=== PATIENT | female | born 1935 | race Caucasian/White ===

== ENCOUNTER 2016-11-16 08:00 | Emergency (ER) | payer OTHER ==
[~2016-11-16] VITALS: Ht 152.4 cm; Wt 62.8 kg
[2016-11-16 08:08] VITALS: TEMP 36.8; Ht 152.4 cm; Wt 62.8 kg
[2016-11-16] MEDS ORDERED: ALLO300T2 PO (08:25)
[2016-11-16] MEDS ORDERED: OMEG10007 PO (08:25)
[2016-11-16] MEDS ORDERED: ASPI81TA28 PO (08:25)
[2016-11-16] MEDS ORDERED: ROSU20TA PO (08:25)
[2016-11-16] MEDS ORDERED: LOSA50TA6 PO (08:25)
[2016-11-16] MEDS ORDERED: ONDA8TAB62 SL (08:25)
[2016-11-16] MEDS ORDERED: GABA-113 PO (08:25)
[2016-11-16] MEDS ORDERED: METO25TA56 PO (08:25)
[2016-11-16] MEDS ORDERED: FENTANYL CITRATE INJ 50 MCG/1 ML 2 ML VIAL IV STA (08:35)
[2016-11-16] MEDS ORDERED: SODIUM CHLORIDE 0.9% 1000ML 1,000 ML IV STA ×2 (08:35)
[2016-11-16] MEDS ORDERED: ONDANSETRON INJ 2 MG/ML 2 ML VIAL IV STA (08:35)
[2016-11-16 08:59] LABS: BASO % 0.3 %; BASO ABS # 0.03 K/uL (0-0.2); COMPLETE YES; EOS % 0.5 %; HEMATOCRIT 46.4 % (37-47); IG% 0.2 %; LYMPH % 13.7 %; LYMPH ABS # 1.51 K/uL (1.2-3.4); MEAN CELL VOLUME 96.9 fL (80-100); MEAN CORPUSCULAR HEMOGLOBIN 32.6 pg (25-34); MEAN CORPUSCULAR HGB CONC 33.6 g/dl (32-36); MEAN PLATELET VOLUME 11.4 fL (7.4-10.4); MONO % 8.6 %; NEUT % 76.7 %; PLATELET COUNT 114 K/uL (130-400); RED BLOOD COUNT 4.79 M/uL (4.2-5.4); WHITE BLOOD COUNT 11.04 K/uL (4.8-10.8)
[2016-11-16 09:03] LABS: BUN/CREATININE RATIO 17.6 (10-20); CALCIUM 9.4 mg/dl (8.5-10.1); POTASSIUM 4.3 mmol/L (3.5-5.1)
[2016-11-16 09:07] LABS: ALB/GLOB RATIO 0.9 (0.9-2)
[2016-11-16 09:08] LABS: URINE APPEARANCE CLOUDY (CLEAR); URINE BILIRUBIN NEG (NEG); URINE COLOR YELLOW; URINE NITRITE NEG (NEG); URINE SPECIFIC GRAVITY 1.016 (1.000-1.030); UROBILINOGEN NEG (NEG)
[2016-11-16 09:10] LABS: MANUAL MICROSCOPIC REQUIRED? NO; REVIEW REQ? NO
--- NOTE | 2016-11-16 10:06 | DIAGNOSTIC IMAGING REPORT ---
CT SCAN OF THE ABDOMEN AND PELVIS WITHOUT CONTRAST CLINICAL HISTORY: LEFT FLANK PAIN, HEMATURIA COMPARISON STUDY: No previous studies for comparison. TECHNIQUE: CT scan of the abdomen and pelvis was performed from the lung bases to the proximal femurs. Images are reviewed in the axial, sagittal, and coronal planes. IV contrast was not administered for this examination. A dose lowering technique was utilized adhering to the principles of ALARA. CT DOSE: 361.44 mGy.cm FINDINGS: Lower chest: The heart is normal in size and configuration, without pericardial effusion. The lung bases and pleural spaces are clear. Liver: There are bibasal atelectatic changes. Gallbladder: Unremarkable. Spleen: Normal in size and attenuation. Pancreas: Unremarkable. Adrenal glands: Unremarkable. Kidneys: There are multiple right renal calculi measuring up to 3 mm in diameter. There is a 14 mm lower pole right renal cyst. Multiple left renal calculi are also visualized. The largest measures 3 mm. There is left-sided hydronephrosis and perinephric stranding. There is left-sided hydroureter. There is a 4 mm mid left ureteral calculus. No bladder calculi are visualized Bowel: There are no transition zones indicate bowel obstruction. There is no acute diverticulitis. There is no acute appendicitis. Peritoneum: There is no intraperitoneal free air or abdominal ascites. Vasculature: The abdominal aorta is normal in course and caliber. Adenopathy: None. Pelvic viscera: The uterus appears surgically absent. Skeletal structures: No destructive osseous lesions are seen. IMPRESSION: 1. Bilateral nephrolithiasis 2. 4 mm mid left ureteral calculus with secondary obstructive changes Electronically signed by: Aurelio Kunz M.D. 11/16/2016 10:05 AM Dictated Date/Time: 11/16/2016 9:58 AM
[2016-11-16] MEDS ORDERED: KETOROLAC TROMETHAMINE 30 MG/ML VIAL IV STA (10:11)
--- NOTE | 2016-11-16 10:28 | EMERGENCY ROOM VISIT NOTE ---
ED Visit Note First contact with patient: 08:20 Staff note: I have reviewed the Patients chart and have discussed this case with my PA. I generally agree with the ED note and findings.
[2016-11-16] MEDS ORDERED: HYDR-5688 PO (10:58)
[2016-11-16] MEDS ORDERED: ONDA4TAB10 SL (10:58)
--- NOTE | 2016-11-16 10:59 | EMERGENCY ROOM VISIT NOTE ---
History First contact with patient: 08:20 Chief Complaint: ABDOMINAL PAIN Stated Complaint: LEFT SIDE STOMACH PAIN Nursing Triage Summary: Left sided abd/flank pain with nausea. Feeling bloated per pt. Hx of kidney stone approx 20 years ago. States did not take her morning medications. Seen at [facility] on 11/14 for same - while on vacation. History of Present Illness Patient is a 81-year-old white female who presents emergency department for evaluation of left-sided abdominal pain. Her symptoms started fairly suddenly [place] the beach 2 [place]. She notes pain primarily in the left lower quadrant, it wraps around to her back very slightly. She notes some associated nausea without vomiting. She was seen at an urgent care center in [place] where she was given an IM injection for nausea and sent home with Fang. She states that Zofran has been helping with her nausea, but the pain persists. She was very uncomfortable overnight and has difficulty sleeping. She presently rates her pain an 8/10, but states that it was worse overnight. Her bowel movements have been normal, last bowel movement was yesterday morning and was normal and brown without blood. She has not vomited. She has a remote history of a kidney stone 20 years ago, states that this feels slightly similar. She notes that her urine is "strong," denies any dysuria. She has been belching a lot. She has a history of a hysterectomy. She's never had a bout section. Her last colonoscopy was about 4 years ago and was clear. She denies any chest pain, palpitations or shortness of breath. Review of Systems Review of systems as per HPI. All other systems reviewed were negative. 10 systems reviewed. Past Medical/Surgical History Medical Problems: (1) Coronary artery disease (2) Dyslipidemia (3) Gout (4) Hypertension (5) Kidney stone (6) Myocardial infarction (7) Spinal stenosis Surgical Problems: (1) History of hysterectomy Electronic medical records are reviewed and summarized as above/below. See Problem List. Social History Smoking Status: Current Every Day Smoker Alcohol Use: occasionally Marital Status: Housing Status: lives alone Occupation Status: retired Current/Historical Medications Scheduled Allopurinol (Zyloprim), 300 MG PO DAILY Aspirin (Aspirin Ec), 81 MG PO DAILY Fish Oil (Aline-3), 1 CAP PO BID Gabapentin (Neurontin), 300 MG PO BID Losartan Potassium (Cozaar), 50 MG PO DAILY Metoprolol Tartrate (Lopressor) (Lopressor), 12.5 MG PO BID Rosuvastatin Calcium (Crestor), 20 MG PO DAILY Scheduled PRN Hydrocodone/Acetaminophen 5MG/325MG ([place] 5MG/325MG), 1-2 TABLETS PO Q4 PRN for Pain Ondansetron Odt (Zofran Odt), 4 MG SL Q6H PRN for Nausea Ondasetron Odt (Zofran Odt), 4 MG SL Q4 PRN for Nausea or Vomiting Physical Exam Vital Signs Date Time Temp Pulse Resp B/P (MAP) Pulse Ox O2 Delivery O2 Flow Rate FiO2 11/16/16 11:17 78 18 162/68 97 11/16/16 10:00 82 18 144/69 97 Room Air 11/16/16 08:08 36.8 84 18 145/69 93 Room Air Physical Exam CONSTITUTIONAL: Patient is a well-appearing 81-year-old white female who is awake and alert and in mild distress due to her abdominal pain. EYES: Pupils equal, round, reactive to light and accommodation. EOMs intact without nystagmus. Sclera are anicteric. ENT: Tympanic membranes intact, with normal landmarks. External canals are clear. Oral and nasopharynx are clear. Mucous membranes are moist, no lesions , tongue and gums appear normal. CARDIOVASCULAR: Regular rate and rhythm, with normal S1 and S2, soft systolic ejection murmur noted. No JVD. Peripheral pulses easily palpable. RESPIRATORY: Breath sounds equal and clear to auscultation without wheezes, rales, or rhonchi heard. Full and equal chest expansion without accessory muscle use or retractions. ABDOMEN: Bowel sounds are present. Well-healed surgical scar noted. Abdomen is soft, nondistended, tender to palpation in the left lower quadrant without guarding, rebound or rigidity. INTEGUMENTARY: No lesions or rash, normal skin turgor. LYMPH: No lymphadenopathy. Medical Decision & Procedures ER Provider Diagnostic Interpretation: CT SCAN OF THE ABDOMEN AND PELVIS WITHOUT CONTRAST CLINICAL HISTORY: LEFT FLANK PAIN, HEMATURIA COMPARISON STUDY: No previous studies for comparison. TECHNIQUE: CT scan of the abdomen and pelvis was performed from the lung bases to the proximal femurs. Images are reviewed in the axial, sagittal, and coronal planes. IV contrast was not administered for this examination. A dose lowering technique was utilized adhering to the principles of ALARA. CT DOSE: 361.44 mGy.cm FINDINGS: Lower chest: The heart is normal in size and configuration, without pericardial effusion. The lung bases and pleural spaces are clear. Liver: There are bibasal atelectatic changes. Gallbladder: Unremarkable. Spleen: Normal in size and attenuation. Pancreas: Unremarkable. Adrenal glands: Unremarkable. Kidneys: There are multiple right renal calculi measuring up to 3 mm in diameter. There is a 14 mm lower pole right renal cyst. Multiple left renal calculi are also visualized. The largest measures 3 mm. There is left-sided hydronephrosis and perinephric stranding. There is left-sided hydroureter. There is a 4 mm mid left ureteral calculus. No bladder calculi are visualized Bowel: There are no transition zones indicate bowel obstruction. There is no acute diverticulitis. There is no acute appendicitis. Peritoneum: There is no intraperitoneal free air or abdominal ascites. Vasculature: The abdominal aorta is normal in course and caliber. Adenopathy: None. Pelvic viscera: The uterus appears surgically absent. Skeletal structures: No destructive osseous lesions are seen. IMPRESSION: 1. Bilateral nephrolithiasis 2. 4 mm mid left ureteral calculus with secondary obstructive changes Laboratory Results 11/16/16 08:20 Red Blood Count 4.79, Mean Corpuscular Volume 96.9, Mean Corpuscular Hemoglobin 32.6, Mean Corpuscular Hemoglobin Concent 33.6, Mean Platelet Volume 11.4, Neutrophils (%) (Auto) 76.7, Lymphocytes (%) (Auto) 13.7, Monocytes (%) (Auto) 8.6, Eosinophils (%) (Auto) 0.5, Basophils (%) (Auto) 0.3, Neutrophils # (Auto) 8.48, Lymphocytes # (Auto) 1.51, Monocytes # (Auto) 0.95, Eosinophils # (Auto) 0.05, Basophils # (Auto) 0.03 11/16/16 08:20 Test 11/16/16 08:20 11/16/16 08:40 White Blood Count 11.04 K/uL (4.8-10.8) Red Blood Count 4.79 M/uL (4.2-5.4) Hemoglobin 15.6 g/dL (12.0-16.0) Hematocrit 46.4 % (37-47) Mean Corpuscular Volume 96.9 fL (80-100) Mean Corpuscular Hemoglobin 32.6 pg (25-34) Mean Corpuscular Hemoglobin Concent 33.6 g/dl (32-36) Platelet Count 114 K/uL (130-400) Mean Platelet Volume 11.4 fL (7.4-10.4) Neutrophils (%) (Auto) 76.7 % Lymphocytes (%) (Auto) 13.7 % Monocytes (%) (Auto) 8.6 % Eosinophils (%) (Auto) 0.5 % Basophils (%) (Auto) 0.3 % Neutrophils # (Auto) 8.48 K/uL (1.4-6.5) Lymphocytes # (Auto) 1.51 K/uL (1.2-3.4) Monocytes # (Auto) 0.95 K/uL (0.11-0.59) Eosinophils # (Auto) 0.05 K/uL (0-0.5) Basophils # (Auto) 0.03 K/uL (0-0.2) RDW Standard Deviation 46.3 fL (36.4-46.3) RDW Coefficient of Variation 13.1 % (11.5-14.5) Immature Granulocyte % (Auto) 0.2 % Immature Granulocyte # (Auto) 0.02 K/uL (0.00-0.02) Anion Gap 9.0 mmol/L (3-11) Est Creatinine Clear Calc Drug Dose 37.7 ml/min Estimated GFR () 62.1 Estimated GFR (Non- 53.5 BUN/Creatinine Ratio 17.6 (10-20) Calcium Level 9.4 mg/dl (8.5-10.1) Total Bilirubin 1.1 mg/dl (0.2-1) Aspartate Amino Transf (AST/SGOT) 45 U/L (15-37) Alanine Aminotransferase (ALT/SGPT) 44 U/L (12-78) Alkaline Phosphatase 78 U/L (45-117) Total Protein 7.0 gm/dl (6.4-8.2) Albumin 3.4 gm/dl (3.4-5.0) Globulin 3.6 gm/dl (2.5-4.0) Albumin/Globulin Ratio 0.9 (0.9-2) Lipase 114 U/L (73-393) Urine Color YELLOW Urine Appearance CLOUDY (CLEAR) Urine pH 5.0 (4.5-7.5) Urine Specific [place] 1.016 (1.000-1.030) Urine Protein NEG (NEG) Urine Glucose (UA) NEG (NEG) Urine Ketones NEG (NEG) Urine Occult Blood 3+ (NEG) Urine Nitrite NEG (NEG) Urine Bilirubin NEG (NEG) Urine Urobilinogen NEG (NEG) Urine Leukocyte Esterase TRACE (NEG) Urine WBC (Auto) 1-5 /hpf (0-5) Urine RBC (Auto) 10-30 /hpf (0-4) Urine Hyaline Casts (Auto) 0 /lpf (0-5) Urine Epithelial Cells (Auto) 5-10 /lpf (0-5) Urine Bacteria (Auto) NEG (NEG) Medications Administered Medications (Trade) Dose Ordered Sig/Chacho Route Start Time Stop Time Status Last Admin Dose Admin Sodium Chloride 1,000 ml @ 999 mls/hr Q1H1M STAT IV 11/16/16 08:35 11/16/16 09:35 DC 11/16/16 08:46 999 MLS/HR Sodium Chloride 1,000 ml @ 250 mls/hr Q4H STAT IV 11/16/16 08:35 11/16/16 11:34 DC 11/16/16 08:45 250 MLS/HR Ondansetron HCl (Zofran Inj) 4 mg NOW STAT IV 11/16/16 08:35 11/16/16 08:37 DC 11/16/16 08:45 4 MG Fentanyl Citrate (Fentanyl Inj) 50 mcg NOW STAT IV 11/16/16 08:35 11/16/16 08:37 DC 11/16/16 08:45 50 MCG Ketorolac Tromethamine (Toradol Inj) 30 mg NOW STAT IV 11/16/16 10:11 11/16/16 10:14 DC 11/16/16 10:24 30 MG ED Course The patient was seen and assessed as above. She has no old records at our facility for review. IV lock was initiated and she was hydrated with normal saline solution. She was medicated with fentanyl 50 g and Zofran 4 mg IV. CBC with differential, CMP, lipase and urinalysis were collected. Laboratory studies noted a slightly elevated white count at 11,000, H&H is normal. Electrolytes and renal functions are within normal limits. She has slight, nonspecific elevation of her total bilirubin and AST, remainder of her liver functions are normal. Lipase is not elevated. Urinalysis notes 3+ occult blood , 10-30 RBCs and trace leukoesterase, no bacteria or other indicators for infection. Given the left flank pain and hematuria, CT scan of the abdomen and pelvis was ordered to evaluate for possible kidney stone. CT scan noted a 4 mm left ureteral calculi, with left-sided hydronephrosis, hydroureter and perinephric stranding. Bilateral nephrolithiasis was also noted. All laboratory and diagnostic imaging studies were reviewed with patient and her daughter and discussed with attending physician who also independently evaluated the patient. Patient was given Toradol 30 mg IV. She was issued a urine strainer. Conservative care measures were discussed. The patient reported good relief of her pain with the IV medications. She rated her discomfort a 3/10 at discharge. She felt comfortable going home. She was educated on the worrisome signs or symptoms for which she should return to the emergency department. Patient was discharged home in good condition with her daughter driving. Differential diagnoses entertained included UTI, pyelonephritis, renal colic, diverticulitis, shingles, muscle strain, hernia, bowel obstruction, perforation , mass or malignancy, ovarian cyst, ovarian torsion, among others. Medical Decision See Emergency Department course [place] Drug Monitoring Program Search Results: patient reviewed within database, no issues identified Medication Reconcilliation Current Medication List: was personally reviewed by nd Blood Pressure Screening Patient's blood pressure: Elevated blood pressure Blood pressure disposition: Elevated BP felt to be situational, Did not require urgent referral Impression Primary Impression: Left ureteral calculus Additional Impressions: Bilateral nephrolithiasis Renal colic on left side Departure Information Prescriptions Ondasetron Odt (ZOFRAN ODT) 4 Mg Tab 4 MG SL Q4 Y for Nausea or Vomiting, #20 TAB Prov: Arabella Carrion PA 11/16/16 Hydrocodone/Acetaminophen 5MG/325MG ([place] 5MG/325MG) Tab 1-2 TABLETS PO Q4 Y for Pain, #25 TAB For Initial Treatment Prov: Arabella Carrion PA 11/16/16 Referrals No Doctor, Assigned (PCP) Patient Instructions [facility] Additional Instructions DO NOT drive, drink alcohol, operate machinery, or perform dangerous activities today. You were given medications in the ER that can affect your ability to safely function or operate a vehicle. Hydrocodone/Acetaminophen ([place]) 5/325 mg: Take 1-2 pills every four hours for breakthrough pain. Avoid alcohol, operating machinery or dangerous equipment, working on ladders or roofs, DRIVING, or situations where being under the influence may be dangerous. It is recommended to use an [id number] stool softener such as Colace, 100mg twice daily while taking this medication to avoid constipation. Zofran(odansetron) tablets 4mg: Take one and allow it to dissolve in your mouth every four to six hours as needed for nausea or vomiting. Strain your urine and collect all the stones or debris for the urologists. Rest and avoid strenuous activity until your stone passes and symptoms resolve. Drink plenty of fluids. Continue current medications. Return to the ER for worsening abdominal or back pain, vomiting, fevers, passing out, or as needed. Follow up with your primary care physician next week for further care and management. Problem Qualifiers
[2016-11-16 11:17] VITALS: BP 162/68; PULSE 78; O2SAT 97
== END 2016-11-16 11:18 | disposition home or self-care (01) ==
LOC: C.EDB 08:02 → C.EDA 11:18
DX: N13.2 Hydronephrosis with renal and ureteral calculous obstruction (principal); Z90.710 Acquired absence of both cervix and uterus; I25.10 Atherosclerotic heart disease of native coronary artery without angina pectoris; E78.5 Hyperlipidemia, unspecified; M10.9 Gout, unspecified; I10 Essential (primary) hypertension; I25.2 Old myocardial infarction; M48.00 Spinal stenosis, site unspecified; F17.210 Nicotine dependence, cigarettes, uncomplicated; Z79.82 Long term (current) use of aspirin; Z79.899 Other long term (current) drug therapy

== ENCOUNTER → 2016-11-30 | Outpatient (CLI) | payer OTHER ==
[~2016-11-30] MED LIST: ALLO300T2 PO; ASPI81TA28 PO; GABA-113 PO; HYDR-5688 PO; LOSA50TA6 PO; METO25TA56 PO; OMEG10007 PO; ONDA4TAB10 SL; ONDA8TAB62 SL; ROSU20TA PO
== END | disposition home or self-care (01) ==
LOC: C.LABSPEC 17:04
PROVIDERS: ATTEND Urology
DX: N20.0 Calculus of kidney (principal)

== ENCOUNTER → 2017-01-13 | Outpatient (CLI) | payer OTHER ==
--- NOTE | 2017-01-13 10:55 | DIAGNOSTIC IMAGING REPORT ---
KUB HISTORY: N20.0 [id number] COMPARISON: Abdomen and pelvis CT 11/16/2016. FINDINGS: The bowel gas pattern is unremarkable. There are no dilated loops of small bowel to suggest an obstruction. There is a 4 mm stone within the lower pole the left kidney. No right renal calculi identified. Of note, the right renal shadow is mostly obscured by overlying bowel gas. There is a 5 mm calcification overlying the left side of the sacrum. This may correspond to the left ureteral stone seen on the prior study. No bladder calculi. No pneumoperitoneum or pneumatosis. IMPRESSION: A 5 mm calcification overlying the left side of the sacrum which may correspond to the left ureteral stone seen on the prior CT. Electronically signed by: Gato Paula M.D. 01/13/2017 10:54 AM Dictated Date/Time: 01/13/2017 10:51 AM
--- NOTE | 2017-01-13 11:27 | DIAGNOSTIC IMAGING REPORT ---
RENAL ULTRASOUND HISTORY: N20.0 Nephrolithiasis latex [id number] COMPARISON: Abdomen and pelvis CT 11/16/2016. FINDINGS: Right kidney: 10.4 cm. No hydronephrosis. Normal corticomedullary differentiation and cortical thickness. A 1 cm bilobed/septated cyst within the lower pole. Left kidney: 10.8 cm. No hydronephrosis. Normal corticomedullary differentiation and cortical thickness. Bladder: No bladder wall thickening. The bilateral ureteral jets were identified. IMPRESSION: No hydronephrosis. Electronically signed by: Gato Paula M.D. 01/13/2017 11:26 AM Dictated Date/Time: 01/13/2017 11:25 AM
== END ==
LOC: C.ULTR 10:03
PROVIDERS: ATTEND Urology
DX: N20.0 Calculus of kidney (principal)

== ENCOUNTER → 2017-07-12 | Outpatient (CLI) | payer OTHER ==
[~2017-07-12] MED LIST changes: -HYDR-5688 PO; -ONDA4TAB10 SL
--- NOTE | 2017-07-12 10:37 | DIAGNOSTIC IMAGING REPORT ---
(RENAL)RETROPERITON COMP CLINICAL HISTORY: 82 years-old Female presenting with N13.30 [id number] Nephrolithiasis no latex [id number]. TECHNIQUE: Real-time grayscale and limited color Doppler ultrasound imaging of the kidneys and bladder was performed. COMPARISON: 01/13/[address] from 11/16/2016. FINDINGS: Right kidney: Normal echogenicity of renal parenchyma. Right kidney measures 10.7 cm. No hydronephrosis. 1.0 x 1.2 x 0.7 cm anechoic lesion at the lower pole with a single thin septation, likely minimally complex cyst (Bosniak 2). Left kidney: Normal echogenicity of renal parenchyma. Left kidney measures 11.8 cm. No hydronephrosis. Multiple small foci of twinkling artifact suggests renal calculi. Bladder: Normal. Bilateral ureteral jets present. Other: Hyperechogenicity of the liver parenchyma suggests underlying hepatic steatosis. IMPRESSION: 1. The presence of bilateral nephrolithiasis is better appreciated on prior CT from 11/16/2016. Left renal calculi is suspected based on this ultrasound. 2. No hydronephrosis. 3. Minimally complex right renal cyst (likely Bosniak 2). Electronically signed by: Jeff Stewart M.D. 07/12/2017 10:35 AM Dictated Date/Time: 07/12/2017 10:32 AM
== END | disposition home or self-care (01) ==
LOC: C.ULTR 09:40
PROVIDERS: ATTEND Urology
DX: N13.30 Unspecified hydronephrosis (principal); N20.0 Calculus of kidney

== ENCOUNTER 2022-05-07 12:12 | Inpatient (IN) ==
[2022-05-07] MEDS ORDERED: SODIUM CHLORIDE 0.9% 1000ML 1,000 ML IV ONE (12:44)
[2022-05-07] MEDS ORDERED: MoRPHine SULFATE 2 MG/ML CARP IV PRN (12:44)
--- NOTE | 2022-05-07 12:49 | Emergency Department Note ---
Impression & Plan Fracture of right hip, Fall, COVID-19, Abnormal blood electrolyte level ED Provider Note NAME: ANA FULTON AGE: 87 SEX: F : 1935 ARRIVES VIA: Ambulance INFORMANT: Patient, ED PROVIDER(S): Quinn Wright MD CHIEF COMPLAINT: Fall, hip pain MEDICAL DECISION MAKING: Patient presents status post ground-level fall with a likely hip deformity. The patient was noted in triage to be hypotensive and was placed in B1. Patient did have bladder completed along with a right hip and pelvis x-rays. Patient's blood work shows a normal white count H&H and mild thrombocytopenia of 111. Patient's kidney function is unremarkable. BSG at 211 with a calcium of 8.4 slightly low. Sodium 133. Patient is COVID-positive. Chest x-ray clear. Hip and pelvis x-ray does show a right intertrochanteric fracture. I did speak with on-call orthopedist Dr. Nunez and he is aware and will plan for likely operative fixation tomorrow. 6 at night I did speak with on-call hospitalist ALEXANDRU Lawson and the patient was admitted by Dr. Morton. Prior /Outside records reviewed: I did review the patient's most recent urology note March 11, 2022 this is for follow-up for right renal mass and complex cyst Differential diagnosis: Fracture, subluxation, dislocation, contusion, ligamentous injury, neurovascular, compartment syndrome, rhabdomyolysis, as well as other pathologies. Diagnostics, as interpreted by me: ECG: Sinus bradycardia, rate of 58, normal intervals normal axis no ST elevations or T WI. Cardiac monitoring: An order was placed for continuous cardiac monitoring. The monitor shows a rate of 62 with sinus rhythm. Patient was placed on pulse oximetry Medical decision rules: None Imaging studies: See below HPI: Patient presents due to concern for ground-level fall. The patient did present via EMS after a fall that occurred earlier today and states that she got spooked by the wind and she was bringing her trash can. The patient states that she fell to the right side. Patient denies any head strike or LOC and denies any blood thinning medications. Patient did have nausea with one episode of vomiting. No prior history of orthopedic work. Patient does complain of right-sided hip pain that is achy occasionally sharp and nonradiating. The patient denies any additional injury or pain at this time. He denies any head or neck pain. PAST MEDICAL HISTORY: See Below PAST SURGICAL HISTORY: See Below SOCIAL HISTORY: See Below HOME MEDICATIONS: See Below ALLERGIES: See Below VITALS: See Below PHYSICAL EXAMINATION: GENERAL: NAD, wearing a mask, non-toxic. EYE EXAM: Normal conjunctiva. PERRL, no anisocoria and EOM's grossly intact w/o pain. NECK: Supple, no nuchal rigidity, no adenopathy, non-tender. No signs of meningismus. FROM of the neck with good chin to chest and neck extension. No stridor. LUNGS: Clear to auscultation. Normal chest wall mechanics. HEART: NSR, no MRG. ABDOMEN: Abdomen soft, non-tender, normo-active bowel sounds, no masses, no rebound or guarding. BACK: No CVA TTP. SKIN: No rashes and no bruising. UPPER EXTREMITIES: Upper extremities are grossly normal. LOWER EXTREMITIES: Grossly normal, no edema. NEURO EXAM: A&O x3, cranial nerves II-XII grossly intact, normal speech, moves all 4 extremities. Past Med/Surg History Medical History Coronary artery disease Gout Hypertension Myocardial infarction Type 2 diabetes mellitus Surgical History No pertinent past surgical history Social History Smoking Status: Current every day smoker Tobacco Type: Cigarettes Preferred Language: Arabic Feels Safe at Home: Yes Allergies Allergies Allergy/AdvReac Type Severity Reaction Status Date / Time lisinopril Allergy Unknown Cough Verified 04/26/22 02:58 Home Meds Home Medications Medication Instructions Recorded Confirmed Benadryl Itch Stoping Gel 2% 1 applic topical DIRECTED PRN 04/26/22 04/26/22 Itching allopurinol 300 mg tablet 300 mg PO HS 04/26/22 04/26/22 amlodipine 5 mg tablet 5 mg PO DAILY 04/26/22 04/26/22 aspirin 81 mg tablet,delayed 81 mg PO DAILY 04/26/22 04/26/22 release diclofenac sodium 1 % topical gel 0 g topical QID PRN .wrist/hands 04/26/22 04/26/22 gabapentin 300 mg capsule 300 mg PO TID 04/26/22 04/26/22 losartan 50 mg tablet 50 mg PO QAM 04/26/22 04/26/22 metoprolol succinate 25 mg 12.5 mg PO QAM 04/26/22 04/26/22 tablet,extended release 24 hr nitroglycerin 0.4 mg sublingual 0.4 mg sublingual DIRECTED PRN 04/26/22 04/26/22 tablet Chest Pain omega-3 fatty acids 1,000 mg 1,000 mg PO BID 04/26/22 04/26/22 capsule promethazine-DM 6.25 mg-15 mg/5 mL 5 ml PO QID PRN Cough 04/26/22 04/26/22 oral syrup rosuvastatin 5 mg tablet 5 mg PO QAM 04/26/22 04/26/22 Results & Data (ED) Vital Signs Vital Signs - 24 hr 05/07/22 12:25 05/07/22 13:16 05/07/22 13:03 Temperature 36.3 C L Temperature Source Temporal Artery Scan Oral Pulse Rate 57 L 68 Pulse Rate from SpO2 Sensor Respiratory Rate 19 23 Blood Pressure 64/40 L Blood Pressure Mean 48 Pulse Oximetry 94 Oxygen Delivery Method Room Air Sepsis Recent Fever Within 48 Hours No Sepsis New/Unexplained Change in Mental Status N/A Sepsis Action Taken by Nursing No Action Required 05/07/22 13:05 05/07/22 13:05 05/07/22 13:10 Temperature Temperature Source Pulse Rate 69 Pulse Rate from SpO2 Sensor Respiratory Rate 20 Blood Pressure 121/48 L 127/60 Blood Pressure Mean 72 82 Pulse Oximetry Oxygen Delivery Method Sepsis Recent Fever Within 48 Hours Sepsis New/Unexplained Change in Mental Status Sepsis Action Taken by Nursing 05/07/22 13:10 05/07/22 13:15 05/07/22 13:15 Temperature Temperature Source Pulse Rate 71 72 Pulse Rate from SpO2 Sensor 66 56 L Respiratory Rate 20 20 Blood Pressure 130/47 L Blood Pressure Mean 74 Pulse Oximetry 94 Oxygen Delivery Method Sepsis Recent Fever Within 48 Hours Sepsis New/Unexplained Change in Mental Status Sepsis Action Taken by Retirement Medications Current Medication List: was personally reviewed by me Laboratory Data Attestation: I reviewed the patient's lab results. 05/07/22 13:00 05/07/22 13:00 Lab Results 05/07/22 05/07/22 05/07/22 Range/Units 13:00 13:00 13:00 WBC 9.78 (4.8-10.8) K/ul RBC 4.35 (4.20-5.40) M/uL Hgb 14.1 (12.0-16.0) g/dl Hct 41.6 (37.0-47.0) % MCV 95.6 (80.0-100.0) fL MCH 32.4 (25.0-34.0) pg MCHC 33.9 (32.0-36.0) g/dL RDW Std Deviation 48.2 H (36.4-46.3) fL RDW Coeff of Rosita 13.6 (11.5-14.5) % Plt Count 111 L (130-400) K/uL MPV 11.8 (9.4-12.4) fL Immature Gran % (Auto) 0.7 % Neut % (Auto) 77.2 % Lymph % (Auto) 12.0 % [place] % (Auto) 9.4 % Eos % (Auto) 0.4 % Baso % (Auto) 0.3 % Neut # (Auto) 7.55 H (1.40-6.50) K/uL Lymph # (Auto) 1.17 L (1.2-3.4) K/uL [place] # (Auto) 0.92 H (0.11-0.59) K/uL Eos # (Auto) 0.04 (0-0.50) K/uL Baso # (Auto) 0.03 (0-0.2) K/uL Immature Gran # (Auto) 0.07 (0.01-0.20) K/uL PT 11.3 (9.0-12.0) Seconds INR 1.1 (0.9-1.1) APTT 23.1 (21.0-31.0) Seconds PTT Ratio 0.8 Sodium 133 L (136-145) mmol/L Potassium 4.9 (3.5-5.1) mmol/L Chloride 104 (98-107) mmol/L Carbon Dioxide 23 (21-32) mmol/L Anion Gap 6 (3-11) BUN 17 (6-23) mg/dl Creatinine 1.04 (0.6-1.2) mg/dl Est Cr Clr Drug Dosing Not Reportable Est GFR ( Amer) 56.7 ml/min Est GFR (Non-Af Amer) 49.0 ml/min BUN/Creatinine Ratio 16.3 (10-20) Glucose 211 H (70-99(Fasting)) mg/dl Calcium 8.4 L (8.5-10.1) mg/dl Total Bilirubin 1.0 (0.2-1.0) mg/dl AST 18 (13-39) U/L ALT 17 (7-52) U/L Alkaline Phosphatase 59 (34-104) U/L Total Protein 5.7 L (6.0-8.3) gm/dl Albumin 3.5 (3.4-5.0) gm/dl Globulin 2.2 L (2.5-4.0) gm/dl Albumin/Globulin Ratio 1.6 (0.9-2) SARS-CoV-2, RNA, NAAT (NEGATIVE) 05/07/22 Range/Units 13:08 WBC (4.8-10.8) K/ul RBC (4.20-5.40) M/uL Hgb (12.0-16.0) g/dl Hct (37.0-47.0) % MCV (80.0-100.0) fL MCH (25.0-34.0) pg MCHC (32.0-36.0) g/dL RDW Std Deviation (36.4-46.3) fL RDW Coeff of Rosita (11.5-14.5) % Plt Count (130-400) K/uL MPV (9.4-12.4) fL Immature Gran % (Auto) % Neut % (Auto) % Lymph % (Auto) % [place] % (Auto) % Eos % (Auto) % Baso % (Auto) % Neut # (Auto) (1.40-6.50) K/uL Lymph # (Auto) (1.2-3.4) K/uL [place] # (Auto) (0.11-0.59) K/uL Eos # (Auto) (0-0.50) K/uL Baso # (Auto) (0-0.2) K/uL Immature Gran # (Auto) (0.01-0.20) K/uL PT (9.0-12.0) Seconds INR (0.9-1.1) APTT (21.0-31.0) Seconds PTT Ratio Sodium (136-145) mmol/L Potassium (3.5-5.1) mmol/L Chloride (98-107) mmol/L Carbon Dioxide (21-32) mmol/L Anion Gap (3-11) BUN (6-23) mg/dl Creatinine (0.6-1.2) mg/dl Est Cr Clr Drug Dosing Est GFR ( Amer) ml/min Est GFR (Non-Af Amer) ml/min BUN/Creatinine Ratio (10-20) Glucose (70-99(Fasting)) mg/dl Calcium (8.5-10.1) mg/dl Total Bilirubin (0.2-1.0) mg/dl AST (13-39) U/L ALT (7-52) U/L Alkaline Phosphatase (34-104) U/L Total Protein (6.0-8.3) gm/dl Albumin (3.4-5.0) gm/dl Globulin (2.5-4.0) gm/dl Albumin/Globulin Ratio (0.9-2) SARS-CoV-2, RNA, NAAT POSITIVE A* (NEGATIVE) Administered Medications Discontinued Medications Sodium Chloride (Nss 1000ml) 1,000 mls @ 999 mls/hr IV .[id number] ONE Stop: 05/07/22 13:44 Last Infusion: 05/07/22 14:11 Dose: 0 mls/hr Documented By: Admin: 05/07/22 12:49 Dose: 999 mls/hr Documented By: JPG Imaging Data Radiologist's Impression: Hip/Pelvis X-Ray 05/07/22 12:44 XR hip RT 2V w pelvis CLINICAL HISTORY: likely frx TECHNIQUE: 2 views of the right hip and single frontal view of the pelvis were obtained. Comparison: None available at the time of this dictation. FINDINGS: Intertrochanteric fracture of the right hip is seen. Degenerative changes are seen in the lumbar spine and hip joints. Soft tissue swelling is seen. IMPRESSION: Intertrochanteric fracture of the right hip with associated soft tissue swelling. ACT 112: Negative or not required by law. Electronically signed by: Choco Helton M.D. 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 Acute fracture of the right hip COMPARISON: Chest radiograph April 26, 2022 TECHNIQUE: Supine AP view of the chest FINDINGS: Cardiomediastinal and hilar silhouettes are within normal limits. Atherosclerosis of the aorta. No pneumothorax, pleural effusion, airspace consolidation or overt pulmonary edema. Degenerative changes of the shoulders and spine. IMPRESSION: No acute process. ACT 112: Negative or not required by law. The above report was generated using voice recognition software. It may contain grammatical, syntax or spelling errors. Electronically signed by: Aiden Baltazar M.D. 05/07/2022 2:17 PM Discharge Plan Visit Data Chief Complaint: Fall Stated Complaint: FALL, R HIP PAIN ED Provider: Quinn Wright Discharge Problem: Fracture of right hip, Fall, COVID-19, Abnormal blood electrolyte level Patient Disposition: Admitted As Inpatient Forms Stand Alone Forms: [facility] Prescriptions Prescriptions: No Action losartan 50 mg tablet 50 mg PO QAM omega-3 fatty acids [Fish Oil Concentrate] 1,000 mg Capsule 1,000 mg PO BID amlodipine 5 mg tablet 5 mg PO DAILY aspirin [Aspir-Low] 81 mg Tablet,Delayed Release (Dr/Ec) 81 mg PO DAILY nitroglycerin 0.4 mg tablet, sublingual 0.4 mg sublingual DIRECTED PRN (Reason: Chest Pain) gabapentin 300 mg capsule 300 mg PO TID allopurinol 300 mg tablet 300 mg PO HS metoprolol succinate 25 mg tablet extended release 24 hr 12.5 mg PO QAM rosuvastatin 5 mg tablet 5 mg PO QAM Referrals Referrals: Arnulfo Hernández MD [Primary Care Provider] -
[2022-05-07 13:47] LABS: Hematocrit (blood only) 41.6 % (37.0-47.0); Hemoglobin 14.1 g/dl (12.0-16.0); Mean Corpuscular Hemoglobin 32.4 pg (25.0-34.0); Mean Corpuscular Hgb Conc 33.9 g/dL (32.0-36.0); Mean Corpuscular Volume 95.6 fL (80.0-100.0); Mean Platelet Volume 11.8 fL (9.4-12.4); Platelet Count 111 K/uL (130-400); RDW Coefficient of Variation 13.6 % (11.5-14.5); RDW Standard Deviation 48.2 fL (36.4-46.3); Red Blood Count 4.35 M/uL (4.20-5.40); White Blood Count 9.78 K/ul (4.8-10.8)
[2022-05-07 13:49] LABS: Alanine Aminotransferase 17 U/L (7-52); Albumin Globulin Ratio 1.6 (0.9-2); Albumin Level 3.5 gm/dl (3.4-5.0); Alkaline Phosphatase 59 U/L (34-104); Anion Gap 6 (3-11); Aspartate Aminotransferase 18 U/L (13-39); BUN Creatinine Ratio 16.3 (10-20); Blood Urea Nitrogen 17 mg/dl (6-23); Calcium 8.4 mg/dl (8.5-10.1); Carbon Dioxide 23 mmol/L (21-32); Chloride 104 mmol/L (98-107); Est GFR (African American) 56.7 ml/min; Globulin 2.2 gm/dl (2.5-4.0); Glucose 211 mg/dl (70-99(Fasting)); Potassium 4.9 mmol/L (3.5-5.1); Sodium 133 mmol/L (136-145); Total Protein 5.7 gm/dl (6.0-8.3)
[2022-05-07 13:54] LABS: INR 1.1 (0.9-1.1); Partial Thromboplastin Ratio 0.8; Partial Thromboplastin Time 23.1 Seconds (21.0-31.0); Prothrombin Time 11.3 Seconds (9.0-12.0)
[2022-05-07 14:00] LABS: Basophils # (auto) 0.03 K/uL (0-0.2); Basophils % (auto) 0.3 %; Eosinophils # (auto) 0.04 K/uL (0-0.50); Eosinophils % (auto) 0.4 %; Immature Granulocytes # (auto) 0.07 K/uL (0.01-0.20); Immature Granulocytes % (auto) 0.7 %; Lymphocytes # (auto) 1.17 K/uL (1.2-3.4); Monocytes # (auto) 0.92 K/uL (0.11-0.59); Monocytes % (auto) 9.4 %; Neutrophils # (auto) 7.55 K/uL (1.40-6.50); Neutrophils % (auto) 77.2 %
--- NOTE | 2022-05-07 14:18 | XRay Report ---
XR hip RT 2V w pelvis CLINICAL HISTORY: likely frx TECHNIQUE: 2 views of the right hip and single frontal view of the pelvis were obtained. Comparison: None available at the time of this dictation. FINDINGS: Intertrochanteric fracture of the right hip is seen. Degenerative changes are seen in the lumbar spin e and hip joints. Soft tissue swelling is seen. IMPRESSION: Intertrochanteric fracture of the right hip with associated soft tissue swelling. ACT 112: Negative or not required by law. Electronically signed by: Choco Helton M.D. 05/07/2022 2:16 PM
--- NOTE | 2022-05-07 14:19 | XRay Report ---
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 Acute fracture of the right hip COMPARISON: Chest radiograph April 26, 2022 TECHNIQUE: Supine AP view of the chest FINDINGS: Cardiomediastinal and hilar silhouettes are within normal limits. Atherosclerosis of the aorta. No pn eumothorax, pleural effusion, airspace consolidation or overt pulmonary edema. Degenerative changes o f the shoulders and spine. IMPRESSION: No acute process. ACT 112: Negative or not required by law. The above report was generated using voice recognition software. It may contain grammatical, syntax o r spelling errors. Electronically signed by: Aiden Baltazar M.D. 05/07/2022 2:17 PM
--- NOTE | 2022-05-07 16:02 | History & Physical Report ---
Date of Service May 07, 2022 Assessment & Plan (1) Fracture of right hip: Plan: Admit to [facility] Patient presenting after mechanical fall and subsequent right hip pain. Found to have intertrochanteric right hip fracture. Pain control with bowel regimen EKG and CXR reviewed Further management as per Ortho GSCRI 0.2% -- patient considered acceptable risk to proceed to surgery (2) COVID-19: Plan: Tested positive for COVID-19 Reports ongoing cough and sinus congestion for the past 4 weeks. Tested negative for COVID-19 on 04/26/2022 Saturating well on room air, no infiltrate on CXR Due to ongoing URI symptoms, will start patient on Augmentin (3) CAD (coronary artery disease): Plan: Appears stable, no reports of chest pain, EKG without acute ST changes Continue ASA, statin, beta-fariba (4) Hypertension: Plan: BP controlled, continue amlodipine, losartan, and metoprolol (5) Renal mass, right: (6) Complex renal cyst: Plan: Follows closely with urology DVT PROPHYLAXIS SCDs due to anticipated surgery I spent a total of 60 minutes coordinating, documenting, and providing care for this patient excluding time spent in the performance of separately billed services. This included personally reviewing all current laboratories and imaging studies, medication reconciliation, outpatient chart review, and discussion with specialists. History of Present Illness Chief Complaint: Fall, right hip pain Primary Care Provider: Arnulfo Hernández MD 87-year-old female with PMH CAD s/p remote LAD stenting in 1999, HTN, gout, chronic back pain, renal mass/complex cyst followed closely by urology, and other problems listed below who presents the ED for evaluation after a fall and right hip pain. Patient reports that she was bringing the garbage can in from the side of the road when there was a big [place]inth[place] of wind causing her in the garbage can to follow her. Patient fell onto her right side and she reports she had immediate right hip pain and was unable to stand up. Garbage collectors and e mail system administrator were close by who are able to carry her into her home. Patient was then brought to the ED for further evaluation. Patient reports she has been feeling pretty well recently. She does report a productive cough and sinus drainage over the past 4 weeks. Patient was seen in the ED 2 weeks ago and had an unremarkable work-up. Patient was placed on a 5-day course of prednisone without any improvement in her symptoms. Patient did test positive for COVID-19 in the ED today. Patient reports she continues to be active at her home and activities of daily living. Denies any recent episodes of chest pain or shortness of breath. No abdominal pain, nausea, vomiting, diarrhea. Denies urinary symptoms. In the ED, patient is found to have intertrochanteric fracture of the right hip. She was also hypotensive on arrival that improved after IVF. Allergies Allergy/AdvReac Type Severity Reaction Status Date / Time lisinopril Allergy Unknown Cough Verified 05/07/22 14:48 Home Medications Medication Instructions Recorded Confirmed Type allopurinol 300 mg tablet 300 mg PO HS 04/26/22 05/07/22 History amlodipine 5 mg tablet 5 mg PO DAILY 04/26/22 05/07/22 History aspirin 81 mg tablet,delayed 81 mg PO DAILY 04/26/22 05/07/22 History release gabapentin 300 mg capsule 300 mg PO TID 04/26/22 05/07/22 History losartan 50 mg tablet 50 mg PO QAM 04/26/22 05/07/22 History metoprolol succinate 25 mg 12.5 mg PO QAM 04/26/22 05/07/22 History tablet,extended release 24 hr nitroglycerin 0.4 mg sublingual 0.4 mg sublingual DIRECTED PRN 04/26/22 05/07/22 History tablet Chest Pain omega-3 fatty acids 1,000 mg 1,000 mg PO BID 04/26/22 05/07/22 History capsule rosuvastatin 5 mg tablet 5 mg PO QAM 04/26/22 05/07/22 History acetaminophen 500 mg tablet 500 mg PO Q6H PRN Pain 05/07/22 05/07/22 History (Tylenol Extra Strength) Past Med/Surg History Medical History Complex renal cyst Coronary artery disease 1999 - NSTEMI s/p LAD stent x 1 Gout Hypertension Myocardial infarction Renal mass, 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 Type 2 diabetes mellitus Surgical History No pertinent past surgical history Family History (Updated 05/07/22 @ 15:56 by ALEXANDRU Matos) Other Family history non-contributory Social History (Updated 05/07/22 @ 15:56 by ALEXANDRU Matos) Smoking Status: Current every day smoker Tobacco Type: Cigarettes Cigarettes Per Day: 8; Hx Alcohol Use: Yes Hx Substance Use: No Preferred Language: Citizen Of [place] Communication Ability: Effective [employer] Required: No Beliefs That Will Affect Care: None Current Living Situation: Alone Other Information That Helps Us Care for You: No Feels Safe at Home: Yes Safety Concerns: Feels Safe At This Time Assistive Devices: Glasses Review of Systems Review of Systems: ROS per HPI, all other systems reviewed and negative Physical Exam Constitutional: WD/WN, vitals as above Eyes: PERRL, conjunctivae normal, anicteric sclerae ENMT: external ear and nose normal, oropharynx normal Respiratory: normal respiratory effort, lungs clear to auscultation Cardiovascular: Rate/Rhythm: regular rate and regular rhythm Vessels: normal peripheral pulses Extremities: no edema Gastrointestinal (Abdomen): normal bowel sounds, soft, nontender, no hepat osplenomegaly Musculoskeletal: Hip: + hip abnormal to inpsection (pain with minimal palpation over the right hip, CSM checks intact RLE) Skin: no rashes, warm and dry Neurologic: PERRL, EOMI, accommodation nl, no face palsy, no dysarthria Psychiatric: A+Ox3, euthymic affect Results & Data Results & Data ([facility]) Vital Signs (Past 12 Hours) Vital Signs Temp Pulse Pulse Resp BP BP Pulse Ox 05/07/22 15:00 75 18 133/61 94 05/07/22 13:15 130/47 L 05/07/22 13:15 72 20 05/07/22 13:10 71 20 94 05/07/22 13:10 127/60 05/07/22 13:05 121/48 L 05/07/22 13:05 69 20 05/07/22 13:03 68 23 05/07/22 12:25 36.3 C L 57 L 19 64/40 L 94 O2 Del Method 05/07/22 15:00 Room Air 05/07/22 13:15 05/07/22 13:15 05/07/22 13:10 05/07/22 13:10 05/07/22 13:05 05/07/22 13:05 05/07/22 13:03 05/07/22 12:25 Room Air Laboratory Results Short CBC 05/07/22 Range/Units 13:00 WBC 9.78 (4.8-10.8) K/ul Hgb 14.1 (12.0-16.0) g/dl Hct 41.6 (37.0-47.0) % Plt Count 111 L (130-400) K/uL BMP 05/07/22 13:00 Sodium 133 L Potassium 4.9 Chloride 104 Carbon Dioxide 23 BUN 17 Creatinine 1.04 Glucose 211 H Calcium 8.4 L Liver Function 05/07/22 Range/Units 13:00 Total Bilirubin 1.0 (0.2-1.0) mg/dl AST 18 (13-39) U/L ALT 17 (7-52) U/L Alkaline Phosphatase 59 (34-104) U/L Albumin 3.5 (3.4-5.0) gm/dl Diagnostic Findings Hip/Pelvis X-Ray 05/07/22 12:44 XR hip RT 2V w pelvis CLINICAL HISTORY: likely frx TECHNIQUE: 2 views of the right hip and single frontal view of the pelvis were obtained. Comparison: None available at the time of this dictation. FINDINGS: Intertrochanteric fracture of the right hip is seen. Degenerative changes are seen in the lumbar spine and hip joints. Soft tissue swelling is seen. IMPRESSION: Intertrochanteric fracture of the right hip with associated soft tissue swelling. ACT 112: Negative or not required by law. Electronically signed by: Choco Helton M.D. 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 Acute fracture of the right hip COMPARISON: Chest radiograph April 26, 2022 TECHNIQUE: Supine AP view of the chest FINDINGS: Cardiomediastinal and hilar silhouettes are within normal limits. Atherosclerosis of the aorta. No pneumothorax, pleural effusion, airspace consolidation or overt pulmonary edema. Degenerative changes of the shoulders and spine. IMPRESSION: No acute process. ACT 112: Negative or not required by law. The above report was generated using voice recognition software. It may contain grammatical, syntax or spelling errors. Electronically signed by: Aiden Baltazar M.D. 05/07/2022 2:17 PM Code Status & VTE Plan VTE Prophylaxis Plan VTE Prophylaxis will be ordered: Yes Supervising Physician Co-Signing Physician Notes Care coordinated with ALEXANDRU Matos. Agree with above note. Patient seen and examined. Please refer to her notes for full details. Vital signs reviewed. Physical exam: General exam: Alert and oriented. Not in acute distress. CVS: S1 and S2 heard, regular rate and rhythm, no murmurs. RS: Clear to auscultation, no wheezing or crackles. ABD: Soft, bowel sounds present, nontender, no distention. ROD CUP FILLER: Nonfocal. EXT: right lower extremity shortened and externally rotated. No bruise seen Labs: Reviewed. Assessment and plan: 87F presents with mechanical fall when trying to get garbage can and cinthia of wind pushed her and fell down on right side. Found to have right hip fracture. Patient having cough since several weeks , was in ER couple of weeks ago was treated with short course of steroid but not improved. Bringing sputum. Thinks yesterday might had mild fever. Today in ER covid positive. HAd covid vaccinated and boosted , last booster 03/03. Denies chest pain or sob. Has some nausea. NO abdominal pain. Had one episode of diarrhea today. When coughing her right hip is hurting more. Right hip fracture mechanical fall labs, ekg and chest x ray ok hemodynamics stable saturating fine on room air should be at acceptable risk to proceed with surgery npo after midnight gentle fluids pain control Hx of CAD and HTN continue home meds. Other diagnosis and plan of care as per ALEXANDRU Matos. . John villalba MD.
[2022-05-07] MEDS ORDERED: NALOXONE HCL 0.4 MG/1 ML VIAL/CARP IV PRN (18:10)
[2022-05-07] MEDS ORDERED: oxyCODONE HCL IR 5 MG TAB (IMMEDIATE RELEASE) PO PRN (18:10)
[2022-05-07] MEDS ORDERED: DEXTROSE 50% 50 ML SYRINGE IV PRN (18:10)
[2022-05-07] MEDS ORDERED: ONDANSETRON INJ 2 MG/ML 2 ML VIAL IV PRN (18:10)
[2022-05-07] MEDS ORDERED: bisacodyL 10 MG SUPP PR PRN (18:10)
[2022-05-07] MEDS ORDERED: MAGNESIUM HYDROXIDE SUSP 30 ML UDC PO PRN (18:10)
[2022-05-07] MEDS ORDERED: ACETAMINOPHEN 325 MG TAB PO PRN (18:10)
[2022-05-07] MEDS ORDERED: GLUCOSE 40% GEL 15 GM TUBE PO PRN (18:10)
[2022-05-07] MEDS ORDERED: GLUCAGON FOR INJ 1 MG VIAL SQ PRN (18:10)
[2022-05-07] MEDS ORDERED: CARBOHYDRATES FOR HYPOGLYCEMIA PO PRN (18:10)
[2022-05-07] MEDS ORDERED: MoRPHine SULFATE 4 MG/ML 1 ML CARP\\VIAL IV PRN ×2 (18:10→18:41)
[2022-05-07] MEDS ORDERED: GLUCOSE 10 TAB/TUBE PO PRN (18:10)
[2022-05-07] MEDS ORDERED: MoRPHine SULFATE 2 MG/ML CARP IM PRN (18:40)
[2022-05-07] MEDS: Patient's HEIGHT &/or WEIGHT Needed SCH ×3 (19:32→21:25)
[2022-05-07] MEDS: AMOXICILLIN/CLAVULANATE 875 MG TAB PO SCH (19:51)
[2022-05-07] MEDS: ACETAMINOPHEN 500 MG TAB PO SCH (19:51)
[2022-05-07] MEDS: MoRPHine SULFATE 2 MG/ML CARP IV PRN (20:20)
[2022-05-07] MEDS: DOCUSATE SODIUM/SENNA 50/8.6MG TAB PO SCH (20:20)
[2022-05-07] MEDS: guaiFENesin 600 MG TABCR PO SCH (20:21)
[2022-05-07] MEDS: GABAPENTIN 300 MG CAP PO SCH (20:22)
[2022-05-07] MEDS: allopurinoL 300 MG TAB PO SCH (20:22)
[2022-05-07 21:00] LABS: Appearance Urine Clear (Clear); Bilirubin Urine Negative (Negative); Blood Urine Negative (Negative); Color Urine Yellow; Glucose Urine UA Trace (Negative); Ketones Urine Negative (Negative); Leukocyte Esterase Urine Negative (Negative); Nitrite Urine Negative (Negative); Protein Urine Negative (Negative); Specific Gravity Urine 1.019 (1.000-1.030); Urobilinogen Urine Negative (Negative)
[2022-05-07] MEDS ORDERED: INSULIN ASPART PER UNIT SC SCH (21:00)
[2022-05-08] MEDS ORDERED: Nursing to Pharmacy Communication SCH ×2 (01:00→20:15)
[2022-05-08] MEDS: ACETAMINOPHEN 500 MG TAB PO SCH ×3 (03:11→20:42)
[2022-05-08] MEDS: INSULIN ASPART PER UNIT SC SCH ×4 (05:46→20:43)
[2022-05-08] MEDS ORDERED: ceFAZolin 2000MG 2,000 MG/15 ML SYR IV SCH (06:00)
[2022-05-08] MEDS ORDERED: TRANEXAMIC ACID / 0.7% NACL 1,000 MG/100 ML BAG IV SCH ×2 (06:00→06:30)
[2022-05-08 07:18] LABS: Calcium 8.5 mg/dl (8.5-10.1); Potassium 4.3 mmol/L (3.5-5.1)
[2022-05-08 07:25] LABS: Hemoglobin 12.6 g/dl (12.0-16.0); Mean Corpuscular Hemoglobin 32.5 pg (25.0-34.0); Mean Corpuscular Hgb Conc 34.1 g/dL (32.0-36.0); Mean Corpuscular Volume 95.4 fL (80.0-100.0); Mean Platelet Volume 11.2 fL (9.4-12.4); Platelet Count 92 K/uL (130-400); RDW Coefficient of Variation 13.5 % (11.5-14.5); RDW Standard Deviation 47.5 fL (36.4-46.3); Red Blood Count 3.88 M/uL (4.20-5.40); White Blood Count 9.86 K/ul (4.8-10.8)
[2022-05-08 07:29] LABS: Platelet Estimate Decreased (Normal)
[2022-05-08 07:35] LABS: BUN Creatinine Ratio 28.3 (10-20); Creatinine Clr Calc Pharmacy 55.3 ml/min; Est GFR (African American) 100.3 ml/min; Est GFR (Non-African American) 86.6 ml/min
[2022-05-08] MEDS: MoRPHine SULFATE 2 MG/ML CARP IV PRN (07:51)
[2022-05-08] MEDS: DOCUSATE SODIUM/SENNA 50/8.6MG TAB PO SCH ×2 (08:18→19:57)
[2022-05-08] MEDS: GABAPENTIN 300 MG CAP PO SCH ×3 (08:18→19:58)
[2022-05-08] MEDS: AMOXICILLIN/CLAVULANATE 875 MG TAB PO SCH ×2 (08:18→20:42)
[2022-05-08] MEDS: METOPROLOL SUCC 25MG EXT REL TAB PO SCH (08:19)
[2022-05-08] MEDS: guaiFENesin 600 MG TABCR PO SCH ×3 (08:19→19:56)
[2022-05-08] MEDS: amLODIPine BESYLATE 5 MG TAB PO SCH (08:20)
[2022-05-08] MEDS: LOSARTAN POTASSIUM 50 MG TAB PO SCH (08:20)
[2022-05-08] MEDS: ROSUVASTATIN CALCIUM 5 MG TAB PO SCH (08:20)
[2022-05-08] MEDS: POLYETHYLENE (MIRALAX) 17 GM PACK PO SCH (08:21)
[2022-05-08] MEDS ORDERED: ASPIRIN 81 MG ECTAB PO SCH (09:00)
--- NOTE | 2022-05-08 12:03 | Orthopedic Consultation ---
Date of Consultation May 08, 2022 Assessment & Plan (1) Fracture of right hip: Right intertrochanteric hip fracture X-rays reviewed by myself and Dr. Nunez. Patient will require a right trochanteric femoral nailing. Patient found to be COVID-positive during her ER exam. Patient has had a 4-week history of cough and sinus congestion. Previous COVID testing on 04/26/2022 was negative. Patient has been scheduled for the OR this afternoon by Dr. Nunez. Plan for OR today approximately 4 PM. History of Present Illness Reason for Consultation: Right intertrochanteric hip fracture Attending Physician: Justin Charles MD History of Present Illness 87-year-old female with PMH CAD s/p remote LAD stenting in 1999, HTN, gout, chronic back pain, renal mass/complex cyst followed closely by urology, and other problems listed belowwho came into the emergency room after mechanical fall. Patient was apparently taking her garbage out to the street. She states that a large cinthia of wind caused her to lose her balance and she fell to the ground. She had immediate pain in her right hip and groin. She was unable to get up and ambulate. Her local hydro generation manager who witnessed the accident, came to her aid and was able to get her into her home. She was brought to the emergency room via ambulance and she was seen by the staff here. X-rays were taken and was found that she had a intertrochanteric fracture of the right hip. She was admitted by the hospitalist service and we have been asked to see her for her right hip fracture. Allergies Allergy/AdvReac Type Severity Reaction Status Date / Time lisinopril Allergy Unknown Cough Verified 05/07/22 14:48 Home Medications Medication Instructions Recorded Confirmed Type allopurinol 300 mg tablet 300 mg PO HS 04/26/22 05/07/22 History amlodipine 5 mg tablet 5 mg PO DAILY 04/26/22 05/07/22 History aspirin 81 mg tablet,delayed 81 mg PO DAILY 04/26/22 05/07/22 History release gabapentin 300 mg capsule 300 mg PO TID 04/26/22 05/07/22 History losartan 50 mg tablet 50 mg PO QAM 04/26/22 05/07/22 History metoprolol succinate 25 mg 12.5 mg PO QAM 04/26/22 05/07/22 History tablet,extended release 24 hr nitroglycerin 0.4 mg sublingual 0.4 mg sublingual DIRECTED PRN 04/26/22 05/07/22 History tablet Chest Pain omega-3 fatty acids 1,000 mg 1,000 mg PO BID 04/26/22 05/07/22 History capsule rosuvastatin 5 mg tablet 5 mg PO QAM 04/26/22 05/07/22 History acetaminophen 500 mg tablet 500 mg PO Q6H PRN Pain 05/07/22 05/07/22 History (Tylenol Extra Strength) Patient History Medical History Complex renal cyst Coronary artery disease 1999 - NSTEMI s/p LAD stent x 1 Gout Hypertension Myocardial infarction Renal mass, 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 Type 2 diabetes mellitus Surgical History No pertinent past surgical history Family History Other Family history non-contributory Social History Smoking Status: Current every day smoker Tobacco Type: Cigarettes Cigarettes Per Day: 8; Hx Alcohol Use: Yes Hx Substance Use: No Preferred Language: Sammarinese Communication Ability: Effective Anesthesiology Fellow Required: No Beliefs That Will Affect Care: None Current Living Situation: Alone Other Information That Helps Us Care for You: No Feels Safe at Home: Yes Safety Concerns: Feels Safe At This Time Assistive Devices: None Physical Exam Physical Exam: Patient is an 87-year-old white female who appears her stated age. She is alert and oriented to person and place, no acute distress, pleasant cooperative. On examination of her right lower extremity, it is shortened and externally rotated compared to the left. No attempts were made to do range of motion of the right hip and or knee secondary to right hip fracture. Her knee appears unaffected and is nontender on palpation. There is no effusion. She has good range of motion of her right ankle and toes without difficulty. Left lower extremity is unaffected and range of motion is within normal limits of the left hip, knee, ankle. Upper extremities are unaffected and are nontender at the shoulders, elbows, and wrists. Distal pulses are equal bilaterally of the upper and lower extremities. There is no gross motor or sensory loss at this time. Results & Data ([facility] [place]) Vital Signs (Past 12 Hours) Vital Signs Temp Pulse Resp BP Pulse Ox O2 Del Method 05/08/22 08:01 Room Air 05/08/22 07:41 36.8 C 73 16 152/74 H 94 Room Air Laboratory Results Laboratory Results WBC 9.86 K/ul (4.8-10.8) 05/08/22 06:30 RBC 3.88 M/uL (4.20-5.40) L 05/08/22 06:30 Hgb 12.6 g/dl (12.0-16.0) 05/08/22 06:30 Hct 37.0 % (37.0-47.0) 05/08/22 06:30 MCV 95.4 fL (80.0-100.0) 05/08/22 06:30 MCH 32.5 pg (25.0-34.0) 05/08/22 06:30 MCHC 34.1 g/dL (32.0-36.0) 05/08/22 06:30 RDW Std Deviation 47.5 fL (36.4-46.3) H 05/08/22 06:30 RDW Coeff of Rosita 13.5 % (11.5-14.5) 05/08/22 06:30 Plt Count 92 K/uL (130-400) L 05/08/22 06:30 MPV 11.2 fL (9.4-12.4) 05/08/22 06:30 Immature Gran % (Auto) 0.7 % 05/07/22 13:00 Neut % (Auto) 77.2 % 05/07/22 13:00 Lymph % (Auto) 12.0 % 05/07/22 13:00 Stanley % (Auto) 9.4 % 05/07/22 13:00 Eos % (Auto) 0.4 % 05/07/22 13:00 Baso % (Auto) 0.3 % 05/07/22 13:00 Neut # (Auto) 7.55 K/uL (1.40-6.50) H 05/07/22 13:00 Lymph # (Auto) 1.17 K/uL (1.2-3.4) L 05/07/22 13:00 Stanley # (Auto) 0.92 K/uL (0.11-0.59) H 05/07/22 13:00 Eos # (Auto) 0.04 K/uL (0-0.50) 05/07/22 13:00 Baso # (Auto) 0.03 K/uL (0-0.2) 05/07/22 13:00 Immature Gran # (Auto) 0.07 K/uL (0.01-0.20) 05/07/22 13:00 Platelet Estimate Decreased (Normal) L 05/08/22 06:30 PT 11.3 Seconds (9.0-12.0) 05/07/22 13:00 INR 1.1 (0.9-1.1) 05/07/22 13:00 APTT 23.1 Seconds (21.0-31.0) 05/07/22 13:00 PTT Ratio 0.8 05/07/22 13:00 Sodium 134 mmol/L (136-145) L 05/08/22 06:30 Potassium 4.3 mmol/L (3.5-5.1) 05/08/22 06:30 Chloride 103 mmol/L (98-107) 05/08/22 06:30 Carbon Dioxide 26 mmol/L (21-32) 05/08/22 06:30 Anion Gap 5 (3-11) 05/08/22 06:30 BUN 15 mg/dl (6-23) 05/08/22 06:30 Creatinine 0.53 mg/dl (0.6-1.2) L D 05/08/22 06:30 Est Cr Clr Drug Dosing 55.3 ml/min 05/08/22 06:30 Est GFR ( Amer) 100.3 ml/min 05/08/22 06:30 Est GFR (Non-Af Amer) 86.6 ml/min 05/08/22 06:30 BUN/Creatinine Ratio 28.3 (10-20) H 05/08/22 06:30 Glucose 120 mg/dl (70-99(Fasting)) H 05/08/22 06:30 POC Glucose 136 mg/dl (70-99) H 05/08/22 05:39 Calcium 8.5 mg/dl (8.5-10.1) 05/08/22 06:30 Total Bilirubin 1.0 mg/dl (0.2-1.0) 05/07/22 13:00 AST 18 U/L (13-39) 05/07/22 13:00 ALT 17 U/L (7-52) 05/07/22 13:00 Alkaline Phosphatase 59 U/L (34-104) 05/07/22 13:00 Total Protein 5.7 gm/dl (6.0-8.3) L 05/07/22 13:00 Albumin 3.5 gm/dl (3.4-5.0) 05/07/22 13:00 Globulin 2.2 gm/dl (2.5-4.0) L 05/07/22 13:00 Albumin/Globulin Ratio 1.6 (0.9-2) 05/07/22 13:00 Urine Color Yellow 05/07/22 20:35 Urine Appearance Clear (Clear) 05/07/22 20:35 Urine pH 5.0 (4.5-7.5) 05/07/22 20:35 Ur Specific [place] 1.019 (1.000-1.030) 05/07/22 20:35 Urine Protein Negative (Negative) 05/07/22 20:35 Urine Glucose (UA) Trace (Negative) H 05/07/22 20:35 Urine Ketones Negative (Negative) 05/07/22 20:35 Urine Blood Negative (Negative) 05/07/22 20:35 Urine Nitrite Negative (Negative) 05/07/22 20:35 Urine Bilirubin Negative (Negative) 05/07/22 20:35 Urine Urobilinogen Negative (Negative) 05/07/22 20:35 Ur Leukocyte Esterase Negative (Negative) 05/07/22 20:35 SARS-CoV-2, RNA, NAAT POSITIVE (NEGATIVE) A* 05/07/22 13:08 Blood Type A Positive 05/07/22 18:57 Antibody Screen NEGATIVE 05/07/22 18:57 Impressions Hip/Pelvis X-Ray 05/07/22 12:44 XR hip RT 2V w pelvis CLINICAL HISTORY: likely frx TECHNIQUE: 2 views of the right hip and single frontal view of the pelvis were o btained. Comparison: None available at the time of this dictation. FINDINGS: Intertrochanteric fracture of the right hip is seen. Degenerative changes are seen in the lumbar spine and hip joints. Soft tissue swelling is seen. IMPRESSION: Intertrochanteric fracture of the right hip with associated soft tissue swelling. ACT 112: Negative or not required by law. Electronically signed by: Choco Helton M.D. 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 Acute frac ture of the right hip COMPARISON: Chest radiograph April 26, 2022 TECHNIQUE: Supine AP view of the chest FINDINGS: Cardiomediastinal and hilar silhouettes are within normal limits. Atheroscle rosis of the aorta. No pneumothorax, pleural effusion, airspace consolidation or overt pulmonary edema. Degenerative changes of the shoulders and spine. IMPRESSION: No acute process. ACT 112: Negative or not required by law. The above report was generated using voice recognition software. It may contain grammatical, syntax or spelling errors. Electronically signed by: Aiden Baltazar M.D. 05/07/2022 2:17 PM
--- NOTE | 2022-05-08 15:03 | Electrocardiogram Report ---
Test Reason : Blood Pressure : / mmHG Vent. Rate : 058 BPM Atrial Rate : 058 BPM P-R Int : 158 ms QRS Dur : 086 ms QT Int : 414 ms P-R-T Axes : 071 050 079 degrees QTc Int : 406 ms Sinus bradycardia Abnormal ECG When compared with ECG of 26-APR-2022 02:33, Premature ventricular complexes are no longer Present Confirmed by Tre Jama ([id number]) on 05/08/2022 3:03:07 PM Referred By: REFERRED SELF Confirmed By:Jarrell Jama
--- NOTE | 2022-05-08 15:06 | Anesthesiology Consultation ---
Date of Service May 08, 2022 Assessment & Plan (1) Encounter for pre-operative examination: Chart Review Chart Review: Acceptable Risk for Surgery and Patient NOT seen in Pre Admission Testing Consults Requested none ASA [id number] Proposed Anesthesia Anesthesia Type: General Risk / Benefits Reviewed With: PT / POA / Parent / Guardian, Accepts Plan and Informed Consent Obtained Additional Notes covid precautions History Surgery Operation Date: 05/08/22 07:00 Proposed Procedures p Right Hip Trochanteric Femoral Nail - Aiden Nunez, Height/Weight Height: 4 ft 8 in Weight: 58.4 kg Allergies Allergy/AdvReac Type Severity Reaction Status Date / Time lisinopril Allergy Unknown Cough Verified 05/07/22 14:48 Medications Home Medications Medication Instructions Recorded Confirmed Last Taken allopurinol 300 mg tablet 300 mg PO HS 04/26/22 05/07/22 Unknown amlodipine 5 mg tablet 5 mg PO DAILY 04/26/22 05/07/22 Unknown aspirin 81 mg tablet,delayed 81 mg PO DAILY 04/26/22 05/07/22 Unknown release gabapentin 300 mg capsule 300 mg PO TID 04/26/22 05/07/22 Unknown losartan 50 mg tablet 50 mg PO QAM 04/26/22 05/07/22 Unknown metoprolol succinate 25 mg 12.5 mg PO QAM 04/26/22 05/07/22 Unknown tablet,extended release 24 hr nitroglycerin 0.4 mg sublingual 0.4 mg sublingual DIRECTED PRN 04/26/22 05/07/22 Unknown tablet Chest Pain omega-3 fatty acids 1,000 mg 1,000 mg PO BID 04/26/22 05/07/22 Unknown capsule rosuvastatin 5 mg tablet 5 mg PO QAM 04/26/22 05/07/22 Unknown acetaminophen 500 mg tablet 500 mg PO Q6H PRN Pain 05/07/22 05/07/22 Unknown (Tylenol Extra Strength) Active Medications Generic Name Dose Route Start Last Admin Trade Name Freq PRN Reason Stop Dose Admin Acetaminophen 1,000 mg 05/07/22 18:10 05/08/22 11:47 Acetaminophen 500 Mg Tab PO 06/06/22 18:09 1,000 mg Q8H BREN Administration Allopurinol 300 mg 05/07/22 21:00 05/07/22 20:22 Allopurinol 300 Mg Tab PO 06/06/22 20:59 300 mg HS BREN Administration Amlodipine Besylate 5 mg 05/08/22 09:00 05/08/22 08:20 Amlodipine Besylate 5 Mg Tab PO 06/07/22 08:59 5 mg DAILY BREN Administration Amoxicillin/Clavulanate Potassium 1 tab 05/07/22 18:10 05/08/22 08:18 Amoxicillin/Clavulanate 875 Mg Tab PO 05/14/22 18:09 1 tab BIDM BREN Administration Aspirin 81 mg 05/08/22 09:00 05/08/22 08:20 Aspirin 81 Mg Ectab PO 06/07/22 08:59 Not Given DAILY BREN Gabapentin 300 mg 05/07/22 21:00 05/08/22 14:31 Gabapentin 300 Mg Cap PO 06/06/22 20:59 300 mg TID BREN Administration Guaifenesin 600 mg 05/08/22 09:00 05/08/22 08:22 Guaifenesin 600 Mg Tabcr PO 06/07/22 08:59 Not Given Q12 BREN Insulin Aspart 0 units 05/08/22 06:00 05/08/22 12:30 Insulin Aspart Per Unit SC 06/07/22 05:59 Not Given Q6 BREN Losartan Potassium 50 mg 05/08/22 09:00 05/08/22 08:20 Losartan Potassium 50 Mg Tab PO 06/07/22 08:59 50 mg QAM BREN Administration Metoprolol Succinate 12.5 mg 05/08/22 09:00 05/08/22 08:19 Metoprolol Succ 25mg Ext Rel Tab PO 06/07/22 08:59 12.5 mg QAM BREN Administration Morphine Sulfate 2 mg 05/07/22 19:56 05/08/22 07:51 Morphine Sulfate 2 Mg/Ml Carp IV 05/21/22 18:39 2 mg Q3H PRN Administration Moderate Pain Polyethylene Glycol 17 gm 05/08/22 09:00 05/08/22 08:21 Polyethylene (Miralax) 17 Gm Pack PO 06/07/22 08:59 Not Given DAILY BREN Rosuvastatin Calcium 5 mg 05/08/22 09:00 05/08/22 08:20 Rosuvastatin Calcium 5 Mg Tab PO 06/07/22 08:59 5 mg QAM BREN Administration Senna/Docusate Sodium 1 tab 05/07/22 21:00 05/08/22 08:18 Docusate Sodium/Senna 50/8.6mg Tab PO 06/06/22 20:59 1 tab BID BREN Administration NPO Date Last Intake of Fluids: 05/08/22 Time Last Intake of Fluids: 00:01 Date Last Intake of Solids: 05/08/22 Time Last Intake of Solids: 00:01 Past Medical History Medical History Complex renal cyst Coronary artery disease 2000 - NSTEMI s/p LAD stent x 1 Gout Hypertension Myocardial infarction Renal mass, 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 Type 2 diabetes mellitus Exercise / Class Metabolic Activity III < 4 Walking/Shop/Light housework Past Family History Family History Other Family history non-contributory Past Surgical History Surgical History No pertinent past surgical history Past Anesthesia History No Hx of Anesthesia Complications and No Family Hx of Anesthesia Complications History of PONV No Hx of PONV and No Hx of Motion Sickness Social History Smoking Status: Current every day smoker tobacco type: cigarettes Smoking cigarettes per day: 8 Hx Alcohol Use: Yes alcohol intake frequency: holidays/special occasions only Hx Substance Use: No Physical Exam Vital Signs Last Vital Signs Temp 36.4 C L 05/08/22 15:52 Pulse 79 05/08/22 15:52 Resp 16 05/08/22 15:52 BP 137/64 05/08/22 15:52 Pulse Ox 94 05/08/22 15:52 O2 Del Method 05/08/22 15:52 ENMT Mouth: + small oral opening; no TMJ abnormality Thyromental Distance: > or= 3.5 Finger Breadths Mallampati Class: II Neck normal visual inspection and trachea midline; neck extension not limited Respiratory normal respiratory effort Auscultation: lungs clear to auscultation bilaterally and + diminished lung sounds Cardiovascular Rate/Rhythm: regular rate and regular rhythm Heart Sounds: no murmur Musculoskeletal Spine: normal cervical ROM Extremities: full ROM of extremities Neurologic moves all extremities Psychiatric Orientation: alert and oriented x 3 Testing Laboratory Results 05/08/22 06:30 05/08/22 06:30 PT 11.3 Seconds (9.0-12.0) 05/07/22 13:00 INR 1.1 (0.9-1.1) 05/07/22 13:00 APTT 23.1 Seconds (21.0-31.0) 05/07/22 13:00 Urine Color Yellow 05/07/22 20:35 Urine Appearance Clear (Clear) 05/07/22 20:35 Urine pH 5.0 (4.5-7.5) 05/07/22 20:35 Ur Specific [place] 1.019 (1.000-1.030) 05/07/22 20:35 Urine Protein Negative (Negative) 05/07/22 20:35 Urine Glucose (UA) Trace (Negative) H 05/07/22 20:35 Urine Ketones Negative (Negative) 05/07/22 20:35 Urine Nitrite Negative (Negative) 05/07/22 20:35 Ur Leukocyte Esterase Negative (Negative) 05/07/22 20:35 Blood Type A Positive 05/07/22 18:57 Antibody Screen NEGATIVE 05/07/22 18:57 05/08/22 05/08/22 12:26 05:39 POC Glucose 128 H 136 H Electrocardiogram Date: 05/07/22 Findings: + SB @ (58) Sinus bradycardia. Abnormal ECG. 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 Acute fracture of the right hip COMPARISON: Chest radiograph April 26, 2022 TECHNIQUE: Supine AP view of the chest FINDINGS: Cardiomediastinal and hilar silhouettes are within normal limits. Atherosclerosis of the aorta. No pneumothorax, pleural effusion, airspace consolidation or overt pulmonary edema. Degenerative changes of the shoulders and spine. IMPRESSION: No acute process.
[2022-05-08] MEDS ORDERED: REMDESIVIR 200 MG in SODIUM CHLORIDE 0.9% 210 ML IV STA (15:15)
[2022-05-08] MEDS ORDERED: fentaNYL citrate 100 MCG/2 ML VIAL ONE (15:30)
[2022-05-08] MEDS ORDERED: KETAMINE 50 MG/5 ML SYRINGE ONE (15:30)
--- NOTE | 2022-05-08 15:45 | History & Physical Bridge Note ---
Date of Service May 08, 2022 History & Physical Bridge Note I have examined the patient, reviewed the History & Physical and in the interval since the performance of the History & Physical I have noted the following changes of clinical significance: no changes noted. Plan for right hip IM nail.
[2022-05-08] MEDS ORDERED: SUGAMMADEX SODIUM 200 MG/2 ML VIAL IV ONE (15:57)
[2022-05-08] MEDS ORDERED: MoRPHine SULFATE 10 MG/ML CARP/VIAL IV PRN (16:54)
[2022-05-08] MEDS ORDERED: ATROPINE SULFATE 0.1 MG/ML 10ML SYR IV PRN (16:54)
[2022-05-08] MEDS ORDERED: ONDANSETRON INJ 2 MG/ML 2 ML VIAL IV PRN (16:54)
[2022-05-08] MEDS ORDERED: fentaNYL citrate 100 MCG/2 ML VIAL IV PRN (16:54)
[2022-05-08] MEDS ORDERED: MEPERIDINE HCL 25 MG/ML CARP/VIAL IV PRN (16:54)
[2022-05-08] MEDS ORDERED: ePHEDrine sulfate 50 MG/ML AMP IV PRN (16:54)
[2022-05-08] MEDS ORDERED: ONDANSETRON INJ 2 MG/ML 2 ML VIAL ONE (17:03)
--- NOTE | 2022-05-08 17:50 | Post Operative Brief Note ---
Immediate Post Op Note v1 Date of Surgery May 08, 2022 Pre & Post Diagnosis Operation Date: 05/08/22 07:00 Pre-Op Diagnosis: Right hip fracture Post-Op Diagnosis: Right hip fracture I identified the patient and participated in the time-out.: Yes Procedure Operation Date: 05/08/22 07:00 Actual Procedures p Right Hip Trochanteric Femoral Nail(Right) - Aiden Nunez DO Surgeon Aiden Nunez DO Acoustical Engineer none Estimated Blood Loss 50 Findings Consistent with Post-Op Diagnosis see dictation Drains Mantilla Catheter Complications none
[2022-05-08] MEDS ORDERED: NALOXONE HCL 0.4 MG/1 ML VIAL/CARP IV PRN (17:53)
--- NOTE | 2022-05-08 18:27 | Fluoroscopy Report ---
FL hip RT 2-3V CLINICAL HISTORY: RT TROCH NAIL COMPARISON STUDY: Pelvis and right hip radiographs May 07, 2012. FLUOROSCOPY TIME: 77.5 seconds. EXPOSURE DOSE: 11.87 mGy FLUOROSCOPIC IMAGES: 4 FINDINGS: Fluoroscopy was provided during internal fixation of the intertrochanteric fracture of the right femur with trochanteric nail. Fracture alignment has improved. Hardware is intact. There are no unexpected radiopaque foreign bodies. IMPRESSION: Fluoroscopy provided during internal fixation of the intertrochanteric fracture of the r ight femur. ACT 112: Negative or not required by law. Electronically signed by: Jesse Negrete M.D. 05/08/2022 6:25 PM
--- NOTE | 2022-05-08 18:54 | Anesthesiology Progress Note ---
Date of Service May 08, 2022 Anesthesia Post Procedure Vital Signs Vital Signs: Temp Pulse Pulse Resp BP Pulse Ox O2 Del Method 05/08/22 18:25 88 24 165/66 H 99 Oxymask 05/08/22 18:45 36.6 C 83 19 153/68 H 100 Oxymask 05/08/22 18:35 86 20 153/67 H 99 Oxymask 05/08/22 18:15 64 22 168/79 H 100 Oxymask 05/08/22 18:05 37 C 64 18 171/69 H 93 Oxymask 05/08/22 15:52 36.4 C L 79 16 137/64 94 Room Air 05/08/22 14:19 36.8 C 68 16 146/72 H 94 Room Air 05/08/22 08:01 Room Air 05/08/22 07:41 36.8 C 73 16 152/74 H 94 Room Air 05/07/22 19:55 Room Air 05/07/22 19:55 36.8 C 60 18 135/70 95 Room Air O2 Flow Rate 05/08/22 18:25 5 05/08/22 18:45 2 05/08/22 18:35 2 05/08/22 18:15 7 05/08/22 18:05 7 05/08/22 15:52 05/08/22 14:19 05/08/22 08:01 05/08/22 07:41 05/07/22 19:55 05/07/22 19:55 Pain Intensity Right Hip: Pain Intensity: 4 Transfer of Care Handoff Completed per policy Notes Mental Status: participated in evaluation Patient Amnestic to Procedure: Yes Nausea / Vomiting: adequately controlled Pain: adequately controlled Airway Patency, RR, SpO2: stable & adequate BP & HR: stable & adequate Hydration State: stable & adequate Anesthetic Complications: no major complications apparent and Pt Satisfied with anesthetic care Notes: pt with occasional pvcs but this was seen prior to surgery as well. she is mildly confused but this is somewhat to be expected given that she is 87, underwent a general anesthetic and had ketamine as part of her anesthetic. she is aware that she is in the hospital and that she nad surgery.
[2022-05-08] MEDS: allopurinoL 300 MG TAB PO SCH (19:58)
[2022-05-08] MEDS: D5W AND NSS 1,000 ML IV SCH (20:20)
[2022-05-08] MEDS: SODIUM CHLORIDE 0.9% 1000ML 1,000 ML IV SCH (20:42)
[2022-05-09] MEDS: ceFAZolin 2000MG 2,000 MG/15 ML SYR IV SCH ×2 (01:15→09:11)
[2022-05-09] MEDS: ACETAMINOPHEN 500 MG TAB PO SCH ×3 (01:17→17:55)
[2022-05-09] MEDS: SODIUM CHLORIDE 0.9% 1000ML 1,000 ML IV SCH (03:42)
[2022-05-09 08:20] LABS: Basophils # (auto) 0.02 K/uL (0-0.2); Basophils % (auto) 0.2 %; Eosinophils # (auto) 0.09 K/uL (0-0.50); Eosinophils % (auto) 1.1 %; Hematocrit (blood only) 29.2 % (37.0-47.0); Hemoglobin 9.9 g/dl (12.0-16.0); Immature Granulocytes # (auto) 0.04 K/uL (0.01-0.20); Immature Granulocytes % (auto) 0.5 %; Lymphocytes # (auto) 0.95 K/uL (1.2-3.4); Lymphocytes % (auto) 11.6 %; Mean Corpuscular Hemoglobin 31.8 pg (25.0-34.0); Mean Corpuscular Hgb Conc 33.9 g/dL (32.0-36.0); Mean Corpuscular Volume 93.9 fL (80.0-100.0); Mean Platelet Volume 11.5 fL (9.4-12.4); Monocytes # (auto) 0.76 K/uL (0.11-0.59); Monocytes % (auto) 9.3 %; Neutrophils # (auto) 6.32 K/uL (1.40-6.50); Neutrophils % (auto) 77.3 %; Platelet Count 88 K/uL (130-400); RDW Coefficient of Variation 13.5 % (11.5-14.5); RDW Standard Deviation 46.5 fL (36.4-46.3); Red Blood Count 3.11 M/uL (4.20-5.40); White Blood Count 8.18 K/ul (4.8-10.8)
[2022-05-09] MEDS ORDERED: traMADol HCL 50 MG TABLET PO PRN (08:47)
[2022-05-09] MEDS ORDERED: oxyCODONE HCL IR 5 MG TAB (IMMEDIATE RELEASE) PO PRN (08:51)
[2022-05-09] MEDS: guaiFENesin 600 MG TABCR PO SCH ×2 (09:12→20:57)
[2022-05-09] MEDS: AMOXICILLIN/CLAVULANATE 875 MG TAB PO SCH ×2 (09:12→17:53)
[2022-05-09] MEDS: GABAPENTIN 300 MG CAP PO SCH ×3 (09:13→20:57)
[2022-05-09] MEDS: amLODIPine BESYLATE 5 MG TAB PO SCH (09:13)
[2022-05-09] MEDS: LOSARTAN POTASSIUM 50 MG TAB PO SCH (09:13)
[2022-05-09] MEDS: ROSUVASTATIN CALCIUM 5 MG TAB PO SCH (09:13)
[2022-05-09] MEDS: DOCUSATE SODIUM/SENNA 50/8.6MG TAB PO SCH ×2 (09:13→20:54)
[2022-05-09] MEDS: ASPIRIN 81 MG ECTAB PO SCH (09:14)
[2022-05-09] MEDS: METOPROLOL SUCC 25MG EXT REL TAB PO SCH (09:14)
[2022-05-09] MEDS: POLYETHYLENE (MIRALAX) 17 GM PACK PO SCH (09:15)
[2022-05-09] MEDS: INSULIN ASPART PER UNIT SC SCH ×4 (09:22→20:57)
--- NOTE | 2022-05-09 09:44 | Orthopedic Progress Note ---
Date of Service May 09, 2022 Assessment & Plan (1) Fracture of right hip: Plan: Postop day 1 status post right TFN PT/OT protocols. Partial weightbearing DVT prophylaxis-Carrie, HENRY grajeda. Plan for enoxaparin to start this evening. Pain management as written. DC planning-patient may need a rehab versus prison facility prior to returning home. We will see how she progresses with her physical therapy. Admission and Anticipated Discharge Date Admission Date: May 07, 2022 Subjective Postop day 1 Patient sitting up awake and alert in her bed. No complaints this morning. Pain is controlled. Denies shortness of breath, chest pain, lightheadedness. Physical Exam Physical Exam: Dressings are clean, dry, and intact. She does have some swelling of the thigh which is consistent with surgery. Calves are soft nontender. Neurovascular is intact. Toes are mobile. Results & Data ([facility]) Vital Signs (Past 12 Hours) Vital Signs Temp Pulse Resp BP Pulse Ox O2 Del Method O2 Flow Rate 05/09/22 08:14 36.7 C 75 18 133/72 92 Room Air 05/09/22 01: 36.6 C 72 15 121/53 L 97 Nasal Cannula 1 05/08/22 22:32 36.6 C 81 17 101/64 96 Nasal Cannula 1 Laboratory Results Laboratory Results WBC 8.18 K/ul (4.8-10.8) 05/09/22 07:48 RBC 3.11 M/uL (4.20-5.40) L 05/09/22 07:48 Hgb 9.9 g/dl (12.0-16.0) L 05/09/22 07:48 Hct 29.2 % (37.0-47.0) L 05/09/22 07:48 MCV 93.9 fL (80.0-100.0) 05/09/22 07:48 MCH 31.8 pg (25.0-34.0) 05/09/22 07:48 MCHC 33.9 g/dL (32.0-36.0) 05/09/22 07:48 RDW Std Deviation 46.5 fL (36.4-46.3) H 05/09/22 07:48 RDW Coeff of Rosita 13.5 % (11.5-14.5) 05/09/22 07:48 Plt Count 88 K/uL (130-400) L 05/09/22 07:48 MPV 11.5 fL (9.4-12.4) 05/09/22 07:48 Immature Gran % (Auto) 0.5 % 05/09/22 07:48 Neut % (Auto) 77.3 % 05/09/22 07:48 Lymph % (Auto) 11.6 % 05/09/22 07:48 [place] % (Auto) 9.3 % 05/09/22 07:48 Eos % (Auto) 1.1 % 05/09/22 07:48 Baso % (Auto) 0.2 % 05/09/22 07:48 Neut # (Auto) 6.32 K/uL (1.40-6.50) 05/09/22 07:48 Lymph # (Auto) 0.95 K/uL (1.2-3.4) L 05/09/22 07:48 Ellis # (Auto) 0.76 K/uL (0.11-0.59) H 05/09/22 07:48 Eos # (Auto) 0.09 K/uL (0-0.50) 05/09/22 07:48 Baso # (Auto) 0.02 K/uL (0-0.2) 05/09/22 07:48 Immature Gran # (Auto) 0.04 K/uL (0.01-0.20) 05/09/22 07:48 Platelet Estimate Decreased (Normal) L 05/08/22 06:30 PT 11.3 Seconds (9.0-12.0) 05/07/22 13:00 INR 1.1 (0.9-1.1) 05/07/22 13:00 APTT 23.1 Seconds (21.0-31.0) 05/07/22 13:00 PTT Ratio 0.8 05/07/22 13:00 Sodium 134 mmol/L (136-145) L 05/08/22 06:30 Potassium 4.3 mmol/L (3.5-5.1) 05/08/22 06:30 Chloride 103 mmol/L (98-107) 05/08/22 06:30 Carbon Dioxide 26 mmol/L (21-32) 05/08/22 06:30 Anion Gap 5 (3-11) 05/08/22 06:30 BUN 15 mg/dl (6-23) 05/08/22 06:30 Creatinine 0.53 mg/dl (0.6-1.2) L D 05/08/22 06:30 Est Cr Clr Drug Dosing 55.3 ml/min 05/08/22 06:30 Est GFR ( Amer) 100.3 ml/min 05/08/22 06:30 Est GFR (Non-Af Amer) 86.6 ml/min 05/08/22 06:30 BUN/Creatinine Ratio 28.3 (10-20) H 05/08/22 06:30 Glucose 120 mg/dl (70-99(Fasting)) H 05/08/22 06:30 POC Glucose 97 mg/dl (70-99) 05/09/22 08:12 Calcium 8.5 mg/dl (8.5-10.1) 05/08/22 06:30 Total Bilirubin 1.0 mg/dl (0.2-1.0) 05/07/22 13:00 AST 18 U/L (13-39) 05/07/22 13:00 ALT 17 U/L (7-52) 05/07/22 13:00 Alkaline Phosphatase 59 U/L (34-104) 05/07/22 13:00 Total Protein 5.7 gm/dl (6.0-8.3) L 05/07/22 13:00 Albumin 3.5 gm/dl (3.4-5.0) 05/07/22 13:00 Globulin 2.2 gm/dl (2.5-4.0) L 05/07/22 13:00 Albumin/Globulin Ratio 1.6 (0.9-2) 05/07/22 13:00 Urine Color Yellow 05/07/22 20:35 Urine Appearance Clear (Clear) 05/07/22 20:35 Urine pH 5.0 (4.5-7.5) 05/07/22 20:35 Ur Specific [place] 1.019 (1.000-1.030) 05/07/22 20:35 Urine Protein Negative (Negative) 05/07/22 20:35 Urine Glucose (UA) Trace (Negative) H 05/07/22 20:35 Urine Ketones Negative (Negative) 05/07/22 20:35 Urine Blood Negative (Negative) 05/07/22 20:35 Urine Nitrite Negative (Negative) 05/07/22 20:35 Urine Bilirubin Negative (Negative) 05/07/22 20:35 Urine Urobilinogen Negative (Negative) 05/07/22 20:35 Ur Leukocyte Esterase Negative (Negative) 05/07/22 20:35 SARS-CoV-2, RNA, NAAT POSITIVE (NEGATIVE) A* 05/07/22 13:08 Blood Type A Positive 05/07/22 18:57 Antibody Screen NEGATIVE 05/07/22 18:57 Impressions \ Hip X-Ray 05/08/22 00:00 FL hip RT 2-3V CLINICAL HISTORY: RT TROCH NAIL COMPARISON STUDY: Pelvis and right hip radiographs May 07, 2012. FLUOROSCOPY TIME: 77.5 seconds. EXPOSURE DOSE: 11.87 mGy FLUOROSCOPIC IMAGES: 4 FINDINGS: Fluoroscopy was provided during internal fixation of the intertrochanteric fracture of the right femur with trochanteric nail. Fracture alignment has improved. Hardware is intact. There are no unexpected radiopaque foreign bodies. IMPRESSION: Fluoroscopy provided during internal fixation of the intertrochanteric fracture of the right femur. ACT 112: Negative or not required by law. Electronically signed by: Jesse Negrete M.D. 05/08/2022 6:25 PM
[2022-05-09 09:45] LABS: BUN Creatinine Ratio 26.1 (10-20); Bilirubin,Total 0.5 mg/dl (0.2-1.0); Calcium 7.6 mg/dl (8.5-10.1); Creatinine Clr Calc Pharmacy 63.7 ml/min; Est GFR (African American) 105.1 ml/min; Est GFR (Non-African American) 90.7 ml/min; Total Protein 4.4 gm/dl (6.0-8.3)
[2022-05-09] MEDS: D5W AND NSS 1,000 ML IV SCH (11:49)
[2022-05-09 12:11] LABS: Albumin Globulin Ratio 1.4 (0.9-2); Albumin Level 2.6 gm/dl (3.4-5.0); Globulin 1.8 gm/dl (2.5-4.0)
[2022-05-09] MEDS: traMADol HCL 50 MG TABLET PO PRN (14:41)
--- NOTE | 2022-05-09 15:16 | Hospitalist Progress Note ---
Date of Service May 09, 2022 Assessment & Plan (1) Fracture of right hip: Plan: Per previous hospitalist note with addendum: Patient presenting after mechanical fall and subsequent right hip pain. Found to have intertrochanteric right hip fracture. Pain control with bowel regimen EKG and CXR reviewed Further management as per Ortho GSCRI 0.2% -- patient considered acceptable risk to proceed to surgery 05/08 Stable overall DVT prophylaxis per orthopedic service (2) COVID-19: Plan: Tested positive for COVID-19 Reports ongoing cough and sinus congestion for the past 4 weeks. Tested negati ve for COVID-19 on 04/26/2022 Saturating well on room air, no infiltrate on CXR Due to ongoing URI symptoms, will start patient on Augmentin 05/08 Respiratory status stable Oxygen saturation more than 90% Continue remdesivir day #2 given high risk for disease progression: Advanced age, comorbidities, etc. (3) CAD (coronary artery disease): Plan: Appears stable, no reports of chest pain, EKG without acute ST changes Continue ASA, statin, beta-fariba (4) Hypertension: Plan: BP controlled, continue amlodipine, losartan, and metoprolol (5) Renal mass, right: (6) Complex renal cyst: Plan: Follows closely with urology DVT PROPHYLAXIS Lovenox when okay with orthopedic service Admission and Anticipated Discharge Date Admission Date: May 07, 2022 Subjective Follow-up for status post hip surgery, COVID-19 infection, etc. Seen resting in bed, sleeping but easily awakened Patient comfortable, not in distress, in good spirits States she is having pain over the surgical site, but manageable with pain medications Denies changes with her breathing, shortness of breath, cough, fevers or chills, abdominal pain, diarrhea Appetite is good No other symptom Review of Systems Review of Systems: all noted and negative except for above Physical Exam Physical Exam: General- oriented x 3, not in distress, speaks in sentences with no effort or accessory muscle use Eyes- anicteric Neck- no JVD Lungs- clear BS bilaterally, no crackles or wheezing Heart- normal rate, regular rhythm; no murmurs Abdomen- normal bowel sounds, nondistended, soft, nontender Extremities- no pretibial edema, no calf tenderness Right hip-mild edema, dressing in place, no bleeding or discharge Neuro- alert, oriented x 3; no gross focal neurologic deficits Skin- warm & dry Results & Data Results & Data ([facility]) Vital Signs (Past 12 Hours) Vital Signs Temp Pulse Resp BP Pulse Ox O2 Del Method 05/09/22 14:39 36.6 C 74 18 145/69 H 96 Room Air 05/09/22 11:38 36.8 C 73 18 185/66 H 95 Room Air 05/09/22 10:00 Room Air 05/09/22 08:14 36.7 C 75 18 133/72 92 Room Air all noted and reviewed including below
--- NOTE | 2022-05-09 15:20 | Hospitalist Progress Note ---
Date of Service May 09, 2022 Delayed entry Date of service 05/08/2022 Assessment & Plan (1) Fracture of right hip: Plan: Per previous hospitalist note with addendum: Patient presenting after mechanical fall and subsequent right hip pain. Found to have intertrochanteric right hip fracture. Pain control with bowel regimen EKG and CXR reviewed Further management as per Ortho GSCRI 0.2% -- patient considered acceptable risk to proceed to surgery 05/07 Stable overall No medical contraindication to proceed with planned surgery (2) COVID-19: Plan: Tested positive for COVID-19 Reports ongoing cough and sinus congestion for the past 4 weeks. Tested negative for COVID-19 on 04/26/2022 Saturating well on room air, no infiltrate on CXR Due to ongoing URI symptoms, will start patient on Augmentin 05/08 Respiratory status stable Oxygen saturation more than 90% Start remdesivir given high risk status for disease progression Discussed risks and benefits with patient and her daughter, they verbalized understanding and agreement Monitor renal and liver function (3) CAD (coronary artery disease): Plan: Appears stable, no reports of chest pain, EKG without acute ST changes Continue ASA, statin, beta-fariba (4) Hypertension: Plan: BP controlled, continue amlodipine, losartan, and metoprolol (5) Renal mass, right: (6) Complex renal cyst: Plan: Follows closely with urology DVT PROPHYLAXIS Lovenox when okay with orthopedic service Admission and Anticipated Discharge Date Admission Date: May 07, 2022 Subjective Follow-up for right hip fracture, COVID-19 infection, etc. Seen resting in bed, sleeping but easily awakened Patient's daughter at the bedside visiting States that she has severe right hip pain when moving Eager to have surgery performed No acute respiratory symptoms including cough, shortness of breath, chest pain, palpitations, abdominal pain, nausea vomiting No other symptom Review of Systems Review of Systems: all noted and negative except for above Physical Exam Physical Exam: General- oriented x 3, not in distress, speaks in sentences with no effort or accessory muscle use Eyes- anicteric Neck- no JVD Lungs- clear breath sounds bilaterally, no rales/wheezes Heart- normal rate, regular rhythm; no murmurs Abdomen- normal bowel sounds, nondistended, soft, nontender Extremities- no pretibial edema, no calf tenderness Right hip-mild edema, mild external rotation Neuro- alert, oriented x 3; no gross focal neurologic deficits Skin- warm & dry Results & Data Results & Data ([facility]) Vital Signs (Past 12 Hours) Vital Signs Temp Pulse Resp BP Pulse Ox O2 Del Method 05/09/22 14:39 36.6 C 74 18 145/69 H 96 Room Air 05/09/22 11:38 36.8 C 73 18 185/66 H 95 Room Air 05/09/22 10:00 Room Air 05/09/22 08:14 36.7 C 75 18 133/72 92 Room Air all noted and reviewed including below
[2022-05-09] MEDS: ENOXAPARIN INJ 40 MG/0.4 ML SYR SQ SCH (20:55)
[2022-05-09] MEDS: allopurinoL 300 MG TAB PO SCH (20:56)
[2022-05-09] MEDS: REMDESIVIR 100 MG in SODIUM CHLORIDE 0.9% 230 ML IV SCH (21:02)
[2022-05-10] MEDS: ACETAMINOPHEN 500 MG TAB PO SCH ×3 (02:12→17:34)
--- NOTE | 2022-05-10 08:02 | Orthopedic Progress Note ---
Date of Service May 10, 2022 Assessment & Plan (1) Fracture of right hip: Plan: Postop day 2 status post right TFN PT/OT protocols. Partial weightbearing DVT prophylaxis-Carrie, HENRY grajeda. Plan for enoxaparin to start this evening. Pain management as written. BMP pending DC planning-patient may need a rehab versus long term facility prior to returning home. We will see how she progresses with her physical therapy. Orthopedics will sign off at this time. Instructions placed in DC section. Please call with any questions. Admission and Anticipated Discharge Date Admission Date: May 07, 2022 Subjective Postop day 2 Patient sleeping upon arrival but easily awoken. Currently right hip pain is controlled while at rest. States she has not been up with PT yet. Double checked and apparently PT was not ordered initially after surgery. New orders put in for PT and OT to start today. Physical Exam Physical Exam: Dressings clean, dry, and intact. Thigh with swelling but is soft and nontender. Calves are soft nontender. Neurovascular intact. Toes are mobile. Results & Data ([facility]) Vital Signs (Past 12 Hours) Vital Signs Temp Pulse Resp BP Pulse Ox O2 Del Method 05/09/22 20:58 Room Air 05/09/22 21:00 92 Room Air 05/09/22 20:58 37 C 85 18 118/71 89 L Room Air
[2022-05-10] MEDS: ROSUVASTATIN CALCIUM 5 MG TAB PO SCH (08:54)
[2022-05-10] MEDS: guaiFENesin 600 MG TABCR PO SCH ×2 (08:54→20:43)
[2022-05-10] MEDS: GABAPENTIN 300 MG CAP PO SCH ×3 (08:54→20:43)
[2022-05-10] MEDS: ASPIRIN 81 MG ECTAB PO SCH (08:54)
[2022-05-10] MEDS: amLODIPine BESYLATE 5 MG TAB PO SCH (08:55)
[2022-05-10] MEDS: LOSARTAN POTASSIUM 50 MG TAB PO SCH (08:55)
[2022-05-10] MEDS: METOPROLOL SUCC 25MG EXT REL TAB PO SCH (08:55)
[2022-05-10] MEDS: DOCUSATE SODIUM/SENNA 50/8.6MG TAB PO SCH ×2 (08:56→20:43)
[2022-05-10] MEDS: POLYETHYLENE (MIRALAX) 17 GM PACK PO SCH (08:56)
[2022-05-10] MEDS: AMOXICILLIN/CLAVULANATE 875 MG TAB PO SCH ×2 (08:57→17:34)
[2022-05-10] MEDS: INSULIN ASPART PER UNIT SC SCH ×4 (09:02→20:43)
[2022-05-10] MEDS: traMADol HCL 50 MG TABLET PO PRN (11:29)
[2022-05-10] MEDS: NICOTINE 7 MG/24 HR TDSY TD SCH (13:27)
--- NOTE | 2022-05-10 13:44 | XRay Report ---
XR chest 1V portable CLINICAL HISTORY: ff up, covid infection COMPARISON STUDY: Chest radiograph May 07, 2022. FINDINGS: Lung volumes are normal. There are probable mild bibasilar opacities. There is no pneumotho rax or pleural effusion. Cardiac size is normal. Mediastinal contours are normal. There is no evidenc e for pulmonary edema. IMPRESSION: Probable mild bibasilar opacities which could reflect an infectious etiology or atelectas is. ACT 112: Negative or not required by law. Electronically signed by: Jesse Negrete M.D. 05/10/2022 1:43 PM
[2022-05-10 14:48] LABS: Albumin Level 2.6 gm/dl (3.4-5.0); Bilirubin,Total 0.6 mg/dl (0.2-1.0); Calcium 7.7 mg/dl (8.5-10.1)
[2022-05-10 14:54] LABS: Albumin Globulin Ratio 1.4 (0.9-2); BUN Creatinine Ratio 28.6 (10-20); Creatinine Clr Calc Pharmacy 69.8 ml/min; Est GFR (African American) 108.3 ml/min; Est GFR (Non-African American) 93.5 ml/min; Globulin 1.9 gm/dl (2.5-4.0); Total Protein 4.5 gm/dl (6.0-8.3)
--- NOTE | 2022-05-10 15:22 | Hospitalist Progress Note ---
Date of Service May 10, 2022 Assessment & Plan (1) Fracture of right hip: Plan: Per previous hospitalist note with addendum: Patient presenting after mechanical fall and subsequent right hip pain. Found to have intertrochanteric right hip fracture. Pain control with bowel regimen EKG and CXR reviewed Further management as per Ortho GSCRI 0.2% -- patient considered acceptable risk to proceed to surgery s/p R hip surgery Stable overall Lovenox SC for DVT prophylaxis (2) COVID-19: Plan: Tested positive for COVID-19 Reports ongoing cough and sinus congestion for the past 4 weeks. Tested negative for COVID-19 on 04/26/2022 Saturating well on room air, no infiltrate on CXR Due to ongoing URI symptoms, will start patient on Augmentin 05/10 Respiratory status stable Oxygen saturation more than 90% CXR: IMPRESSION: Probable mild bibasilar opacities which could reflect an infectious etiology or atelectasis. continue Remdesivir Day 3 IS, FV monitor CMP (3) CAD (coronary artery disease): Plan: Appears stable, no reports of chest pain, EKG without acute ST changes Continue ASA, statin, beta-fariba (4) Hypertension: Plan: BP on the lower side, hold amlodipine continue losartan, metoprolol (5) Renal mass, right: (6) Complex renal cyst: Plan: Follows closely with urology DVT PROPHYLAXIS Lovenox Disposition pending Admission and Anticipated Discharge Date Admission Date: May 07, 2022 Subjective ff up for r hip surgery, covid 19 infection, etc seen resting in bed, comfortable states R hip pain is adequately controlled feels tired today, poor appetite has occasional cough no chest pain, dyspnea, abdominal pain, nausea/vomiting, diarrhea no other symptoms Review of Systems Review of Systems: all noted and negative except for above Physical Exam Physical Exam: General- oriented x 3, not in distress, speaks in sentences with no effort or accessory muscle use Eyes- anicteric Neck- no JVD Lungs- clear BS BL, no rales/wheezes Heart- normal rate, regular rhythm; no murmurs Abdomen- normal bowel sounds, nondistended, soft, nontender Extremities- no pretibial edema, no calf tenderness R hip- mild edema, no hematoma Neuro- alert, oriented x 3; no gross focal neurologic deficits Skin- warm & dry Results & Data Results & Data ([place]) Vital Signs (Past 12 Hours) Vital Signs Temp Pulse Resp BP Pulse Ox Pulse Ox O2 Del Method 05/10/22 09:50 91 05/10/22 09:15 Room Air 05/10/22 08:37 36.8 C 85 18 118/70 91 Room Air O2 Flow Rate 05/10/22 09:50 0 05/10/22 09:15 05/10/22 08:37 all noted and reviewed including below
--- NOTE | 2022-05-10 17:10 | Operative Report ---
Post Operative Report Pre & Post Diagnosis Operation Date: 05/08/22 07:00 Pre-Op Diagnosis: Right hip fracture Post-Op Diagnosis: Right hip fracture I identified the patient and participated in the time-out.: Yes Procedure Operation Date: 05/08/22 07:00 Actual Procedures p Right Hip Trochanteric Femoral Nail(Right) - Aiden Nunez DO Surgeon Aiden Nunez DO Docketing Specialist none Estimated Blood Loss 50 Findings Consistent with Post-Op Diagnosis See dictation Specimens None Complications None Indications 87-year-old female presenting to not in the emergency department after sustaining ground-level fall onto her right side. She noted immediate pain and deformity. She is unable to ambulate. In the emergency department and referred to demonstrating a right intrinsic femur fracture. She was admitted to medical service was consulted for operative management. Preoperatively an outpatient elective discussion regarding risk benefits and complications of right hip cephalomedullary nail. These include but are not limited to: Infection, neurova scular injury, DVT, nonunion, malunion, hardware and need for future surgery. After review she elected to proceed with convention and consent was obtained. Description of Procedure Implants: Synthes TFNA 11 x 170 mm 130 degree 100 mm TFNA fenestrated screw, 5 mm x 36 mm stardrive screw. Procedure: Patient was appropriately identified in the preoperative holding area and the right lower extremity was marked. She is then taken back to the operative suite where she received general anesthesia as well as Ancef per protocol. She was then positioned supine on the manual fracture table. Using assistance of C-arm fluoroscopy the fracture was reduced to a satisfactory position and the patient was then prepped and draped in the standard orthopedic fashion. Timeout was then performed. A 3 cm incision just superior to the tip of the trochanter was then made through the skin subcutaneous tissue and gluteal fascia. A threaded guidewire was then inserted into the tip of the trochanter and advanced into the medullary canal. This position was confirmed on AP and lateral fluoroscopy. A canal opening reamer was then used to open the proximal canal. A 11 mm x 170 mm nail was then inserted into the medullary canal. Guidewire was then removed. Proximal outrigger was then attached and incision was made through the skin subcutaneous tissue and IT band fascia for lag screw insertion. Trocar was then advanced down to bone and threaded guidewire was advanced into the lateral cortex into the center of the femoral head just below the subchondral bone. Position was confirmed on AP and lateral fluoroscopy. Length was then measured and 100 mm was selected. Lateral cortical reamer was then used to the lateral cortex followed by tapered reamers up to 100 mm. Lag screw was then inserted and compressed. The nail was then locked statically at the proximal aspect. Attention was then turned to placement of the distal interlock. Triple sleeve guide was then placed and incision was made through skin subcutaneous tissue and IT band fascia. Guide was then advanced down to bone. A drill was used to drill bicortically and a 5 mm x 36 mm locking screw was then inserted. This provided good reduction of the fracture and satisfactory position of the implants. Proximal outrigger was then removed and final radiographs were obtained. Wounds were then copiously irrigated using normal saline solution. Deep fascia was closed using 0 Vicryl suture followed by 2-0 Vicryl suture for subcutaneous tissue and joanne for the skin. Sterile dressings of Xeroform 4 x 4 gauze and Tegaderm all sites were then applied. The patient tolerated the procedure well and was taken to recovery room in hemodynamically stable condition. I attest to the content of the Intraoperative Record and any orders documented therein. Any exceptions are noted below.
[2022-05-10] MEDS: REMDESIVIR 100 MG in SODIUM CHLORIDE 0.9% 230 ML IV SCH (20:42)
[2022-05-10] MEDS: ENOXAPARIN INJ 40 MG/0.4 ML SYR SQ SCH (20:43)
[2022-05-10] MEDS: allopurinoL 300 MG TAB PO SCH (20:43)
[2022-05-11] MEDS: ACETAMINOPHEN 500 MG TAB PO SCH ×3 (02:08→17:51)
[2022-05-11 06:48] LABS: Albumin Level 2.4 gm/dl (3.4-5.0); Bilirubin,Total 0.8 mg/dl (0.2-1.0); Calcium 7.7 mg/dl (8.5-10.1); Potassium 4.2 mmol/L (3.5-5.1)
[2022-05-11 06:54] LABS: Albumin Globulin Ratio 1.1 (0.9-2); BUN Creatinine Ratio 26.2 (10-20); Creatinine Clr Calc Pharmacy 69.8 ml/min; Est GFR (African American) 108.3 ml/min; Est GFR (Non-African American) 93.5 ml/min; Globulin 2.1 gm/dl (2.5-4.0); Total Protein 4.5 gm/dl (6.0-8.3)
[2022-05-11] MEDS: INSULIN ASPART PER UNIT SC SCH ×4 (08:27→20:54)
[2022-05-11] MEDS: AMOXICILLIN/CLAVULANATE 875 MG TAB PO SCH ×2 (08:28→08:37)
[2022-05-11] MEDS: DOCUSATE SODIUM/SENNA 50/8.6MG TAB PO SCH ×2 (08:28→20:53)
[2022-05-11] MEDS: NICOTINE 7 MG/24 HR TDSY TD SCH (08:28)
[2022-05-11] MEDS: METOPROLOL SUCC 25MG EXT REL TAB PO SCH (08:36)
[2022-05-11] MEDS: guaiFENesin 600 MG TABCR PO SCH ×2 (08:37→20:53)
[2022-05-11] MEDS: ASPIRIN 81 MG ECTAB PO SCH (08:37)
[2022-05-11] MEDS: GABAPENTIN 300 MG CAP PO SCH ×3 (08:37→20:53)
[2022-05-11] MEDS: ROSUVASTATIN CALCIUM 5 MG TAB PO SCH (08:37)
[2022-05-11] MEDS: LOSARTAN POTASSIUM 50 MG TAB PO SCH (08:38)
[2022-05-11] MEDS: POLYETHYLENE (MIRALAX) 17 GM PACK PO SCH (08:38)
[2022-05-11] MEDS ORDERED: LIDOCAINE 2% MPF LOCAL 5 ML VIAL INFIL ONE (10:05)
[2022-05-11] MEDS ORDERED: ROCURONIUM BROMIDE 10 MG/ML 5 ML VIAL IV ONE (10:05)
[2022-05-11] MEDS ORDERED: PROPOFOL IV EMULSION 10 MG/ML 20 ML VIAL IV ONE (10:05)
[2022-05-11] MEDS ORDERED: SUCCINYLCHOLINE CHLORIDE 20 MG/ML 10 ML VIAL IV ONE (10:05)
[2022-05-11] MEDS ORDERED: ePHEDrine sulfate 50 MG/ML SYR ONE (10:06)
[2022-05-11] MEDS ORDERED: PHENYLEPHRINE 100MCG/ML 5ML SYR ONE (10:06)
--- NOTE | 2022-05-11 16:26 | Hospitalist Progress Note ---
Date of Service May 11, 2022 Assessment & Plan (1) Fracture of right hip: Plan: Per previous hospitalist note with addendum: Patient presenting after mechanical fall and subsequent right hip pain. Found to have intertrochanteric right hip fracture. Pain control with bowel regimen EKG and CXR reviewed Further management as per Ortho GSCRI 0.2% -- patient considered acceptable risk to proceed to surgery s/p R hip surgery Postop day #2 Stable overall Pain adequately controlled Lovenox SC for DVT prophylaxis (2) COVID-19: Plan: Tested positive for COVID-19 Reports ongoing cough and sinus congestion for the past 4 weeks. Tested negative for COVID-19 on 04/26/2022 Saturating well on room air, no infiltrate on CXR Due to ongoing URI symptoms, will start patient on Augmentin 05/11 Respiratory status stable Oxygen saturation 93 to 95% CXR: IMPRESSION: Probable mild bibasilar opacities which could reflect an infectious etiology or atelectasis. continue Remdesivir Day 4 out of 5 IS, FV monitor CMP Continue Augmentin day #4 for possible bacterial component (3) CAD (coronary artery disease): Plan: Appears stable, no reports of chest pain, EKG without acute ST changes Continue ASA, statin, beta-fariba (4) Hypertension: Plan: Resume amlodipine continue losartan, metoprolol (5) Renal mass, right: (6) Complex renal cyst: Plan: Follows closely with urology DVT PROPHYLAXIS Lovenox Disposition pending Admission and Anticipated Discharge Date Admission Date: May 07, 2022 Subjective ff up for right hip surgery, COVID-19 infection, etc. Seen resting in bedside chair, comfortable, not in distress, in good spirits States she feels better today Strength is coming back, no shortness of breath, has occasional cough, nonproductive, no chest pain Appetite still not great but trying to drink boost Had physical therapy today, pleased that she was able to tolerate it No other symptoms Review of Systems Review of Systems: all noted and negative except for above Physical Exam Physical Exam: General- oriented x 3, not in distress, speaks in sentences with no effort or accessory muscle use Eyes- anicteric Neck- no JVD Lungs- clear BS bilaterally, no crackles/wheezing Heart- normal rate, regular rhythm; no murmurs Abdomen- normal bowel sounds, nondistended, soft, no tenderness Extremities- no pretibial edema, no calf tenderness Neuro- alert, oriented x 3; no gross focal neurologic deficits Skin- warm & dry Results & Data Results & Data ([facility]) Vital Signs (Past 12 Hours) Vital Signs Temp Pulse Resp BP Pulse Ox O2 Del Method 05/11/22 08:00 Room Air 05/11/22 08:18 37.1 C 90 18 147/76 H 93 Room Air all noted and reviewed including below
[2022-05-11] MEDS: REMDESIVIR 100 MG in SODIUM CHLORIDE 0.9% 230 ML IV SCH (20:49)
[2022-05-11] MEDS: ENOXAPARIN INJ 40 MG/0.4 ML SYR SQ SCH (20:53)
[2022-05-11] MEDS: allopurinoL 300 MG TAB PO SCH (20:53)
[2022-05-12] MEDS: ACETAMINOPHEN 500 MG TAB PO SCH ×3 (02:11→17:09)
[2022-05-12 07:24] LABS: Albumin Globulin Ratio 1.2 (0.9-2); Albumin Level 2.4 gm/dl (3.4-5.0); BUN Creatinine Ratio 34.1 (10-20); Bilirubin,Total 0.9 mg/dl (0.2-1.0); Calcium 7.9 mg/dl (8.5-10.1); Creatinine Clr Calc Pharmacy 71.5 ml/min; Est GFR (African American) 109.2 ml/min; Est GFR (Non-African American) 94.2 ml/min; Potassium 3.8 mmol/L (3.5-5.1); Total Protein 4.4 gm/dl (6.0-8.3)
[2022-05-12] MEDS: AMOXICILLIN/CLAVULANATE 875 MG TAB PO SCH ×2 (08:06→15:30)
[2022-05-12] MEDS: ROSUVASTATIN CALCIUM 5 MG TAB PO SCH (08:06)
[2022-05-12] MEDS: METOPROLOL SUCC 25MG EXT REL TAB PO SCH (08:07)
[2022-05-12] MEDS: ASPIRIN 81 MG ECTAB PO SCH (08:07)
[2022-05-12] MEDS: amLODIPine BESYLATE 5 MG TAB PO SCH (08:07)
[2022-05-12] MEDS: GABAPENTIN 300 MG CAP PO SCH ×3 (08:08→21:28)
[2022-05-12] MEDS: DOCUSATE SODIUM/SENNA 50/8.6MG TAB PO SCH (08:08)
[2022-05-12] MEDS: LOSARTAN POTASSIUM 50 MG TAB PO SCH (08:09)
[2022-05-12] MEDS: guaiFENesin 600 MG TABCR PO SCH ×2 (08:09→20:29)
[2022-05-12] MEDS: NICOTINE 7 MG/24 HR TDSY TD SCH (08:11)
[2022-05-12] MEDS: POLYETHYLENE (MIRALAX) 17 GM PACK PO SCH (08:12)
[2022-05-12] MEDS: INSULIN ASPART PER UNIT SC SCH ×4 (08:38→20:30)
--- NOTE | 2022-05-12 13:05 | Hospitalist Progress Note ---
Date of Service May 12, 2022 Assessment & Plan (1) Fracture of right hip: Plan: Patient presenting after mechanical fall and subsequent right hip pain. Found to have intertrochanteric right hip fracture. POD#4 for right hip trochanteric femoral nail by Dr. Nunez Activity and wound care orders as per ortho Pain control with bowel regimen PT/OT EBL 50cc Acute blood loss anemia Preop Hgb 14.1 --> 9.9 on 05/09 Trend H&H (2) COVID-19: Plan: Tested positive for COVID-19 Reports ongoing cough and sinus congestion for the past 4 weeks. Tested negative for COVID-19 on 04/26/2022 On admission -- saturating well on room air, no infiltrate on CXR Due to ongoing URI symptoms, patient was started on Augmentin (day 5) On remdesivir, day 4/5 Incentive spirometer, flutter valve Repeat CXR on 05/10- Probable mild bibasilar opacities which could reflect an infectious etiology or atelectasis. (3) Hyperglycemia: Plan: Glucose on admission 211 Hgb A1c 6.1 02/2022 Would allow for more labile control due to patient's advanced age Conservative NovoLog scale --patient has required very little insulin Glucose improved (4) CAD (coronary artery disease): Plan: Appears stable, no reports of chest pain, EKG without acute ST changes Continue ASA, statin, beta-fariba (5) Hypertension: Plan: BP controlled -- on amlodipine, losartan, metoprolol (6) Renal mass, right: (7) Complex renal cyst: Plan: Follows closely with urology DVT PROPHYLAXIS SQ Lovenox per ortho Dispo -medically stable for discharge, awaiting bed at [facility] vs[facility] SNF Admission and Anticipated Discharge Date Admission Date: May 07, 2022 Subjective Follow-up for mechanical fall, intertrochanteric right hip fracture, s/p right hip trochanteric femoral nailing Patient seen and examined. Resting in bed, no acute distress. Pain controlled, eager for discharge. Denies chest pain or shortness of breath. Cough improving. Appetite fair. Denies abdominal pain or nausea. Reporting diarrhea. No bright red bleeding per rectum or dark tarry stools. Mantilla remains in place. Review of Systems Review of Systems: ROS per HPI, all other systems reviewed and negative Physical Exam Constitutional: WD/WN, vitals as above Respiratory: normal respiratory effort, lungs clear to auscultation Cardiovascular: Rate/Rhythm: regular rate and regular rhythm Vessels: normal peripheral pulses Extremities: no edema Gastrointestinal (Abdomen): Percussion/Palpation: abdomen soft; abdomen nontender Musculoskeletal: S/p right hip surgery, dressing CDI, CSM checks intact RLE Skin: no rashes, warm and dry Neurologic: no focal motor deficits Psychiatric: A+Ox3, euthymic affect Results & Data Results & Data ([facility]) Vital Signs (Past 12 Hours) Vital Signs Temp Pulse Resp BP Pulse Ox O2 Del Method 05/12/22 08:17 36.4 C L 77 15 131/74 94 Room Air Laboratory Results [facility] 05/12/22 06:52 Sodium 141 Potassium 3.8 Chloride 108 H Carbon Dioxide 29 BUN 14 Creatinine 0.41 L Glucose 85 Calcium 7.9 L Liver Function 05/12/22 Range/Units 06:52 Total Bilirubin 0.9 (0.2-1.0) mg/dl AST 19 (13-39) U/L ALT 14 (7-52) U/L Alkaline Phosphatase 44 (34-104) U/L Albumin 2.4 L (3.4-5.0) gm/dl
[2022-05-12] MEDS: REMDESIVIR 100 MG in SODIUM CHLORIDE 0.9% 230 ML IV SCH (20:29)
[2022-05-12] MEDS: allopurinoL 300 MG TAB PO SCH (20:36)
[2022-05-12] MEDS: ENOXAPARIN INJ 40 MG/0.4 ML SYR SQ SCH (20:36)
[2022-05-13] MEDS: ACETAMINOPHEN 500 MG TAB PO SCH ×2 (01:46→09:10)
[2022-05-13 08:01] LABS: Hematocrit (blood only) 27.4 % (37.0-47.0); Hemoglobin 9.2 g/dl (12.0-16.0); Mean Corpuscular Hemoglobin 31.9 pg (25.0-34.0); Mean Corpuscular Hgb Conc 33.6 g/dL (32.0-36.0); Mean Corpuscular Volume 95.1 fL (80.0-100.0); Mean Platelet Volume 10.3 fL (9.4-12.4); Nucleated RBC # (auto) 0.03 K/uL (0-0.12); Nucleated RBC % (auto) 0.4 %; Platelet Count 198 K/uL (130-400); RDW Coefficient of Variation 13.4 % (11.5-14.5); RDW Standard Deviation 46.2 fL (36.4-46.3); Red Blood Count 2.88 M/uL (4.20-5.40); White Blood Count 6.75 K/ul (4.8-10.8)
[2022-05-13] MEDS: INSULIN ASPART PER UNIT SC SCH (08:50)
[2022-05-13] MEDS: AMOXICILLIN/CLAVULANATE 875 MG TAB PO SCH (09:03)
[2022-05-13] MEDS: amLODIPine BESYLATE 5 MG TAB PO SCH (09:04)
[2022-05-13] MEDS: ASPIRIN 81 MG ECTAB PO SCH (09:05)
[2022-05-13] MEDS: guaiFENesin 600 MG TABCR PO SCH (09:06)
[2022-05-13] MEDS: GABAPENTIN 300 MG CAP PO SCH (09:06)
[2022-05-13] MEDS: LOSARTAN POTASSIUM 50 MG TAB PO SCH (09:07)
[2022-05-13] MEDS: METOPROLOL SUCC 25MG EXT REL TAB PO SCH (09:07)
[2022-05-13] MEDS: ROSUVASTATIN CALCIUM 5 MG TAB PO SCH (09:08)
--- NOTE | 2022-05-13 09:28 | Discharge Summary ---
Date of Service May 13, 2022 Admission HPI Per Admitting Provider 87-year-old female with PMH CAD s/p remote LAD stenting in 1999, HTN, gout, chronic back pain, renal mass/complex cyst followed closely by urology, and other problems listed below who presents the ED for evaluation after a fall and right hip pain. Patient reports that she was bringing the garbage can in from the side of the road when there was a big cinthia of wind causing her in the garbage can to follow her. Patient fell onto her right side and she reports she had immediate right hip pain and was unable to stand up. Garbage collectors and postal mail carrier were close by who are able to carry her into her home. Patient was then brought to the ED for further evaluation. Patient reports she has been feeling pretty well recently. She does report a productive cough and sinus drainage over the past 4 weeks. Patient was seen in the ED 2 weeks ago and had an unremarkable work-up. Patient was placed on a 5-day course of prednisone without any improvement in her symptoms. Patient did test positive for COVID-19 in the ED today. Patient reports she continues to be active at her home and activities of daily living. Denies any recent episodes of chest pain or shortness of breath. No abdominal pain, nausea, vomiting, diarrhea. Denies urinary symptoms. In the ED, patient is found to have intertrochanteric fracture of the right hip. She was also hypotensive on arrival that improved after IVF. Admission Exam Per Admitting Provider Constitutional: WD/WN, vitals as above Eyes: PERRL, conjunctivae normal, anicteric sclerae ENMT: external ear and nose normal, oropharynx normal Respiratory: normal respiratory effort, lungs clear to auscultation Cardiovascular: Rate/Rhythm: regular rate and regular rhythm Vessels: normal peripheral pulses Extremities: no edema Gastrointestinal (Abdomen): normal bowel sounds, soft, nontender, no hepatosplenomegaly Musculoskeletal: Hip: + hip abnormal to inpsection (pain with minimal palpation over the right hip, CSM checks intact RLE) Skin: no rashes, warm and dry Neurologic: PERRL, EOMI, accommodation nl, no face palsy, no dysarthria Psychiatric: A+Ox3, euthymic affect Principal Diagnosis Right intertrochanteric hip fracture Discharge Exam Constitutional WD/WN, vitals as above no acute distress Respiratory normal respiratory effort, lungs clear to auscultation Cardiovascular Rate/Rhythm: regular rate and regular rhythm Vessels: normal peripheral pulses Extremities: no edema Gastrointestinal (Abdomen) Percussion/Palpation: abdomen soft; abdomen nontender Musculoskeletal S/p right hip surgery, dressing CDI, CSM checks intact RLE Skin no rashes, warm and dry Neurologic no focal motor deficits Psychiatric A+Ox3, euthymic affect Discharge Data Allergies Allergy/AdvReac Type Severity Reaction Status Date / Time lisinopril Allergy Unknown Cough Verified 05/07/22 14:48 Consultations 05/07/22 18:10 Consult Anesthesiology Routine Consult Orthopedic Surgery Routine Procedures Performed Operation Date: 05/08/22 07:00 Actual Procedures p Right Hip Trochanteric Femoral Nail(Right) - Aiden Nunez DO Ordered Studies Laboratory Results WBC 6.75 K/ul (4.8-10.8) 05/13/22 07:13 RBC 2.88 M/uL (4.20-5.40) L 05/13/22 07:13 Hgb 9.2 g/dl (12.0-16.0) L 05/13/22 07:13 Hct 27.4 % (37.0-47.0) L 05/13/22 07:13 MCV 95.1 fL (80.0-100.0) 05/13/22 07:13 MCH 31.9 pg (25.0-34.0) 05/13/22 07:13 MCHC 33.6 g/dL (32.0-36.0) 05/13/22 07:13 RDW Std Deviation 46.2 fL (36.4-46.3) 05/13/22 07:13 RDW Coeff of Rosita 13.4 % (11.5-14.5) 05/13/22 07:13 Plt Count 198 K/uL (130-400) 05/13/22 07:13 MPV 10.3 fL (9.4-12.4) 05/13/22 07:13 Immature Gran % (Auto) 0.5 % 05/09/22 07:48 Neut % (Auto) 77.3 % 05/09/22 07:48 Lymph % (Auto) 11.6 % 05/09/22 07:48 Bates % (Auto) 9.3 % 05/09/22 07:48 Eos % (Auto) 1.1 % 05/09/22 07:48 Baso % (Auto) 0.2 % 05/09/22 07:48 Neut # (Auto) 6.32 K/uL (1.40-6.50) 05/09/22 07:48 Lymph # (Auto) 0.95 K/uL (1.2-3.4) L 05/09/22 07:48 Bates # (Auto) 0.76 K/uL (0.11-0.59) H 05/09/22 07:48 Eos # (Auto) 0.09 K/uL (0-0.50) 05/09/22 07:48 Baso # (Auto) 0.02 K/uL (0-0.2) 05/09/22 07:48 Immature Gran # (Auto) 0.04 K/uL (0.01-0.20) 05/09/22 07:48 Absolute Nucleated RBC 0.03 K/uL (0-0.12) 05/13/22 07:13 Nucleated RBC % (auto) 0.4 % 05/13/22 07:13 Platelet Estimate Decreased (Normal) L 05/08/22 06:30 PT 11.3 Seconds (9.0-12.0) 05/07/22 13:00 INR 1.1 (0.9-1.1) 05/07/22 13:00 APTT 23.1 Seconds (21.0-31.0) 05/07/22 13:00 PTT Ratio 0.8 05/07/22 13:00 Sodium 141 mmol/L (136-145) 05/12/22 06:52 Potassium 3.8 mmol/L (3.5-5.1) 05/12/22 06:52 Chloride 108 mmol/L (98-107) H 05/12/22 06:52 Carbon Dioxide 29 mmol/L (21-32) 05/12/22 06:52 Anion Gap 4 (3-11) 05/12/22 06:52 BUN 14 mg/dl (6-23) 05/12/22 06:52 Creatinine 0.41 mg/dl (0.6-1.2) L 05/12/22 06:52 Est Cr Clr Drug Dosing 71.5 ml/min 05/12/22 06:52 Est GFR ( Amer) 109.2 ml/min 05/12/22 06:52 Est GFR (Non-Af Amer) 94.2 ml/min 05/12/22 06:52 BUN/Creatinine Ratio 34.1 (10-20) H 05/12/22 06:52 Glucose 85 mg/dl (70-99(Fasting)) 05/12/22 06:52 POC Glucose 91 mg/dl (70-99) 05/13/22 08:34 Calcium 7.9 mg/dl (8.5-10.1) L 05/12/22 06:52 Total Bilirubin 0.9 mg/dl (0.2-1.0) 05/12/22 06:52 AST 19 U/L (13-39) 05/12/22 06:52 ALT 14 U/L (7-52) 05/12/22 06:52 Alkaline Phosphatase 44 U/L (34-104) 05/12/22 06:52 Total Protein 4.4 gm/dl (6.0-8.3) L 05/12/22 06:52 Albumin 2.4 gm/dl (3.4-5.0) L 05/12/22 06:52 Globulin 2.0 gm/dl (2.5-4.0) L 05/12/22 06:52 Albumin/Globulin Ratio 1.2 (0.9-2) 05/12/22 06:52 Urine Color Yellow 05/07/22 20:35 Urine Appearance Clear (Clear) 05/07/22 20:35 Urine pH 5.0 (4.5-7.5) 05/07/22 20:35 Ur Specific Waldo 1.019 (1.000-1.030) 05/07/22 20:35 Urine Protein Negative (Negative) 05/07/22 20:35 Urine Glucose (UA) Trace (Negative) H 05/07/22 20:35 Urine Ketones Negative (Negative) 05/07/22 20:35 Urine Blood Negative (Negative) 05/07/22 20:35 Urine Nitrite Negative (Negative) 05/07/22 20:35 Urine Bilirubin Negative (Negative) 05/07/22 20:35 Urine Urobilinogen Negative (Negative) 05/07/22 20:35 Ur Leukocyte Esterase Negative (Negative) 05/07/22 20:35 SARS-CoV-2, RNA, NAAT POSITIVE (NEGATIVE) A* 05/07/22 13:08 Blood Type A Positive 05/07/22 18:57 Antibody Screen NEGATIVE 05/07/22 18:57 Impressions Hip/Pelvis X-Ray 05/07/22 12:44 XR hip RT 2V w pelvis CLINICAL HISTORY: likely frx TECHNIQUE: 2 views of the right hip and single frontal view of the pelvis were obtained. Comparison: None available at the time of this dictation. FINDINGS: Intertrochanteric fracture of the right hip is seen. Degenerative changes are seen in the lumbar spine and hip joints. Soft tissue swelling is seen. IMPRESSION: Intertrochanteric fracture of the right hip with associated soft tissue swelling. ACT 112: Negative or not required by law. Electronically signed by: Choco Helton M.D. 05/07/2022 2:16 PM Hip X-Ray 05/08/22 00:00 FL hip RT 2-3V CLINICAL HISTORY: RT TROCH NAIL COMPARISON STUDY: Pelvis and right hip radiographs May 07, 2012. FLUOROSCOPY TIME: 77.5 seconds. EXPOSURE DOSE: 11.87 mGy FLUOROSCOPIC IMAGES: 4 FINDINGS: Fluoroscopy was provided during internal fixation of the intertrochanteric fracture of the right femur with trochanteric nail. Fracture alignment has improved. Hardware is intact. There are no unexpected radiopaque f oreign bodies. IMPRESSION: Fluoroscopy provided during internal fixation of the intertrochanteric fracture of the right femur. ACT 112: Negative or not required by law. Electronically signed by: Jesse Negrete M.D. 05/08/2022 6:25 PM Chest X-Ray 05/10/22 12:47 XR chest 1V portable CLINICAL HISTORY: ff up, covid infection COMPARISON STUDY: Chest radiograph May 07, 2022. FINDINGS: Lung volumes are normal. There are probable mild bibasilar opacities. There is no pneumothorax or pleural effusion. Cardiac size is normal. Mediastinal contours are normal. There is no evidence for pulmonary edema. IMPRESSION: Probable mild bibasilar opacities which could reflect an infectious etiology or atelectasis. ACT 112: Negative or not required by law. Electronically signed by: Jesse Negrete M.D. 05/10/2022 1:43 PM Hospital Course (1) Fracture of right hip: Patient presenting after mechanical fall and subsequent right hip pain. Found to have intertrochanteric right hip fracture. POD#5 right hip trochanteric femoral nail by Dr. Nunez Patient did well post operatively Pain controlled with scheduled Tylenol and PRN tramadol DVT Prophylaxis - TEDs x 2 weeks, SQ Lovenox 40mg daily x 4 weeks Acute blood loss anemia Preop Hgb 14.1 --> 9.9 --> 9.2 2 Trend H&H (2) COVID-19: Tested positive for COVID-19 Reports ongoing cough and sinus congestion for the past 4 weeks. Tested negative for COVID-19 on 04/26/2022 On admission -- saturating well on room air, no infiltrate on CXR Due to ongoing URI symptoms, patient was started on Augmentin. Will be discharged on additional 2 doses to complete a 7-day course. Completed 5 days of remdesivir Repeat CXR on 05/10- Probable mild bibasilar opacities which could reflect an infectious etiology or atelectasis. (3) Hyperglycemia: Glucose on admission 211 Hgb A1c 6.1 02/2022 Would allow for more labile control due to patient's advanced age Conservative NovoLog scale --patient has required very little insulin Glucose improved (4) CAD (coronary artery disease): Appears stable, no reports of chest pain, EKG without acute ST changes Continue ASA, statin, beta-fariba (5) Hypertension: BP controlled -- on amlodipine, losartan, metoprolol (6) Renal mass, right: (7) Complex renal cyst: Follows closely with urology Total Time Total Time Spent Total Time Spent (In Minutes): 40 Discharge Plan Discharge Items Patient Disposition: Transfer Inpatient Rehab Fac Reason For Visit: Fall, Right Hip Pain Discharge Diagnosis: Right intertrochanteric hip fracture Activity: Per Instructions section Weightbearing: Right partial Weightbearing Comment: Partial weightbearing right lower extremity with walker Non-emergency contact: Surgeon Call non-emergency contact if: you have any medication questions, your symptoms worsen, your pain is not controlled and you have a fever Follow-up/Referrals: Arnulfo Hernández MD [Primary Care Provider] - Starr Flor CRNP [Nurse Practitioner] - (Please follow up with Starr HORVATH for an osteoporosis work up in 6 weeks, if you have not had a previous workup done in the past. ) Aiden Nunez, DO [Surgeon] - (Follow-up with Dr. Nunez in 2 weeks from the day of your surgery for your first postoperative visit.) Diet: Heart Healthy Addtl Attending Provider Instructions: Patient presented after mechanical fall and sustained a right intertrochanteric hip fracture. S/p right hip trochanteric femoral nailing on 05/[address] Nunez. Please refer to ortho d/c instructions as below. Patient tested positive for COVID-19 on admission. Did not have oxygen requirement. Follow-up CXR showed questionable pneumonia therefore patient was treated with 5 days of remdesivir. Patient was also started on Augmentin for sinusitis. Patient will be discharged on an additional 2 doses to complete 7 days of therapy. Addtl Professional Development Manager Provider Instructions: [facility] DISCHARGE INSTRUCTIONS: HIP FRACTURE SELF CARE INSTRUCTIONS: A. You are to ambulate with a walker or crutches for approximately 6 weeks. B. You are PARTIAL WEIGHT BEARING on your operative lower extremity for at least 6 weeks. C. Wear low heeled shoes with non-slip soles D. Be sure that your floors are free of things that could trip you throw rugs, electrical cords, and small objects. Avoid wet and waxed floors, especially with crutches/walker/cane. E. Try to walk several times a day with rest periods between. F. You may shower 48 hours after surgery and get the incision area wet, but DO NOT soak or submerge incision area in water. (No baths, swimming pools, hot tubs) G. You may have a large, band-aid like dressing over your incision (Aquacel). This will remain on your incision for 7 days, and then can be removed. You CAN shower with this on. If incision is leaking through the dressing, please call the office . H. Do NOT apply soap or any ointment/lotions directly over incision. I. You may use ice as needed to operative site. SPECIAL CARE INSTRUCTIONS: VERY IMPORTANT TO READ AND REVIEW A. You may be at risk for phlebitis or blood clots. a. Wear surgical stockings (HENRY hose) for 2 weeks after surgery to improve circulation and reduce swelling. b. Take LOVENOX 40mg SQ dailyfor 4 weeks or as directed. This is your blood thinner. B. There are a few signs you need to watch for after you are home. Call [facility] at [phone] if you experience any of the following: a. If you have a temperature of 101 degrees or higher. b. Sudden increase in pain in your hip not relieved by rest or pain medication. c. Any fluid or drainage from the incision; redness of the incision. d. Shortness of breath or chest pain. C. Pain Medication: a. You will be prescribed pain medication upon discharge that should last till your first post-operative appointment. b. If you experience nausea and/or skin rash, discontinue this medication and contact our office for an alternative medication. c. Caution- narcotic pain medication can cause constipation. FOLLOW UP VISIT: Please call [facility] at [phone] to schedule a follow up appointment 10-14 days from the date of your surgery date. Pending Studies at Discharge: No Stand-Alone Forms: My [facility] Skilled Items Patient informed of condition?: Yes DNR: No Discharge Level of Care: Acute rehab Communicable Disease: No Discharge Prognosis: Stable Lines: None Urinary Catheter: No Medications and DC Order Prescriptions: New acetaminophen [Tylenol Extra Strength] 500 mg Tablet 1,000 mg PO Q8H Qty: 1 0RF amoxicillin-pot clavulanate 875-125 mg Tablet 1 tab PO BIDM Qty: 2 0RF enoxaparin [Lovenox] 40 mg/0.4 mL Syringe 40 mg subcut HS Qty: 24 0RF tramadol 50 mg Tablet 50 mg PO Q6H PRN (Reason: pain) Qty: 2 0RF Continued losartan 50 mg tablet 50 mg PO QAM omega-3 fatty acids 1,000 mg Capsule 1,000 mg PO BID amlodipine 5 mg tablet 5 mg PO DAILY aspirin 81 mg Tablet,Delayed Release (Dr/Ec) 81 mg PO DAILY nitroglycerin 0.4 mg tablet, sublingual 0.4 mg sublingual DIRECTED PRN (Reason: Chest Pain) gabapentin 300 mg capsule 300 mg PO TID allopurinol 300 mg tablet 300 mg PO HS metoprolol succinate 25 mg tablet extended release 24 hr 12.5 mg PO QAM rosuvastatin 5 mg tablet 5 mg PO QAM acetaminophen [Tylenol Extra Strength] 500 mg Tablet 500 mg PO Q6H PRN (Reason: Pain) Discharge Orders: Discharge Order (Routine); Ordered 05/13/22 Ordered By: Dina Ventura/Other Patient Handouts: Understanding Hip Fractures Admission Data Admit Date/Time: 05/07/22 15:32 Attending Provider: Brina Coronado Admit Provider: John Morton Primary Care Provider: Arnulfo Hernández Other Providers: Michelle Gottlieb [facility] ; [facility] ; [facility] ; John Morton ; Shane Son ; Aiden Nunez ; Justin Charles Other Interventions: Discharge Summary Assessment (RN) Last Done: 05/13/22 10:20 Supervising Physician Co-Signing Physician Notes Attending addendum: The patient was seen and examined in medical floor She has been stable and has been going through physical therapy without any problem She feels much better and thinks that she can be discharged today to continue physical therapy as an outpatient Denies any acute symptoms On examination Lying in bed without any acute distress Hemodynamically stable Chest-clear to auscultate bilaterally Heart-S1, S2 regular Abdomen-benign Extremities-trace edema bilaterally CRUSHER TENDER-alert, awake and oriented x3 Her labs, medications and imaging studies reviewed Remains medically stable following right hip trochanteric femoral nail Medically stable to be discharged Agree with assessment and plan as outlined above by Dina Coronado
[2022-05-13] MEDS: NICOTINE 7 MG/24 HR TDSY TD SCH (10:07)
== END 2022-05-13 10:40 | DRG 480 ==
LOC: ED 12:12 → SUATTDRO 15:32 → 3E 15:32

== ENCOUNTER 2024-03-08 17:30 | Inpatient (IN) ==
--- NOTE | 2024-03-08 18:16 | Emergency Department Note ---
History of Present Illness General Chief complaint: Back Injury/Pain Stated complaint: WEAKNESS, PAIN History of Present Illness Maximum Pain Intensity: 9 This is an 88-year-old female that presents to the emergency department via private vehicle with complaints of "left low back pain". The patient notes that she was trying to help out her daughter by doing some dusting in the home this past and then this past Wednesday awoke with discomfort in the left low back/left gluteal area. She denies any falls. No trauma. No injury. No fevers or chills. She does note some mild dysuria. She notes at rest the pain is minimal in the left low back/left gluteal area but it is so severe when she attempts to get out of bed or stand from a sitting position such as while on the toilet that she is not able to go off the toilet herself. No numbness or tingling in genital region. No bowel or bladder incontinence. Home Medications Medication Instructions Recorded Confirmed Type amlodipine 5 mg tablet 5 mg PO QAM 04/26/22 03/08/24 History aspirin 81 mg tablet,delayed 81 mg PO QAM 04/26/22 03/08/24 History release gabapentin 300 mg capsule 300 mg PO TID 04/26/22 03/08/24 History losartan 50 mg tablet 50 mg PO QAM 04/26/22 03/08/24 History metoprolol succinate 25 mg 12.5 mg PO QAM 04/26/22 03/08/24 History tablet,extended release 24 hr nitroglycerin 0.4 mg sublingual 0.4 mg sublingual .EVERY 5 MINUTES 04/26/22 03/08/24 History tablet PRN Chest Pain omega-3 fatty acids 1,000 mg 1,000 mg PO AMHS 04/26/22 03/08/24 History capsule rosuvastatin 5 mg tablet 5 mg PO HS 04/26/22 03/08/24 History acetaminophen 500 mg tablet 1,000 mg PO TID Pain 06/26/22 03/08/24 History (Tylenol Extra Strength) alendronate 70 mg tablet 70 mg PO WK 03/08/24 03/08/24 History allopurinol 100 mg tablet 100 mg PO HS 03/08/24 03/08/24 History calcium carbonate 500 mg PO QAM 03/08/24 03/08/24 History cholecalciferol (vitamin D3) 50 50 mcg PO QAM 03/08/24 03/08/24 History mcg (2,000 unit) tablet (Vitamin D3) enoxaparin 60 mg/0.6 mL See Rx Instructions .Route .COMPLEX 03/08/24 03/08/24 History subcutaneous syringe magnesium citrate 125 mg capsule 125 mg PO QAM 03/08/24 03/08/24 History melatonin 3 mg tablet 3 mg PO HS PRN Insomnia 03/08/24 03/08/24 History warfarin 5 mg tablet (Jantoven) 5 mg PO UD 03/08/24 03/08/24 History Allergies Allergy/AdvReac Type Severity Reaction Status Date / Time lisinopril AdvReac Intermediate Cough Verified 06/26/22 17:20 Past Med/Surg History Problem List (Updated 03/08/24 @ 23:34 by Niraj Kilpatrick PA-C) Closed compression fracture of L5 vertebra (Acute) Hyperglycemia CAD (coronary artery disease) Complex renal cyst Renal mass, right Fracture of right hip (Acute) Fall (Acute) COVID-19 (Acute) Hypertension Type 2 diabetes mellitus Medical History 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 Gout Myocardial infarction Coronary artery disease 1999 - NSTEMI s/p LAD stent x 1 Surgical History No pertinent past surgical history Family History Other Family history non-contributory Social History Smoking Status: Never smoker Tobacco Type: Cigarettes Cigarettes Per Day: 8; Hx Alcohol Use: Yes Hx Substance Use: No Preferred Language: Bulgarian Communication Ability: Effective Clerk To Justice Required: No Beliefs That Will Affect Care: None Current Living Situation: Alone Feels Safe at Home: Yes Assistive Devices: None Review of Systems A total of 10 systems reviewed and were otherwise negative Physical Exam Vital Signs Vital Signs - 24 hr 03/08/24 17:35 03/08/24 21:19 03/08/24 21:34 Temperature 36.1 C L 36.6 C Temperature Source Temporal Artery Scan Oral Pulse Rate 67 68 Pulse Rate [Right Finger] 72 Respiratory Rate 20 19 Blood Pressure 150/105 H Blood Pressure [Left Arm] 198/99 H Blood Pressure Mean 120 Blood Pressure Mean [Left Arm] 132 Blood Pressure Position [Left Arm] Lying Pulse Oximetry 95 95 Oxygen Delivery Method Room Air Room Air Sepsis Recent Fever Within 48 Hours No Sepsis New/Unexplained Change in Mental Status N/A Sepsis Action Taken by Nursing No Action Required 03/08/24 22:34 03/08/24 23:36 Temperature 36.6 C Temperature Source Oral Pulse Rate 18 L 63 Pulse Rate [Right Finger] Respiratory Rate 16 Blood Pressure 159/110 H 161/85 H Blood Pressure [Left Arm] Blood Pressure Mean Blood Pressure Mean [Left Arm] Blood Pressure Position [Left Arm] Pulse Oximetry 93 Oxygen Delivery Method Room Air Sepsis Recent Fever Within 48 Hours Sepsis New/Unexplained Change in Mental Status Sepsis Action Taken by Nursing VITAL SIGNS - Vital signs and nursing notes were reviewed. Stable, afebrile. GENERAL -88-year-old female appearing her stated age who is in no acute distress. Communicates well with provider and answers questions appropriately. SKIN - Without rashes. No meningeal or petechial rash. The skin overlying the left low back and left gluteal area/left hip is unremarkable. No herpetic lesions. No erythema or edema. HEAD - NC/AT. EYES - PERRL with EOMI bilaterally. Sclera anicteric. EARS - No deformities of external structures noted on gross examination bilaterally. MOUTH/OROPHARYNX - Without perioral cyanosis. NECK - Neck with FROM. No nuchal rigidity. LUNGS - CTA CARDIAC - RRR ABDOMEN - Abdominal contour normal without pulsations or visible masses. BS normoactive all four quadrants. No tenderness, palpable masses, hepatosplenomegaly, or ascites noted. EXTREMITIES - No clubbing or peripheral cyanosis. +5/5 strength noted in UE/LE bilaterally. MSKminimal tenderness overlying the inferior L-spine spinous processes with discomfort tracking left into the left gluteal area. Patient able to straight leg raise against resistance both on left side and right side without any issue or radicular symptoms. NEUROLOGIC - Cranial nerves grossly intact. PSYCH -alert, oriented and pleasant on exam. Course Administered Medications Discontinued Medications Acetaminophen (Acetaminophen 500 Mg Tab) 500 mg PO NOW STA Stop: 03/08/24 20:47 Last Admin: 03/08/24 21:42 Dose: Not Given Documented By: CDElena Amlodipine Besylate (Amlodipine Besylate 5 Mg Tab) 5 mg PO NOW ONE Stop: 03/08/24 21:48 Last Admin: 03/08/24 22:02 Dose: 5 mg Documented By: SABA Ioversol (Optiray 320 100ml) 92 ml IV ONCE ONE Stop: 03/08/24 19:01 Last Admin: 03/08/24 19:01 Dose: 92 ml Documented By: LAURA Lidocaine (Lidocaine 5% 1 Patch) 1 patch TD NOW STA Stop: 03/08/24 20:47 Last Admin: 03/08/24 21:19 Dose: 1 patch Documented By: SABA Metoprolol Tartrate (Metoprolol Tartrate 1 Mg/Ml Vial) 2.5 mg IV NOW STA Stop: 03/08/24 21:48 Last Admin: 03/08/24 22:34 Dose: 2.5 mg Documented By: BOB Tramadol HCl (Tramadol Hcl 50 Mg Tablet) 25 mg PO NOW STA Stop: 03/08/24 20:49 Last Admin: 03/08/24 21:20 Dose: 25 mg Documented By: SABA Medical Decision Making Laboratory Data 03/08/24 18:20 03/08/24 18:20 Lab Results 03/08/24 03/08/24 Range/Units 18:20 19:39 WBC 5.40 (4.8-10.8) K/ul RBC 4.85 (4.20-5.40) M/uL Hgb 15.4 (12.0-16.0) g/dl Hct 46.3 (37.0-47.0) % MCV 95.5 (80.0-100.0) fL MCH 31.8 (25.0-34.0) pg MCHC 33.3 (32.0-36.0) g/dL RDW Std Deviation 44.7 (36.4-46.3) fL RDW Coeff of Rosita 12.6 (11.5-14.5) % Plt Count 165 (130-400) K/uL MPV 9.4 (9.4-12.4) fL Immature Gran % (Auto) 0.6 % Neut % (Auto) 67.4 % Lymph % (Auto) 22.0 % [place] % (Auto) 8.0 % Eos % (Auto) 1.3 % Baso % (Auto) 0.7 % Neut # (Auto) 3.64 (1.40-6.50) K/uL Lymph # (Auto) 1.19 L (1.20-3.40) K/uL [place] # (Auto) 0.43 (0.11-0.59) K/uL Eos # (Auto) 0.07 (0.00-0.50) K/uL Baso # (Auto) 0.04 (0.00-0.20) K/uL Immature Gran # (Auto) 0.03 (0.01-0.20) K/uL PT 27.1 H (9.0-12.0) Seconds INR 2.7 H (0.9-1.1) APTT 33 H (21-31) Seconds PTT Ratio 1.2 Sodium 137 (136-145) mmol/L Potassium 4.4 (3.5-5.1) mmol/L Chloride 103 (98-107) mmol/L Carbon Dioxide 26 (21-32) mmol/L Anion Gap 8 (3-11) BUN 17 (6-23) mg/dl Creatinine 0.69 (0.6-1.2) mg/dl Est Cr Clr Drug Dosing Not Reportable eGFR 84.47 BUN/Creatinine Ratio 24.6 H (10-20) Glucose 250 H (70-99(Fasting)) mg/dl Calcium 9.3 (8.6-10.3) mg/dl Total Bilirubin 0.6 (0.2-1.0) mg/dl AST 35 (13-39) U/L ALT 53 H (7-52) U/L Alkaline Phosphatase 130 H (34-104) U/L Total Creatine Kinase 48 (26-192) U/L Total Protein 6.6 (6.0-8.3) gm/dl Albumin 4.0 (3.4-5.0) gm/dl Globulin 2.6 (2.5-4.0) gm/dl Albumin/Globulin Ratio 1.5 (0.9-2) Urine Color Yellow Urine Appearance Clear (Clear) Urine pH 6.0 (4.5-7.5) Ur Specific [place] 1.019 (1.000-1.030) Urine Protein Negative (Negative) Urine Glucose (UA) 3+ H (Negative) Urine Ketones Negative (Negative) Urine Blood Negative (Negative) Urine Nitrite Negative (Negative) Urine Bilirubin Negative (Negative) Urine Urobilinogen Negative (Negative) Ur Leukocyte Esterase Negative (Negative) Imaging Data Radiologist's Impression: Abdomen/Pelvis CT 03/08/24 18:17 Exam(s): CT ABDOMEN + PELVIS With Contrast IV Amt: 92 cc opti 320 EXAM: CT Abdomen and Pelvis With Intravenous Contrast CLINICAL HISTORY: Reason for exam: anticoagulated, trouble standing, L back/hip pain. TECHNIQUE: Axial computed tomography images of the abdomen and pelvis with intravenous contrast. CTDI is 21.38 mGy and DLP is 1021.65 mGy-cm. Automated exposure control was utilized for the study. A dose lowering technique was utilized adhering to the principles of ALARA. CONTRAST: Patient received 92 cc opti 320 of IV contrast COMPARISON: December 06, 2023 FINDINGS: Lung bases: Unremarkable. No mass. No consolidation. ABDOMEN: Liver: Unremarkable. No mass. Gallbladder and bile ducts: Unremarkable. No calcified stones. No ductal dilation. Pancreas: Unremarkable. No mass. No ductal dilation. Spleen: Unremarkable. No splenomegaly. Adrenals: Unremarkable. No mass. Kidneys and ureters: 2 cm enhancing mass involving the upper pole right kidney is unchanged in appearance when compared to prior exam. 0.7 cm right renal hypodensity likely representing a cyst but too small for the density characterization. Nonobstructing bilateral intrarenal calculi. Stomach and bowel: Unremarkable. No obstruction. No mucosal thickening. PELVIS: Appendix: No findings to suggest acute appendicitis. Bladder: Unremarkable. No mass. Reproductive: Unremarkable as visualized. ABDOMEN and PELVIS: Intraperitoneal space: Unremarkable. No free air. No significant fluid collection. Bones/joints: Postoperative changes of ORIF right femoral fracture. No dislocation. Multilevel degenerative disease of the lower thoracic and lumbar spine. Soft tissues: Unremarkable. Vasculature: Diffuse vascular calcifications. No abdominal aortic aneurysm. Lymph nodes: Unremarkable. No enlarged lymph nodes. IMPRESSION: Stable 2 cm enhancing mass involving the upper pole right kidney concerning for renal cell carcinoma. Other stable chronic changes as described above Electronically signed by: Orlando Rebolledo MD 03/08/24 20:[address] 03/08/24 18:17 Exam(s): CT HEAD Without Contrast EXAM: CT Head Without Intravenous Contrast CLINICAL HISTORY: Reason for exam: anticoagulated, trouble standing. TECHNIQUE: Axial computed tomography images of the head/brain without intravenous contrast. CTDI is 37.61 mGy and DLP is 546.36 mGy-cm. Automated exposure control was utilized for the study. A dose lowering technique was utilized adhering to the principles of ALARA. COMPARISON: December 06, 2023 FINDINGS: Brain: Mild age-appropriate cerebral volume loss. No hemorrhage. No significant white matter disease. Ventricles: Unremarkable. No ventriculomegaly. Bones/joints: Unremarkable. No acute fracture. Soft tissues: Unremarkable. Sinuses: Unremarkable as visualized. No acute sinusitis. Mastoid air cells: Unremarkable as visualized. No mastoid effusion. IMPRESSION: Head CT negative for acute intracranial abnormality Minor chronic findings as above Electronically signed by: Orlando Rebolledo MD 03/08/24 20:[address] 03/08/24 18:17 Exam(s): CT L SPINE With Contrast IV Amt: 92 cc opti 320 EXAM: CT Lumbar Spine With Intravenous Contrast CLINICAL HISTORY: Reason for exam: anticoagulated, trouble standing, L back/hip pain. TECHNIQUE: Axial computed tomography images of the lumbar spine with intravenous contrast. CTDI is 21.38 mGy and DLP is 1021.65 mGy-cm. Automated exposure control was utilized for the study. A dose lowering technique was utilized adhering to the principles of ALARA. CONTRAST: Patient received 92 cc opti 320 of IV contrast COMPARISON: December 06, 2023 FINDINGS: Vertebrae: Subtle superior impression compression deformity of the L5 vertebral body. This results in less than 5% vertebral body height loss. 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 Diffuse osteopenia. Discs/spinal canal/neural foramina: See above. Soft tissues: Unremarkable. Kidneys and ureters: There is a 1.6 cm enhancing mass involving the midpole right kidney which is stable in appearance when compared to prior exam Nonobstructing bilateral renal calculi. 0.8 cm right lower pole renal cyst. No follow-up of this simple cyst is necessary. IMPRESSION: Age indeterminate but possibly acute infarct involving the superior endplate of L5. This results in less than 5% vertebral body height loss. Clinical correlation recommended. Diffuse osteopenia 1.6 cm enhancing mass involving the midpole right kidney concerning for renal cell carcinoma. This is unchanged from prior study. Electronically signed by: Orlando Rebolledo MD 03/08/24 20:19 PM MDM Narrative Patient was seen and evaluated as above in room D04. Review was performed of triage nursing notes and vital signs. I did review pertinent previous visits and patient history. After obtaining a thorough history and physical examination the above work up was performed. Patient presents today for assessment of left low back/left gluteal region pain. No trauma or injury but does note that she was quite active in helping dust a home this past with then start of symptoms this past Wednesday. The patient does not have any lower extremity weakness or radiation of symptoms into her legs. Negative straight leg raise. No hip tenderness or evidence of hip fracture clinically. The lower extremities are appropriately warm and well-perfused. She does however have some low back pain/left gluteal region pain. Options of care were discussed with the patient. IV access with established. Labs are drawn. Labs reveal no leukocytosis or concerning anemia. INR 2.7. Hyperglycemia 250. Mild transaminitis with ALT of 53. Alk phos 130. Urinalysis reveals glucose, no sign of infection. CT scan of the abdomen/pelvis was obtained plus recon imaging of the L-spine. I also obtain CT imaging of the head as the patient did note she has been unsteady on her feet which may just be secondary to the pain in the left low back, but with the anticoagulated state will also scan the head to ensure no intracranial hemorrhage. CT imaging as above. There is no intracranial hemorrhage. There is however an age- indeterminate but possibly acute fracture involving the superior endplate of L5. This is near the location of the patient's pain. There is diffuse osteopenia. There is also a 1.6 m enhancing mass involving the midpole of the right kidney concerning for renal cell carcinoma. I reviewed these findings with the patient and daughter at bedside. They note they are already aware of the mass of the kidney and are being followed by urology. I discussed several options in regard to managing the suspected L5 compression fracture with the patient as well as with the daughter at bedside. I did offer discharge home and reviewed management however ultimately in discussion with patient and daughter we will proceed with admission to the hospital for further evaluation and management with likely acute care rehab noting the patient's significant trouble in standing from a seated position such as on the toilet and transitioning from bed to walking. The patient while here was medicated with a lidocaine patch plus oral tramadol. Although Tylenol was initially also ordered, this was canceled as the patient did have Tylenol just prior to arrival. Case discussed with the hospitalist service. Please refer to further documentation regarding her stay. GCS: 15 In the evaluation and treatment of this patient the following differential diagnoses were entertained: Fracture, dislocation, subluxation, contusion, sprain, strain, among others Attending Attestation: I Danny Tavares MD I have reviewed the advanced practitioner's documentation and agree with the plan of care. I accept the responsibility for the associated risk of managing the patient. I performed a substantive portion of the visit including involvement in all aspects of medical decision making. Given the lumbar endplate fracture and her pain brought in for further care. Want to be careful avoid significant narcotics in this 88-year-old. Impression & Plan Closed compression fracture of L5 vertebra Discharge Plan Visit Data Chief Complaint: Back Injury/Pain Stated Complaint: WEAKNESS, PAIN ED Provider: Danny Tavares ED Midlevel Provider: Niraj Kilpatrick Discharge Problem: Closed compression fracture of L5 vertebra Patient Disposition: Admitted As Inpatient Condition: Good Discharge Instructions Interventions: ED Discharge Assessment Last Done: 03/08/24 23:36 Forms Stand Alone Forms: My [facility] [employer] Prescriptions Prescriptions: No Action losartan 50 mg tablet 50 mg PO QAM omega-3 fatty acids 1,000 mg Capsule 1,000 mg PO AMHS amlodipine 5 mg tablet 5 mg PO QAM aspirin 81 mg Tablet,Delayed Release (Dr/Ec) 81 mg PO QAM nitroglycerin 0.4 mg tablet, sublingual 0.4 mg sublingual .EVERY 5 MINUTES MDD 3 DOSES PRN (Reason: Chest Pain) gabapentin 300 mg capsule 300 mg PO TID metoprolol succinate 25 mg tablet extended release 24 hr 12.5 mg PO QAM rosuvastatin 5 mg tablet 5 mg PO HS acetaminophen [Tylenol Extra Strength] 500 mg tablet 1,000 mg PO TID Rx Instructions: TAKE AT 7 AM,12 NOON,6 PM alendronate 70 mg tablet 70 mg PO WK Rx Instructions: SUNDAYS IN THE MORNING,,WITH 8 OZ WATER, 30 MINUTES BEFORE FIRST MEAL OF DAY..REMAIN UPRIGHT FOR 30 MINUTES AFTER TAKING TABLET allopurinol 100 mg tablet 100 mg PO HS calcium carbonate [Calcium 500] 500 mg calcium (1,250 mg) Tablet 500 mg PO QAM warfarin [Jantoven] 5 mg tablet 5 mg PO UD Rx Instructions: TAKE 1 TABLET EVERY EVENING EXCEPT ON WEDNESDAY TAKE 1/2 TABLET cholecalciferol (vitamin D3) [Vitamin D3] 50 mcg (2,000 unit) Tablet 50 mcg PO QAM melatonin 3 mg Tablet 3 mg PO HS PRN (Reason: Insomnia) enoxaparin 60 mg/0.6 mL syringe See Rx Instructions .ROUTE .COMPLEX Rx Instructions: USES EVERY 4 MONTHS WITH SPINAL SHOTS..INJECTS 60MG UNDER THE SKIN 60 mg IN THE MORNING AND BEFORE BED TAPERS OFF COUMADIN FIRST LAST SHOT IN JANUARY 2024 magnesium citrate 125 mg Capsule 125 mg PO QAM Referrals Referrals: Arnulfo Hernández MD [Primary Care Provider] -
[2024-03-08 18:35] LABS: Basophils # (auto) 0.04 K/uL (0.00-0.20); Basophils % (auto) 0.7 %; Eosinophils # (auto) 0.07 K/uL (0.00-0.50); Eosinophils % (auto) 1.3 %; Hematocrit (blood only) 46.3 % (37.0-47.0); Hemoglobin 15.4 g/dl (12.0-16.0); Immature Granulocytes # (auto) 0.03 K/uL (0.01-0.20); Immature Granulocytes % (auto) 0.6 %; Lymphocytes # (auto) 1.19 K/uL (1.20-3.40); Mean Corpuscular Hemoglobin 31.8 pg (25.0-34.0); Mean Corpuscular Hgb Conc 33.3 g/dL (32.0-36.0); Mean Corpuscular Volume 95.5 fL (80.0-100.0); Mean Platelet Volume 9.4 fL (9.4-12.4); Monocytes # (auto) 0.43 K/uL (0.11-0.59); Neutrophils # (auto) 3.64 K/uL (1.40-6.50); Neutrophils % (auto) 67.4 %; Platelet Count 165 K/uL (130-400); RDW Coefficient of Variation 12.6 % (11.5-14.5); RDW Standard Deviation 44.7 fL (36.4-46.3); Red Blood Count 4.85 M/uL (4.20-5.40)
[2024-03-08 18:48] LABS: Alanine Aminotransferase 53 U/L (7-52); Albumin Globulin Ratio 1.5 (0.9-2); Alkaline Phosphatase 130 U/L (34-104); Anion Gap 8 (3-11); Aspartate Aminotransferase 35 U/L (13-39); BUN Creatinine Ratio 24.6 (10-20); Bilirubin,Total 0.6 mg/dl (0.2-1.0); Blood Urea Nitrogen 17 mg/dl (6-23); Calcium 9.3 mg/dl (8.6-10.3); Carbon Dioxide 26 mmol/L (21-32); Chloride 103 mmol/L (98-107); Creatine Kinase 48 U/L (26-192); Globulin 2.6 gm/dl (2.5-4.0); Glucose 250 mg/dl (70-99(Fasting)); Potassium 4.4 mmol/L (3.5-5.1); Sodium 137 mmol/L (136-145); Total Protein 6.6 gm/dl (6.0-8.3)
[2024-03-08] MEDS: OPTIRAY 320 100ml IV ONE (19:01)
[2024-03-08 19:02] LABS: INR 2.7 (0.9-1.1); Partial Thromboplastin Ratio 1.2; Partial Thromboplastin Time 33 Seconds (21-31); Prothrombin Time 27.1 Seconds (9.0-12.0)
[2024-03-08 19:50] LABS: Appearance Urine Clear (Clear); Bilirubin Urine Negative (Negative); Blood Urine Negative (Negative); Color Urine Yellow; Glucose Urine UA 3+ (Negative); Ketones Urine Negative (Negative); Leukocyte Esterase Urine Negative (Negative); Nitrite Urine Negative (Negative); Protein Urine Negative (Negative); Specific Gravity Urine 1.019 (1.000-1.030); Urobilinogen Urine Negative (Negative)
--- NOTE | 2024-03-08 20:20 | CT Scan Report ---
Exam(s): CT L SPINE With Contrast IV Amt: 92 cc opti 320 EXAM: CT Lumbar Spine With Intravenous Contrast CLINICAL HISTORY: Reason for exam: anticoagulated, trouble standing, L back/hip pain. TECHNIQUE: Axial computed tomography images of the lumbar spine with intravenous contrast. CTDI is 21.38 mGy and DLP is 1021.65 mGy-cm. Automated exposure control was utilized for the study. A dose lowering technique was utilized adhering to the principles of ALARA. CONTRAST: Patient received 92 cc opti 320 of IV contrast COMPARISON: December 06, 2023 FINDINGS: Vertebrae: Subtle superior impression compression deformity of the L5 vertebral body. This results in less than 5% vertebral body height loss. 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 Diffuse osteopenia. Discs/spinal canal/neural foramina: See above. Soft tissues: Unremarkable. Kidneys and ureters: There is a 1.6 cm enhancing mass involving the midpole right kidney which is stable in appearance when compared to prior exam Nonobstructing bilateral renal calculi. 0.8 cm right lower pole renal cyst. No follow-up of this simple cyst is necessary. IMPRESSION: Age indeterminate but possibly acute infarct involving the superior endplate of L5. This results in less than 5% vertebral body height loss. Clinical correlation recommended. Diffuse osteopenia 1.6 cm enhancing mass involving the midpole right kidney concerning for renal cell carcinoma. This is unchanged from prior study. Electronically signed by: Orlando Rebolledo MD 03/08/24 20:19 PM
--- NOTE | 2024-03-08 20:26 | CT Scan Report ---
Exam(s): CT HEAD Without Contrast EXAM: CT Head Without Intravenous Contrast CLINICAL HISTORY: Reason for exam: anticoagulated, trouble standing. TECHNIQUE: Axial computed tomography images of the head/brain without intravenous contrast. CTDI is 37.61 mGy and DLP is 546.36 mGy-cm. Automated exposure control was utilized for the study. A dose lowering technique was utilized adhering to the principles of ALARA. COMPARISON: December 06, 2023 FINDINGS: Brain: Mild age-appropriate cerebral volume loss. No hemorrhage. No significant white matter disease. Ventricles: Unremarkable. No ventriculomegaly. Bones/joints: Unremarkable. No acute fracture. Soft tissues: Unremarkable. Sinuses: Unremarkable as visualized. No acute sinusitis. Mastoid air cells: Unremarkable as visualized. No mastoid effusion. IMPRESSION: Head CT negative for acute intracranial abnormality Minor chronic findings as above Electronically signed by: Orlando Rebolledo MD 03/08/24 20:25 PM
--- NOTE | 2024-03-08 20:41 | CT Scan Report ---
Exam(s): CT ABDOMEN + PELVIS With Contrast IV Amt: 92 cc opti 320 EXAM: CT Abdomen and Pelvis With Intravenous Contrast CLINICAL HISTORY: Reason for exam: anticoagulated, trouble standing, L back/hip pain. TECHNIQUE: Axial computed tomography images of the abdomen and pelvis with intravenous contrast. CTDI is 21.38 mGy and DLP is 1021.65 mGy-cm. Automated exposure control was utilized for the study. A dose lowering technique was utilized adhering to the principles of ALARA. CONTRAST: Patient received 92 cc opti 320 of IV contrast COMPARISON: December 06, 2023 FINDINGS: Lung bases: Unremarkable. No mass. No consolidation. ABDOMEN: Liver: Unremarkable. No mass. Gallbladder and bile ducts: Unremarkable. No calcified stones. No ductal dilation. Pancreas: Unremarkable. No mass. No ductal dilation. Spleen: Unremarkable. No splenomegaly. Adrenals: Unremarkable. No mass. Kidneys and ureters: 2 cm enhancing mass involving the upper pole right kidney is unchanged in appearance when compared to prior exam. 0.7 cm right renal hypodensity likely representing a cyst but too small for the density characterization. Nonobstructing bilateral intrarenal calculi. Stomach and bowel: Unremarkable. No obstruction. No mucosal thickening. PELVIS: Appendix: No findings to suggest acute appendicitis. Bladder: Unremarkable. No mass. Reproductive: Unremarkable as visualized. ABDOMEN and PELVIS: Intraperitoneal space: Unremarkable. No free air. No significant fluid collection. Bones/joints: Postoperative changes of ORIF right femoral fracture. No dislocation. Multilevel degenerative disease of the lower thoracic and lumbar spine. Soft tissues: Unremarkable. Vasculature: Diffuse vascular calcifications. No abdominal aortic aneurysm. Lymph nodes: Unremarkable. No enlarged lymph nodes. IMPRESSION: Stable 2 cm enhancing mass involving the upper pole right kidney concerning for renal cell carcinoma. Other stable chronic changes as described above Electronically signed by: Orlando Rebolledo MD 03/08/24 20:40 PM
[2024-03-08] MEDS: LIDOCAINE 5% 1 PATCH TD STA (21:19)
[2024-03-08] MEDS: traMADol HCL 50 MG TABLET PO STA (21:20)
[2024-03-08] MEDS: ACETAMINOPHEN 500 MG TAB PO STA (21:42)
--- NOTE | 2024-03-08 21:57 | History & Physical Report ---
Date of Service March 08, 2024 Assessment & Plan (1) Asymptomatic hypertensive urgency: Plan: Asymptomatic hypertensive urgency secondary to worsening chronic back pain. History lumbar radiculopathy Acute lumbar compression fracture Underlying osteoporosis chronic systolic heart failure (EF 45 to 49 %, TTE 2023), patient euvolemic hx CAD status post stent/PVD status post surgery/CVA cardiac thrombus thrombus on Coumadin, INR therapeutic paroxysmal VT as per records hyperlipidemia, on statin Rx DM2 diet-controlled, well-controlled as of recent hemoglobin A1c of 6.11 February 2024 right renal mass, probable malignancy, [place] [facility] [place] past tobacco abuse Medical telemetry Analgesia Titrate home BP meds Orthopedic spine consult re: lumbar compression fracture Hold aspirin and Coumadin for now until patient seen by Orthopedics. PT OT eval ISS BG goal 1 10-1 40, carb count coverage DVT prophylaxis. SCDs while Coumadin on hold if INR less than 2 Full code Patient daughter requesting updates providers. Ms. Ghada Contreraskamranedison, contact #[phone]. Text document was generated using [employer] voice recognition software. It may contain grammatical or spelling errors. Kindly contact undersigned for clarification of any documentation item in question. History of Present Illness Chief Complaint: Low back pain Primary Care Provider: Arnulfo Hernández MD History obtained from patient, family, and records. Medical history significant for chronic systolic heart failure (EF 45-49%, TTE 2023), CAD status post stent, cardiac thrombus thrombus on Coumadin, paroxysmal VT as per records, PVCs, PVD status post surgery, CVA, hypertension, hyperlipidemia, DM2 diet-controlled, right renal mass, gout, chronic back pain, osteoporosis, skin cancer as per records, past tobacco abuse. Last [facility] confinement May 2022 for right hip fracture status post surgery Recent [facility] [place] 2023 for traumatic left rib fractures/hemothorax secondary to fall after being transferred from [facility] ER. Incidental finding of cardiac thrombus on imaging. Patient discharged on Coumadin. Patient noted progressive achy left hip pain with radiation to the left lower leg. No unusual incontinence symptoms. No fever, no chills. No recollection of recent trauma. Outpatient epidural steroid injection L4-L5 on the right side by Joan MG paint prepper last month. Patient denies headache, chest pain, SOB. Highest SBP of 190s documented at the ER. 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 Allergies Allergy/AdvReac Type Severity Reaction Status Date / Time lisinopril AdvReac Intermediate Cough Verified 06/26/22 17:20 Home Medications Medication Instructions Recorded Confirmed Type amlodipine 5 mg tablet 5 mg PO QAM 04/26/22 03/08/24 History aspirin 81 mg tablet,delayed 81 mg PO QAM 04/26/22 03/08/24 History release gabapentin 300 mg capsule 300 mg PO TID 04/26/22 03/08/24 History losartan 50 mg tablet 50 mg PO QAM 04/26/22 03/08/24 History metoprolol succinate 25 mg 12.5 mg PO QAM 04/26/22 03/08/24 History tablet,extended release 24 hr nitroglycerin 0.4 mg sublingual 0.4 mg sublingual .EVERY 5 MINUTES 04/26/22 03/08/24 History tablet PRN Chest Pain omega-3 fatty acids 1,000 mg 1,000 mg PO AMHS 04/26/22 03/08/24 History capsule rosuvastatin 5 mg tablet 5 mg PO HS 04/26/22 03/08/24 History acetaminophen 500 mg tablet 1,000 mg PO TID Pain 06/26/22 03/08/24 History (Tylenol Extra Strength) alendronate 70 mg tablet 70 mg PO WK 03/08/24 03/08/24 History allopurinol 100 mg tablet 100 mg PO HS 03/08/24 03/08/24 History calcium carbonate 500 mg PO QAM 03/08/24 03/08/24 History cholecalciferol (vitamin D3) 50 50 mcg PO QAM 03/08/24 03/08/24 History mcg (2,000 unit) tablet (Vitamin D3) enoxaparin 60 mg/0.6 mL See Rx Instructions .Route .COMPLEX 03/08/24 03/08/24 History subcutaneous syringe magnesium citrate 125 mg capsule 125 mg PO QAM 03/08/24 03/08/24 History melatonin 3 mg tablet 3 mg PO HS PRN Insomnia 03/08/24 03/08/24 History warfarin 5 mg tablet (Jantoven) 5 mg PO UD 03/08/24 03/08/24 History Past Med/Surg History Problem List (Updated 03/09/24 @ 03:27 by Naman Lara MD) Asymptomatic hypertensive urgency Closed compression fracture of L5 vertebra (Acute) Hyperglycemia CAD (coronary artery disease) Complex renal cyst Renal mass, right Fracture of right hip (Acute) Fall (Acute) COVID-19 (Acute) Hypertension Type 2 diabetes mellitus Medical History 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 Gout Myocardial infarction Coronary artery disease 1999 - NSTEMI s/p LAD stent x 1 Surgical History No pertinent past surgical history Family History Other Family history non-contributory Social History Smoking Status: Former smoker Tobacco Type: Cigarettes Cigarettes Per Day: 8; Hx Alcohol Use: No Hx Substance Use: No Preferred Language: Sudanese Communication Ability: Effective Physical Therapy Aides Teacher Required: No Beliefs That Will Affect Care: None Current Living Situation: Alone Feels Safe at Home: Yes Safety Concerns: Feels Safe At This Time Assistive Devices: Walker Review of Systems Review of Systems: As per HPI, all other systems reviewed and negative Physical Exam Physical Exam: GENERAL: Comfortable, pleasant, looks younger than stated age, no respiratory distress SKIN: Normal color, warm HEENT: Bowers palpebral conjunctivae, no ptosis, moist buccal mucosa NECK : Supple, no tenderness CHEST : CTA, no tenderness HEART : RRR, no obvious murmurs ABDOMEN: Some distention, nontender BACK : Right low back tenderness, negative SLR EXTREMITIES : No LE swelling/tenderness, no other conspicuous deformities noted NEUROLOGIC : Coherent, no facial asymmetry, no other gross focality Results & Data Results & Data Vital Signs (Past 12 Hours) Vital Signs Temp Pulse Pulse Resp BP BP Pulse Ox 03/08/24 21:34 36.6 C 72 19 198/99 H 95 03/08/24 21:19 68 03/08/24 17:35 36.1 C L 67 20 150/105 H 95 O2 Del Method 03/08/24 21:34 Room Air 03/08/24 21:19 03/08/24 17:35 Room Air Laboratory Results Laboratory Results WBC 5.40 K/ul (4.8-10.8) 03/08/24 18:20 RBC 4.85 M/uL (4.20-5.40) 03/08/24 18:20 Hgb 15.4 g/dl (12.0-16.0) 03/08/24 18:20 Hct 46.3 % (37.0-47.0) 03/08/24 18:20 MCV 95.5 fL (80.0-100.0) 03/08/24 18:20 MCH 31.8 pg (25.0-34.0) 03/08/24 18:20 MCHC 33.3 g/dL (32.0-36.0) 03/08/24 18:20 RDW Std Deviation 44.7 fL (36.4-46.3) 03/08/24 18:20 RDW Coeff of Rosita 12.6 % (11.5-14.5) 03/08/24 18:20 Plt Count 165 K/uL (130-400) 03/08/24 18:20 MPV 9.4 fL (9.4-12.4) 03/08/24 18:20 Immature Gran % (Auto) 0.6 % 03/08/24 18:20 Neut % (Auto) 67.4 % 03/08/24 18:20 Lymph % (Auto) 22.0 % 03/08/24 18:20 Duchesne % (Auto) 8.0 % 03/08/24 18:20 Eos % (Auto) 1.3 % 03/08/24 18:20 Baso % (Auto) 0.7 % 03/08/24 18:20 Neut # (Auto) 3.64 K/uL (1.40-6.50) 03/08/24 18:20 Lymph # (Auto) 1.19 K/uL (1.20-3.40) L 03/08/24 18:20 Duchesne # (Auto) 0.43 K/uL (0.11-0.59) 03/08/24 18:20 Eos # (Auto) 0.07 K/uL (0.00-0.50) 03/08/24 18:20 Baso # (Auto) 0.04 K/uL (0.00-0.20) 03/08/24 18:20 Immature Gran # (Auto) 0.03 K/uL (0.01-0.20) 03/08/24 18:20 PT 27.1 Seconds (9.0-12.0) H 03/08/24 18:20 INR 2.7 (0.9-1.1) H 03/08/24 18:20 APTT 33 Seconds (21-31) H 03/08/24 18:20 PTT Ratio 1.2 03/08/24 18:20 Sodium 137 mmol/L (136-145) 03/08/24 18:20 Potassium 4.4 mmol/L (3.5-5.1) 03/08/24 18:20 Chloride 103 mmol/L (98-107) 03/08/24 18:20 Carbon Dioxide 26 mmol/L (21-32) 03/08/24 18:20 Anion Gap 8 (3-11) 03/08/24 18:20 BUN 17 mg/dl (6-23) 03/08/24 18:20 Creatinine 0.69 mg/dl (0.6-1.2) 03/08/24 18:20 Est Cr Clr Drug Dosing Not Reportable 03/08/24 18:20 eGFR 84.47 03/08/24 18:20 BUN/Creatinine Ratio 24.6 (10-20) H 03/08/24 18:20 Glucose 250 mg/dl (70-99(Fasting)) H 03/08/24 18:20 Calcium 9.3 mg/dl (8.6-10.3) 03/08/24 18:20 Total Bilirubin 0.6 mg/dl (0.2-1.0) 03/08/24 18:20 AST 35 U/L (13-39) 03/08/24 18:20 ALT 53 U/L (7-52) H 03/08/24 18:20 Alkaline Phosphatase 130 U/L (34-104) H 03/08/24 18:20 Total Creatine Kinase 48 U/L (26-192) 03/08/24 18:20 Total Protein 6.6 gm/dl (6.0-8.3) 03/08/24 18:20 Albumin 4.0 gm/dl (3.4-5.0) 03/08/24 18:20 Globulin 2.6 gm/dl (2.5-4.0) 03/08/24 18:20 Albumin/Globulin Ratio 1.5 (0.9-2) 03/08/24 18:20 Urine Color Yellow 03/08/24 19:39 Urine Appearance Clear (Clear) 03/08/24 19:39 Urine pH 6.0 (4.5-7.5) 03/08/24 19:39 Ur Specific Evans 1.019 (1.000-1.030) 03/08/24 19:39 Urine Protein Negative (Negative) 03/08/24 19:39 Urine Glucose (UA) 3+ (Negative) H 03/08/24 19:39 Urine Ketones Negative (Negative) 03/08/24 19:39 Urine Blood Negative (Negative) 03/08/24 19:39 Urine Nitrite Negative (Negative) 03/08/24 19:39 Urine Bilirubin Negative (Negative) 03/08/24 19:39 Urine Urobilinogen Negative (Negative) 03/08/24 19:39 Ur Leukocyte Esterase Negative (Negative) 03/08/24 19:39 Impressions Abdomen/Pelvis CT 03/08/24 18:17 Exam(s): CT ABDOMEN + PELVIS With Contrast IV Amt: 92 cc opti 320 EXAM: CT Abdomen and Pelvis With Intravenous Contrast CLINICAL HISTORY: Reason for exam: anticoagulated, trouble standing, L back/hip pain. TECHNIQUE: Axial computed tomography images of the abdomen and pelvis with intravenous contrast. CTDI is 21.38 mGy and DLP is 1021.65 mGy-cm. Automated exposure control was utilized for the study. A dose lowering technique was utilized adhering to the principles of ALARA. CONTRAST: Patient received 92 cc opti 320 of IV contrast COMPARISON: December 06, 2023 FINDINGS: Lung bases: Unremarkable. No mass. No consolidation. ABDOMEN: Liver: Unremarkable. No mass. Gallbladder and bile ducts: Unremarkable. No calcified stones. No ductal dilation. Pancreas: Unremarkable. No mass. No ductal dilation. Spleen: Unremarkable. No splenomegaly. Adrenals: Unremarkable. No mass. Kidneys and ureters: 2 cm enhancing mass involving the upper pole right kidney is unchanged in appearance when compared to prior exam. 0.7 cm right renal hypodensity likely representing a cyst but too small for the density characterization. Nonobstructing bilateral intrarenal calculi. Stomach and bowel: Unremarkable. No obstruction. No mucosal thickening. PELVIS: Appendix: No findings to suggest acute appendicitis. Bladder: Unremarkable. No mass. Reproductive: Unremarkable as visualized. ABDOMEN and PELVIS: Intraperitoneal space: Unremarkable. No free air. No significant fluid collection. Bones/joints: Postoperative changes of ORIF right femoral fracture. No dislocation. Multilevel degenerative disease of the lower thoracic and lumbar spine. Soft tissues: Unremarkable. Vasculature: Diffuse vascular calcifications. No abdominal aortic aneurysm. Lymph nodes: Unremarkable. No enlarged lymph nodes. IMPRESSION: Stable 2 cm enhancing mass involving the upper pole right kidney concerning for renal cell carcinoma. Other stable chronic changes as described above Electronically signed by: Orlando Rebolledo MD 03/08/24 20:[address] 03/08/24 18:17 Exam(s): CT HEAD Without Contrast EXAM: CT Head Without Intravenous Contrast CLINICAL HISTORY: Reason for exam: anticoagulated, trouble standing. TECHNIQUE: Axial computed tomography images of the head/brain without intravenous contrast. CTDI is 37.61 mGy and DLP is 546.36 mGy-cm. Automated exposure control was utilized for the study. A dose lowering technique was utilized adhering to the principles of ALARA. COMPARISON: December 06, 2023 FINDINGS: Brain: Mild age-appropriate cerebral volume loss. No hemorrhage. No significant white matter disease. Ventricles: Unremarkable. No ventriculomegaly. Bones/joints: Unremarkable. No acute fracture. Soft tissues: Unremarkable. Sinuses: Unremarkable as visualized. No acute sinusitis. Mastoid air cells: Unremarkable as visualized. No mastoid effusion. IMPRESSION: Head CT negative for acute intracranial abnormality Minor chronic findings as above Electronically signed by: Orlando Rebolledo MD 03/08/24 20:[address] 03/08/24 18:17 Exam(s): CT L SPINE With Contrast IV Amt: 92 cc opti 320 EXAM: CT Lumbar Spine With Intravenous Contrast CLINICAL HISTORY: Reason for exam: anticoagulated, trouble standing, L back/hip pain. TECHNIQUE: Axial computed tomography images of the lumbar spine with intravenous contrast. CTDI is 21.38 mGy and DLP is 1021.65 mGy-cm. Automated exposure control was utilized for the study. A dose lowering technique was utilized adhering to the principles of ALARA. CONTRAST: Patient received 92 cc opti 320 of IV contrast COMPARISON: December 06, 2023 FINDINGS: Vertebrae: Subtle superior impression compression deformity of the L5 vertebral body. This results in less than 5% vertebral body height loss. 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 Diffuse osteopenia. Discs/spinal canal/neural foramina: See above. Soft tissues: Unremarkable. Kidneys and ureters: There is a 1.6 cm enhancing mass involving the midpole right kidney which is stable in appearance when compared to prior exam Nonobstructing bilateral renal calculi. 0.8 cm right lower pole renal cyst. No follow-up of this simple cyst is necessary. IMPRESSION: Age indeterminate but possibly acute infarct involving the superior endplate of L5. This results in less than 5% vertebral body height loss. Clinical correlation recommended. Diffuse osteopenia 1.6 cm enhancing mass involving the midpole right kidney concerning for renal cell carcinoma. This is unchanged from prior study. Electronically signed by: Orlando Rebolledo MD 03/08/24 20:19 PM
[2024-03-08] MEDS ORDERED: PROMETHAZINE 6.25 MG/50.25 ML BAG IV PRN (21:59)
[2024-03-08] MEDS ORDERED: MoRPHine SULFATE 2 MG/ML CARP IV PRN (21:59)
[2024-03-08] MEDS: amLODIPine BESYLATE 5 MG TAB PO ONE (22:02)
[2024-03-08] MEDS: METOPROLOL TARTRATE 1 MG/ML VIAL IV STA (22:34)
[2024-03-08] MEDS ORDERED: MELATONIN 3 MG TAB PO PRN (23:40)
[2024-03-09] MEDS ORDERED: GLUCOSE 40% GEL 15 GM TUBE PO PRN (00:01)
[2024-03-09] MEDS ORDERED: GLUCAGON FOR INJ 1 MG VIAL SQ PRN (00:01)
[2024-03-09] MEDS ORDERED: CARBOHYDRATES FOR HYPOGLYCEMIA PO PRN (00:01)
[2024-03-09] MEDS ORDERED: DEXTROSE 50% 50 ML SYRINGE IV PRN (00:01)
[2024-03-09] MEDS ORDERED: GLUCOSE 10 TAB/TUBE PO PRN (00:01)
[2024-03-09] MEDS: Patient's HEIGHT &/or WEIGHT Needed SCH (00:25)
[2024-03-09] MEDS: allopurinoL 100 MG TAB PO SCH (00:53)
[2024-03-09] MEDS: GABAPENTIN 300 MG CAP PO SCH (00:53)
[2024-03-09] MEDS: ROSUVASTATIN CALCIUM 5 MG TAB PO SCH (00:53)
[2024-03-09] MEDS: INSULIN ASPART PER UNIT CHARGE SC SCH (01:09)
[2024-03-09] MEDS: LOSARTAN POTASSIUM 50 MG TAB PO STA (01:37)
[2024-03-09 01:58] LABS: Magnesium 2.1 mg/dl (1.7-2.4)
[2024-03-09 06:14] LABS: Basophils # (auto) 0.04 K/uL (0.00-0.20); Basophils % (auto) 0.7 %; Eosinophils # (auto) 0.08 K/uL (0.00-0.50); Eosinophils % (auto) 1.5 %; Hematocrit (blood only) 45.9 % (37.0-47.0); Hemoglobin 15.3 g/dl (12.0-16.0); Immature Granulocytes # (auto) 0.03 K/uL (0.01-0.20); Immature Granulocytes % (auto) 0.5 %; Lymphocytes # (auto) 1.27 K/uL (1.20-3.40); Mean Corpuscular Hemoglobin 31.4 pg (25.0-34.0); Mean Corpuscular Hgb Conc 33.3 g/dL (32.0-36.0); Mean Corpuscular Volume 94.3 fL (80.0-100.0); Mean Platelet Volume 9.6 fL (9.4-12.4); Monocytes # (auto) 0.54 K/uL (0.11-0.59); Monocytes % (auto) 9.8 %; Neutrophils # (auto) 3.55 K/uL (1.40-6.50); Neutrophils % (auto) 64.5 %; Platelet Count 167 K/uL (130-400); RDW Coefficient of Variation 12.6 % (11.5-14.5); RDW Standard Deviation 43.7 fL (36.4-46.3); Red Blood Count 4.87 M/uL (4.20-5.40); White Blood Count 5.51 K/ul (4.8-10.8)
[2024-03-09 06:30] LABS: Albumin Level 3.7 gm/dl (3.4-5.0); BUN Creatinine Ratio 28.6 (10-20); Bilirubin Direct 0.1 mg/dl (0-0.2); Bilirubin,Total 0.7 mg/dl (0.2-1.0); Calcium 9.2 mg/dl (8.6-10.3); Creatinine Clr Calc Pharmacy 59.7 ml/min; Potassium 4.6 mmol/L (3.5-5.1); Total Protein 6.3 gm/dl (6.0-8.3)
[2024-03-09 06:38] LABS: INR 2.1 (0.9-1.1); Prothrombin Time 21.5 Seconds (9.0-12.0)
[2024-03-09] MEDS ORDERED: MAGNESIUM CITRATE 125 MG PO SCH (09:00)
[2024-03-09] MEDS ORDERED: LOSARTAN POTASSIUM 50 MG TAB PO SCH (09:00)
[2024-03-09] MEDS: CHOLECALCIFEROL 25 MCG (1000 UNITS) TAB PO SCH (09:17)
[2024-03-09] MEDS: METOPROLOL SUCC 25MG EXT REL TAB PO SCH (09:17)
[2024-03-09] MEDS: MAGNESIUM CHLORIDE W/CALCIUM 64MG DELAYED REL TAB PO SCH (09:17)
[2024-03-09] MEDS: CALCIUM CARBONATE 500 MG CHEWABLE TAB PO SCH (09:17)
[2024-03-09] MEDS: amLODIPine BESYLATE 5 MG TAB PO SCH (09:18)
--- NOTE | 2024-03-09 10:06 | Orthopedic Consultation ---
Date of Consultation March 09, 2024 Assessment & Plan (1) Lumbar compression fracture: Assessment L5 superior endplate compression fracture. Plan at this time she has a very small cortical defect of the superior endplate of L5. This is essentially asymptomatic in light of her overall function. I would not intervene surgically. I have her undergo physical therapy as tolerated. She would be an excellent candidate for rehab. Her more pressing long-term issue will be the significant multilevel lumbar spinal stenosis. This is being managed with epidural injections at this time. History of Present Illness Reason for Consultation: L5 compression fracture Attending Physician: Justin Charles MD History of Present Illness This is a very pleasant 88-year-old female that has a possible compression fracture of L5. She describes a history of back pain at the lumbosacral junction beginning approximately 6 days ago. It is worse with transitioning. That is getting up and down from a chair in and out of bed. When she is standing and ambulating she has no issues. She denies any motor deficits into her legs. She does have a history of spinal stenosis being managed with epidural injections on intermittent basis. She gets results from these injections. Today she is quite comfortable. She is already been up and ambulating. Allergies Allergy/AdvReac Type Severity Reaction Status Date / Time lisinopril AdvReac Intermediate Cough Verified 06/26/22 17:20 Home Medications Medication Instructions Recorded Confirmed Type amlodipine 5 mg tablet 5 mg PO QAM 04/26/22 03/08/24 History aspirin 81 mg tablet,delayed 81 mg PO QAM 04/26/22 03/08/24 History release gabapentin 300 mg capsule 300 mg PO TID 04/26/22 03/08/24 History losartan 50 mg tablet 50 mg PO QAM 04/26/22 03/08/24 History metoprolol succinate 25 mg 12.5 mg PO QAM 04/26/22 03/08/24 History tablet,extended release 24 hr nitroglycerin 0.4 mg sublingual 0.4 mg sublingual .EVERY 5 MINUTES 04/26/22 03/08/24 History tablet PRN Chest Pain omega-3 fatty acids 1,000 mg 1,000 mg PO AMHS 04/26/22 03/08/24 History capsule rosuvastatin 5 mg tablet 5 mg PO HS 04/26/22 03/08/24 History acetaminophen 500 mg tablet 1,000 mg PO TID Pain 06/26/22 03/08/24 History (Tylenol Extra Strength) alendronate 70 mg tablet 70 mg PO WK 03/08/24 03/08/24 History allopurinol 100 mg tablet 100 mg PO HS 03/08/24 03/08/24 History calcium carbonate 500 mg PO QAM 03/08/24 03/08/24 History cholecalciferol (vitamin D3) 50 50 mcg PO QAM 03/08/24 03/08/24 History mcg (2,000 unit) tablet (Vitamin D3) enoxaparin 60 mg/0.6 mL See Rx Instructions .Route .COMPLEX 03/08/24 03/08/24 History subcutaneous syringe magnesium citrate 125 mg capsule 125 mg PO QAM 03/08/24 03/08/24 History melatonin 3 mg tablet 3 mg PO HS PRN Insomnia 03/08/24 03/08/24 History warfarin 5 mg tablet (Jantoven) 5 mg PO UD 03/08/24 03/08/24 History Patient History Medical History 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 Gout Myocardial infarction Coronary artery disease 1999 - NSTEMI s/p LAD stent x 1 Surgical History No pertinent past surgical history Family History Other Family history non-contributory Social History Smoking Status: Former smoker Tobacco Type: Cigarettes Cigarettes Per Day: 8; Hx Alcohol Use: No Hx Substance Use: No Preferred Language: Gibraltarian Communication Ability: Effective Shipping Receiving Clerk Required: No Beliefs That Will Affect Care: None Current Living Situation: Alone Feels Safe at Home: Yes Safety Concerns: Feels Safe At This Time Assistive Devices: Walker Physical Exam Physical Exam: On exam she is in bed. Her daughter is at the bedside. She demonstrates good strength testing. She is comfortable. Results & Data Vital Signs (Past 12 Hours) Vital Signs Temp Pulse Pulse Resp BP BP Pulse Ox 03/09/24 07:12 36.8 C 62 18 153/71 H 97 03/09/24 07:00 74 03/09/24 02:03 36.6 C 69 16 134/67 97 03/09/24 00:26 36.4 C L 67 16 183/75 H 94 03/08/24 23:58 73 03/08/24 23:36 36.6 C 63 16 161/85 H 93 03/08/24 22:34 18 L 159/110 H O2 Del Method 03/09/24 07:12 Room Air 03/09/24 07:00 03/09/24 02:03 Room Air 03/09/24 00:26 Room Air 03/08/24 23:58 03/08/24 23:36 Room Air 03/08/24 22:34
[2024-03-09] MEDS: WARFARIN SOD 5 MG TAB PO ONE (11:33)
[2024-03-09] MEDS: traMADol HCL 50 MG TABLET PO PRN (11:39)
--- NOTE | 2024-03-09 15:30 | Hospitalist Progress Note ---
Date of Service March 09, 2024 Assessment & Plan (1) Asymptomatic hypertensive urgency: Plan: per admitting service notes with addendum: Asymptomatic hypertensive urgency secondary to worsening chronic back pain -- BP improving continue usual medications -- monitor closely Acute lumbar compression fracture- L5 History of spinal canal stenosis Underlying osteoporosis -- evaluated by Ortho Spine service Dr. Perla no surgical intervention for now continue PRN Tramadol and Morphine PT/OT evaluation chronic systolic heart failure (EF 45 to 49 %, TTE 2023), patient euvolemic hx CAD status post stent/PVD status post surgery/CVA cardiac thrombus thrombus on Coumadin, INR therapeutic paroxysmal VT as per records hyperlipidemia, on statin Rx DM2 diet-controlled, well-controlled as of recent hemoglobin A1c of 6.11 February 2024 right renal mass, probable malignancy, [place] [facility] [place] tobacco abuse DVT prophylaxis. coumadin Full code Disposition PT/OT evaluation Admission and Anticipated Discharge Date Admission Date: March 08, 2024 Subjective ff up for back pain, etc seen resting in bed, comfortable states low back pain is better today ambulating better no leg weakness or numbness no chest pain, dyspnea, palpitations, dizziness no other symptoms Review of Systems Review of Systems: all noted and negative except for above Physical Exam Physical Exam: General- oriented x 3, not in distress, speaks in sentences with no effort or accessory muscle use Eyes- anicteric Neck- no JVD Lungs- clear breath sounds bilaterally, no rales/wheezes Heart- normal rate, regular rhythm; no murmurs Abdomen- normal bowel sounds, nondistended, soft, nontender Extremities- no pretibial edema, no calf tenderness Back- no erythema/hematoma mild tenderness on the lower back Neuro- alert, oriented x 3; no gross focal neurologic deficits Skin- warm & dry Results & Data Results & Data Vital Signs (Past 12 Hours) Vital Signs Temp Pulse Pulse Resp BP Pulse Ox O2 Del Method 03/09/24 11:09 36.5 C 73 18 156/66 H 92 Room Air 03/09/24 07:12 36.8 C 62 18 153/71 H 97 Room Air 03/09/24 07:00 74 all noted and reviewed including below
[2024-03-10 07:20] LABS: INR 1.9 (0.9-1.1); Prothrombin Time 19.2 Seconds (9.0-12.0)
[2024-03-10] MEDS: ASPIRIN 81 MG ECTAB PO SCH (07:30)
[2024-03-10] MEDS: LOSARTAN POTASSIUM 50 MG TAB PO SCH (07:31)
--- NOTE | 2024-03-10 08:45 | Ultrasound Report ---
US liver CLINICAL HISTORY: Abnormal liver function tests. COMPARISON STUDY: No previous studies for comparison. FINDINGS: No hepatic lesions are identified. There is no biliary ductal dilatation. Common bile duct measures 4 mm in caliber. There are no gallstones. Pancreatic body is normal. Head and tail are sligh tly obscured. There is no right hydronephrosis. A 2 cm solid lesion within the upper pole the right k idney is again noted. IMPRESSION: 1. No gallstones or biliary ductal dilatation. 2. 2 cm solid right upper pole renal lesion, as shown on prior exams. ACT 112: Negative or not required by law. Electronically signed by: Jesse Negrete M.D. 03/10/2024 8:43 AM
[2024-03-10] MEDS: WARFARIN SOD 2.5 MG TAB PO SCH (15:12)
--- NOTE | 2024-03-10 16:40 | Hospitalist Progress Note ---
Date of Service March 10, 2024 Assessment & Plan (1) Asymptomatic hypertensive urgency: Plan: per admitting service notes with addendum: Asymptomatic hypertensive urgency secondary to worsening chronic back pain -- BP improving continue usual medications -- monitor closely Acute lumbar compression fracture- L5 History of spinal canal stenosis Underlying osteoporosis -- evaluated by Ortho Spine service Dr. Perla no surgical intervention for now continue PRN Tramadol and Morphine PT/OT evaluation chronic systolic heart failure (EF 45 to 49 %, TTE 2023), patient euvolemic hx CAD status post stent/PVD status post surgery/CVA cardiac thrombus thrombus on Coumadin, INR therapeutic paroxysmal VT as per records hyperlipidemia, on statin Rx DM2 diet-controlled, well-controlled as of recent hemoglobin A1c of 6.11 February 2024 right renal mass, probable malignancy, patient follows with [facility] [place] urology past tobacco abuse DVT prophylaxis. coumadin Full code Disposition PT/OT evaluation Admission and Anticipated Discharge Date Admission Date: March 08, 2024 Results & Data Results & Data Vital Signs (Past 12 Hours) Vital Signs Temp Pulse Pulse Resp BP Pulse Ox O2 Del Method 03/10/24 16:34 37.0 C 63 20 155/75 H 92 Room Air 03/10/24 14:18 53 L 03/10/24 12:06 36.8 C 57 L 20 117/64 92 Room Air 03/10/24 07:06 66
[2024-03-11 06:55] LABS: INR 1.8 (0.9-1.1); Prothrombin Time 18.4 Seconds (9.0-12.0)
[2024-03-11] MEDS: ACETAMINOPHEN 500 MG TAB PO PRN (09:00)
[2024-03-11] MEDS ORDERED: amLODIPine BESYLATE 5 MG TAB PO SCH (09:01)
[2024-03-11] MEDS: WARFARIN SOD 5 MG TAB PO ONE (17:15)
--- NOTE | 2024-03-11 18:25 | Hospitalist Progress Note ---
Date of Service March 11, 2024 Assessment & Plan (1) Asymptomatic hypertensive urgency: Plan: per admitting service notes with addendum: Asymptomatic hypertensive urgency secondary to worsening chronic back pain -- BP not at goal increase Amlodipine to 7.5mg daily continue other usual medications -- monitor closely Acute lumbar compression fracture- L5 History of spinal canal stenosis Underlying osteoporosis -- evaluated by Ortho Spine service Dr. 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 coumadin Full code Disposition PT/OT evaluation Admission and Anticipated Discharge Date Admission Date: March 08, 2024 Subjective ff up for low back pain etc seen resting in bed, comfortable states low back pain is under control feels fine overall no chest pain, dyspnea, palpitations, dizziness no other symptoms Review of Systems Review of Systems: all noted and negative except for above Physical Exam Physical Exam: General- oriented x 3, not in distress, speaks in sentences with no effort or accessory muscle use Eyes- anicteric Neck- no JVD Lungs- clear breath sounds bilaterally, no crackles Heart- normal rate, regular rhythm; no murmurs Abdomen- normal bowel sounds, nondistended, soft, nontender Extremities- no pretibial edema, no calf tenderness Neuro- alert, oriented x 3; no gross focal neurologic deficits Skin- warm & dry Results & Data Results & Data Vital Signs (Past 12 Hours) Vital Signs Temp Pulse Pulse Resp BP Pulse Ox O2 Del Method 03/11/24 15:29 36.6 C 58 L 16 152/77 H 92 Room Air 03/11/24 14:56 59 L 03/11/24 11:43 36.5 C 62 20 158/72 H 95 Room Air 03/11/24 08:03 36.4 C L 67 20 187/81 H 95 Room Air 03/11/24 07:40 69 all noted and reviewed including below
[2024-03-12] MEDS: ALENDRONATE SODIUM 70 MG TAB PO SCH (05:55)
[2024-03-12 07:44] LABS: INR 1.7 (0.9-1.1); Prothrombin Time 17.8 Seconds (9.0-12.0)
[2024-03-12] MEDS ORDERED: hydrALAZINE HCL 20 MG/ML VIAL IV PRN (07:58)
[2024-03-12 09:04] LABS: Calcium 9.4 mg/dl (8.6-10.3); Creatinine Clr Calc Pharmacy 49.9 ml/min; Potassium 4.6 mmol/L (3.5-5.1)
[2024-03-12] MEDS: amLODIPine BESYLATE 5 MG TAB PO SCH (10:12)
[2024-03-12] MEDS: ENOXAPARIN INJ 60 MG/0.6 ML SYR SC SCH (12:13)
--- NOTE | 2024-03-12 16:33 | Hospitalist Progress Note ---
Date of Service March 12, 2024 Assessment & Plan (1) Asymptomatic hypertensive urgency: Plan: per admitting service notes with addendum: Asymptomatic hypertensive urgency secondary to worsening chronic back pain -- BPStill not at goal increase Amlodipine to 10 mg daily continue other usual medications -- monitor closely Acute lumbar compression fracture- L5 History of spinal canal stenosis Underlying osteoporosis -- evaluated by Ortho Spine service Dr. 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 coumadin Full code Disposition PT/OT evaluation Admission and Anticipated Discharge Date Admission Date: March 08, 2024 Subjective Follow-up for low back pain, etc. Seen resting in bed, comfortable, not in distress, good spirits States back pain is well-controlled Denies headache, dizziness, chest pain, shortness of breath, palpitations No other new symptoms Review of Systems Review of Systems: all noted and negative except for above Physical Exam Physical Exam: General- oriented x 3, not in distress, speaks in sentences with no effort or accessory muscle use Eyes- anicteric Neck- no JVD Lungs- clear breath sounds bilaterally, no rales/wheezes Heart- normal rate, regular rhythm; no murmurs Abdomen- normal bowel sounds, nondistended, soft, nontender Extremities- no pretibial edema, no calf tenderness Neuro- alert, oriented x 3; no gross focal neurologic deficits Skin- warm & dry Results & Data Results & Data Vital Signs (Past 12 Hours) Vital Signs Temp Pulse Pulse Resp BP BP Pulse Ox 03/12/24 15:43 89 03/12/24 15:25 36.7 C 68 18 138/71 94 03/12/24 11:30 37 C 66 17 167/84 H 94 03/12/24 07:35 169/77 H 03/12/24 07:30 53 L 03/12/24 07:21 36.4 C L 66 18 208/77 H 92 O2 Del Method 03/12/24 15:43 03/12/24 15:25 Room Air 03/12/24 11:30 Room Air 03/12/24 07:35 03/12/24 07:30 03/12/24 07:21 Room Air all noted and reviewed including below
[2024-03-12] MEDS: WARFARIN SOD 7.5 MG TAB PO ONE (17:25)
[2024-03-13 08:53] LABS: INR 2.6 (0.9-1.1); Prothrombin Time 25.6 Seconds (9.0-12.0)
--- NOTE | 2024-03-13 19:07 | Hospitalist Progress Note ---
Date of Service March 13, 2024 delayed entry date of service noted above Assessment & Plan (1) Asymptomatic hypertensive urgency: Plan: per admitting service notes with addendum: Asymptomatic hypertensive urgency secondary to worsening chronic back pain -- BP still not at goal increased Amlodipine to 10 mg daily -- BP improved Acute lumbar compression fracture- L5 History of spinal canal stenosis Underlying osteoporosis -- evaluated by Ortho Spine service Dr. 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 coumadin Full code Disposition PT/OT evaluation Admission and Anticipated Discharge Date Admission Date: March 08, 2024 Subjective resting in bed, comfortable states she feels fine overall minimal low back pain no other symptoms Review of Systems Review of Systems: all noted and negative except for above Physical Exam Physical Exam: General- oriented x 3, not in distress, speaks in sentences with no effort or accessory muscle use Eyes- anicteric Neck- no JVD Lungs- clear breath sounds bilaterally, no rales/wheezes Heart- normal rate, regular rhythm; no murmurs Abdomen- normal bowel sounds, nondistended, soft, nontender Extremities- no pretibial edema, no calf tenderness Neuro- alert, oriented x 3; no gross focal neurologic deficits Skin- warm & dry Results & Data Results & Data Vital Signs (Past 12 Hours) Vital Signs Temp Pulse Pulse Resp BP Pulse Ox O2 Del Method 03/13/24 16:19 36.6 C 65 18 116/63 95 Room Air 03/13/24 11:29 36.5 C 62 18 108/68 94 Room Air 03/13/24 07:16 71 all noted and reviewed including below
[2024-03-14 07:42] LABS: INR 3.3 (0.9-1.1); Prothrombin Time 32.4 Seconds (9.0-12.0)
--- NOTE | 2024-03-14 23:57 | Hospitalist Progress Note ---
Date of Service March 14, 2024 Assessment & Plan (1) Asymptomatic hypertensive urgency: Plan: per admitting service notes with addendum: Asymptomatic hypertensive urgency secondary to worsening chronic back pain -- increased Amlodipine to 10 mg daily BP improved monitor Acute lumbar compression fracture- L5 History of spinal canal stenosis Underlying osteoporosis -- evaluated by Ortho Spine service Dr. Perla no surgical intervention for now continue PRN Tramadol and Morphine PT/OT evaluation: recommends Acute Rehab--> declined by medical insurance even after peer to peer evaluation done with Dr. 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 coumadin Full code Disposition denied acute rehab stay by [facility] SNF referral in progress Admission and Anticipated Discharge Date Admission Date: March 08, 2024 Subjective resting in bed, in good spirits comfortable states she feels fine overall denies pain no chest pain, dyspnea, palpitations, dizziness no other symptoms Review of Systems Review of Systems: all noted and negative except for above Physical Exam Physical Exam: General- oriented x 3, not in distress, speaks in sentences with no effort or accessory muscle use Eyes- anicteric Neck- no JVD Lungs- clear breath sounds bilaterally Heart- normal rate, regular rhythm; no murmurs Abdomen- normal bowel sounds, nondistended, soft, nontender Extremities- no pretibial edema, no calf tenderness Neuro- alert, oriented x 3; no gross focal neurologic deficits Skin- warm & dry Results & Data Results & Data Vital Signs (Past 12 Hours) Vital Signs Temp Pulse Pulse Resp BP BP Pulse Ox 03/14/24 19:34 36.8 C 65 18 125/82 96 03/14/24 15:49 36.8 C 70 18 142/69 H 94 03/14/24 15:00 62 O2 Del Method 12/03/24 19:34 Room Air 03/14/24 15:49 Room Air 03/14/24 15:00 all noted and reviewed including below
[2024-03-15 07:52] LABS: INR 2.5 (0.9-1.1); Prothrombin Time 24.6 Seconds (9.0-12.0)
--- NOTE | 2024-03-15 10:06 | Hospitalist Progress Note ---
Date of Service March 15, 2024 Assessment & Plan (1) Asymptomatic hypertensive urgency: Plan: Blood pressure is stable now, continue with Toprol-XL 12.5 mg daily, losartan 50 mg daily and amlodipine 10 mg daily. (2) Chronic gout: Plan: Clinically stable, without pain, continue with allopurinol 100 mg at night. (3) Vertebral compression fracture: Plan: Patient does not complain of much pain, studies were reviewed. Continue with pain control as tolerated and needed and physical therapy. (4) Chronic systolic CHF (congestive heart failure): Plan: Does not appear to be volume overloaded, continue with Toprol-XL, losartan 50 mg daily, aspirin 81 mg daily. (5) Hyperlipidemia: Plan: Continue with Crestor 5 mg at night. (6) Diabetes mellitus type 2, diet-controlled: Plan: Blood sugars relatively stable, continue with diet control. Plan Patient is medically stable, awaiting SNF placement, likely tomorrow. It seems that the patient takes 5 mg of Coumadin every day except Wednesdays at home, I spoke to pharmacy and we decided to resume the same regimen even though the INR has been stable at this point. Will see how her INR will be tomorrow. Admission and Anticipated Discharge Date Admission Date: March 08, 2024 Subjective Patient was seen and examined, she is very pleasant, not complaining of any issue, we spoke about aspects of her care and the need for rehabilitation. I discussed the case with case management as well, they are in search for SNF. No other medical issue. Physical Exam Physical Exam: VITALS: Reviewed. WEIGHT/BMI reviewed. GEN: Healthy appearing, well-developed, NAD. -Mouth and throat: MMM. Normal gums, muc bassam, palate,. Good dentition. NECK: Supple, with no masses. CV: RRR, no m/r/g. LUNGS: CTAB, no w/r/c. ABD: Soft, NT/ND, NBS, no masses or organomegaly. : N/A SKIN: Warm, well perfused. No skin rashes or abnormal lesions. Results & Data Results & Data Vital Signs (Past 12 Hours) Vital Signs Temp Pulse Pulse Resp BP BP Pulse Ox 03/15/24 08:20 37.1 C 75 20 144/75 H 97 03/15/24 07:00 58 L 03/15/24 03:36 36.5 C 72 20 154/84 H 96 03/15/24 00:16 36.3 C L 66 18 133/76 92 O2 Del Method 03/15/24 08:20 Room Air 03/15/24 07:00 03/15/24 03:36 Room Air 03/15/24 00:16 Room Air Laboratory Results Laboratory Results - last 24 hr 03/14/24 03/15/24 12:27 07:04 PT 24.6 H INR 2.5 H POC Glucose 86 Medications Administered Current Inpatient Medications Acetaminophen (Acetaminophen 500 Mg Tab) 500 mg PO Q6H PRN PRN Reason: fever/pain Stop: 04/07/24 21:58 Last Admin: 03/14/24 09:29 Dose: 500 mg Alendronate Sodium (Alendronate Sodium 70 Mg Tab) 70 mg PO Issa@0630 [facility] Stop: 04/11/24 06:29 Last Admin: 03/12/24 05:55 Dose: 70 mg Allopurinol (Allopurinol 100 Mg Tab) 100 mg PO HS [facility] Stop: 04/07/24 23:39 Last Admin: 03/14/24 20:11 Dose: 100 mg Amlodipine Besylate (Amlodipine Besylate 5 Mg Tab) 10 mg PO QAM [facility] Stop: 04/11/24 08:59 Last Admin: 03/15/24 08:18 Dose: 10 mg Aspirin (Aspirin 81 Mg Ectab) 81 mg PO QAM [facility] Stop: 04/09/24 08:59 Last Admin: 03/15/24 08:18 Dose: 81 mg Calcium Carbonate (Calcium Carbonate 500 Mg Chewable Tab) 500 mg PO QAM [facility] Stop: 04/08/24 08:59 Last Admin: 03/15/24 08:17 Dose: 500 mg Dextrose (Dextrose 50% 50 Ml Syringe) 25 - 50 ml IV UD PRN; Protocol PRN Reason: Hypoglycemia Protocol Stop: 04/08/24 00:00 Enoxaparin Sodium (Enoxaparin Inj 60 Mg/0.6 Ml Syr) 60 mg SC Q12H [facility]EN Stop: 04/11/24 10:59 Last Admin: 03/12/24 21:59 Dose: 60 mg Gabapentin (Gabapentin 300 Mg Cap) 300 mg PO TID [facility]EN Stop: 04/07/24 23:39 Last Admin: 03/15/24 08:18 Dose: 300 mg Glucagon (Glucagon For Inj 1 Mg Vial) 1 mg SQ UD PRN; Protocol PRN Reason: Hypoglycemia Protocol Stop: 04/08/24 00:00 Glucose (Glucose 40% Gel 15 Gm Tube) 15 - 30 gm PO UD PRN; Protocol PRN Reason: Hypoglycemia Protocol Stop: 04/08/24 00:00 Glucose (Glucose 10 Tab/Tube) 4 - 8 tab PO UD PRN; Protocol PRN Reason: Hypoglycemia Protocol Stop: 04/08/24 00:00 Hydralazine HCl (Hydralazine Hcl 20 Mg/Ml Vial) 5 mg IV Q6H PRN PRN Reason: systolic bp > 160 Stop: 04/11/24 07:57 Promethazine HCl (Phenergan) 6.25 mg in 50.25 mls @ 201 mls/hr IV Q6H PRN PRN Reason: Nausea And Vomiting Stop: 04/07/24 21:58 Losartan Potassium (Losartan Potassium 50 Mg Tab) 50 mg PO QAM [facility] Stop: 04/09/24 08:59 Last Admin: 03/15/24 08:18 Dose: 50 mg Magnesium Chloride (Magnesium Chloride W/Calcium 64mg Delayed Rel Tab) 64 mg PO QAM [facility] Stop: 04/08/24 08:59 Last Admin: 03/15/24 08:18 Dose: 64 mg Melatonin (Melatonin 3 Mg Tab) 3 mg PO HS PRN PRN Reason: Insomnia Stop: 04/07/24 23:39 Metoprolol Succinate (Metoprolol Succ 25mg Ext Rel Tab) 12.5 mg PO QAM [facility] Stop: 04/08/24 08:59 Last Admin: 03/15/24 08:18 Dose: 12.5 mg Miscellaneous (Remove Lidoderm Patch) 1 each N/A DAILY@2100 [facility] Stop: 04/07/24 20:59 Last Admin: 03/14/24 20:11 Dose: Not Given Miscellaneous (Carbohydrates For Hypoglycemia ) 15 - 30 gm PO UD PRN PRN Reason: Hypoglycemia Protocol Stop: 04/08/24 00:00 Morphine Sulfate (Morphine Sulfate 2 Mg/Ml Carp) 2 mg IV Q3H PRN PRN Reason: Pain Stop: 03/22/24 21:58 Rosuvastatin Calcium (Rosuvastatin Calcium 5 Mg Tab) 5 mg PO HS [facility] Stop: 04/07/24 23:39 Last Admin: 03/14/24 20:11 Dose: 5 mg Tramadol HCl (Tramadol Hcl 50 Mg Tablet) 25 - 50 mg PO Q4H PRN PRN Reason: Pain Stop: 04/07/24 21:58 Last Admin: 03/09/24 20:13 Dose: 50 mg Vitamin D (Cholecalciferol 25 Mcg (1000 Units) Tab) 50 mcg PO QAM [facility] Stop: 04/08/24 08:59 Last Admin: 03/15/24 08:18 Dose: 50 mcg Warfarin Sodium (Warfarin Sod 2.5 Mg Tab) 2.5 mg PO DAILY@1600 [facility] Stop: 04/09/24 15:59 Last Admin: 03/13/24 15:57 Dose: 2.5 mg
[2024-03-15] MEDS: WARFARIN SOD 2.5 MG TAB PO SCH (15:12)
[2024-03-16 07:39] LABS: INR 2.1 (0.9-1.1); Prothrombin Time 21.6 Seconds (9.0-12.0)
--- NOTE | 2024-03-16 09:58 | Hospitalist Progress Note ---
Date of Service March 16, 2024 Assessment & Plan (1) Asymptomatic hypertensive urgency: Plan: Blood pressure is at times elevated, considering her heart rate of 66, I would keep the Toprol-XL at current dose of 12.5 and amlodipine at 10 mg however I would be in favor of increasing losartan to 75 mg daily. (2) Chronic gout: Plan: Clinically stable, without pain, continue with allopurinol 100 mg at night. (3) Vertebral compression fracture: Plan: Patient does not complain of much pain, Continue with pain control as tolerated and needed and physical therapy. (4) Chronic systolic CHF (congestive heart failure): Plan: Does not appear to be volume overloaded, continue with Toprol-XL, losartan which has now increased to 75 mg daily, aspirin 81 mg daily. (5) Hyperlipidemia: Plan: Continue with Crestor 5 mg at night. (6) Diabetes mellitus type 2, diet-controlled: Plan: Blood sugars relatively stable, continue with diet control. Plan Patient is medically stable, her Coumadin dose was increased to home dose of 5 mg, communicate INR is 2.1 today, communicated with case management, I was told that it is very unlikely that she has a bed offer today. Continue monitoring blood pressure after adjusting her losartan. Await placement. Admission and Anticipated Discharge Date Admission Date: March 08, 2024 Subjective Patient was seen and very briefly examined, she is otherwise remained unremarkable without any issue overnight. Physical Exam Physical Exam: VITALS: Reviewed. WEIGHT/BMI reviewed. GEN: Healthy appearing, well-developed, NAD. CV: RRR, no m/r/g. LUNGS: CTAB, no w/r/c. : N/A SKIN: Warm, well perfused. No skin rashes or abnormal lesions. Results & Data Results & Data Vital Signs (Past 12 Hours) Vital Signs Temp Pulse Pulse Resp BP BP Pulse Ox 03/16/24 08:05 36.8 C 66 20 160/79 H 96 03/16/24 06:58 64 03/16/24 03:41 36.8 C 62 18 138/69 90 03/15/24 23:23 36.6 C 70 16 133/70 95 03/15/24 22:09 67 O2 Del Method 03/16/24 08:05 Room Air 03/16/24 06:58 03/16/24 03:41 Room Air 03/15/24 23:23 Room Air 03/15/24 22:09 Laboratory Results Laboratory Results - last 24 hr 03/16/24 06:23 PT 21.6 H INR 2.1 H
[2024-03-16] MEDS: WARFARIN SOD 5 MG TAB PO SCH (15:58)
[2024-03-16] MEDS ORDERED: WARFARIN SOD 5 MG TAB PO SCH (16:00)
[2024-03-17 07:30] LABS: INR 2.1 (0.9-1.1); Prothrombin Time 21.6 Seconds (9.0-12.0)
[2024-03-17] MEDS: LOSARTAN POTASSIUM 25 MG TAB PO SCH (08:02)
--- NOTE | 2024-03-17 11:22 | Hospitalist Progress Note ---
Date of Service March 17, 2024 Assessment & Plan (1) Asymptomatic hypertensive urgency: Plan: Blood pressure has generally remained better controlled although there are still some spikes of high blood pressure, for example this morning was 1 time measured at 174/80, her medication were adjusted as of yesterday with increasing losartan to 75 mg daily, I will continue with the same dose along with Toprol-XL 12.5 and amlodipine at 10 mg and will closely monitor and will give more time. (2) Chronic gout: Plan: Clinically stable, without pain, continue with allopurinol 100 mg at night. (3) Vertebral compression fracture: Plan: Patient does not complain of much pain, Continue with pain control and physical therapy. (4) Chronic systolic CHF (congestive heart failure): Plan: Euvolemic, continue with Toprol-XL, losartan which has now increased to 75 mg daily, aspirin 81 mg daily. (5) Hyperlipidemia: Plan: Continue with Crestor 5 mg at night. (6) Diabetes mellitus type 2, diet-controlled: Plan: Blood sugars relatively stable, continue with diet control. Plan INR is 2.1 today continue with home dose of Coumadin. Awaiting placement. Admission and Anticipated Discharge Date Admission Date: March 08, 2024 Subjective Patient was seen and examined, she is overall stable, she is very much board due to long stay in the hospital. I communicated with case management today, it is going to be difficult placement but will proceed and follow-up closely with case management, from medical standpoint, patient is stable. Physical Exam Physical Exam: VITALS: Reviewed. GEN: Healthy appearing, well-developed, clinically stable otherwise. CV: RRR, no m/r/g. LUNGS: clear no issue no wheeze. SKIN: Warm, well perfused. No skin rashes or abnormal lesions. Results & Data Results & Data Vital Signs (Past 12 Hours) Vital Signs Temp Pulse Pulse Resp BP Pulse Ox O2 Del Method 03/17/24 08:02 36.8 C 76 20 174/80 H 96 Room Air 03/17/24 05:41 60 03/17/24 03:38 36.4 C L 65 18 147/74 H 95 Room Air 03/17/24 00:00 36.9 C 63 18 129/74 94 Room Air Diagnostic Findings Laboratory Results WBC 5.51 K/ul (4.8-10.8) 03/09/24 05:21 RBC 4.87 M/uL (4.20-5.40) 03/09/24 05:21 Hgb 15.3 g/dl (12.0-16.0) 03/09/24 05:21 Hct 45.9 % (37.0-47.0) 03/09/24 05:21 MCV 94.3 fL (80.0-100.0) 03/09/24 05:21 MCH 31.4 pg (25.0-34.0) 03/09/24 05:21 MCHC 33.3 g/dL (32.0-36.0) 03/09/24 05:21 RDW Std Deviation 43.7 fL (36.4-46.3) 03/09/24 05:21 RDW Coeff of Rosita 12.6 % (11.5-14.5) 03/09/24 05:21 Plt Count 167 K/uL (130-400) 03/09/24 05:21 MPV 9.6 fL (9.4-12.4) 03/09/24 05:21 Immature Gran % (Auto) 0.5 % 03/09/24 05:21 Neut % (Auto) 64.5 % 03/09/24 05:21 Lymph % (Auto) 23.0 % 03/09/24 05:21 [place] % (Auto) 9.8 % 03/09/24 05:21 Eos % (Auto) 1.5 % 03/09/24 05:21 Baso % (Auto) 0.7 % 03/09/24 05:21 Neut # (Auto) 3.55 K/uL (1.40-6.50) 03/09/24 05:21 Lymph # (Auto) 1.27 K/uL (1.20-3.40) 03/09/24 05:21 [place] # (Auto) 0.54 K/uL (0.11-0.59) 03/09/24 05:21 Eos # (Auto) 0.08 K/uL (0.00-0.50) 03/09/24 05:21 Baso # (Auto) 0.04 K/uL (0.00-0.20) 03/09/24 05:21 Immature Gran # (Auto) 0.03 K/uL (0.01-0.20) 03/09/24 05:21 PT 21.6 Seconds (9.0-12.0) H 03/17/24 06:22 INR 2.1 (0.9-1.1) H 03/17/24 06:22 APTT 33 Seconds (21-31) H 03/08/24 18:20 PTT Ratio 1.2 03/08/24 18:20 Sodium 138 mmol/L (136-145) 03/12/24 08:33 Potassium 4.6 mmol/L (3.5-5.1) 03/12/24 08:33 Chloride 104 mmol/L (98-107) 03/12/24 08:33 Carbon Dioxide 27 mmol/L (21-32) 03/12/24 08:33 Anion Gap 7 (3-11) 03/12/24 08:33 BUN 18 mg/dl (6-23) 03/12/24 08:33 Creatinine 0.60 mg/dl (0.6-1.2) 03/12/24 08:33 Est Cr Clr Drug Dosing 49.9 ml/min 03/12/24 08:33 eGFR 87.36 03/12/24 08:33 BUN/Creatinine Ratio 30.0 (10-20) H 03/12/24 08:33 Glucose 100 mg/dl (70-99(Fasting)) H 03/12/24 08:33 POC Glucose 86 mg/dl (70-99) 03/14/24 12:27 Calcium 9.4 mg/dl (8.6-10.3) 03/12/24 08:33 Magnesium 2.1 mg/dl (1.7-2.4) 03/08/24 18:20 Total Bilirubin 0.7 mg/dl (0.2-1.0) 03/09/24 05:21 Direct Bilirubin 0.1 mg/dl (0-0.2) 03/09/24 05:21 AST 33 U/L (13-39) 03/09/24 05:21 ALT 56 U/L (7-52) H 03/09/24 05:21 Alkaline Phosphatase 129 U/L (34-104) H 03/09/24 05:21 Total Creatine Kinase 48 U/L (26-192) 03/08/24 18:20 Total Protein 6.3 gm/dl (6.0-8.3) 03/09/24 05:21 Albumin 3.7 gm/dl (3.4-5.0) 03/09/24 05:21 Globulin 2.6 gm/dl (2.5-4.0) 03/08/24 18:20 Albumin/Globulin Ratio 1.5 (0.9-2) 03/08/24 18:20 Urine Color Yellow 03/08/24 19:39 Urine Appearance Clear (Clear) 03/08/24 19:39 Urine pH 6.0 (4.5-7.5) 03/08/24 19:39 Ur Specific [place] 1.019 (1.000-1.030) 03/08/24 19:39 Urine Protein Negative (Negative) 03/08/24 19:39 Urine Glucose (UA) 3+ (Negative) H 03/08/24 19:39 Urine Ketones Negative (Negative) 03/08/24 19:39 Urine Blood Negative (Negative) 03/08/24 19:39 Urine Nitrite Negative (Negative) 03/08/24 19:39 Urine Bilirubin Negative (Negative) 03/08/24 19:39 Urine Urobilinogen Negative (Negative) 03/08/24 19:39 Ur Leukocyte Esterase Negative (Negative) 03/08/24 19:39 Impressions Abdomen/Pelvis CT 03/08/24 18:17 Exam(s): CT ABDOMEN + PELVIS With Contrast IV Amt: 92 cc opti 320 EXAM: CT Abdomen and Pelvis With Intravenous Contrast CLINICAL HISTORY: Reason for exam: anticoagulated, trouble standing, L back/hip pain. TECHNIQUE: Axial computed tomography images of the abdomen and pelvis with intravenous contrast. CTDI is 21.38 mGy and DLP is 1021.65 mGy-cm. Automated exposure control was utilized for the study. A dose lowering technique was utilized adhering to the principles of ALARA. CONTRAST: Patient received 92 cc opti 320 of IV contrast COMPARISON: December 06, 2023 FINDINGS: Lung bases: Unremarkable. No mass. No consolidation. ABDOMEN: Liver: Unremarkable. No mass. Gallbladder and bile ducts: Unremarkable. No calcified stones. No ductal dilation. Pancreas: Unremarkable. No mass. No ductal dilation. Spleen: Unremarkable. No splenomegaly. Adrenals: Unremarkable. No mass. Kidneys and ureters: 2 cm enhancing mass involving the upper pole right kidney is unchanged in appearance when compared to prior exam. 0.7 cm right renal hypodensity likely representing a cyst but too small for the density characterization. Nonobstructing bilateral intrarenal calculi. Stomach and bowel: Unremarkable. No obstruction. No mucosal thickening. PELVIS: Appendix: No findings to suggest acute appendicitis. Bladder: Unremarkable. No mass. Reproductive: Unremarkable as visualized. ABDOMEN and PELVIS: Intraperitoneal space: Unremarkable. No free air. No significant fluid collection. Bones/joints: Postoperative changes of ORIF right femoral fracture. No dislocation. Multilevel degenerative disease of the lower thoracic and lumbar spine. Soft tissues: Unremarkable. Vasculature: Diffuse vascular calcifications. No abdominal aortic aneurysm. Lymph nodes: Unremarkable. No enlarged lymph nodes. IMPRESSION: Stable 2 cm enhancing mass involving the upper pole right kidney concerning for renal cell carcinoma. Other stable chronic changes as described above Electronically signed by: Orlando Rebolledo MD 03/08/24 20:[address] 03/08/24 18:17 Exam(s): CT HEAD Without Contrast EXAM: CT Head Without Intravenous Contrast CLINICAL HISTORY: Reason for exam: anticoagulated, trouble standing. TECHNIQUE: Axial computed tomography images of the head/brain without intravenous contrast. CTDI is 37.61 mGy and DLP is 546.36 mGy-cm. Automated exposure control was utilized for the study. A dose lowering technique was utilized adhering to the principles of ALARA. COMPARISON: December 06, 2023 FINDINGS: Brain: Mild age-appropriate cerebral volume loss. No hemorrhage. No significant white matter disease. Ventricles: Unremarkable. No ventriculomegaly. Bones/joints: Unremarkable. No acute fracture. Soft tissues: Unremarkable. Sinuses: Unremarkable as visualized. No acute sinusitis. Mastoid air cells: Unremarkable as visualized. No mastoid effusion. IMPRESSION: Head CT negative for acute intracranial abnormality Minor chronic findings as above Electronically signed by: Orlando Rebolledo MD 03/08/24 20:[address] 03/08/24 18:17 Exam(s): CT L SPINE With Contrast IV Amt: 92 cc opti 320 EXAM: CT Lumbar Spine With Intravenous Contrast CLINICAL HISTORY: Reason for exam: anticoagulated, trouble standing, L back/hip pain. TECHNIQUE: Axial computed tomography images of the lumbar spine with intravenous contrast. CTDI is 21.38 mGy and DLP is 1021.65 mGy-cm. Automated exposure control was utilized for the study. A dose lowering technique was utilized adhering to the principles of ALARA. CONTRAST: Patient received 92 cc opti 320 of IV contrast COMPARISON: December 06, 2023 FINDINGS: Vertebrae: Subtle superior impression compression deformity of the L5 vertebral body. This results in less than 5% vertebral body height loss. 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 Diffuse osteopenia. Discs/spinal canal/neural foramina: See above. Soft tissues: Unremarkable. Kidneys and ureters: There is a 1.6 cm enhancing mass involving the midpole right kidney which is stable in appearance when compared to prior exam Nonobstructing bilateral renal calculi. 0.8 cm right lower pole renal cyst. No follow-up of this simple cyst is necessary. IMPRESSION: Age indeterminate but possibly acute infarct involving the superior endplate of L5. This results in less than 5% vertebral body height loss. Clinical correlation recommended. Diffuse osteopenia 1.6 cm enhancing mass involving the midpole right kidney concerning for renal cell carcinoma. This is unchanged from prior study. Electronically signed by: Orlando Rebolledo MD 03/08/24 20:19 PM Liver Ultrasound 03/10/24 08:00 US liver CLINICAL HISTORY: Abnormal liver function tests. COMPARISON STUDY: No previous studies for comparison. FINDINGS: No hepatic lesions are identified. There is no biliary ductal dilatation. Common bile duct measures 4 mm in caliber. There are no gallstones. Pancreatic body is normal. Head and tail are slightly obscured. There is no right hydronephrosis. A 2 cm solid lesion within the upper pole the right kidney is again noted. IMPRESSION: 1. No gallstones or biliary ductal dilatation. 2. 2 cm solid right upper pole renal lesion, as shown on prior exams. ACT 112: Negative or not required by law. Electronically signed by: Jesse Negrete M.D. 03/10/2024 8:43 AM
--- NOTE | 2024-03-17 14:30 | Discharge Summary ---
Discharge Summary Date of Service March 17, 2024 Principal Dx & Hospital Course #1 = Principal Diagnosis (1) Asymptomatic hypertensive urgency: (2) Chronic gout: (3) Vertebral compression fracture: (4) Chronic systolic CHF (congestive heart failure): (5) Hyperlipidemia: Continue with Crestor 5 mg at night. (6) Diabetes mellitus type 2, diet-controlled: Notes For Next Care Provider Medication Changes From Visit During this hospitalization, her losartan was increased to 75 mg daily, also amlodipine was increased to 10 mg daily, her Coumadin remained the same. Admission HPI Per Admitting Provider Patient is a very pleasant 88-year-old female with prior history of chronic systolic CHF, cardiac thrombus on Coumadin although echocardiogram during this visit showed resolution of the clot, patient maintained adequate anticoagulation, also history of hypertension hyperlipidemia and diabetes me llitus diet controlled, patient was admitted with elevated blood pressure followed by discovery of needing for rehab placement, her blood pressure medications were adjusted and her blood pressure is now better controlled. Patient disposition became complicated as we ran out of options for her placement, eventually family agreed on taking patient home with home care. Patient was seen and examined today, clinically stable, will proceed with discharging her home with home care. Discharge Exam VITALS: Reviewed. GEN: Healthy appearing, well-developed, clinically stable otherwise. CV: RRR, no m/r/g. LUNGS: clear no issue no wheeze. SKIN: Warm, well perfused. No skin rashes or abnormal lesions. Updated Medication List Medication Instructions Recorded Confirmed Type aspirin 81 mg tablet,delayed 81 mg PO QAM 04/26/22 03/08/24 History release gabapentin 300 mg capsule 300 mg PO TID 04/26/22 03/08/24 History losartan 50 mg tablet 50 mg PO QAM 04/26/22 03/08/24 History metoprolol succinate 25 mg 12.5 mg PO QAM 04/26/22 03/08/24 History tablet,extended release 24 hr nitroglycerin 0.4 mg sublingual 0.4 mg sublingual .EVERY 5 MINUTES 04/26/22 03/08/24 History tablet PRN Chest Pain omega-3 fatty acids 1,000 mg 1,000 mg PO AMHS 04/26/22 03/08/24 History capsule rosuvastatin 5 mg tablet 5 mg PO HS 04/26/22 03/08/24 History acetaminophen 500 mg tablet 1,000 mg PO TID Pain 06/26/22 03/08/24 History (Tylenol Extra Strength) alendronate 70 mg tablet 70 mg PO WK 03/08/24 03/08/24 History allopurinol 100 mg tablet 100 mg PO HS 03/08/24 03/08/24 History calcium carbonate 500 mg PO QAM 03/08/24 03/08/24 History cholecalciferol (vitamin D3) 50 50 mcg PO QAM 03/08/24 03/08/24 History mcg (2,000 unit) tablet (Vitamin D3) enoxaparin 60 mg/0.6 mL See Rx Instructions .Route .COMPLEX 03/08/24 03/08/24 History subcutaneous syringe magnesium citrate 125 mg capsule 125 mg PO QAM 03/08/24 03/08/24 History melatonin 3 mg tablet 3 mg PO HS PRN Insomnia 03/08/24 03/08/24 History amlodipine 5 mg tablet (Norvasc) 10 mg (2 x 5 mg) PO QAM #30 tabs 03/17/24 Rx losartan 25 mg tablet 75 mg (3 x 25 mg) PO QAM 30 days 03/17/24 Rx #90 tabs warfarin 2.5 mg tablet (Jantoven) 2.5 mg PO SuMoTuThFrSa@1600 #30 03/17/24 Rx tabs warfarin 5 mg tablet 5 mg PO We@1600 #30 tabs 03/17/24 Rx Hospital Stay Data Consultations 03/08/24 21:10 ED Decision to Admit Stat 03/08/24 22:29 Consult Orthopedic Spine Surgery Routine Diagnostic Imagining Performed 03/08/24 18:17 CT abd pelvis IV con only Stat CT head/brain wo con Stat CT lumbar spine w con Stat 03/10/24 08:00 US liver Routine Pending Results Patient Have Any Pending Studies at Discharge: No Discharge Instructions Given to Patient (Per Discharging Provider) No further recommendation Total Time Total Time Spent Total Time Spent (In Minutes): More than 35 minutes
[2024-03-17 15:25] VITALS: BP 125/70; RESP 20; TEMP 98.2; O2SAT 93
[2024-03-17] MEDS: WARFARIN SOD 2.5 MG TAB PO SCH (16:04)
[2024-03-17 17:00] VITALS: PULSE 68
== END 2024-03-17 17:15 | disposition home health service (06) | DRG 543 ==
LOC: ED 17:30 → SUATTDRO 21:58 → 2N 21:58

== ENCOUNTER 2024-10-19 10:24 | Inpatient (IN) ==
[2024-10-19] MEDS: OPTIRAY 320 100ml IV ONE (10:52)
--- NOTE | 2024-10-19 10:52 | Emergency Department Note ---
History of Present Illness General Chief complaint: Trauma Stated complaint: FALL, HIP PAIN Time Seen by Provider: 10/19/24 10:26 History of Present Illness Provider complaint: Fall left hip pain Onset (ago): hour(s) less than 1 89-year-old female on Eliquis presents emergency department for fall left hip pain. Patient states she was try to get something out of her trash can when she fell. Patient reporting pain in her left hip. She is also reporting pain in her head. Patient is on Eliquis. Home Medications Medication Instructions Recorded Confirmed Type aspirin 81 mg tablet,delayed 81 mg PO QAM 04/26/22 10/19/24 History release gabapentin 300 mg capsule 300 mg PO TID 04/26/22 10/19/24 History losartan 50 mg tablet 50 mg PO QAM 04/26/22 10/19/24 History metoprolol succinate 25 mg 25 mg PO QAM 04/26/22 10/19/24 History tablet,extended release 24 hr nitroglycerin 0.4 mg sublingual 0.4 mg sublingual DIRECTED PRN 04/26/22 10/19/24 History tablet Chest Pain rosuvastatin 5 mg tablet 5 mg PO HS 04/26/22 10/19/24 History acetaminophen 500 mg tablet 1,000 mg PO TID Pain 06/26/22 10/19/24 History (Tylenol Extra Strength) alendronate 70 mg tablet 70 mg PO WK 03/08/24 10/19/24 History allopurinol 100 mg tablet 100 mg PO HS 03/08/24 10/19/24 History calcium carbonate 500 mg PO QAM 03/08/24 10/19/24 History cholecalciferol (vitamin D3) 50 50 mcg PO QAM 03/08/24 10/19/24 History mcg (2,000 unit) tablet (Vitamin D3) magnesium citrate 125 mg capsule 125 mg PO QAM 03/08/24 10/19/24 History amlodipine 5 mg tablet (Norvasc) 5 mg PO QAM 10/19/24 10/19/24 History apixaban 5 mg tablet (Eliquis) 5 mg PO BID 10/19/24 10/19/24 History duloxetine 20 mg capsule,delayed 20 mg PO DAILY 10/19/24 10/19/24 History release Allergies Allergy/AdvReac Type Severity Reaction Status Date / Time lisinopril AdvReac Intermediate Cough Verified 10/19/24 14:20 Past Med/Surg History Problem List (Updated 10/19/24 @ 18:01 by David Cantu MD) Preoperative cardiovascular examination Closed left hip fracture (Acute) Diabetes mellitus type 2, diet-controlled Hyperlipidemia Chronic systolic CHF (congestive heart failure) Vertebral compression fracture Chronic gout Lumbar compression fracture Asymptomatic hypertensive urgency Closed compression fracture of L5 vertebra (Acute) Hyperglycemia CAD (coronary artery disease) Complex renal cyst Renal mass, right Fracture of right hip (Acute) Fall (Acute) COVID-19 (Acute) Hypertension Type 2 diabetes mellitus Medical History 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 Gout Myocardial infarction Coronary artery disease 1999 - NSTEMI s/p LAD stent x 1 Surgical History No pertinent past surgical history Family History Other Family history non-contributory Intracardiac thrombus Social History Smoking Status: Former smoker Tobacco Type: Cigarettes Cigarettes Per Day: 8; Smoking End Date: 2020; Second Hand Exposure: No; Do You Dip or Chew Tobacco: No; Tobacco Cessation Education Requested by Patient: No Hx Alcohol Use: No Hx Substance Use: No Preferred Language: Chinese Communication Ability: Effective National Account Executive Required: No Beliefs That Will Affect Care: None Current Living Situation: Alone Feels Safe at Home: Yes Safety Concerns: Feels Safe At This Time Assistive Devices: Hearing Aid - Bilateral and Walker Physical Exam Vital Signs Vital Signs - 24 hr 10/19/24 10:31 10/19/24 10:31 10/19/24 10:31 Temperature 36.8 C 36.8 C 36.8 C Temperature Source Oral Oral Pulse Rate 68 68 Pulse Rate [Apical] 68 Respiratory Rate 19 19 19 Respiratory Effort / Characteristics Respiratory Depth Blood Pressure 140/79 140/79 Blood Pressure [Left Arm] 140/79 Blood Pressure Mean 99 Blood Pressure Mean [Left Arm] 99 Pulse Oximetry 95 95 95 Oxygen Delivery Method Room Air Room Air Room Air Oxygen Flow Rate 0 Sepsis Recent Fever Within 48 Hours No Sepsis New/Unexplained Change in Mental Status N/A Sepsis Action Taken by Nursing No Action Required 10/19/24 10:31 10/19/24 10:31 10/19/24 10:36 Temperature 36.8 C Temperature Source Oral Pulse Rate 72 Pulse Rate [Apical] 68 Respiratory Rate 19 Respiratory Effort / Characteristics Respiratory Depth Blood Pressure Blood Pressure [Left Arm] 140/79 Blood Pressure Mean Blood Pressure Mean [Left Arm] 99 Pulse Oximetry 95 95 Oxygen Delivery Method Room Air Oxygen Flow Rate Sepsis Recent Fever Within 48 Hours Sepsis New/Unexplained Change in Mental Status Sepsis Action Taken by Nursing 10/19/24 11:13 10/19/24 11:19 Temperature Temperature Source Pulse Rate 56 L Pulse Rate [Apical] 63 Respiratory Rate 16 15 Respiratory Effort / Characteristics Non-Labored Spontaneous Respiratory Depth Normal Blood Pressure Blood Pressure [Left Arm] 158/80 H Blood Pressure Mean Blood Pressure Mean [Left Arm] 106 Pulse Oximetry 97 98 Oxygen Delivery Method Room Air Room Air Oxygen Flow Rate Sepsis Recent Fever Within 48 Hours Sepsis New/Unexplained Change in Mental Status Sepsis Action Taken by Nursing Primary Survey Airway: Intact Breathing: Normal, breath sounds equal bilaterally Circulation: Skin warm, distal pulses 2+, capillary refill less than 2 seconds Disability Pupils: Equal and reactive to light, 2 mm, brisk GCS: 15, E = 4 V=5 M= 6 Motor Function: Moves all extremities. Sensory: No deficits Secondary Survey GEN: Well developed and well-nourished HEAD: 4 cm laceration to the left parietal occipital area. EYES: Pupils round reactive to light, conjunctiva clear, extraocular movements intact, no raccoons eyes ENT: no kelly's sign, nares patent, oropharynx clear NECK: No JVD, midline trachea, no cervical spine tenderness HEART: Regular rate and rhythm LUNGS: Clear to auscultation bilaterally. CHEST: Chest wall non-tender, no bruising/deformity ABD: soft, non-tender, no rebound or guarding, anterior abdominal wall ecchymosis. MUSC: Pain on palpation of the left hip. NEURO: CNII-XII grossly intact, no sensory deficits SKIN: Ecchymoses over the bilateral upper and bilateral lower extremities. Skin tear over the left lateral lower extremity. Course Course 1026: The patient was evaluated in room B1. A complete history and physical exam was performed Cardiac monitoring: An order was placed for continuous cardiac monitoring. The monitor shows a rate of 60 with sinus rhythm interpreted by me 1148: Vital signs stable. Patient C-spine cleared. Imaging shows left-sided hip fracture IT fracture. Otherwise, no acute traumatic injury. [facility]. Lacerations will repaired by Sheyla POLANCO Administered Medications Gabapentin (Gabapentin 300 Mg Cap) 300 mg PO TID BREN Stop: 11/18/24 13:59 Last Admin: 10/19/24 17:39 Dose: Not Given Documented By: ABDIFATAH Discontinued Medications Bupivacaine HCl/Epinephrine Bitart (Bupivacaine/Epinephrine 0.25% 1:200,000 30 Ml Vial) Confirm Administered Dose 30 ml .ROUTE .STK-MED ONE Stop: 10/19/24 14:27 Last Admin: 10/19/24 15:30 Dose: 30 ml Documented By: GRISELDA Diphtheria/Pertussis/Tetanus Vacc (Diphther/Tetan/Pertus Vaccine (Tdap, Adol/Adult) 0.5ml) 0.5 ml IM .ONCE ONE Stop: 10/19/24 10:50 Last Admin: 10/19/24 11:51 Dose: Not Given Documented By: CHRISTIAN Fentanyl Citrate (Fentanyl Citrate Pf 100 Mcg/2 Ml Vial) 25 mcg IV Q5M PRN PRN Reason: PACU Use Only-Pain Stop: 10/19/24 21:16 Last Admin: 10/19/24 16:21 Dose: 25 mcg Documented By: Admin: 10/19/24 16:13 Dose: 25 mcg Documented By: JORGE Hydralazine HCl (Hydralazine Hcl 20 Mg/Ml Vial) 10 mg IV NOW STA Stop: 10/19/24 16:30 Last Admin: 10/19/24 17:08 Dose: Not Given Documented By: ABDIFATAH Cefazolin Sodium (Ancef 2000mg) 2,000 mg in 15 mls @ 3.75 mls/min IV PREOP ONE; Protocol Stop: 10/19/24 14:01 Last Admin: 10/19/24 14:36 Dose: 3.75 mls/min Documented By: KHADAR Lactated Ringer's (Lr) 1,000 mls @ 15 mls/hr IV .Q24H BREN Stop: 10/22/24 14:14 Last Admin: 10/19/24 17:24 Dose: Not Given Documented By: ABDIFATAH Ioversol (Optiray 320 100ml) 94 ml IV ONCE ONE Stop: 10/19/24 10:53 Last Admin: 10/19/24 10:52 Dose: 94 ml Documented By: AIDAN Lidocaine/Epinephrine (Lidocaine 1%/Epinephrine 1:100,000 50 Ml Vial) 10 ml INFIL NOW ONE Stop: 10/19/24 11:35 Last Admin: 10/19/24 11:51 Dose: 10 ml Documented By: ACC Critical Care Time Critical Care Time: Yes Total Critical Care Time: 36 I have personally spent greater than 36 minutes of critical care time in the direct management of this patient. This includes bedside care, interpretation of diagnostic studies, and testing, discussion with consultants, patient, and family members, and other required patient management activities. This 36 minutes is in excess of all separately billable procedures. Medical Decision Making Laboratory Data Attestation: I reviewed the patient's lab results. 10/19/24 10:32 10/19/24 10:32 Lab Results 10/19/24 10/19/24 10/19/24 Range/Units 10:28 10:32 10:38 WBC 8.37 (4.8-10.8) K/ul RBC 4.25 (4.20-5.40) M/uL Hgb 14.2 (12.0-16.0) g/dl POC Hgb 14.3 (12.0-16.0) g/dl Hct 42.3 (37.0-47.0) % POC Hct 42 (37-47) % MCV 99.5 (80.0-100.0) fL MCH 33.4 (25.0-34.0) pg MCHC 33.6 (32.0-36.0) g/dL RDW Std Deviation 45.0 (36.4-46.3) fL RDW Coeff of Rosita 12.3 (11.5-14.5) % Plt Count 115 L (130-400) K/uL MPV 10.4 (9.4-12.4) fL Immature Gran % (Auto) 0.7 % Neut % (Auto) 79.5 % Lymph % (Auto) 12.1 % [place] % (Auto) 6.7 % Eos % (Auto) 0.6 % Baso % (Auto) 0.4 % Neut # (Auto) 6.66 H (1.40-6.50) K/uL Lymph # (Auto) 1.01 L (1.20-3.40) K/uL [place] # (Auto) 0.56 (0.11-0.59) K/uL Eos # (Auto) 0.05 (0.00-0.50) K/uL Baso # (Auto) 0.03 (0.00-0.20) K/uL Immature Gran # (Auto) 0.06 (0.01-0.20) K/uL PT 11.2 (9.0-12.0) Seconds INR 1.0 (0.9-1.1) APTT 22 (21-31) Seconds PTT Ratio 0.8 POC Sodium 138 (135-144) mmol/L Sodium 139 (136-145) mmol/L POC Potassium 4.6 (3.3-5.0) mmol/L Potassium 4.6 (3.5-5.1) mmol/L POC Chloride 105 (101-112) mmol/L Chloride 106 (98-107) mmol/L Carbon Dioxide 26 (21-32) mmol/L POC Total CO2 23 L (24-31) mmol/L Anion Gap 7 (3-11) POC Anion Gap 16.0 (16-25) mmol/L POC BUN 22 H (7-18) mg/dl BUN 22 (6-23) mg/dl Creatinine 0.84 (0.6-1.2) mg/dl POC Creatinine 0.9 (0.6-1.3) mg/dl Est Cr Clr Drug Dosing 37.6 ml/min eGFR 67.21 BUN/Creatinine Ratio 26.2 H (10-20) Glucose 145 H (70-99(Fasting)) mg/dl POC Glucose (other) 140 H (70-99) mg/dl Estimat Average Glucose 128 mg/dl Hemoglobin A1c 6.1 H (4.5-5.6) % Calcium 9.1 (8.6-10.3) mg/dl POC Ioniz Calcium Chantelle 1.20 (1.12-1.32) mmol/l Total Bilirubin 1.4 H (0.2-1.0) mg/dl AST 33 (13-39) U/L ALT 58 H (7-52) U/L Alkaline Phosphatase 33 L (34-104) U/L Total Creatine Kinase 46 (26-192) U/L Troponin I High Sens 24.8 H (0-14) pg/ml Total Protein 6.0 (6.0-8.3) gm/dl Albumin 3.7 (3.4-5.0) gm/dl Globulin 2.3 L (2.5-4.0) gm/dl Albumin/Globulin Ratio 1.6 (0.9-2) Lipase 16 (11-82) U/L Urine Color Urine Appearance (Clear) Urine pH (4.5-7.5) Ur Specific [place] (1.000-1.030) Urine Protein (Negative) Urine Glucose (UA) (Negative) Urine Ketones (Negative) Urine Blood (Negative) Urine Nitrite (Negative) Urine Bilirubin (Negative) Urine Urobilinogen (Negative) Ur Leukocyte Esterase (Negative) Urine Comment Blood Type A Positive Antibody Screen NEGATIVE 10/19/24 Range/Units 11:27 WBC (4.8-10.8) K/ul RBC (4.20-5.40) M/uL Hgb (12.0-16.0) g/dl POC Hgb (12.0-16.0) g/dl Hct (37.0-47.0) % POC Hct (37-47) % MCV (80.0-100.0) fL MCH (25.0-34.0) pg MCHC (32.0-36.0) g/dL RDW Std Deviation (36.4-46.3) fL RDW Coeff of Rosita (11.5-14.5) % Plt Count (130-400) K/uL MPV (9.4-12.4) fL Immature Gran % (Auto) % Neut % (Auto) % Lymph % (Auto) % [place] % (Auto) % Eos % (Auto) % Baso % (Auto) % Neut # (Auto) (1.40-6.50) K/uL Lymph # (Auto) (1.20-3.40) K/uL [place] # (Auto) (0.11-0.59) K/uL Eos # (Auto) (0.00-0.50) K/uL Baso # (Auto) (0.00-0.20) K/uL Immature Gran # (Auto) (0.01-0.20) K/uL PT (9.0-12.0) Seconds INR (0.9-1.1) APTT (21-31) Seconds PTT Ratio POC Sodium (135-144) mmol/L Sodium (136-145) mmol/L POC Potassium (3.3-5.0) mmol/L Potassium (3.5-5.1) mmol/L POC Chloride (101-112) mmol/L Chloride (98-107) mmol/L Carbon Dioxide (21-32) mmol/L POC Total CO2 (24-31) mmol/L Anion Gap (3-11) POC Anion Gap (16-25) mmol/L POC BUN (7-18) mg/dl BUN (6-23) mg/dl Creatinine (0.6-1.2) mg/dl POC Creatinine (0.6-1.3) mg/dl Est Cr Clr Drug Dosing ml/min eGFR BUN/Creatinine Ratio (10-20) Glucose (70-99(Fasting)) mg/dl POC Glucose (other) (70-99) mg/dl Estimat Average Glucose mg/dl Hemoglobin A1c (4.5-5.6) % Calcium (8.6-10.3) mg/dl POC Ioniz Calcium [place]ant[place] (1.12-1.32) mmol/l Total Bilirubin (0.2-1.0) mg/dl AST (13-39) U/L ALT (7-52) U/L Alkaline Phosphatase (34-104) U/L Total Creatine Kinase (26-192) U/L Troponin I High Sens (0-14) pg/ml Total Protein (6.0-8.3) gm/dl Albumin (3.4-5.0) gm/dl Globulin (2.5-4.0) gm/dl Albumin/Globulin Ratio (0.9-2) Lipase (11-82) U/L Urine Color Yellow Urine Appearance Clear (Clear) Urine pH 6.5 (4.5-7.5) Ur Specific [place] 1.028 (1.000-1.030) Urine Protein Negative (Negative) Urine Glucose (UA) Negative (Negative) Urine Ketones Negative (Negative) Urine Blood Negative (Negative) Urine Nitrite Negative (Negative) Urine Bilirubin Negative (Negative) Urine Urobilinogen Negative (Negative) Ur Leukocyte Esterase Negative (Negative) Urine Comment Blood Type Antibody Screen Imaging Data Attestation: I personally reviewed and interpreted this imaging study as follows: My Impression: Chest x-ray: Chest x-ray negative. Airway clear. No pneumothorax. No consolidation. No cardiomegaly or cephalization.. No free air under the diaphragm. No fractures of the skeletal structures. Pelvis x-ray: Left-sided hip fracture Radiologist's Impression: Abdomen/Pelvis CT 10/19/24 10:[address] WITH IV CONTRAST CT DOSE: 2426.25 mGy.cm HISTORY: Acute abdominal trauma Trauma TECHNIQUE: Multiaxial CT images of the abdomen and pelvis were performed following the IV administration of 94 cc of Optiray, A dose lowering technique was utilized adhering to the principles of ALARA. COMPARISON STUDY: Pelvis radiographs of same day, CT abdomen and pelvis 03/08/2024 FINDINGS: Cardiomegaly with extensive coronary artery calcifications. Clear lung bases. No pneumatosis or pneumoperitoneum. Indeterminate subcentimeter enhancing focus of the spleen is stable and likely benign. Unremarkable pancreas, gallbladder and adrenal glands. The liver is within normal limits. Subcentimeter probable cyst of the hepatic dome. Patency of the hepatic and portal veins. There are a few scattered nonobstructing calculi in the bilateral kidneys measuring up to 6 mm on the right and 4 mm on the left. There are a few small scattered cysts of the kidneys. Enhancing exophytic 2.0 x 2.2 x 1.8 cm mass of the superior pole right kidney is stable from prior. No hydronephrosis. Unremarkable urinary bladder. Hysterectomy with pelvic floor relaxation. Atherosclerosis of the aorta and branch vessels. No lymphadenopathy. Small hiatal hernia. No bowel obstruction or bowel wall thickening. Colonic diverticulosis without acute diverticulitis. Intertrochanteric nail medullary eleazar of the right proximal femur. Acute, comminuted, angulated and displaced intertrochanteric left femoral fracture. The left acetabulum and pelvic ring appear intact. Hematoma posterior to the left femur measures 5 cm. IMPRESSION: 1. Acute intertrochanteric left femoral fracture as above with adjacent 5 cm soft tissue hematoma. 2. No acute pelvic ring fracture. 3. No acute posttraumatic intra-abdominal or intrapelvic abnormality. 4. Stable 2.2 cm right renal mass suggestive of renal cell carcinoma. 5. Nonobstructing bilateral nephrolithiasis without hydronephrosis. 6. Additional findings as above. ACT 112: Negative or not required by law. The above report was generated using voice recognition software. It may contain grammatical, syntax or spelling errors. Electronically signed by: Aiden Baltazar M.D. 10/19/2024 11:22 AM Chest X-Ray 10/19/24 10:28 PORTABLE SUPINE AP CHEST RADIOGRAPH CLINICAL HISTORY: Trauma COMPARISON STUDY: Chest radiograph December 08, 2022. Chest CT December 06, 2023. FINDINGS: No pneumothorax is identified on supine exam. Cardiomegaly is noted. There is no evidence for pulmonary edema. No airspace opacities are present. Old left-sided rib fractures are incidentally noted. IMPRESSION: No acute cardiopulmonary findings. ACT 112: Negative or not required by law. Electronically signed by: Jesse Negrete M.D. 10/19/2024 10:59 AM Pelvis X-Ray 10/19/24 10:28 XR pelvis 1-2V routine HISTORY: 89 years-old Female Trauma COMPARISON: Left femur radiographs of same day TECHNIQUE: AP view of the pelvis FINDINGS: Acute, comminuted, impacted, mildly angulated and displaced intertrochanteric left femoral fracture. Moderate associated soft tissue swelling. Moderate osteoarthritis of the hips. Intertrochanteric nail with medullary eleazar of the right femur. Arterial calcifications. Questioned cortical irregularity of the left superior pubic ramus. Ill-defined lucencies project over the left acetabulum. IMPRESSION: 1. Acute intertrochanteric left femoral fracture as above. 2. Ill-defined lucencies projected over the left acetabulum and left superior pubic ramus are favored to be artifactual. Subtle acute nondisplaced fractures could appear similarly. ACT 112: Negative or not required by law. The above report was generated using voice recognition software. It may contain grammatical, syntax or spelling errors. Electronically signed by: Aiden Baltazar M.D. 10/19/2024 11:[address] 10/19/24 10:29 CT SCAN OF THE CERVICAL SPINE CLINICAL HISTORY: Trauma. COMPARISON STUDY: Cervical spine CT December 06, 2023. TECHNIQUE: CT scan of the cervical spine is performed from the skull base to the upper thoracic spine. Images are reviewed in the axial, sagittal, and coronal planes. IV contrast was not administered for this examination. A dose lowering technique was utilized adhering to the principles of ALARA. FINDINGS: Skeletal structures: There is no evidence of fracture or subluxation involving the cervical spine. Vertebral body height and alignment are maintained. The odontoid process and lateral masses are intact. The atlantoaxial articulation is preserved. The spinous processes appear intact. Severe multilevel facet arthrosis and moderate disc space narrowing and endplate osteophytosis within the cervical spine is again noted. Soft tissues: The prevertebral and paraspinous soft tissues are within normal limits. Calvarium: The visualized calvarium at the skull base appears intact. Brain parenchyma: Partially visualized brain parenchyma at the skull base is within normal limits. Lung apices: Clear as visualized. IMPRESSION: No acute cervical spine fracture or subluxation. ACT 112: Negative or not required by law. Electronically signed by: Jesse Negrete M.D. 10/19/2024 11:[address] 10/19/24 10:29 CT SCAN OF THE BRAIN WITHOUT IV CONTRAST CLINICAL HISTORY: Trauma COMPARISON STUDY: CT of the brain dated 03/08/2024 TECHNIQUE: Unenhanced axial CT scan of the brain is performed from the vertex to the skull base. Images are reviewed in the axial, sagittal, coronal planes. A dose lowering technique was utilized adhering to the principles of ALARA. FINDINGS: Brain parenchyma: There is age-related involutional change noting mild subcortical and periventricular microangiopathic disease. There is no hemorrhage, mass effect, or evidence of acute territorial ischemia by CT criteria. Busch-white matter differentiation is preserved. No extra-axial fluid collection is seen. Ventricles, sulci, cisterns: Prominent secondary to involutional change. Intracranial vasculature: There is atherosclerotic calcification of the cavernous carotid arteries. Calvarium: The skeletal structures are osteopenic. No depressed calvarial fracture is seen. Soft tissues: There is a left parietal scalp hematoma/laceration. Sinuses and mastoids: The paranasal sinuses are clear. The mastoid air cells are well pneumatized. Orbits: The bony orbits are grossly intact. There are bilateral ocular lens implants. IMPRESSION: 1. There is no hemorrhage, mass effect, or evidence of acute territorial ischemia by CT criteria. 2. Left parietal scalp injury. ACT 112: Negative or not required by law. Electronically signed by: Per France M.D. 10/19/2024 11:12 AM Femur X-Ray 10/19/24 10:30 LEFT FEMUR 2 VIEWS CLINICAL HISTORY: Trauma. FINDINGS: AP and crosstable lateral views of the left femur are obtained. Correlation is made with pelvic x-ray dated 05/07/2022. The skeletal structures are osteopenic. There is an acute comminuted and angulated intertrochanteric fracture of the left proximal femur. Overlying soft tissue edema is observed. There is medial displacement of the lesser trochanter. The distal femoral shaft appears intact. The left hip and knee joints are grossly maintained. The partially imaged left hemipelvis appears intact. There is advanced atherosclerotic calcification of the left femoral artery. IMPRESSION: Intertrochanteric fracture of the left proximal femur as above. Electronically signed by: Per France M.D. 10/19/2024 10:57 AM Femur X-Ray 10/19/24 10:30 XR femur RT 2V routine CLINICAL HISTORY: trauma COMPARISON: Pelvis and right hip radiographs May 07, 2022. CT of the abdomen and pelvis March 08, 2024. FINDINGS: There are stable findings following open reduction and internal fixation of the intertrochanteric fracture of the right femur. Hardware is intact. No right femoral fractures are present. Extensive vascular calcification is incidentally noted. There is no right knee joint effusion. IMPRESSION: 1. No acute right femoral fractures. 2. Stable findings following internal fixation of the intertrochanteric fracture of the right femur. ACT 112: Negative or not required by law. Electronically signed by: Jesse Negrete M.D. 10/19/2024 11:01 AM ECG Data Attestation: I personally reviewed and interpreted this ECG as follows: Rate (beats per minute): 60 Rhythm: + normal sinus ECG Intervals/blocks: + Normal QRS, + Normal [place] and + Normal QT-c ECG ST segments: + Normal ST segments ECG Findings: + PVCs [facility] Narrative 1026: The patient was evaluated in room B1. A complete history and physical exam was performed Cardiac monitoring: An order was placed for continuous cardiac monitoring. The monitor shows a rate of 60 with sinus rhythm interpreted by me 1148: Vital signs stable. Patient C-spine cleared. Imaging shows left-sided hip fracture IT fracture. Otherwise, no acute traumatic injury. [facility]. Lacerations will repaired by Sheyla POLANCO Impression & Plan Closed left hip fracture Discharge Plan Visit Data Chief Complaint: Trauma Stated Complaint: FALL, HIP PAIN ED Provider: David Cantu Discharge Problem: Closed left hip fracture Patient Disposition: Admitted As Inpatient Condition: Fair Discharge Instructions Interventions: ED Discharge Assessment Last Done: 10/19/24 12:33
[2024-10-19 10:54] LABS: Hematocrit (blood only) 42.3 % (37.0-47.0); Hemoglobin 14.2 g/dl (12.0-16.0); Immature Granulocytes # (auto) 0.06 K/uL (0.01-0.20); Immature Granulocytes % (auto) 0.7 %; Mean Corpuscular Hemoglobin 33.4 pg (25.0-34.0); Mean Corpuscular Volume 99.5 fL (80.0-100.0); Platelet Count 115 K/uL (130-400); RDW Standard Deviation 45.0 fL (36.4-46.3); Red Blood Count 4.25 M/uL (4.20-5.40); White Blood Count 8.37 K/ul (4.8-10.8)
--- NOTE | 2024-10-19 10:58 | XRay Report ---
LEFT FEMUR 2 VIEWS CLINICAL HISTORY: Trauma. FINDINGS: AP and crosstable lateral views of the left femur are obtained. Correlation is made with [facility] x-ray dated 05/07/2022. The skeletal structures are osteopenic. There is an acute comminuted and angulated intertrochanteric fracture of the left proximal femur. Overlying soft tissue edema is obser [place]. There is medial displacement of the lesser trochanter. The distal femoral shaft appears intact. The left hip and knee joints are grossly maintained. The partially imaged left hemipelvis appears int act. There is advanced atherosclerotic calcification of the left femoral artery. IMPRESSION: Intertrochanteric fracture of the left proximal femur as above. Electronically signed by: Per France M.D. 10/19/2024 10:57 AM
--- NOTE | 2024-10-19 11:01 | XRay Report ---
PORTABLE SUPINE AP CHEST RADIOGRAPH CLINICAL HISTORY: Trauma COMPARISON STUDY: Chest radiograph December 08, 2022. Chest CT December 06, 2023. FINDINGS: No pneumothorax is identified on supine exam. Cardiomegaly is noted. There is no evidence f or pulmonary edema. No airspace opacities are present. Old left-sided rib fractures are incidentally noted. IMPRESSION: No acute cardiopulmonary findings. ACT 112: Negative or not required by law. Electronically signed by: Jesse Negrete M.D. 10/19/2024 10:59 AM
--- NOTE | 2024-10-19 11:04 | XRay Report ---
XR femur RT 2V routine CLINICAL HISTORY: trauma COMPARISON: Pelvis and right hip radiographs May 07, 2022. CT of the abdomen and pelvis March 08, 2024. FINDINGS: There are stable findings following open reduction and internal fixation of the intertroch anteric fracture of the right femur. Hardware is intact. No right femoral fractures are present. Exte nsive vascular calcification is incidentally noted. There is no right knee joint effusion. IMPRESSION: 1. No acute right femoral fractures. 2. Stable findings following internal fixation of the intertrochanteric fracture of the right femur. ACT 112: Negative or not required by law. Electronically signed by: Jesse Negrete M.D. 10/19/2024 11:01 AM
[2024-10-19 11:08] LABS: Alanine Aminotransferase 58.0 U/L (7-52); Albumin Globulin Ratio 1.6 (0.9-2); Alkaline Phosphatase 33.0 U/L (34-104); Anion Gap 7.0 (3-11); Bilirubin,Total 1.4 mg/dl (0.2-1.0); Blood Urea Nitrogen 22.0 mg/dl (6-23); Calcium 9.1 mg/dl (8.6-10.3); Carbon Dioxide 26.0 mmol/L (21-32); Chloride 106.0 mmol/L (98-107); Creatine Kinase 46.0 U/L (26-192); Creatinine Clr Calc Pharmacy 37.6 ml/min; Globulin 2.3 gm/dl (2.5-4.0); Glucose 145.0 mg/dl (70-99(Fasting)); Lipase 16.0 U/L (11-82); Potassium 4.6 mmol/L (3.5-5.1); Sodium 139.0 mmol/L (136-145); Total Protein 6.0 gm/dl (6.0-8.3)
--- NOTE | 2024-10-19 11:08 | XRay Report ---
XR pelvis 1-2V routine HISTORY: 89 years-old Female Trauma COMPARISON: Left femur radiographs of same day TECHNIQUE: AP view of the pelvis FINDINGS: Acute, comminuted, impacted, mildly angulated and displaced intertrochanteric left femoral fracture. Moderate associated soft tissue swelling. Moderate osteoarthritis of the hips. Intertrochanteric nail with medullary eleazar of the right femur. Arterial calcifications. Questioned cortical irregularity of the left superior pubic ramus. Ill-defined lucencies project over the left acetabulum. IMPRESSION: 1. Acute intertrochanteric left femoral fracture as above. 2. Ill-defined lucencies projected over the left acetabulum and left superior pubic ramus are favored to be artifactual. Subtle acute nondisplaced fractures could appear similarly. ACT 112: Negative or not required by law. The above report was generated using voice recognition software. It may contain grammatical, syntax o r spelling errors. Electronically signed by: Aiden Baltazar M.D. 10/19/2024 11:07 AM
--- NOTE | 2024-10-19 11:13 | CT Scan Report ---
CT SCAN OF THE BRAIN WITHOUT IV CONTRAST CLINICAL HISTORY: Trauma COMPARISON STUDY: CT of the brain dated 03/08/2024 TECHNIQUE: Unenhanced axial CT scan of the brain is performed from the vertex to the skull base. Imag es are reviewed in the axial, sagittal, coronal planes. A dose lowering technique was utilized adheri ng to the principles of ALARA. FINDINGS: Brain parenchyma: There is age-related involutional change noting mild subcortical and periventricula r microangiopathic disease. There is no hemorrhage, mass effect, or evidence of acute territorial isc hemia by CT criteria. Busch-white matter differentiation is preserved. No extra-axial fluid collection is seen. Ventricles, sulci, cisterns: Prominent secondary to involutional change. Intracranial vasculature: There is atherosclerotic calcification of the cavernous carotid arteries. Calvarium: The skeletal structures are osteopenic. No depressed calvarial fracture is seen. Soft tissues: There is a left parietal scalp hematoma/laceration. Sinuses and mastoids: The paranasal sinuses are clear. The mastoid air cells are well pneumatized. Orbits: The bony orbits are grossly intact. There are bilateral ocular lens implants. IMPRESSION: 1. There is no hemorrhage, mass effect, or evidence of acute territorial ischemia by CT criteria. 2. Left parietal scalp injury. ACT 112: Negative or not required by law. Electronically signed by: Per France M.D. 10/19/2024 11:12 AM
--- NOTE | 2024-10-19 11:13 | CT Scan Report ---
CT SCAN OF THE CERVICAL SPINE CLINICAL HISTORY: Trauma. COMPARISON STUDY: Cervical spine CT December 06, 2023. TECHNIQUE: CT scan of the cervical spine is performed from the skull base to the upper thoracic spine . Images are reviewed in the axial, sagittal, and coronal planes. IV contrast was not administered fo r this examination. A dose lowering technique was utilized adhering to the principles of ALARA. FINDINGS: Skeletal structures: There is no evidence of fracture or subluxation involving the cervical spine. Ve rtebral body height and alignment are maintained. The odontoid process and lateral masses are intact . The atlantoaxial articulation is preserved. The spinous processes appear intact. Severe multilevel facet arthrosis and moderate disc space narrowing and endplate osteophytosis within the cervical spin e is again noted. Soft tissues: The prevertebral and paraspinous soft tissues are within normal limits. Calvarium: The visualized calvarium at the skull base appears intact. Brain parenchyma: Partially visualized brain parenchyma at the skull base is within normal limits. Lung apices: Clear as visualized. IMPRESSION: No acute cervical spine fracture or subluxation. ACT 112: Negative or not required by law. Electronically signed by: Jesse Negrete M.D. 10/19/2024 11:12 AM
[2024-10-19 11:23] LABS: INR 1.0 (0.9-1.1); Partial Thromboplastin Time 22 Seconds (21-31); Prothrombin Time 11.2 Seconds (9.0-12.0)
--- NOTE | 2024-10-19 11:23 | CT Scan Report ---
ABDOMEN AND PELVIS CT WITH IV CONTRAST CT DOSE: 2426.25 mGy.cm HISTORY: Acute abdominal trauma Trauma TECHNIQUE: Multiaxial CT images of the abdomen and pelvis were performed following the IV administrat ion of 94 cc of Optiray, A dose lowering technique was utilized adhering to the principles of ALARA. COMPARISON STUDY: Pelvis radiographs of same day, CT abdomen and pelvis 03/08/2024 FINDINGS: Cardiomegaly with extensive coronary artery calcifications. Clear lung bases. No pneumatosi s or pneumoperitoneum. Indeterminate subcentimeter enhancing focus of the spleen is stable and likely benign. Unremarkable pancreas, gallbladder and adrenal glands. The liver is within normal limits. Issa bcentimeter probable cyst of the hepatic dome. Patency of the hepatic and portal veins. There are a few scattered nonobstructing calculi in the bilateral kidneys measuring up to 6 mm on the right and 4 mm on the left. There are a few small scattered cysts of the kidneys. Enhancing exophyti c 2.0 x 2.2 x 1.8 cm mass of the superior pole right kidney is stable from prior. No hydronephrosis. Unremarkable urinary bladder. Hysterectomy with pelvic floor relaxation. Atherosclerosis of the aorta and branch vessels. No lymphadenopathy. Small hiatal hernia. No bowel obstruction or bowel wall thickening. Colonic diverticulosis without ac anam diverticulitis. Intertrochanteric nail medullary eleazar of the right proximal femur. Acute, comminut ed, angulated and displaced intertrochanteric left femoral fracture. The left acetabulum and pelvic r ing appear intact. Hematoma posterior to the left femur measures 5 cm. IMPRESSION: 1. Acute intertrochanteric left femoral fracture as above with adjacent 5 cm soft tissue hematoma. 2. No acute pelvic ring fracture. 3. No acute posttraumatic intra-abdominal or intrapelvic abnormality. 4. Stable 2.2 cm right renal mass suggestive of renal cell carcinoma. 5. Nonobstructing bilateral nephrolithiasis without hydronephrosis. 6. Additional findings as above. ACT 112: Negative or not required by law. The above report was generated using voice recognition software. It may contain grammatical, syntax o r spelling errors. Electronically signed by: Aiden Baltazar M.D. 10/19/2024 11:22 AM
[2024-10-19 11:34] LABS: Appearance Urine Clear (Clear); Glucose Urine UA Negative (Negative)
[2024-10-19] MEDS ORDERED: MoRPHine SULFATE 4 MG/ML 1 ML CARP\\VIAL IV PRN (11:37)
[2024-10-19] MEDS: LIDOCAINE 1%/EPINEPHRINE 1:100,000 50 ML VIAL INFIL ONE (11:51)
[2024-10-19] MEDS: DIPHTHER/TETAN/PERTUS Vaccine (Tdap, Adol/Adult) 0.5mL IM ONE (11:51)
--- NOTE | 2024-10-19 11:59 | History & Physical Report ---
Date of Service October 19, 2024 Assessment & Plan (1) Diabetes mellitus type 2, diet-controlled: (2) Hyperlipidemia: (3) Chronic systolic CHF (congestive heart failure): (4) CAD (coronary artery disease): (5) Type 2 diabetes mellitus: (6) Closed left hip fracture: Plan The patient is a 89-year-old female who presented to the ED on 10/19/2024 s/p mechanical fall found to have a left hip fracture Mechanical fall L scalp laceration Left hip fracture -No other traumatic injuries noted, Ortho consulted -Scalp lac repaired with joanne in ED (2) Pain control, hold Eliquis, will likely plan for ORIF today - 10/19 Hx CAD/cardiac thrombus/systolic CHF: Hold aspirin, Eliquis, continue metoprolol Hx HTN/HLD: Continue losartan/statin/amlodipine Hx [id number] controlled: Recheck A1c, monitor sugars Hx gout: Continue allopurinol A total of 60 minutes were spent on chart review/reviewing diagnostic data/facilitating plan of care/discussion with consultants Full code DVT prophylaxis: Eliquison hold for upcoming procedure History of Present Illness Chief Complaint: Mechanical fall, left hip pain Primary Care Provider: Arnulfo Hernández MD The patient is an 89-year-old female with a past medical history of CHF, systolic, cardiac thrombus on Eliquis, HTN, HLD, [id number] controlled, CAD who presents to the ED on 10/19/2024 with complaints of a mechanical fall and left hip pain. Patient reports she was trying to take something out of the trash and fell over. Her traumatic workup was negative aside from a left hip fracture. On exam, the patient denied any chest pain/shortness of breath/fever/chills. Denies any abdominal pain/nausea/vomiting. Did report a small headache that improved with the pain medication. Has a scalp laceration that has been stable by the ER. Has a history of a right hip fracture that was repaired. On arrival to the ED, labs remarkable for platelets 115, CO2, BUN 22, glucose 140, 58, troponin 24.8 Chest x-ray neg Pelvis x-ray showed: 1. Acute intertrochanteric left femoral fracture as above. 2. Ill-defined lucencies projected over the left acetabulum and left superior pubic ramus are favored to be artifactual. Subtle acute nondisplaced fractures could appear similarly. Cervical spine CT negative Head CT: 1. There is no hemorrhage, mass effect, or evidence of acute territorial ischemia by CT criteria. 2. Left parietal scalp injury. Abdomen/pelvis CT showed: 1. Acute intertrochanteric left femoral fracture as above with adjacent 5 cm soft tissue hematoma. 2. No acute pelvic ring fracture. 3. No acute posttraumatic intra-abdominal or intrapelvic abnormality. 4. Stable 2.2 cm right renal mass suggestive of renal cell carcinoma. 5. Nonobstructing bilateral nephrolithiasis without hydronephrosis. 6. Additional findings as above. Allergies Allergy/AdvReac Type Severity Reaction Status Date / Time lisinopril AdvReac Intermediate Cough Verified 10/19/24 12:08 Home Medications Medication Instructions Recorded Confirmed Type aspirin 81 mg tablet,delayed 81 mg PO QAM 04/26/22 10/19/24 History release gabapentin 300 mg capsule 300 mg PO TID 04/26/22 10/19/24 History losartan 50 mg tablet 50 mg PO QAM 04/26/22 10/19/24 History metoprolol succinate 25 mg 25 mg PO QAM 04/26/22 10/19/24 History tablet,extended release 24 hr nitroglycerin 0.4 mg sublingual 0.4 mg sublingual DIRECTED PRN 04/26/22 10/19/24 History tablet Chest Pain rosuvastatin 5 mg tablet 5 mg PO HS 04/26/22 10/19/24 History acetaminophen 500 mg tablet 1,000 mg PO TID Pain 06/26/22 10/19/24 History (Tylenol Extra Strength) alendronate 70 mg tablet 70 mg PO WK 03/08/24 10/19/24 History allopurinol 100 mg tablet 100 mg PO HS 03/08/24 10/19/24 History calcium carbonate 500 mg PO QAM 03/08/24 10/19/24 History cholecalciferol (vitamin D3) 50 50 mcg PO QAM 03/08/24 10/19/24 History mcg (2,000 unit) tablet (Vitamin D3) magnesium citrate 125 mg capsule 125 mg PO QAM 03/08/24 10/19/24 History amlodipine 5 mg tablet (Norvasc) 5 mg PO QAM 10/19/24 10/19/24 History apixaban 5 mg tablet (Eliquis) 5 mg PO BID 10/19/24 10/19/24 History duloxetine 20 mg capsule,delayed 20 mg PO DAILY 10/19/24 10/19/24 History release Past Med/Surg History Problem List Closed left hip fracture Diabetes mellitus type 2, diet-controlled Hyperlipidemia Chronic systolic CHF (congestive heart failure) Vertebral compression fracture Chronic gout Lumbar compression fracture Asymptomatic hypertensive urgency Closed compression fracture of L5 vertebra (Acute) Hyperglycemia CAD (coronary artery disease) Complex renal cyst Renal mass, right Fracture of right hip (Acute) Fall (Acute) COVID-19 (Acute) Hypertension Type 2 diabetes mellitus Medical History 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 Gout Myocardial infarction Coronary artery disease 1999 - NSTEMI s/p LAD stent x 1 Surgical History No pertinent past surgical history Family History Other Family history non-contributory Intracardiac thrombus Social History Smoking Status: Former smoker Tobacco Type: Cigarettes Cigarettes Per Day: 8; Hx Alcohol Use: No Hx Substance Use: No Preferred Language: Palauan Communication Ability: Effective Business Management Consultant Required: No Beliefs That Will Affect Care: None Current Living Situation: Alone Feels Safe at Home: Yes Assistive Devices: Walker Review of Systems Review of Systems: All systems reviewed & are unremarkable except as noted in HPI & below Physical Exam Constitutional: WD/WN, vitals as above Eyes: PERRL, conjunctivae normal, anicteric sclerae ENMT: external ear and nose normal, oropharynx normal Neck: trachea midline, no thyromegaly Respiratory: normal respiratory effort, lungs clear to auscultation Cardiovascular: RRR, no murmur, no edema Gastrointestinal (Abdomen): normal bowel sounds, soft, nontender, no hepatosplenomegaly Musculoskeletal: no cyanosis or clubbing, extremities motor strength 5/5 (l hip fx - decreased rom +PP) Skin: no rashes, warm and dry Neurologic: PERRL, EOMI, accommodation nl, no face palsy, no dysarthria Psychiatric: A+Ox3, euthymic affect Genitourinary: no vaginal lesions, no adnexal mass Lymphatic: no cervical or axillary lymphadenopathy Results & Data Results & Data Vital Signs (Past 12 Hours) Vital Signs Temp Pulse Pulse Resp BP BP Pulse Ox 10/19/24 11:19 63 15 158/80 H 98 10/19/24 11:13 56 L 16 97 10/19/24 10:36 72 10/19/24 10:31 36.8 C 68 19 140/79 95 10/19/24 10:31 95 10/19/24 10:31 36.8 C 68 19 140/79 95 10/19/24 10:31 36.8 C 68 19 140/79 95 10/19/24 10:31 36.8 C 68 19 140/79 95 O2 Del Method O2 Flow Rate 10/19/24 11:19 Room Air 10/19/24 11:13 Room Air 10/19/24 10:36 10/19/24 10:31 10/19/24 10:31 Room Air 10/19/24 10:31 Room Air 10/19/24 10:31 Room Air 0 10/19/24 10:31 Room Air Diagnostic Findings Laboratory Results WBC 8.37 K/ul (4.8-10.8) 10/19/24 10:32 RBC 4.25 M/uL (4.20-5.40) 10/19/24 10:32 Hgb 14.2 g/dl (12.0-16.0) 10/19/24 10:32 POC Hgb 14.3 g/dl (12.0-16.0) 10/19/24 10:38 Hct 42.3 % (37.0-47.0) 10/19/24 10: POC Hct 42 % (37-47) 10/19/24 10:38 MCV 99.5 fL (80.0-100.0) 10/19/24 10: MCH 33.4 pg (25.0-34.0) 10/19/24 10: MCHC 33.6 g/dL (32.0-36.0) 10/19/24 10: RDW Std Deviation 45.0 fL (36.4-46.3) 10/19/24 10: RDW Coeff of Rosita 12.3 % (11.5-14.5) 10/19/24 10:32 Plt Count 115 K/uL (130-400) L 10/19/24 10: MPV 10.4 fL (9.4-12.4) 10/19/24 10:32 Immature Gran % (Auto) 0.7 % 10/19/24 10: Neut % (Auto) 79.5 % 10/19/24 10:32 Lymph % (Auto) 12.1 % 10/19/24:32 Lagrange % (Auto) 6.7 % 10/19/24 10:32 Eos % (Auto) 0.6 % 10/19/24:32 Baso % (Auto) 0.4 % 10/19/24: Neut # (Auto) 6.66 K/uL (1.40-6.50) H 10/19/24 10: Lymph # (Auto) 1.01 K/uL (1.20-3.40) L 10/19/24:32 Lagrange # (Auto) 0.56 K/uL (0.11-0.59) 10/19/24 10:32 Eos # (Auto) 0.05 K/uL (0.00-0.50) 10/19/24:32 Baso # (Auto) 0.03 K/uL (0.00-0.20) 10/19/24: Immature Gran # (Auto) 0.06 K/uL (0.01-0.20) 10/19/24 10: PT 11.2 Seconds (9.0-12.0) 10/19/24: INR 1.0 (0.9-1.1) 10/19/24 10: APTT 22 Seconds (21-31) 10/19/24: PTT Ratio 0.8 10/19/24 10: POC Sodium 138 mmol/L (135-144) 10/19/24 10:38 Sodium 139 mmol/L (136-145) 10/19/24 10: POC Potassium 4.6 mmol/L (3.3-5.0) 10/19/24 10:38 Potassium 4.6 mmol/L (3.5-5.1) 10/19/24 10: POC Chloride 105 mmol/L (101-112) 10/19/24 10:38 Chloride 106 mmol/L (98-107) 10/19/24 10:32 Carbon Dioxide 26 mmol/L (21-32) 10/19/24 10:32 POC Total CO2 23 mmol/L (24-31) L 10/19/24 10:38 Anion Gap 7 (3-11) 10/19/24 10:32 POC Anion Gap 16.0 mmol/L (16-25) 10/19/24 10:38 POC BUN 22 mg/dl (7-18) H 10/19/24 10:38 BUN 22 mg/dl (6-23) 10/19/24 10:32 Creatinine 0.84 mg/dl (0.6-1.2) 10/19/24 10:32 POC Creatinine 0.9 mg/dl (0.6-1.3) 10/19/24 10:38 Est Cr Clr Drug Dosing 37.6 ml/min 10/19/24 10:32 eGFR 67.21 10/19/24 10:32 BUN/Creatinine Ratio 26.2 (10-20) H 10/19/24 10:32 Glucose 145 mg/dl (70-99(Fasting)) H 10/19/24 10:32 POC Glucose (other) 140 mg/dl (70-99) H 10/19/24 10:38 Calcium 9.1 mg/dl (8.6-10.3) 10/19/24 10:32 POC Ioniz Calcium Chantelle 1.20 mmol/l (1.12-1.32) 10/19/24 10:38 Total Bilirubin 1.4 mg/dl (0.2-1.0) H 10/19/24 10:32 AST 33 U/L (13-39) 10/19/24 10:32 ALT 58 U/L (7-52) H 10/19/24 10:32 Alkaline Phosphatase 33 U/L (34-104) L 10/19/24 10:32 Total Creatine Kinase 46 U/L (26-192) 10/19/24 10:32 Troponin I High Sens 24.8 pg/ml (0-14) H 10/19/24 10:32 Total Protein 6.0 gm/dl (6.0-8.3) 10/19/24 10:32 Albumin 3.7 gm/dl (3.4-5.0) 10/19/24 10:32 Globulin 2.3 gm/dl (2.5-4.0) L 10/19/24 10: Albumin/Globulin Ratio 1.6 (0.9-2) 10/19/24 10:32 Lipase 16 U/L (11-82) 10/19/24 10:32 Urine Color Yellow 10/19/24 11:27 Urine Appearance Clear (Clear) 10/19/24 11:27 Urine pH 6.5 (4.5-7.5) 10/19/24 11:27 Ur Specific Crockett 1.028 (1.000-1.030) 10/19/24 11:27 Urine Protein Negative (Negative) 10/19/24 11:27 Urine Glucose (UA) Negative (Negative) 10/19/24 11:27 Urine Ketones Negative (Negative) 10/19/24 11:27 Urine Blood Negative (Negative) 10/19/24 11:27 Urine Nitrite Negative (Negative) 10/19/24 11:27 Urine Bilirubin Negative (Negative) 10/19/24 11:27 Urine Urobilinogen Negative (Negative) 10/19/24 11:27 Ur Leukocyte Esterase Negative (Negative) 10/19/24 11:27 Urine Comment 10/19/24 11:27 Blood Type A Positive 10/19/24 10:28 Antibody Screen NEGATIVE 10/19/24 10:28 Impressions Abdomen/Pelvis CT 10/19/24 10:[address] WITH IV CONTRAST CT DOSE: 2426.25 mGy.cm HISTORY: Acute abdominal trauma Trauma TECHNIQUE: Multiaxial CT images of the abdomen and pelvis were performed following the IV administration of 94 cc of Optiray, A dose lowering technique was utilized adhering to the principles of ALARA. COMPARISON STUDY: Pelvis radiographs of same day, CT abdomen and pelvis 03/08/2024 FINDINGS: Cardiomegaly with extensive coronary artery calcifications. Clear lung bases. No pneumatosis or pneumoperitoneum. Indeterminate subcentimeter enhancing focus of the spleen is stable and likely benign. Unremarkable pancreas, gallbladder and adrenal glands. The liver is within normal limits. Subcentimeter probable cyst of the hepatic dome. Patency of the hepatic and portal veins. There are a few scattered nonobstructing calculi in the bilateral kidneys measuring up to 6 mm on the right and 4 mm on the left. There are a few small scattered cysts of the kidneys. Enhancing exophytic 2.0 x 2.2 x 1.8 cm mass of the superior pole right kidney is stable from prior. No hydronephrosis. Unremarkable urinary bladder. Hysterectomy with pelvic floor relaxation. Atherosclerosis of the aorta and branch vessels. No lymphadenopathy. Small hiatal hernia. No bowel obstruction or bowel wall thickening. Colonic diverticulosis without acute diverticulitis. Intertrochanteric nail medullary eleazar of the right proximal femur. Acute, comminuted, angulated and displaced intertrochanteric left femoral fracture. The left acetabulum and pelvic ring appear intact. Hematoma posterior to the left femur measures 5 cm. IMPRESSION: 1. Acute intertrochanteric left femoral fracture as above with adjacent 5 cm soft tissue hematoma. 2. No acute pelvic ring fracture. 3. No acute posttraumatic intra-abdominal or intrapelvic abnormality. 4. Stable 2.2 cm right renal mass suggestive of renal cell carcinoma. 5. Nonobstructing bilateral nephrolithiasis without hydronephrosis. 6. Additional findings as above. ACT 112: Negative or not required by law. The above report was generated using voice recognition software. It may contain grammatical, syntax or spelling errors. Electronically signed by: Aiden Baltazar M.D. 10/19/2024 11:22 AM Chest X-Ray 10/19/24 10:28 PORTABLE SUPINE AP CHEST RADIOGRAPH CLINICAL HISTORY: Trauma COMPARISON STUDY: Chest radiograph December 08, 2022. Chest CT December 06, 2023. FINDINGS: No pneumothorax is identified on supine exam. Cardiomegaly is noted. There is no evidence for pulmonary edema. No airspace opacities are present. Old left-sided rib fractures are incidentally noted. IMPRESSION: No acute cardiopulmonary findings. ACT 112: Negative or not required by law. Electronically signed by: Jesse Negrete M.D. 10/19/2024 10:59 AM Pelvis X-Ray 10/19/24 10:28 XR pelvis 1-2V routine HISTORY: 89 years-old Female Trauma COMPARISON: Left femur radiographs of same day TECHNIQUE: AP view of the pelvis FINDINGS: Acute, comminuted, impacted, mildly angulated and displaced intertrochanteric left femoral fracture. Moderate associated soft tissue swelling. Moderate osteoarthritis of the hips. Intertrochanteric nail with medullary eleazar of the right femur. Arterial calcifications. Questioned cortical irregularity of the left superior pubic ramus. Ill-defined lucencies project over the left acetabulum. IMPRESSION: 1. Acute intertrochanteric left femoral fracture as above. 2. Ill-defined lucencies projected over the left acetabulum and left superior pubic ramus are favored to be artifactual. Subtle acute nondisplaced fractures could appear similarly. ACT 112: Negative or not required by law. The above report was generated using voice recognition software. It may contain grammatical, syntax or spelling errors. Electronically signed by: Aiden Baltazar M.D. 10/19/2024 11:[address] 10/19/24 10:29 CT SCAN OF THE CERVICAL SPINE CLINICAL HISTORY: Trauma. COMPARISON STUDY: Cervical spine CT December 06, 2023. TECHNIQUE: CT scan of the cervical spine is performed from the skull base to the upper thoracic spine. Images are reviewed in the axial, sagittal, and coronal planes. IV contrast was not administered for this examination. A dose lowering technique was utilized adhering to the principles of ALARA. FINDINGS: Skeletal structures: There is no evidence of fracture or subluxation involving the cervical spine. Vertebral body height and alignment are maintained. The odontoid process and lateral masses are intact. The atlantoaxial articulation is preserved. The spinous processes appear intact. Severe multilevel facet arthrosis and moderate disc space narrowing and endplate osteophytosis within th e cervical spine is again noted. Soft tissues: The prevertebral and paraspinous soft tissues are within normal limits. Calvarium: The visualized calvarium at the skull base appears intact. Brain parenchyma: Partially visualized brain parenchyma at the skull base is within normal limits. Lung apices: Clear as visualized. IMPRESSION: No acute cervical spine fracture or subluxation. ACT 112: Negative or not required by law. Electronically signed by: Jesse Negrete M.D. 10/19/2024 11:[address] 10/19/24 10:29 CT SCAN OF THE BRAIN WITHOUT IV CONTRAST CLINICAL HISTORY: Trauma COMPARISON STUDY: CT of the brain dated 03/08/2024 TECHNIQUE: Unenhanced axial CT scan of the brain is performed from the vertex to the skull base. Images are reviewed in the axial, sagittal, coronal planes. A dose lowering technique was utilized adhering to the principles of ALARA. FINDINGS: Brain parenchyma: There is age-related involutional change noting mild subcortical and periventricular microangiopathic disease. There is no hemorrhage, mass effect, or evidence of acute territorial ischemia by CT criteria. Busch-white matter differentiation is preserved. No extra-axial fluid collection is seen. Ventricles, sulci, cisterns: Prominent secondary to involutional change. Intracranial vasculature: There is atherosclerotic calcification of the cavernous carotid arteries. Calvarium: The skeletal structures are osteopenic. No depressed calvarial fracture is seen. Soft tissues: There is a left parietal scalp hematoma/laceration. Sinuses and mastoids: The paranasal sinuses are clear. The mastoid air cells are well pneumatized. Orbits: The bony orbits are grossly intact. There are bilateral ocular lens implants. IMPRESSION: 1. There is no hemorrhage, mass effect, or evidence of acute territorial ischemia by CT criteria. 2. Left parietal scalp injury. ACT 112: Negative or not required by law. Electronically signed by: Per France M.D. 10/19/2024 11:12 AM Femur X-Ray 10/19/24 10:30 XR femur RT 2V routine CLINICAL HISTORY: trauma COMPARISON: Pelvis and right hip radiographs May 07, 2022. CT of the abdomen and pelvis March 08, 2024. FINDINGS: There are stable findings following open reduction and internal fixation of the intertrochanteric fracture of the right femur. Hardware is intact. No right femoral fractures are present. Extensive vascular calcification is incidentally noted. There is no right knee joint effusion. IMPRESSION: 1. No acute right femoral fractures. 2. Stable findings following internal fixation of the intertrochanteric fracture of the right femur. ACT 112: Negative or not required by law. Electronically signed by: Jesse Negrete M.D. 10/19/2024 11:01 AM Supervising Physician Co-Signing Physician Notes Attending Addendum: Case reviewed with the advanced practitioner. I have personally performed a history and physical examination on the patient. I have reviewed the advanced practitioner's documentation on the date of service referenced in note, and I agree with, and take responsibility for the plan of care. please refer to her notes for full details patient seen and examined, records reviewed by myself as well on exam, patient seen resting in bed, not in distress, comfortable states she feels ok overall L hip pain better after IV pain meds denies headache, dizziness, nausea/vomiting no chest pain, palpitations, dizziness no other symptoms VS noted and reviewed oriented x3, not in distress, speaks in sentences with no effort nor accessory muscle use head: (+) laceration with joanne, L temporoparietal area normal rate, regular rhythm, no murmurs clear breath sounds bilaterally non distended, soft, nontender (+) LLE mildly external rotation (+) multiple areas of bruising BLE no bipedal edema, erythema, warmth no neuro deficits all labs, imaging noted and reviewed ASSESSMENT AND PLAN LEFT INTERTROCHANTERIC FRACTURE S/P MECHANICAL FALL hemodynamically stable patient high risk for cardiopulmonary complications given advanced age and extensive cardiac history including CHF EF 45-50%, CAD, Mild mitral regurgitation, Hx of Cardiac Thrombus, HTN, Paroxysmal V tach -- patient euvolemic, no cardiac symptoms last echo was 03/2024 EKG sinus rhythm with PVCs -- hold Eliquis and ASA for now continue BP meds Cardiology consulted for pre-op evaluation -- no medical contraindication to proceed with orthopedic surgery from our standpoint LEFT SCALP LACERATION S/P STAPLING wound care daily remove joanne in 7-10 days other diagnoses and plan of care as per advanced practitioner's notes I spent a total of 35 minutes coordinating, documenting, and providing care for this patient, excluding time spent in the performance of separately billed services or time spent by another provider/QHP. Justin Charles MD
--- NOTE | 2024-10-19 12:14 | Emergency Department Note ---
ED Visit Note EMERGENCY DEPARTMENT PROCEDURE NOTE: I was asked by Dr. Cantu to repair the left temporoparietal scalp wound of this 89-year-old female patient. Please refer to their dictation for the complete history, physical exam, and ED course. EMERGENCY DEPARTMENT COURSE: Patient has a left-sided scalp hematoma. Overriding this there is a 1 cm laceration. Scalp was cleansed thoroughly with normal saline solution and prepped with Betadine. Wound was anesthetized with 1% lidocaine with epinephrine and irrigated copiously. No foreign body. The 1 cm laceration was reapproximated using 2 skin joanne. Patient additionally has a 5 cm right elbow skin tear that was cleansed thoroughly with normal saline solution, dried thoroughly, then reapproximated with Dermabond. Patient also had a left lower leg skin tear that unfortunately I am not able to visualize completely, due to the associated left hip fracture and positioning of the leg. I was preparing to reposition the patient with the assistance of nursing staff to fully evaluate the skin tear, when the OR called for her, stating they were ready for her hip ORIF. Given this, further work on the left lower leg skin tear was deferred, as not to delay the OR. I do feel that this can be fully evaluated and managed by her orthopedic surgical team, when she is under the effect of anesthesia, or after the hip fracture has been repaired.
[2024-10-19] MEDS ORDERED: MoRPHine SULFATE 2 MG/ML CARP IV PRN (12:25)
--- NOTE | 2024-10-19 13:14 | Anesthesiology Consultation ---
Date of Service October 19, 2024 Assessment & Plan Chart Review Chart Review: Acceptable Risk for Surgery and Patient NOT seen in Pre Admission Testing Consults Requested none History Surgery Operation Date: 10/19/24 11:15 Proposed Procedures p Left Troch Nail - Cl Gillespie DO Height/Weight Height: 4 ft 11 in Weight: 61.4 kg Allergies Allergy/AdvReac Type Severity Reaction Status Date / Time lisinopril AdvReac Intermediate Cough Verified 10/19/24 12:08 Medications Home Medications Medication Instructions Recorded Confirmed Last Taken aspirin 81 mg tablet,delayed 81 mg PO QAM 04/26/22 10/19/24 10/19/24 release gabapentin 300 mg capsule 300 mg PO TID 04/26/22 10/19/24 10/19/24 losartan 50 mg tablet 50 mg PO QAM 04/26/22 10/19/24 10/19/24 metoprolol succinate 25 mg 25 mg PO QAM 04/26/22 10/19/24 10/19/24 tablet,extended release 24 hr nitroglycerin 0.4 mg sublingual 0.4 mg sublingual DIRECTED PRN 04/26/22 10/19/24 Unknown tablet Chest Pain rosuvastatin 5 mg tablet 5 mg PO HS 04/26/22 10/19/24 10/18/24 acetaminophen 500 mg tablet 1,000 mg PO TID Pain 06/26/22 10/19/24 10/19/24 (Tylenol Extra Strength) alendronate 70 mg tablet 70 mg PO WK 03/08/24 10/19/24 10/15/24 allopurinol 100 mg tablet 100 mg PO HS 03/08/24 10/19/24 10/18/24 calcium carbonate 500 mg PO QAM 03/08/24 10/19/24 10/19/24 cholecalciferol (vitamin D3) 50 50 mcg PO QAM 03/08/24 10/19/24 10/19/24 mcg (2,000 unit) tablet (Vitamin D3) magnesium citrate 125 mg capsule 125 mg PO QAM 03/08/24 10/19/24 10/19/24 amlodipine 5 mg tablet (Norvasc) 5 mg PO QAM 10/19/24 10/19/24 10/19/24 apixaban 5 mg tablet (Eliquis) 5 mg PO BID 10/19/24 10/19/2425 duloxetine 20 mg capsule,delayed 20 mg PO DAILY 10/19/24 10/19/24 Unknown release Past Medical History Medical History 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 Gout Myocardial infarction Coronary artery disease 1999 - NSTEMI s/p LAD stent x 1 Past Family History Family History Other Family history non-contributory Intracardiac thrombus Past Surgical History Surgical History No pertinent past surgical history Social History Smoking Status: Former smoker tobacco type: cigarettes Smoking cigarettes per day: 8 Hx Alcohol Use: No alcohol intake frequency: holidays/special occasions only Hx Substance Use: No Physical Exam Vital Signs Last Vital Signs Temp 36.8 C 10/19/24 10:31 Pulse 66 10/19/24 12:00 Resp 15 10/19/24 12:00 BP 159/74 H 10/19/24 12:00 Pulse Ox 96 10/19/24 12:00 O2 Del Method Room Air 10/19/24 11:19 O2 Flow Rate 0 10/19/24 10:31 Testing Laboratory Results 10/19/24 10:32 10/19/24 10:32 PT 11.2 Seconds (9.0-12.0) 10/19/24 10:32 INR 1.0 (0.9-1.1) 10/19/24 10:32 APTT 22 Seconds (21-31) 10/19/24 10:32 Urine Color Yellow 10/19/24 11:27 Urine Appearance Clear (Clear) 10/19/24 11:27 Urine pH 6.5 (4.5-7.5) 10/19/24 11:27 Ur Specific [place] 1.028 (1.000-1.030) 10/19/24 11:27 Urine Protein Negative (Negative) 10/19/24 11:27 Urine Glucose (UA) Negative (Negative) 10/19/24 11:27 Urine Ketones Negative (Negative) 10/19/24 11:27 Urine Nitrite Negative (Negative) 10/19/24 11:27 Ur Leukocyte Esterase Negative (Negative) 10/19/24 11: Blood Type A Positive 10/19/24 10:28 Antibody Screen NEGATIVE 10/19/24 10:28 10/19/24 10:38 POC Glucose (other) 140 H Electrocardiogram Date: 10/19/24 Findings: + NSR @ PVCs, possible anterior infarct , age undetermined Echocardiogram Date: 03/13/24 EF: 45-50 LV Function: normal
[2024-10-19] MEDS ORDERED: ATROPINE SULFATE 0.1 MG/ML 10ML SYR IV PRN (13:16)
[2024-10-19] MEDS ORDERED: ONDANSETRON INJ 2 MG/ML 2 ML VIAL IV PRN (13:16)
--- NOTE | 2024-10-19 13:23 | Orthopedic Consultation ---
Date of Service October 19, 2024 Assessment & Plan (1) Closed left hip fracture: * Case/imaging reviewed and discussed with Dr Gillespie * Recommend ORIF fixation of left femur fracture * Discussed with medicine team, no further workup indicated at this time, patient is n.p.o., will plan to proceed with OR this afternoon * Bedrest/nonweightbearing preop * Maintain n.p.o. status * Disposition: TBD * Pain control * Remainder care per primary team * Will continue to follow postoperatively History of Present Illness Reason for Consultation: .Left hip pain Requesting Physician: . Attending Physician: Justin Charles MD . Patient is a 89y/o female with left hip pain. PMH including DM2, hyperlipidemia, CHF, CAD, past [place]. Surgical history including right TFN in 2022, overall recovered well but has a persistent limp, uses a walker. Patient is on Eliquis, last dose this morning. Presents to hospital with left hip pain after a fall. Per patient report she was taking at the garbage when she lost her balance and fell landing on the left hip. Unable to ambulate following injury. Current workup including x-ray left hip/femur demonstrating intertrochanteric femur fracture. Admitted to hospital medicine team,. Orthopedics consulted for management recommendations. At time of exam patient lying comfortably in bed, no acute distress. Endorses moderate pain of the left hip at rest that increases with any attempted movement of the left leg. Denies tingling or numbness of the left lower extremity. Uses a walker at baseline following her right hip surgery. Otherwise no complaints at this time Allergies Allergy/AdvReac Type Severity Reaction Status Date / Time lisinopril AdvReac Intermediate Cough Verified 10/19/24 12:08 Home Medications Medication Instructions Recorded Confirmed Type aspirin 81 mg tablet,delayed 81 mg PO QAM 04/26/22 10/19/24 History release gabapentin 300 mg capsule 300 mg PO TID 04/26/22 10/19/24 History losartan 50 mg tablet 50 mg PO QAM 04/26/22 10/19/24 History metoprolol succinate 25 mg 25 mg PO QAM 04/26/22 10/19/24 History tablet,extended release 24 hr nitroglycerin 0.4 mg sublingual 0.4 mg sublingual DIRECTED PRN 04/26/22 10/19/24 History tablet Chest Pain rosuvastatin 5 mg tablet 5 mg PO HS 04/26/22 10/19/24 History acetaminophen 500 mg tablet 1,000 mg PO TID Pain 06/26/22 10/19/24 History (Tylenol Extra Strength) alendronate 70 mg tablet 70 mg PO WK 03/08/24 10/19/24 History allopurinol 100 mg tablet 100 mg PO HS 03/08/24 10/19/24 History calcium carbonate 500 mg PO QAM 03/08/24 10/19/24 History cholecalciferol (vitamin D3) 50 50 mcg PO QAM 03/08/24 10/19/24 History mcg (2,000 unit) tablet (Vitamin D3) magnesium citrate 125 mg capsule 125 mg PO QAM 03/08/24 10/19/24 History amlodipine 5 mg tablet (Norvasc) 5 mg PO QAM 10/19/24 10/19/24 History apixaban 5 mg tablet (Eliquis) 5 mg PO BID 10/19/24 10/19/24 History duloxetine 20 mg capsule,delayed 20 mg PO DAILY 10/19/24 10/19/24 History release Past Med/Surg History Problem List Closed left hip fracture Diabetes mellitus type 2, diet-controlled Hyperlipidemia Chronic systolic CHF (congestive heart failure) Vertebral compression fracture Chronic gout Lumbar compression fracture Asymptomatic hypertensive urgency Closed compression fracture of L5 vertebra (Acute) Hyperglycemia CAD (coronary artery disease) Complex renal cyst Renal mass, right Fracture of right hip (Acute) Fall (Acute) COVID-19 (Acute) Hypertension Type 2 diabetes mellitus Medical History 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 Gout Myocardial infarction Coronary artery disease 1999 - NSTEMI s/p LAD stent x 1 Surgical History No pertinent past surgical history Family History Other Family history non-contributory Intracardiac thrombus Social History Smoking Status: Former smoker Tobacco Type: Cigarettes Cigarettes Per Day: 8; Hx Alcohol Use: No Hx Substance Use: No Preferred Language: Frisian Communication Ability: Effective [place] Required: No Beliefs That Will Affect Care: None Current Living Situation: Alone Feels Safe at Home: Yes Assistive Devices: Walker Review of Systems All systems reviewed & are unremarkable except as noted in HPI & below. Physical Exam . * General: Alert and oriented, no acute distress * Constitutional: well-developed, well-nourished. * Respiratory: Normal respiratory effort, no distress * Gastrointestinal: No tenderness to palpation, no rigidity or guarding. * Skin: No rash or lesion. * Neurologic: Grossly normal * Musculoskeletal: Left lower extremity shortened and externally rotated. Otherwise no obvious deformity or overlying skin changes to the left leg. TTP proximal thigh and anterior hip region. Otherwise no specific tenderness of the distal thigh, knee, lower leg, foot/ankle. Pain with logroll, otherwise ROM hip not assessed. AROM foot/ankle intact. Sensation intact plantar/dorsal foot. Brisk capillary refill. Results & Data Results & Data Laboratory Results . 10/19/24 10/19/24 10/19/24 12:38 11:27 10:38 WBC RBC Hgb POC Hgb 14.3 Hct POC Hct 42 MCV MCH MCHC RDW Std Deviation RDW Coeff of Rosita Plt Count MPV Immature Gran % (Auto) Neut % (Auto) Lymph % (Auto) Parke % (Auto) Eos % (Auto) Baso % (Auto) Neut # (Auto) Lymph # (Auto) Parke # (Auto) Eos # (Auto) Baso # (Auto) Immature Gran # (Auto) PT INR APTT PTT Ratio POC Sodium 138 Sodium POC Potassium 4.6 Potassium POC Chloride 105 Chloride Carbon Dioxide POC Total CO2 23 L Anion Gap POC Anion Gap 16.0 POC BUN 22 H BUN Creatinine POC Creatinine 0.9 Est Cr Clr Drug Dosing eGFR BUN/Creatinine Ratio Glucose POC Glucose (other) 140 H Calcium POC Ioniz Calcium Chantelle 1.20 Total Bilirubin AST ALT Alkaline Phosphatase Total Creatine Kinase Troponin I High Sens 20.2 H Total Protein Albumin Globulin Albumin/Globulin Ratio Lipase Urine Color Yellow Urine Appearance Clear Urine pH 6.5 Ur Specific [place] 1.028 Urine Protein Negative Urine Glucose (UA) Negative Urine Ketones Negative Urine Blood Negative Urine Nitrite Negative Urine Bilirubin Negative Urine Urobilinogen Negative Ur Leukocyte Esterase Negative Urine Comment Blood Type Antibody Screen 10/19/24 10/19/24 10:32 10:28 WBC 8.37 RBC 4.25 Hgb 14.2 POC Hgb Hct 42.3 POC Hct MCV 99.5 MCH 33.4 MCHC 33.6 RDW Std Deviation 45.0 RDW Coeff of Rosita 12.3 Plt Count 115 L MPV 10.4 Immature Gran % (Auto) 0.7 Neut % (Auto) 79.5 Lymph % (Auto) 12.1 Parke % (Auto) 6.7 Eos % (Auto) 0.6 Baso % (Auto) 0.4 Neut # (Auto) 6.66 H Lymph # (Auto) 1.01 L Parke # (Auto) 0.56 Eos # (Auto) 0.05 Baso # (Auto) 0.03 Immature Gran # (Auto) 0.06 PT 11.2 INR 1.0 APTT 22 PTT Ratio 0.8 POC Sodium Sodium 139 POC Potassium Potassium 4.6 POC Chloride Chloride 106 Carbon Dioxide 26 POC Total CO2 Anion Gap 7 POC Anion Gap POC BUN BUN 22 Creatinine 0.84 POC Creatinine Est Cr Clr Drug Dosing 37.6 eGFR 67.21 BUN/Creatinine Ratio 26.2 H Glucose 145 H POC Glucose (other) Calcium 9.1 POC Ioniz Calcium Chantelle Total Bilirubin 1.4 H AST 33 ALT 58 H Alkaline Phosphatase 33 L Total Creatine Kinase 46 Troponin I High Sens 24.8 H Total Protein 6.0 Albumin 3.7 Globulin 2.3 L Albumin/Globulin Ratio 1.6 Lipase 16 Urine Color Urine Appearance Urine pH Ur Specific [place] Urine Protein Urine Glucose (UA) Urine Ketones Urine Blood Urine Nitrite Urine Bilirubin Urine Urobilinogen Ur Leukocyte Esterase Urine Comment Blood Type A Positive Antibody Screen NEGATIVE Diagnostic Findings . Abdomen/Pelvis CT 10/19/24 10:[address] WITH IV CONTRAST CT DOSE: 2426.25 mGy.cm HISTORY: Acute abdominal trauma Trauma TECHNIQUE: Multiaxial CT images of the abdomen and pelvis were performed following the IV administration of 94 cc of Optiray, A dose lowering technique was utilized adhering to the principles of ALARA. COMPARISON STUDY: Pelvis radiographs of same day, CT abdomen and pelvis 03/08/2024 FINDINGS: Cardiomegaly with extensive coronary artery calcifications. Clear lung bases. No pneumatosis or pneumoperitoneum. Indeterminate subcentimeter enhancing focus of the spleen is stable and likely benign. Unremarkable pancreas, gallbladder and adrenal glands. The liver is within normal limits. Subcentimeter probable cyst of the hepatic dome. Patency of the hepatic and portal veins. There are a few scattered nonobstructing calculi in the bilateral kidneys measuring up to 6 mm on the right and 4 mm on the left. There are a few small scattered cysts of the kidneys. Enhancing exophytic 2.0 x 2.2 x 1.8 cm mass of the superior pole right kidney is stable from prior. No hydronephrosis. Unremarkable urinary bladder. Hysterectomy with pelvic floor relaxation. Atherosclerosis of the aorta and branch vessels. No lymphadenopathy. Small hiatal hernia. No bowel obstruction or bowel wall thickening. Colonic diverticulosis without acute diverticulitis. Intertrochanteric nail medullary eleazar of the right proximal femur. Acute, comminuted, angulated and displaced intertrochanteric left femoral fracture. The left acetabulum and pelvic ring appear intact. Hematoma posterior to the left femur measures 5 cm. IMPRESSION: 1. Acute intertrochanteric left femoral fracture as above with adjacent 5 cm soft tissue hematoma. 2. No acute pelvic ring fracture. 3. No acute posttraumatic intra-abdominal or intrapelvic abnormality. 4. Stable 2.2 cm right renal mass suggestive of renal cell carcinoma. 5. Nonobstructing bilateral nephrolithiasis without hydronephrosis. 6. Additional findings as above. ACT 112: Negative or not required by law. The above report was generated using voice recognition software. It may contain grammatical, syntax or spelling errors. Electronically signed by: Aiden Baltazar M.D. 10/19/2024 11:22 AM Chest X-Ray 10/19/24 10:28 PORTABLE SUPINE AP CHEST RADIOGRAPH CLINICAL HISTORY: Trauma COMPARISON STUDY: Chest radiograph December 08, 2022. Chest CT December 06, 2023. FINDINGS: No pneumothorax is identified on supine exam. Cardiomegaly is noted. There is no evidence for pulmonary edema. No airspace opacities are present. Old left-sided rib fractures are incidentally noted. IMPRESSION: No acute cardiopulmonary findings. ACT 112: Negative or not required by law. Electronically signed by: Jesse Negrete M.D. 10/19/2024 10:59 AM Pelvis X-Ray 10/19/24 10:28 XR pelvis 1-2V routine HISTORY: 89 years-old Female Trauma COMPARISON: Left femur radiographs of same day TECHNIQUE: AP view of the pelvis FINDINGS: Acute, comminuted, impacted, mildly angulated and displaced intertrochanteric left femoral fracture. Moderate associated soft tissue swelling. Moderate osteoarthritis of the hips. Intertrochanteric nail with medullary eleazar of the right femur. Arterial calcifications. Questioned cortical irregularity of the left superior pubic ramus. Ill-defined lucencies project over the left acetabulum. IMPRESSION: 1. Acute intertrochanteric left femoral fracture as above. 2. Ill-defined lucencies projected over the left acetabulum and left superior pubic ramus are favored to be artifactual. Subtle acute nondisplaced fractures could appear similarly. ACT 112: Negative or not required by law. The above report was generated using voice recognition software. It may contain grammatical, syntax or spelling errors. Electronically signed by: Aiden Baltazar M.D. 10/19/2024 11:[address] 10/19/24 10:29 CT SCAN OF THE CERVICAL SPINE CLINICAL HISTORY: Trauma. COMPARISON STUDY: Cervical spine CT December 06, 2023. TECHNIQUE: CT scan of the cervical spine is performed from the skull base to the upper thoracic spine. Images are reviewed in the axial, sagittal, and coronal planes. IV contrast was not administered for this examination. A dose lowering technique was utilized adhering to the principles of ALARA. FINDINGS: Skeletal structures: There is no evidence of fracture or subluxation involving the cervical spine. Vertebral body height and alignment are maintained. The odontoid process and lateral masses are intact. The atlantoaxial articulation is preserved. The spinous processes appear intact. Severe multilevel facet arthrosis and moderate disc space narrowing and endplate osteophytosis within the cervical spine is again noted. Soft tissues: The prevertebral and paraspinous soft tissues are within normal limits. Calvarium: The visualized calvarium at the skull base appears intact. Brain parenchyma: Partially visualized brain parenchyma at the skull base is within normal limits. Lung apices: Clear as visualized. IMPRESSION: No acute cervical spine fracture or subluxation. ACT 112: Negative or not required by law. Electronically signed by: Jesse Negrete M.D. 10/19/2024 11:[address] 10/19/24 10:29 CT SCAN OF THE BRAIN WITHOUT IV CONTRAST CLINICAL HISTORY: Trauma COMPARISON STUDY: CT of the brain dated 03/08/2024 TECHNIQUE: Unenhanced axial CT scan of the brain is performed from the vertex to the skull base. Images are reviewed in the axial, sagittal, coronal planes. A dose lowering technique was utilized adhering to the principles of ALARA. FINDINGS: Brain parenchyma: There is age-related involutional change noting mild subcortical and periventricular microangiopathic disease. There is no hemorrhage, mass effect, or evidence of acute territorial ischemia by CT criteria. Busch-white matter differentiation is preserved. No extra-axial fluid collection is seen. Ventricles, sulci, cisterns: Prominent secondary to involutional change. Intracranial vasculature: There is atherosclerotic calcification of the cavernous carotid arteries. Calvarium: The skeletal structures are osteopenic. No depressed calvarial fracture is seen. Soft tissues: There is a left parietal scalp hematoma/laceration. Sinuses and mastoids: The paranasal sinuses are clear. The mastoid air cells are well pneumatized. Orbits: The bony orbits are grossly intact. There are bilateral ocular lens implants. IMPRESSION: 1. There is no hemorrhage, mass effect, or evidence of acute territorial ischemia by CT criteria. 2. Left parietal scalp injury. ACT 112: Negative or not required by law. Electronically signed by: Per France M.D. 10/19/2024 11:12 AM Femur X-Ray 10/19/24 10:30 LEFT FEMUR 2 VIEWS CLINICAL HISTORY: Trauma. FINDINGS: AP and crosstable lateral views of the left femur are obtained. Correlation is made with pelvic x-ray dated 05/07/2022. The skeletal structures are osteopenic. There is an acute comminuted and angulated intertrochanteric fracture of the left proximal femur. Overlying soft tissue edema is observed. There is medial displacement of the lesser trochanter. The distal femoral shaft appears intact. The left hip and knee joints are grossly maintained. The partially imaged left hemipelvis appears intact. There is advanced atherosclerotic calcification of the left femoral artery. IMPRESSION: Intertrochanteric fracture of the left proximal femur as above. Electronically signed by: Per France M.D. 10/19/2024 10:57 AM Femur X-Ray 10/19/24 10:30 XR femur RT 2V routine CLINICAL HISTORY: trauma COMPARISON: Pelvis and right hip radiographs May 07, 2022. CT of the abdomen and pelvis March 08, 2024. FINDINGS: There are stable findings following open reduction and internal fixation of the intertrochanteric fracture of the right femur. Hardware is intact. No right femoral fractures are present. Extensive vascular calcification is incidentally noted. There is no right knee joint effusion. IMPRESSION: 1. No acute right femoral fractures. 2. Stable findings following internal fixation of the intertrochanteric fracture of the right femur. ACT 112: Negative or not required by law. Electronically signed by: Jesse Negrete M.D. 10/19/2024 11:01 AM PG Care Time/CCT Total # of Minutes Spent Total Time Spent with Patient: Total time spent is greater than 50% in coordination of care (as documented) at patient's floor/unit and/or counseling patient: [place] [address] IN/OBS CONSULT LVL 4,60M Patient Type New Medical Decision Making Moderate Complexity Diagnoses Closed left hip fracture S72.002A
[2024-10-19] MEDS ORDERED: PROPOFOL IV EMULSION 10 MG/ML 20 ML VIAL IV ONE (13:29)
[2024-10-19] MEDS ORDERED: LIDOCAINE 2% 2 ML VIAL/AMP(20MG/ML) INFIL ONE (13:29)
[2024-10-19] MEDS ORDERED: ROCURONIUM BROMIDE 10 MG/ML 5 ML VIAL IV ONE (13:29)
[2024-10-19] MEDS ORDERED: ONDANSETRON INJ 2 MG/ML 2 ML VIAL ONE (13:29)
[2024-10-19 13:50] LABS: Hemoglobin A1C 6.1 % (4.5-5.6)
--- NOTE | 2024-10-19 14:05 | History & Physical Bridge Note ---
Date of Service October 19, 2024 History & Physical Bridge Note I have examined the patient, reviewed the History & Physical and in the interval since the performance of the History & Physical I have noted the following changes of clinical significance: no changes noted
--- NOTE | 2024-10-19 14:43 | Cardiology Consultation ---
Date of Consultation October 19, 2024 Assessment & Plan (1) Closed left hip fracture: (2) Preoperative cardiovascular examination: (3) CAD (coronary artery disease): Patient describes recent stable cardiac signs and symptoms. She suffered a mechanical fall, and has a history of previous mechanical falls with resultant trauma. Transient hypotension noted in the preoperative staging area which is since resolved and she appears to be volume depleted on exam. Agree with gentle IV fluids. Her most recent dose of Eliquis was this morning. I discussed this with the anesthesia team and spinal anesthesia is going to be avoided. Patient is stable from a cardiac perspective to proceed with intertrochanteric nailing without further cardiac testing. Her prior to hospital cardiac medications would be continued with blood pressure hold parameters. I do not think a repeat echocardiogram is indicated at present. History of Present Illness Attending Physician: Justin Charles MD History of Present Illness Laura Rand is an 89-year-old female seen in cardiology consultation for the request ALEXANDRU Benavides for preoperative cardiac evaluation prior to proposed orthopedic surgery. The patient was seen in the [facility] 2 unit and had recently been assessed by the orthopedic and anesthesia teams. The patient was awake and conversant. She describes that earlier this morning she was performing some gardening and then she was attempting to place the debris in her garbage can when she suffered a mechanical fall with resultant head trauma and left leg trauma. CT of the head revealed no hemorrhage or mass effect. Left parietal scalp injury noted. She was found to have an intertrochanteric fracture of the left proximal femur. Her previously repaired right hip was intact without acute abnormality. Surgical repair is tentatively planned with left trochanteric nailing this afternoon. After the patient arrived to the staging unit she did have transient hypotension that resolved with the administration of ephedrine and IV fluid. At the time my arrival she was normotensive. She is mentating well. She looked volume depleted on appearance. She denies any recent cardiac symptoms. Denies chest discomfort, shortness of breath, or recent syncope. Past Cardiac History: Coronary heart disease with PCI of the left anterior descending coronary in 1999. 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 In November, she suffered a mechanical fall with resultant rib fractures. She presented to the emergency department at [facility] and CT of the chest revealed a thrombus in the left ventricular apex which could not been present on a previous CT. She was transferred to the trauma ICU at [facility] where she was seen by the cardiology consultation team there and was placed on anticoagulation initially with Lovenox and then Coumadin. In the meantime she had been transition to Eliquis 5 mg 2 times per day with most recent dose this morning. Hypertension Dyslipidemia Symptomatic premature ventricular contractions Carotid vascular disease status post left carotid endarterectomy in 2011 History of TIA/stroke in 1997 Allergies Allergy/AdvReac Type Severity Reaction Status Date / Time lisinopril AdvReac Intermediate Cough Verified 10/19/24 14:20 Home Medications Medication Instructions Recorded Confirmed Type aspirin 81 mg tablet,delayed 81 mg PO QAM 04/26/22 10/19/24 History release gabapentin 300 mg capsule 300 mg PO TID 04/26/22 10/19/24 History losartan 50 mg tablet 50 mg PO QAM 04/26/22 10/19/24 History metoprolol succinate 25 mg 25 mg PO QAM 04/26/22 10/19/24 History tablet,extended release 24 hr nitroglycerin 0.4 mg sublingual 0.4 mg sublingual DIRECTED PRN 04/26/22 10/19/24 History tablet Chest Pain rosuvastatin 5 mg tablet 5 mg PO HS 04/26/22 10/19/24 History acetaminophen 500 mg tablet 1,000 mg PO TID Pain 06/26/22 10/19/24 History (Tylenol Extra Strength) alendronate 70 mg tablet 70 mg PO WK 03/08/24 10/19/24 History allopurinol 100 mg tablet 100 mg PO HS 03/08/24 10/19/24 History calcium carbonate 500 mg PO QAM 03/08/24 10/19/24 History cholecalciferol (vitamin D3) 50 50 mcg PO QAM 03/08/24 10/19/24 History mcg (2,000 unit) tablet (Vitamin D3) magnesium citrate 125 mg capsule 125 mg PO QAM 03/08/24 10/19/24 History amlodipine 5 mg tablet (Norvasc) 5 mg PO QAM 10/19/24 10/19/24 History apixaban 5 mg tablet (Eliquis) 5 mg PO BID 10/19/24 10/19/24 History duloxetine 20 mg capsule,delayed 20 mg PO DAILY 10/19/24 10/19/24 History release Patient History Medical History 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 Gout Myocardial infarction Coronary artery disease 2000 - NSTEMI s/p LAD stent x 1 Surgical History No pertinent past surgical history Family History Other Family history non-contributory Intracardiac thrombus Social History Smoking Status: Former smoker Tobacco Type: Cigarettes Cigarettes Per Day: 8; Hx Alcohol Use: No Hx Substance Use: No Preferred Language: Faroese Communication Ability: Effective 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 Beliefs That Will Affect Care: None Current Living Situation: Alone Feels Safe at Home: Yes Assistive Devices: Walker Review of Systems Review of Systems: All systems reviewed & are unremarkable except as noted in HPI & below Physical Exam Physical Exam: General: no acute distress and stated age Eyes: conjunctiva are pink and non-injected, sclera clear Neck: normal jugular venous pulse, no hepatojugular reflux Chest: normal shape and normal respiratory effort Lungs: clear to auscultation and percussion Cardiac Exam: - regular heart sounds, no murmurs, rubs, or gallops, no jugular venous distention Abdomen: abdomen soft, non-tender, no abnormal masses and no hepatosplenomegaly Extremities: no edema , Chronic venous stasis changes noted in the lower extremities bilaterally Neuro:awake, conversant, follows commands, no focal motor deficits Psych: appropriate affect and insight. Results & Data Vital Signs (Past 12 Hours) Vital Signs Temp Pulse Pulse Resp BP BP Pulse Ox 10/19/24 14:00 36.5 C 58 L 18 157/63 H 97 10/19/24 13:55 144/58 H 10/19/24 13:52 88/59 L 10/19/24 13:49 62/41 L 10/19/24 13:00 56 L 16 135/63 97 10/19/24 12:00 66 15 159/74 H 96 10/19/24 11:19 63 15 158/80 H 98 10/19/24 11:13 56 L 16 97 10/19/24 10:36 72 10/19/24 10:31 36.8 C 68 19 140/79 95 10/19/24 10:31 95 10/19/24 10:31 36.8 C 68 19 140/79 95 10/19/24 10:31 36.8 C 68 19 140/79 95 10/19/24 10:31 36.8 C 68 19 140/79 95 O2 Del Method O2 Flow Rate 10/19/24 14:00 Room Air 10/19/24 13:55 10/19/24 13:52 10/19/24 13:49 10/19/24 13:00 Room Air 10/19/24 12:00 10/19/24 11:19 Room Air 10/19/24 11:13 Room Air 10/19/24 10:36 10/19/24 10:31 10/19/24 10:31 Room Air 10/19/24 10:31 Room Air 10/19/24 10:31 Room Air 0 10/19/24 10:31 Room Air Laboratory Results Cardiac Enzymes 10/19/24 10/19/24 Range/Units 10:32 12:38 AST 33 (13-39) U/L Troponin I High Sens 24.8 H 20.2 H (0-14) pg/ml Coagulation 10/19/24 Range/Units 10:32 PT 11.2 (9.0-12.0) Seconds APTT 22 (21-31) Seconds CBC 10/19/24 Range/Units 10:32 WBC 8.37 (4.8-10.8) K/ul RBC 4.25 (4.20-5.40) M/uL Hgb 14.2 (12.0-16.0) g/dl Hct 42.3 (37.0-47.0) % Plt Count 115 L (130-400) K/uL Neut # (Auto) 6.66 H (1.40-6.50) K/uL Lymph # (Auto) 1.01 L (1.20-3.40) K/uL Pitkin # (Auto) 0.56 (0.11-0.59) K/uL Eos # (Auto) 0.05 (0.00-0.50) K/uL Baso # (Auto) 0.03 (0.00-0.20) K/uL Comprehensive Metabolic Panel 10/19/24 Range/Units 10:32 Sodium 139 (136-145) mmol/L Potassium 4.6 (3.5-5.1) mmol/L Chloride 106 (98-107) mmol/L Carbon Dioxide 26 (21-32) mmol/L BUN 22 (6-23) mg/dl Creatinine 0.84 (0.6-1.2) mg/dl Glucose 145 H (70-99(Fasting)) mg/dl Calcium 9.1 (8.6-10.3) mg/dl AST 33 (13-39) U/L ALT 58 H (7-52) U/L Alkaline Phosphatase 33 L (34-104) U/L Total Protein 6.0 (6.0-8.3) gm/dl Albumin 3.7 (3.4-5.0) gm/dl Intake and Output 10/18/24 10/19/24 10/19/24 22:59 06:59 14:59 Other: Weight 58.967 kg Weight Measurement Method Estimated by Patient Patient Weight 10/20/24 06:59 Weight 58.967 kg Diagnostic Findings EKG performed 10/19/2024 at 11:24 AM and interpret independently: Sinus rhythm at 60 bpm with occasional premature ventricular contractions. Poor R wave progression noted consistent with history of prior anterior myocardial infarction. Stable findings. Transthoracic echocardiogram performed 03/13/2024 at [facility]: The left ventricular ejection fraction is mildly reduced in the range of 45 to 50% Mild concentric left ventricular hypertrophy is present There is a moderate-sized apical wall motion abnormality with akinesis of the segments Aortic valve sclerosis, moderate without stenosis observed Mild mitral regurgitation is present. - Compared to the previous study performed at [facility] in November,, the previously noted left ventricular apical mural thrombus had resolved. Coding [place] [address] IN/OBS CONSULT LVL 4,60M Patient Type Established History Comprehensive Medical Decision Making Moderate Complexity Diagnoses Closed left hip fracture S72.002A Preoperative cardiovascular examination Z01.810 CAD (coronary artery disease) I25.10
[2024-10-19] MEDS ORDERED: ePHEDrine sulfate 50 MG/5 ML SYR ONE (15:00)
[2024-10-19] MEDS ORDERED: SUGAMMADEX SODIUM 200 MG/2 ML VIAL IV ONE (15:25)
[2024-10-19] MEDS: BUPIVACAINE/EPINEPHRINE 0.25% 1:200,000 30 ML VIAL ONE (15:30)
--- NOTE | 2024-10-19 15:42 | Operative Report ---
PG Post Operative Report Pre & Post Diagnosis Operation Date: 10/19/24 11:15 Pre-Op Diagnosis: Closed left hip fracture. Post-Op Diagnosis: Closed left hip fracture. I identified the patient and participated in the time-out.: Yes Procedure Operation Date: 10/19/24 11:15 Actual Procedures p Left trochanteric nail(Left) - Cl Gillespie DO Surgeon Cl Gillespie DO Lead Cargoman Stephan De Dios PA-C Estimated Blood Loss 50 Findings Consistent with Post-Op Diagnosis Specimens None Description of Procedure On October 19, 2024 Laura was brought in from a ER to the preoperative holding area. The operative extremity identified and signed. She was given a preoperative antibiotic. She was taken back to the operative room and put under general anesthesia. She was then transferred to a Skippers table. The left leg was brought to traction. Fluoroscopic images were used to help reduce the hip. Once the hip was reduced, the left hip was prepped and draped sterile fashion. A timeout was done. The patient and the operative extremity was properly identified. A longitudinal incision was made directly over the greater trochanter. Dissection was taken down through the fascia. A guidepin was placed in the center of the greater trochanter. The guidepin was advanced into the femoral canal. Appropriate placement of the guidepin was checked on orthogonal fluoroscopic images. A 16mm opening reamer was used to open the intramedullary canal. A 11 mm TFN short nail was then slid into the femoral canal. Appropriate placement was checked on fluoroscopy. A lateral incision was made for the helical blade and a cannula was advanced to the lateral cortex. A guidepin was then placed into the center center position of the femoral head. The helical blade measured to be 95 mm. The lateral cortex was then drilled and a 95 mm helical blade was then impacted into place. A single distal locking screw was then placed. The fracture was compressed and locked. The outrigger was then removed. Final fluoroscopic images showed anatomic alignment of the fracture and good placement of the hardware. The incision sites were irrigated. The deep fascia was closed with #1 Vicryl. The superficial fascial layer was closed with 2-0 Vicryl. Skin was closed with 2-0 Vicryl and joanne. She was then placed in a soft dressing. She was then extubated and transferred to a hospital bed. She was taken to the postanesthesia care unit in stable condition. She tolerated the procedure well. Stephan De Dios PA-C, was present for the entire procedure. He was critical for patient positioning, prepping, draping, retraction exposure, wound closure and application of sterile dressing. I attest to the content of the Intraoperative Record and any orders documented therein. Any exceptions are noted below.
--- NOTE | 2024-10-19 16:32 | Anesthesiology Progress Note ---
Date of Service October 19, 2024 Anesthesia Post Procedure Vital Signs Vital Signs: Temp Pulse Pulse Resp BP BP BP 10/19/24 16:25 54 L 18 127/58 L 10/19/24 16:15 54 L 16 179/87 H 10/19/24 16:05 55 L 18 168/68 H 10/19/24 15:55 36 C L 57 L 20 161/63 H 10/19/24 14:00 36.5 C 58 L 18 157/63 H 10/19/24 13:55 144/58 H 10/19/24 13:52 88/59 L 10/19/24 13:49 62/41 L 10/19/24 13:00 56 L 16 135/63 10/19/24 12:00 66 15 159/74 H 10/19/24 11:19 63 15 158/80 H 10/19/24 11:13 56 L 16 10/19/24 10:36 72 10/19/24 10:31 36.8 C 68 19 140/79 10/19/24 10:31 10/19/24 10:31 36.8 C 68 19 140/79 10/19/24 10:31 36.8 C 68 19 140/79 10/19/24 10:31 36.8 C 68 19 140/79 Pulse Ox O2 Del Method O2 Flow Rate 10/19/24 16:25 100 Room Air 10/19/24 16:15 100 Oxymask 2 10/19/24 16:05 99 Oxymask 4 10/19/24 15:55 100 Oxymask 6 10/19/24 14:00 97 Room Air 10/19/24 13:55 10/19/24 13:52 10/19/24 13:49 10/19/24 13:00 97 Room Air 10/19/24 12:00 96 10/19/24 11:19 98 Room Air 10/19/24 11:13 97 Room Air 10/19/24 10:36 10/19/24 10:31 95 10/19/24 10:31 95 Room Air 10/19/24 10:31 95 Room Air 10/19/24 10:31 95 Room Air 0 10/19/24 10:31 95 Room Air Pain Intensity Left Hip: Pain Intensity: 6 Transfer of Care Handoff Completed per policy Notes Mental Status: alert / awake / arousable Patient Amnestic to Procedure: Yes Nausea / Vomiting: adequately controlled Pain: adequately controlled Airway Patency, RR, SpO2: stable & adequate BP & HR: stable & adequate Hydration State: stable & adequate Anesthetic Complications: no major complications apparent and Pt Satisfied with anesthetic care
[2024-10-19] MEDS: LACTATED RINGER'S 1,000 ML IV SCH (17:24)
[2024-10-19] MEDS: GABAPENTIN 300 MG CAP PO SCH (17:39)
[2024-10-19] MEDS: MoRPHine SULFATE 2 MG/ML CARP IV PRN (18:19)
--- NOTE | 2024-10-19 18:36 | XRay Report ---
Study: Left hip 2 views History: Postop Comparison: None Findings/impression: Cephalomedullary eleazar of the left femur with interlocking femoral neck screw. A fracture is seen at the base of the femoral neck. Skin joanne are seen. Mild postoperative soft tissue air. Electronically signed by Tre Drake 10-19-2024 6:35 PM
--- NOTE | 2024-10-19 18:49 | Electrocardiogram Report ---
Test Reason : Blood Pressure : */* mmHG Vent. Rate : 60 BPM Atrial Rate : 60 BPM P-R Int : 168 ms QRS Dur : 82 ms QT Int : 400 ms P-R-T Axes : -9 -10 63 degrees QTcB Int : 400 ms Sinus rhythm with occasional Premature ventricular complexes Nonspecific ST abnormality Abnormal ECG When compared with ECG of 06-Dec-2023 12:10, Premature ventricular complexes are now Present Nonspecific T wave abnormality now evident in Inferior leads Confirmed by Tre Jama ([id number]) on 10/19/2024 6:48:57 PM Referred By: REFERRED SELF Confirmed By: Tre Jama
[2024-10-19] MEDS: ROSUVASTATIN CALCIUM 5 MG TAB PO SCH (20:11)
[2024-10-19] MEDS: ACETAMINOPHEN 325 MG TAB PO PRN (20:16)
[2024-10-19] MEDS: PROMETHAZINE 6.25 MG/50.25 ML BAG IV PRN (22:38)
--- NOTE | 2024-10-20 07:18 | Orthopedic Progress Note ---
Date of Service October 20, 2024 Assessment & Plan (1) Closed left hip fracture: * Continue Current Treatment * Disposition: TBD * Daily treatment: Physical Therapy/ Occupational Therapy per protocol * Weight bearing status: WBAT * Continue to monitor for ABLA * Pain control * DVT prophylaxis, ok to resume Eliquis from Ortho standpoint * Office/hospital f/u 2 weeks for progress check and staple/suture removal * Remainder care per primary team * Discharge planning pending PT/OT eval Subjective .Active Problems: S/p left TFN POD 1 89 y/o female s/p left TFN. Doing well overall, pain managed and improved function. Denies fever/chills, chest pain/SOB, nausea/vomiting. Otherwise no complaints. Review of Systems All systems reviewed & are unremarkable except as noted in HPI & below. Physical Exam . * General: Alert and oriented, no acute distress * Constitutional: well-developed, well-nourished. * Respiratory: Normal respiratory effort, no distress * Gastrointestinal: No tenderness to palpation, no rigidity or guarding. * Skin: No rash or lesion. * Neurologic: Grossly normal * Musculoskeletal: Left hip surgical dressing CDI, not removed for exam. Ot herwise no obvious deformity or overlying skin changes. Diffuse TTP proximal thigh and hip region. Otherwise no specific tenderness of distal thigh, lower leg, foot/ankle. AROM hip flexion limited due to pain. AROM foot/ankle intact. Sensation intact plantar/dorsal foot. Brisk capillary refill. Results & Data Results & Data Laboratory Results . Diagnostic Findings . PG Care Time/CCT Total # of Minutes Spent Total Time Spent with Patient: Total time spent is greater than 50% in coordination of care (as documented) at patient's floor/unit and/or counseling patient: Coding Level of Care Code 15432 Post Operative Follow-Up Diagnoses Closed left hip fracture S72.002A
--- NOTE | 2024-10-20 07:39 | Fluoroscopy Report ---
FL hip LT 2-3V CLINICAL HISTORY: LT TROCH NAIL COMPARISON STUDY: Pelvis radiograph October 19, 2024 10:32 AM. Fluoroscopy time: 57 seconds. Number of fluoroscopic images: 4 Ka,r: 12.42 mGy. FINDINGS: Fluoroscopy was provided during open reduction and internal fixation of the intertrochanter ic fracture of the left femur. Fracture alignment has markedly improved and is near anatomic. There a re no unexpected radiopaque foreign bodies. There is a distal screw. Hardware is intact. IMPRESSION: Fluoroscopy provided during open reduction and internal fixation of the intertrochanteri c fracture of the left femur. ACT 112: Negative or not required by law. Electronically signed by: Jesse Negrete M.D. 10/20/2024 7:37 AM
[2024-10-20] MEDS: APIXABAN 5 MG TABLET PO SCH (08:35)
[2024-10-20] MEDS: CHOLECALCIFEROL 25 MCG (1000 UNITS) TAB PO SCH (08:35)
[2024-10-20] MEDS: METOPROLOL SUCC 25MG EXT REL TAB PO SCH (08:36)
[2024-10-20] MEDS: LOSARTAN POTASSIUM 50 MG TAB PO SCH (08:36)
[2024-10-20] MEDS: CALCIUM CARBONATE 1250MG TAB PO SCH (08:37)
--- NOTE | 2024-10-20 10:42 | Electrocardiogram Report ---
Test Reason : Blood Pressure : */* mmHG Vent. Rate : 75 BPM Atrial Rate : 75 BPM P-R Int : 142 ms QRS Dur : 84 ms QT Int : 378 ms P-R-T Axes : 55 2 67 degrees QTcB Int : 422 ms Sinus rhythm with occasional Premature ventricular complexes Abnormal ECG When compared with ECG of 19-Oct-2024 11:24, Nonspecific T wave abnormality no longer evident in Inferior leads Confirmed by Tre Jama ([id number]) on 10/20/2024 10:42:27 AM Referred By: REFERRED SELF Confirmed By: Tre Jama
[2024-10-20] MEDS: DOCUSATE SODIUM/SENNA 50/8.6MG TAB PO SCH (11:47)
[2024-10-20] MEDS: POLYETHYLENE (MIRALAX) 17 GM PACK PO SCH (11:47)
--- NOTE | 2024-10-20 12:31 | Cardiology Progress Note ---
Date of Service October 20, 2024 Assessment & Plan (1) Closed left hip fracture: (2) Preoperative cardiovascular examination: (3) CAD (coronary artery disease): Plan: 89-year-old female with a history of coronary heart disease, remote TN/PCI to the LAD in 2019 with a chronic, mild left ventricular systolic dysfunction, LVEF 45-50% on most recent echocardiogram 03/13/2024 with moderate-sized apical wall motion abnormality/apical aneurysm. At the time of a trauma workup in November, she was found to have a left apical mural thrombus. She has been treated with anticoagulation in the meantime and the thrombus had resolved on repeat echocardiogram March,. Patient presented 10/19/2024 with mechanical fall, left hip fracture. She underwent intertrochanteric nailing on 10/20/2024. Patient hemodynamically stable. Await results of a.m. labs. -Patient describes recent stable cardiac signs and symptoms. She suffered a mechanical fall, and has a history of previous mechanical falls with resultant trauma. -Transient hypotension noted in the preoperative staging area which is since resolved and she appears to be volume depleted on exam. BP stable/improved. -Her most recent dose of Eliquis was the morning of her fall/hip surgery on 10/19/2024. Eliquis resumed postoperative day #1 on 10/20/24 and she therefore received a dose this morning received a dose am of 10/20/24. -Await labs, if Hgb stable, continue Eliquis. Patient is stable from a cardiac perspective to proceed with intertrochanteric nailing without further cardiac testing. Her prior to hospital cardiac medications to be continued with hold for blood pressure parameters for metoprolol, losartan, amlodipine. I do not think a repeat echocardiogram is indicated at present. Dr Cisneros rounding this weekend. Call with questions or concerns. Fide Hayes DO Admission and Anticipated Discharge Date Admission Date: October 19, 2024 Subjective Patient seen in cardiology follow-up. Denies chest discomfort or shortness of breath during lying supine. Postoperative pain adequately controlled. Telemetry reveals sinus rhythm in the 70s with occasional PVCs. Review of Systems Review of Systems: All systems reviewed & are unremarkable except as noted in HPI & below Physical Exam Physical Exam: General: no acute distress and stated age Eyes: conjunctiva are pink and non-injected, sclera clear Neck: normal jugular venous pulse, no hepatojugular reflux Chest: normal shape and normal respiratory effort Lungs: clear to auscultation and percussion Cardiac Exam: - regular heart sounds, no murmurs, rubs, or gallops, no jugular venous distention Abdomen: abdomen soft, non-tender, no abnormal masses and no hepatosplenomegaly Extremities: no edema , Chronic venous stasis changes noted in the lower extremities bilaterally Neuro:awake, conversant, follows commands, no focal motor deficits Psych: appropriate affect and insight. Results & Data Vital Signs (Past 12 Hours) Vital Signs Temp Pulse Pulse Resp BP BP Pulse Ox 10/20/24 11:40 36.4 C L 61 18 101/60 90 10/20/24 09:53 69 113/60 10/20/24 08:00 36.4 C L 76 17 105/68 97 10/20/24 05:42 76 10/20/24 02:42 36.3 C L 78 14 115/71 99 O2 Del Method 10/20/24 11:40 Room Air 10/20/24 09:53 10/20/24 08:00 Room Air 10/20/24 05:42 10/20/24 02:42 Room Air Laboratory Results Repeat laboratory studies pending Diagnostic Findings Postoperative EKG performed today 10/20/2024 at 7:48 AM and interpreted independently: Sinus rhythm at 75 bpm with occasional PVCs, normal ST segments. Stable findings. PG Care Time/CCT Total # of Minutes Spent Total Time Spent with Patient: Total time spent is greater than 50% in coordination of care (as documented) at patient's floor/unit and/or counseling patient: Coding [place] [address] Post Operative Follow-Up Patient Type Established History Comprehensive Exam Comprehensive Medical Decision Making High Complexity Diagnoses Closed left hip fracture S72.002A Preoperative cardiovascular examination Z01.810 CAD (coronary artery disease) I25.10
[2024-10-20 13:16] LABS: Anion Gap 8.0 (3-11); Calcium 8.1 mg/dl (8.6-10.3); Carbon Dioxide 24.0 mmol/L (21-32); Chloride 101.0 mmol/L (98-107); Potassium 5.1 mmol/L (3.5-5.1); Sodium 133.0 mmol/L (136-145)
[2024-10-20 13:22] LABS: Blood Urea Nitrogen 30.0 mg/dl (6-23); Creatinine Clr Calc Pharmacy 25.8 ml/min; Glucose 206.0 mg/dl (70-99(Fasting))
[2024-10-20 13:46] LABS: Hematocrit (blood only) 28.2 % (37.0-47.0); Hemoglobin 9.3 g/dl (12.0-16.0); Mean Corpuscular Hemoglobin 34.2 pg (25.0-34.0); Mean Corpuscular Volume 103.7 fL (80.0-100.0); Platelet Count 98 K/uL (130-400); RDW Standard Deviation 46.7 fL (36.4-46.3); Red Blood Count 2.72 M/uL (4.20-5.40); White Blood Count 9.84 K/ul (4.8-10.8)
--- NOTE | 2024-10-20 14:51 | Communication Note ---
Date of Service: October 20, 2024 Reviewed follow-up CBC from today. Preoperative hemoglobin was 14.2, now down to 9.3. Platelet count has been 115 and is now down to 98. This may be dilutional as she did receive IV fluids perioperatively, but to be cautious, recommend holding Eliquis for the time being until repeat labs are obtained tomorrow. Discussed with Dr. Edmond who concurred. Benefits/risks will need to be reassessed on a daily basis especially because of need for DVT prophylaxis. Fide Hayes DO
--- NOTE | 2024-10-20 15:24 | Hospitalist Progress Note ---
Date of Service October 20, 2024 Assessment & Plan (1) Diabetes mellitus type 2, diet-controlled: (2) Hyperlipidemia: (3) Chronic systolic CHF (congestive heart failure): (4) CAD (coronary artery disease): (5) Type 2 diabetes mellitus: (6) Closed left hip fracture: Plan Ms. Rand is an 89-year-old female who presented to the ED on 10/19/2024 s/p mechanical fall found to have a left hip fracture. Patient is now s/p left intertrochanteric nail. Patient with post operative anemia, possibly dilutional component. Eliquis initially started, however, held for further trending. #Left hip fracture s/p intertrochanteric nail #Mechanical fall s/p ORIF 10/[address] De Dios reduce IV morphine for now, encourage po regimen schedule Tylenol bowel regimen PT/OT: likely SNF #Acute anemia 2/2 post op blood loss, possibly dilutional #Thrombocytopenia hgb from 14-> 9.2 platelets to 98 repeat HH q 12 hours hold Eliquis #hyponatremia likely iso pain and procedure, repeat BMP at 1700 will follow am bmp with urine studies #CHALINO on CKD 0.8-->1.24 creatinine avoid nephrotoxic agents liberal blood pressure control NS @ 80cc/hr, monitor UOP strict I/Os #delirium hold gabapentin for now judicious use of opioids delirium precautions #L scalp laceration -Scalp lac repaired with joanne in ED (2) follow up for removal in 7-10 days #Hx CAD/cardiac thrombus/systolic CHF: Hold aspirin, Eliquis, continue metoprolol #Postoperative hypotension # HTN/HLD: hold losartan/amlodipine, resume as able -continue statin A total of 60 minutes were spent on chart review/reviewing diagnostic data/facilitating plan of care/discussion with consultants Full code DVT prophylaxis: Eliquison hold given anemia Admission and Anticipated Discharge Date Admission Date: October 19, 2024 Subjective Reports feeling well this am, denies any chest pain or other acute concerns Worked with PT, but not able to bear weight eating well this am, reports controlled post surgical discomfort at time of exam discussed possibility of rehab, patient verbalized understanding Physical Exam Constitutional: WD/WN, vitals as above Respiratory: normal respiratory effort, lungs clear to auscultation Cardiovascular: RRR, no murmur, no edema Gastrointestinal (Abdomen): normal bowel sounds, soft, nontender, no hepatosplenomegaly Results & Data Results & Data Vital Signs (Past 12 Hours) Vital Signs Temp Pulse Pulse Resp BP BP Pulse Ox 10/20/24 13:00 63 10/20/24 11:40 36.4 C L 61 18 101/60 90 10/20/24 09:53 69 113/60 10/20/24 08:00 36.4 C L 76 17 105/68 97 10/20/24 05:42 76 O2 Del Method 10/20/24 13:00 10/20/24 11:40 Room Air 10/20/24 09:53 10/20/24 08:00 Room Air 10/20/24 05:42 Laboratory Results Short CBC 10/20/24 Range/Units 12:31 WBC 9.84 (4.8-10.8) K/ul Hgb 9.3 L D (12.0-16.0) g/dl Hct 28.2 L (37.0-47.0) % Plt Count 98 L (130-400) K/uL BMP 10/20/24 12:31 Sodium 133 L Potassium 5.1 Chloride 101 Carbon Dioxide 24 BUN 30 H Creatinine 1.24 H D Glucose 206 H Calcium 8.1 L Medications Administered Home Medications Medication Instructions Recorded Confirmed Last Taken aspirin 81 mg tablet,delayed 81 mg PO QAM 04/26/22 10/19/24 10/19/24 release gabapentin 300 mg capsule 300 mg PO TID 04/26/22 10/19/24 10/19/24 losartan 50 mg tablet 50 mg PO QAM 04/26/22 10/19/24 10/19/24 metoprolol succinate 25 mg 25 mg PO QAM 04/26/22 10/19/24 10/19/24 tablet,extended release 24 hr nitroglycerin 0.4 mg sublingual 0.4 mg sublingual DIRECTED PRN 04/26/22 10/19/24 Unknown tablet Chest Pain rosuvastatin 5 mg tablet 5 mg PO HS 04/26/22 10/19/24 10/18/24 acetaminophen 500 mg tablet 1,000 mg PO TID Pain 06/26/22 10/19/24 10/19/24 (Tylenol Extra Strength) alendronate 70 mg tablet 70 mg PO WK 03/08/24 10/19/24 10/15/24 allopurinol 100 mg tablet 100 mg PO HS 03/08/24 10/19/24 10/18/24 calcium carbonate 500 mg PO QAM 03/08/24 10/19/24 10/19/24 cholecalciferol (vitamin D3) 50 50 mcg PO QAM 03/08/24 10/19/24 10/19/24 mcg (2,000 unit) tablet (Vitamin D3) magnesium citrate 125 mg capsule 125 mg PO QAM 03/08/24 10/19/24 10/19/24 amlodipine 5 mg tablet (Norvasc) 5 mg PO QAM 10/19/24 10/19/24 10/19/24 apixaban 5 mg tablet (Eliquis) 5 mg PO BID 10/19/24 10/19/24 10/19/24 duloxetine 20 mg capsule,delayed 20 mg PO DAILY 10/19/24 10/19/24 Unknown release Active Medications Generic Name Dose Route Start Last Admin Trade Name Freq PRN Reason Stop Dose Admin Allopurinol 100 mg 10/19/24 21:00 10/19/24 20:10 Allopurinol 100 Mg Tab PO 11/18/24 20:59 100 mg HS BREN Administration Amlodipine Besylate 5 mg 10/20/24 09:00 10/20/24 08:35 Amlodipine Besylate 5 Mg Tab PO 11/19/24 08:59 5 mg QAM BREN Administration Apixaban 5 mg 10/20/24 09:00 10/20/24 08:35 Apixaban 5 Mg Tablet PO 11/19/24 08:59 5 mg BID BREN Administration Calcium Carbonate 1 tab 10/20/24 09:00 10/20/24 08:37 Calcium Carbonate 1250mg Tab PO 11/19/24 08:59 1 tab QAM BREN Administration Duloxetine HCl 20 mg 10/20/24 09:00 10/20/24 08:35 Duloxetine Hcl 20 Mg Cap PO 11/19/24 08:59 20 mg DAILY BREN Administration Gabapentin 300 mg 10/19/24 14:00 10/20/24 14:26 Gabapentin 300 Mg Cap PO 11/18/24 13:59 300 mg TID BREN Administration Promethazine HCl 6.25 mg in 50.25 mls @ 201 mls/hr 10/19/24 18:00 10/19/24 23:14 Phenergan IV 11/18/24 17:59 Infused Q6H PRN Infusion Nausea And Vomiting Sodium Chloride 1,000 mls @ 80 mls/hr 10/20/24 15:30 10/20/24 15:27 Nss IV 10/21/24 03:59 80 mls/hr .[id number] BREN Administration Losartan Potassium 50 mg 10/20/24 09:00 10/20/24 08:36 Losartan Potassium 50 Mg Tab PO 11/19/24 08:59 50 mg QAM BREN Administration Metoprolol Succinate 25 mg 10/20/24 09:00 10/20/24 08:36 Metoprolol Succ 25mg Ext Rel Tab PO 11/19/24 08:59 25 mg QAM BREN Administration Polyethylene Glycol 17 gm 10/20/24 11:40 10/20/24 11:47 Polyethylene (Miralax) 17 Gm Pack PO 11/19/24 11:39 17 gm DAILY BREN Administration Rosuvastatin Calcium 5 mg 10/19/24 21:00 10/19/24 20:11 Rosuvastatin Calcium 5 Mg Tab PO 11/18/24 20:59 5 mg HS BREN Administration Senna/Docusate Sodium 1 tab 10/20/24 11:45 10/20/24 11:47 Docusate Sodium/Senna 50/8.6mg Tab PO 11/19/24 11:44 1 tab QAM BREN Administration Tramadol HCl 25 - 50 mg 10/20/24 04:13 10/20/24 11:27 Tramadol Hcl 50 Mg Tablet PO 11/19/24 04:12 50 mg Q4H PRN Administration Pain Vitamin D 50 mcg 10/20/24 09:00 10/20/24 08:35 Cholecalciferol 25 Mcg (1000 Units) Tab PO 11/19/24 08:59 50 mcg QAM BREN Administration
[2024-10-20] MEDS: SODIUM CHLORIDE 0.9% 1,000 ML IV SCH (15:27)
[2024-10-20] MEDS ORDERED: MoRPHine SULFATE 2 MG/ML CARP IV PRN (15:27)
[2024-10-20] MEDS: ACETAMINOPHEN 500 MG TAB PO SCH (16:28)
[2024-10-20 17:31] LABS: Hematocrit (blood only) 26.3 % (37.0-47.0); Hemoglobin 8.9 g/dl (12.0-16.0)
[2024-10-20 17:44] LABS: Anion Gap 6.0 (3-11); Blood Urea Nitrogen 36.0 mg/dl (6-23); Calcium 8.1 mg/dl (8.6-10.3); Carbon Dioxide 28.0 mmol/L (21-32); Chloride 98.0 mmol/L (98-107); Creatinine Clr Calc Pharmacy 21.3 ml/min; Glucose 158.0 mg/dl (70-99(Fasting)); Potassium 4.8 mmol/L (3.5-5.1); Sodium 132.0 mmol/L (136-145)
[2024-10-20 17:52] LABS: Appearance Urine Clear (Clear); Bacteria Urine Automated None Seen (None Seen); Epithelial Cell Urine Auto 0-2 /hpf (0-2); Glucose Urine UA Negative (Negative); RBC Urine Automated 0-2 /hpf (0-2); WBC Urine Automated 21-50 /hpf (0-5)
[2024-10-20 18:01] LABS: Total Protein Urine Random 16.6 mg/dl (0-11.9)
[2024-10-20 18:07] LABS: Protein Creatinine Ratio Urine 0.1 (0-0.2)
--- NOTE | 2024-10-20 19:11 | Communication Note ---
Date of Service: October 20, 2024 noting worsening CHALINO and hyponatremia suspect possible ATN given episodic hypotension, documented as low as 64/41 on 10/19 around 1300 will continue to hold antihypertensives nephrology consult stop IVF at this time potassium stable CTM daily weights
[2024-10-21 06:29] LABS: Hematocrit (blood only) 25.6 % (37.0-47.0); Hemoglobin 8.5 g/dl (12.0-16.0); Mean Corpuscular Hemoglobin 33.9 pg (25.0-34.0); Mean Corpuscular Volume 102.0 fL (80.0-100.0); Platelet Count 95 K/uL (130-400); RDW Standard Deviation 45.1 fL (36.4-46.3); Red Blood Count 2.51 M/uL (4.20-5.40); White Blood Count 9.44 K/ul (4.8-10.8)
[2024-10-21 06:49] LABS: Anion Gap 4.0 (3-11); Blood Urea Nitrogen 37.0 mg/dl (6-23); Calcium 8.2 mg/dl (8.6-10.3); Carbon Dioxide 29.0 mmol/L (21-32); Chloride 101.0 mmol/L (98-107); Creatinine Clr Calc Pharmacy 25.9 ml/min; Glucose 114.0 mg/dl (70-99(Fasting)); Magnesium 2.2 mg/dl (1.7-2.4); Potassium 5.4 mmol/L (3.5-5.1); Sodium 134.0 mmol/L (136-145)
[2024-10-21 07:05] LABS: Thyroid Stimulating Hormone 0.628 uIu/ml (0.300-4.500)
[2024-10-21] MEDS: SODIUM ZIRCONIUM CYCLOSILICATE 10 GM PACKET PO SCH (08:27)
--- NOTE | 2024-10-21 10:08 | Hospitalist Progress Note ---
Date of Service October 21, 2024 Assessment & Plan (1) Diabetes mellitus type 2, diet-controlled: (2) Hyperlipidemia: (3) Chronic systolic CHF (congestive heart failure): (4) CAD (coronary artery disease): (5) Type 2 diabetes mellitus: (6) Closed left hip fracture: Plan Ms. Rand is an 89-year-old female who presented to the ED on 10/19/2024 s/p mechanical fall found to have a left hip fracture. Patient is now s/p left intertrochanteric nail. Patient with post operative anemia, possibly dilutional component. Eliquis initially started, however, held for further trending. Hemoglobin at 8.5 this am #Left hip fracture s/p intertrochanteric nail #Mechanical fall s/p ORIF 10/[address] De Dios reduce IV morphine for now, encourage po regimen schedule Tylenol bowel regimen PT/OT: likely SNF #CHALINO on CKD #Hyperkalemia 0.8-->1.5 creatinine-->1.23 avoid nephrotoxic agents liberal blood pressure control stop fluids at this time, Nephrology consulted for any further recommendations as patient already established as an op Hold losartan, if to resume bp medication will prioritize amlodipine at this time start valtessa for K of 5.4, repeat bmp this afternoon #Acute anemia 2/2 post op blood loss, possibly dilutional #Thrombocytopenia hgb from 14-> 8.5, platelets at 95 hold Eliquis appears likely to have plateaued, continue to trend and resume eliquis as able #hyponatremia likely iso pain and procedure, Improving #delirium resume lowered iván gabapentin in setting of CHALINO judicious use of opioids delirium precautions #L scalp laceration -Scalp lac repaired with joanne in ED (2) follow up for removal in 7-10 days #Hx CAD/cardiac thrombus/systolic CHF: Hold aspirin, Eliquis, continue metoprolol #Postoperative hypotension # HTN/HLD: hold losartan/amlodipine, resume as able -continue statin A total of 55 minutes were spent on chart review/reviewing diagnostic data/facilitating plan of care/discussion with consultants Full code DVT prophylaxis: Eliquison hold given anemia Admission and Anticipated Discharge Date Admission Date: October 19, 2024 Subjective NAEO reports some postsurgical discomfort at this time, but reports it is "as to be expected" She reports feeling hopeful to make it to her "grandson's wedding in November" and is looking forward to her recovery Denies any other acute concerns Urine in bag yellow and clear Physical Exam Constitutional: WD/WN, vitals as above Respiratory: normal respiratory effort, lungs clear to auscultation Cardiovascular: RRR, MANN+ Gastrointestinal (Abdomen): normal bowel sounds, soft, nontender, no hepatosplenomegaly Musculoskeletal: sensation and pulse intact in BLE Results & Data Results & Data Vital Signs (Past 12 Hours) Vital Signs Temp Pulse Pulse Resp BP BP Pulse Ox 10/21/24 07:19 36.8 C 79 18 121/68 90 10/21/24 05:35 78 10/21/24 02:51 36.5 C 74 16 113/66 94 10/20/24 22:57 36.5 C 65 16 114/65 94 O2 Del Method 10/21/24 07:19 Room Air 10/21/24 05:35 10/21/24 02:51 Room Air 10/20/24 22:57 Room Air Laboratory Results Short CBC 10/20/24 10/20/24 10/21/24 Range/Units 12:31 16:55 06:00 WBC 9.84 9.44 (4.8-10.8) K/ul Hgb 9.3 L D 8.9 L 8.5 L (12.0-16.0) g/dl Hct 28.2 L 26.3 L 25.6 L (37.0-47.0) % Plt Count 98 L 95 L (130-400) K/uL BMP 10/20/24 10/20/24 10/21/24 12:31 16:55 06:00 Sodium 133 L 132 L 134 L Potassium 5.1 4.8 5.4 H Chloride 101 98 101 Carbon Dioxide 24 28 29 BUN 30 H 36 H 37 H Creatinine 1.24 H D 1.50 H 1.23 H Glucose 206 H 158 H 114 H Calcium 8.1 L 8.1 L 8.2 L Urine 10/20/24 Range/Units Unknown Urine Color Dark Yellow Urine Appearance Clear (Clear) Urine pH 5.0 (4.5-7.5) Ur Specific [place] 1.033 H (1.000-1.030) Urine Protein Negative (Negative) Urine Glucose (UA) Negative (Negative) Medications Administered Home Medications Medication Instructions Recorded Confirmed Last Taken aspirin 81 mg tablet,delayed 81 mg PO QAM 04/26/22 10/19/24 10/19/24 release gabapentin 300 mg capsule 300 mg PO TID 04/26/22 10/19/24 10/19/24 losartan 50 mg tablet 50 mg PO QAM 04/26/22 10/19/24 10/19/24 metoprolol succinate 25 mg 25 mg PO QAM 04/26/22 10/19/24 10/19/24 tablet,extended release 24 hr nitroglycerin 0.4 mg sublingual 0.4 mg sublingual DIRECTED PRN 04/26/22 10/19/24 Unknown tablet Chest Pain rosuvastatin 5 mg tablet 5 mg PO HS 04/26/22 10/19/24 10/18/24 acetaminophen 500 mg tablet 1,000 mg PO TID Pain 06/26/22 10/19/24 10/19/24 (Tylenol Extra Strength) alendronate 70 mg tablet 70 mg PO WK 03/08/24 10/19/24 10/15/24 allopurinol 100 mg tablet 100 mg PO HS 03/08/24 10/19/24 10/18/24 calcium carbonate 500 mg PO QAM 03/08/24 10/19/24 10/19/24 cholecalciferol (vitamin D3) 50 50 mcg PO QAM 03/08/24 10/19/24 10/19/24 mcg (2,000 unit) tablet (Vitamin D3) magnesium citrate 125 mg capsule 125 mg PO QAM 03/08/24 10/19/24 10/19/24 amlodipine 5 mg tablet (Norvasc) 5 mg PO QAM 10/19/24 10/19/24 10/19/24 apixaban 5 mg tablet (Eliquis) 5 mg PO BID 10/19/24 10/19/24 10/19/24 duloxetine 20 mg capsule,delayed 20 mg PO DAILY 10/19/24 10/19/24 Unknown release Active Medications Generic Name Dose Route Start Last Admin Trade Name Freq PRN Reason Stop Dose Admin Acetaminophen 1,000 mg 10/20/24 16:00 10/21/24 07:38 Acetaminophen 500 Mg Tab PO 11/19/24 15:59 1,000 mg Q8H BREN Administration Allopurinol 100 mg 10/19/24 21:00 10/20/24 21:40 Allopurinol 100 Mg Tab PO 11/18/24 20:59 100 mg HS BREN Administration Amlodipine Besylate 5 mg 10/20/24 09:00 10/20/24 08:35 Amlodipine Besylate 5 Mg Tab PO 11/19/24 08:59 5 mg QAM BREN Administration Apixaban 5 mg 10/20/24 09:00 10/20/24 08:35 Apixaban 5 Mg Tablet PO 11/19/24 08:59 5 mg BID BREN Administration Calcium Carbonate 1 tab 10/20/24 09:00 10/21/24 08:28 Calcium Carbonate 1250mg Tab PO 11/19/24 08:59 1 tab QAM BREN Administration Duloxetine HCl 20 mg 10/20/24 09:00 10/21/24 08:28 Duloxetine Hcl 20 Mg Cap PO 11/19/24 08:59 20 mg DAILY BREN Administration Gabapentin 300 mg 10/19/24 14:00 10/20/24 14:26 Gabapentin 300 Mg Cap PO 11/18/24 13:59 300 mg TID BERN Administration Promethazine HCl 6.25 mg in 50.25 mls @ 201 mls/hr 10/19/24 18:00 10/19/24 23:14 Phenergan IV 11/18/24 17:59 Infused Q6H PRN Infusion Nausea And Vomiting Losartan Potassium 50 mg 10/20/24 09:00 10/20/24 08:36 Losartan Potassium 50 Mg Tab PO 11/19/24 08:59 50 mg QAM BREN Administration Metoprolol Succinate 25 mg 10/20/24 09:00 10/21/24 08:29 Metoprolol Succ 25mg Ext Rel Tab PO 11/19/24 08:59 25 mg QAM BREN Administration Polyethylene Glycol 17 gm 10/20/24 11:40 10/21/24 08:27 Polyethylene (Miralax) 17 Gm Pack PO 11/19/24 11:39 17 gm DAILY BREN Administration Rosuvastatin Calcium 5 mg 10/19/24 21:00 10/20/24 21:40 Rosuvastatin Calcium 5 Mg Tab PO 11/18/24 20:59 5 mg HS BREN Administration Senna/Docusate Sodium 1 tab 10/20/24 11:45 10/21/24 08:31 Docusate Sodium/Senna 50/8.6mg Tab PO 11/19/24 11:44 1 tab QAM BREN Administration Sodium Zirconium Cyclosilicate 10 gm 10/21/24 07:45 10/21/24 08:27 Sodium Zirconium Cyclosilicate 10 Gm Packet PO 10/22/24 19:01 10 gm TID@0700,1200,1900 BREN Administration Tramadol HCl 25 - 50 mg 10/20/24 04:13 10/21/24 05:57 Tramadol Hcl 50 Mg Tablet PO 11/19/24 04:12 50 mg Q4H PRN Administration Pain Vitamin D 50 mcg 10/20/24 09:00 10/21/24 08:28 Cholecalciferol 25 Mcg (1000 Units) Tab PO 11/19/24 08:59 50 mcg QAM BREN Administration
--- NOTE | 2024-10-21 12:27 | Nephrology Consultation ---
Date of Consultation October 21, 2024 Assessment & Plan (1) CHALINO (acute kidney injury): Improving nonoliguric Stage 2 CHALINO; prerenal versus multifactorial ischemic ATN w/ some lower SBP in 90s intermittently postoperatively and s/p IV contrast admin and s/p 10/20 losartan dose Presented w/ creatinine 1.2, increased to 1.5 later in the day of admission and now downtrending back to 1.2. Baseline creatinine 0.7-0.8. -agree w/ cont to hold antihypertensives -I/O pls measure as able -no indication for diuretics -daily BMP -consider 04/15-1/2 L NS if SBP softens further or/and if she takes more PRN pain meds which she may well need. Care coordinated w/ Dr Edmond via [employer] re pain meds, lokelma changes, consideration for treatment of hyponatremia and pain overall clinical impression of CHALINO; we are in agreement. (2) Hyperkalemia: with mild hyperkalemia -on lokelma tid x 6 doses for K 5.4 >>>ordered low potassium diet >>>lowered lokelma to 3 doses total and reevaluate in AM -cont to hold losartan (last dose 10/20) -daily bmp (3) Hyponatremia: mild and a new inpatient issue; acute (eg present <48 hrs); most consistent with hypovolemia in the setting of fluid intake > solids urine sodium <15, urine osm 240s; sOsm 280s sNa 132-134 since 10/20 midday >daily BMP -avoid nsaids -encourage protein 65 gm daily intake > Consider salt tablets provided they do not upset her stomach -no fluid limit for now; could consider low volume NS PRN as above (4) Renal mass, right: cont OP urology f/u History of Present Illness Reason for Consultation: CHALINO, possible ATN Requesting Physician: Dr Edmond Attending Physician: Gisella Edmond MD History of Present Illness 89 y/o F whom I'm asked to see for CHALINO possible ATN was admitted here 10/19 w/ L hip fracture and L scalp laceration after mechanical fall, s/p L trochanteric nail . 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 Not on any diuretics as OP. Her chief concern today is pain uncontrolled after the hip nailing procedure and worse with movement. Tells me she had very poor sleep last night due to this. Denies decreased p.o. intake. Denies shortness of breath cough orthopnea nausea vomiting constipation abdominal pain. Denies palpitations chest pain, rash or lower extremity edema, new or worrisome voiding symptoms. PT was limited today by symptomatic hypotension per RN. Allergies Allergy/AdvReac Type Severity Reaction Status Date / Time lisinopril AdvReac Intermediate Cough Verified 10/19/24 14:20 Home Medications Medication Instructions Recorded Confirmed Type aspirin 81 mg tablet,delayed 81 mg PO QAM 04/26/22 10/19/24 History release gabapentin 300 mg capsule 300 mg PO TID 04/26/22 10/19/24 History losartan 50 mg tablet 50 mg PO QAM 04/26/22 10/19/24 History metoprolol succinate 25 mg 25 mg PO QAM 04/26/22 10/19/24 History tablet,extended release 24 hr nitroglycerin 0.4 mg sublingual 0.4 mg sublingual DIRECTED PRN 04/26/22 10/19/24 History tablet Chest Pain rosuvastatin 5 mg tablet 5 mg PO HS 04/26/22 10/19/24 History acetaminophen 500 mg tablet 1,000 mg PO TID Pain 06/26/22 10/19/24 History (Tylenol Extra Strength) alendronate 70 mg tablet 70 mg PO WK 03/08/24 10/19/24 History allopurinol 100 mg tablet 100 mg PO HS 03/08/24 10/19/24 History calcium carbonate 500 mg PO QAM 03/08/24 10/19/24 History cholecalciferol (vitamin D3) 50 50 mcg PO QAM 03/08/24 10/19/24 History mcg (2,000 unit) tablet (Vitamin D3) magnesium citrate 125 mg capsule 125 mg PO QAM 03/08/24 10/19/24 History amlodipine 5 mg tablet (Norvasc) 5 mg PO QAM 10/19/24 10/19/24 History apixaban 5 mg tablet (Eliquis) 5 mg PO BID 10/19/24 10/19/24 History duloxetine 20 mg capsule,delayed 20 mg PO DAILY 10/19/24 10/19/24 History release Patient History Medical History 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 Gout Myocardial infarction Coronary artery disease 1999 - NSTEMI s/p LAD stent x 1 Surgical History No pertinent past surgical history Family History Other Family history non-contributory Intracardiac thrombus Social History Smoking Status: Former smoker Tobacco Type: Cigarettes Cigarettes Per Day: 8; Smoking End Date: 2020; Second Hand Exposure: No; Do You Dip or Chew Tobacco: No; Tobacco Cessation Education Requested by Patient: No Hx Alcohol Use: No Hx Substance Use: No Preferred Language: Argentine Communication Ability: Effective Track Manager Required: No Beliefs That Will Affect Care: None Current Living Situation: Alone Feels Safe at Home: Yes Safety Concerns: Feels Safe At This Time Assistive Devices: Walker and Wheelchair Review of Systems 2 Review of Systems: All systems reviewed & are unremarkable except as noted in HPI & below Physical Exam 2 Constitutional: well developed, well nourished, + frail appearing and cooperative; no acute distress Eyes: EOM intact bilaterally ENMT: Ears: no external ear abnormality Nose: no external nose abnormality Mouth: + dry oral mucous membranes Neck: no nuchal rigidity Respiratory: normal respiratory effort Auscultation: + diminished lung sounds Cardiovascular: RRR, no murmur, no edema Gastrointestinal (Abdomen): Inspection/Auscultation: normal bowel sounds P ercussion/Palpation: abdomen soft; abdomen nontender Musculoskeletal: Extremities: strength 5/5 throughout Skin: no rashes, warm and dry Neurologic: chavis, fluent speech, no tremor Results & Data Vital Signs (Past 12 Hours) Vital Signs Temp Pulse Pulse Resp BP BP Pulse Ox 10/21/24 11:13 36.2 C L 73 18 127/68 92 10/21/24 09:40 94/49 L 10/21/24 09:38 120/67 10/21/24 09:35 132/61 10/21/24 07:19 36.8 C 79 18 121/68 90 10/21/24 05:35 78 10/21/24 02:51 36.5 C 74 16 113/66 94 O2 Del Method 10/21/24 11:13 Room Air 10/21/24 09:40 10/21/24 09:38 10/21/24 09:35 10/21/24 07:19 Room Air 10/21/24 05:35 10/21/24 02:51 Room Air Laboratory Results 10/21/24 06:00 10/21/24 06:00 UA 10/20 1033; trace ketones, 1+ LE, 453 ur osms; prot /creat 0.1; Ricki <10, uCl <15 serum osms same day 289 Diagnostic Findings TTE 03/2024 EF 45-50%; mild clvh; no throumbus, mild apical WMA; moderate AV sclerosis admission ct a/p w/ con 10/19 1. Acute intertrochanteric left femoral fracture as above with adjacent 5 cm soft tissue hematoma. 2. No acute pelvic ring fracture. 3. No acute posttraumatic intra-abdominal or intrapelvic abnormality. 4. Stable 2.2 cm right renal mass suggestive of renal cell carcinoma. 5. Nonobstructing bilateral nephrolithiasis without hydronephrosis. 6. Additional findings as above.
[2024-10-21] MEDS: GABAPENTIN 100 MG CAP PO SCH (14:41)
[2024-10-21 16:28] LABS: Anion Gap 4.0 (3-11); Blood Urea Nitrogen 29.0 mg/dl (6-23); Calcium 8.0 mg/dl (8.6-10.3); Carbon Dioxide 28.0 mmol/L (21-32); Chloride 100.0 mmol/L (98-107); Creatinine Clr Calc Pharmacy 42.0 ml/min; Glucose 182.0 mg/dl (70-99(Fasting)); Potassium 4.9 mmol/L (3.5-5.1); Sodium 132.0 mmol/L (136-145)
[2024-10-22 06:23] LABS: Hematocrit (blood only) 22.4 % (37.0-47.0); Hemoglobin 7.4 g/dl (12.0-16.0); Mean Corpuscular Hemoglobin 33.5 pg (25.0-34.0); Mean Corpuscular Volume 101.4 fL (80.0-100.0); Platelet Count 91 K/uL (130-400); RDW Standard Deviation 45.0 fL (36.4-46.3); Red Blood Count 2.21 M/uL (4.20-5.40); White Blood Count 8.41 K/ul (4.8-10.8)
[2024-10-22 07:03] LABS: Anion Gap 5.0 (3-11); Blood Urea Nitrogen 18.0 mg/dl (6-23); Calcium 8.1 mg/dl (8.6-10.3); Carbon Dioxide 29.0 mmol/L (21-32); Chloride 101.0 mmol/L (98-107); Creatinine Clr Calc Pharmacy 57.2 ml/min; Glucose 118.0 mg/dl (70-99(Fasting)); Magnesium 2.0 mg/dl (1.7-2.4); Potassium 4.8 mmol/L (3.5-5.1); Sodium 135.0 mmol/L (136-145)
[2024-10-22] MEDS ORDERED: SODIUM CHLORIDE 0.9% 100 ML IV PRN (07:31)
[2024-10-22] MEDS ORDERED: SODIUM PHOSPHATE 3 MMOL/1 ML INFUSION IV STA ×2 (07:34)
[2024-10-22] MEDS: SODIUM PHOSPHATE 15 MMOL in SODIUM CHLORIDE 0.9% 250 ML IV ONE (08:53)
--- NOTE | 2024-10-22 10:56 | Hospitalist Progress Note ---
Date of Service October 22, 2024 Assessment & Plan (1) Diabetes mellitus type 2, diet-controlled: (2) Hyperlipidemia: (3) Chronic systolic CHF (congestive heart failure): (4) CAD (coronary artery disease): (5) Type 2 diabetes mellitus: (6) Closed left hip fracture: Plan Ms. Rand is an 89-year-old female who presented to the ED on 10/19/2024 s/p mechanical fall found to have a left hip fracture. Patient is now s/p left intertrochanteric nail. Patient with post operative anemia, likely multifactorial at this point 2/2 post op, trauma, dilutional. Given her known cardiovascular history and her hemoglobin estimated drop of approximately 7g, will transfuse a unit of blood. Dressing examined with no strike through or large visible hematoma noted on left hip. Patient sitting in bedside chair, swinging legs and reports feeling great. She does endorse orthostasis at this time, but otherwise notes pain better controlled. Reports of intermittent delirium. Otherwise, renal function back to baseline. #Acute anemia 2/2 post op blood loss, possibly dilutional #Thrombocytopenia hgb from 14-> 8.5, platelets at 95 hold Eliquis, hgb 7.4 transfuse 1 Unit prbcs repeat HH b12, folate wnl, obtain iron studies prior to transfusion peripheral smear for thrombocytopenia (similar drop with right hip fracture noted in 04/2022) CT left femur assess for hematoma #Left hip fracture s/p intertrochanteric nail #Mechanical fall s/p ORIF 10/[address] De Dios reduce IV morphine for now, encourage po regimen. minimize tramadol and plan to eval for addition options given delirium schedule Tylenol bowel regimen PT/OT: SNF when medically stable #CHALINO on CKD *resolved #Hyperkalemia 0.8-->1.5 creatinine peaked, now at baseline avoid nephrotoxic agents liberal blood pressure control stop fluids at this time, Nephrology consulted for any further recommendations as patient already established as an op Hold losartan, if to resume bp medication will prioritize amlodipine at this time--however still completed valtessa, K now at 4.8 #hyponatremia likely iso pain and procedure, Improving #delirium resume lowered iván gabapentin in setting of CHALINO judicious use of opioids delirium precautions #L scalp laceration -Scalp lac repaired with joanne in ED (2) follow up for removal in 7-10 days #Hx CAD/cardiac thrombus/systolic CHF: Hold aspirin, Eliquis, continue metoprolol #Postoperative hypotension # HTN/HLD: hold losartan/amlodipine, resume as able -continue statin A total of 57 minutes were spent on chart review/reviewing diagnostic data/facilitating plan of care/discussion with consultants Full code DVT prophylaxis: Eliquison hold given anemia Admission and Anticipated Discharge Date Admission Date: October 19, 2024 Subjective sitting in bedside chair reports feeling good today, but a little dizzy upon standing denies any new concerns reports feeling motivated to rehab herself discussed her blood pressure and her hgb, plan to transfuse--she does endorse orthostasis at this time Physical Exam Constitutional: WD/WN, vitals as above Respiratory: normal respiratory effort, lungs clear to auscultation Cardiovascular: RRR, no murmur, no edema Gastrointestinal (Abdomen): normal bowel sounds, soft, nontender, no hepatosplenomegaly Results & Data Results & Data Vital Signs (Past 12 Hours) Vital Signs Temp Pulse Pulse Resp BP Pulse Ox O2 Del Method 10/22/24 07:52 37.0 C 83 16 135/71 91 Room Air 10/22/24 03:04 37.2 C 88 16 111/66 92 Room Air 10/21/24 23:01 37 C 79 16 146/78 H 93 Room Air Laboratory Results Short CBC 10/22/24 Range/Units 05:49 WBC 8.41 (4.8-10.8) K/ul Hgb 7.4 L (12.0-16.0) g/dl Hct 22.4 L (37.0-47.0) % Plt Count 91 L (130-400) K/uL [facility] 10/21/24 10/22/24 15:47 05:49 Sodium 132 L 135 L Potassium 4.9 4.8 Chloride 100 101 Carbon Dioxide 28 29 BUN 29 H 18 Creatinine 0.76 D 0.57 L Glucose 182 H 118 H Calcium 8.0 L 8.1 L Medications Administered Home Medications Medication Instructions Recorded Confirmed Last Taken aspirin 81 mg tablet,delayed 81 mg PO QAM 04/26/22 10/19/24 10/19/24 release gabapentin 300 mg capsule 300 mg PO TID 04/26/22 10/19/24 10/19/24 losartan 50 mg tablet 50 mg PO QAM 04/26/22 10/19/24 10/19/24 metoprolol succinate 25 mg 25 mg PO QAM 04/26/22 10/19/24 10/19/24 tablet,extended release 24 hr nitroglycerin 0.4 mg sublingual 0.4 mg sublingual DIRECTED PRN 04/26/22 10/19/24 Unknown tablet Chest Pain rosuvastatin 5 mg tablet 5 mg PO HS 04/26/22 10/19/24 10/18/24 acetaminophen 500 mg tablet 1,000 mg PO TID Pain 06/26/22 10/19/24 10/19/24 (Tylenol Extra Strength) alendronate 70 mg tablet 70 mg PO WK 03/08/24 10/19/24 10/15/24 allopurinol 100 mg tablet 100 mg PO HS 03/08/24 10/19/24 10/18/24 calcium carbonate 500 mg PO QAM 03/08/24 10/19/24 10/19/24 cholecalciferol (vitamin D3) 50 50 mcg PO QAM 03/08/24 10/19/24 10/19/24 mcg (2,000 unit) tablet (Vitamin D3) magnesium citrate 125 mg capsule 125 mg PO QAM 03/08/24 10/19/24 10/19/24 amlodipine 5 mg tablet (Norvasc) 5 mg PO QAM 10/19/24 10/19/24 10/19/24 apixaban 5 mg tablet (Eliquis) 5 mg PO BID 10/19/24 10/19/24 10/19/24 duloxetine 20 mg capsule,delayed 20 mg PO DAILY 10/19/24 10/19/24 Unknown release Active Medications Generic Name Dose Route Start Last Admin Trade Name Freq PRN Reason Stop Dose Admin Acetaminophen 1,000 mg 10/20/24 16:00 10/22/24 07:38 Acetaminophen 500 Mg Tab PO 11/19/24 15:59 1,000 mg Q8H BREN Administration Allopurinol 100 mg 10/19/24 21:00 10/21/24 21:24 Allopurinol 100 Mg Tab PO 11/18/24 20:59 100 mg HS BREN Administration Amlodipine Besylate 5 mg 10/20/24 09:00 10/20/24 08:35 Amlodipine Besylate 5 Mg Tab PO 11/19/24 08:59 5 mg QAM BREN Administration Apixaban 5 mg 10/20/24 09:00 10/20/24 08:35 Apixaban 5 Mg Tablet PO 11/19/24 08:59 5 mg BID BREN Administration Calcium Carbonate 1 tab 10/20/24 09:00 10/22/24 08:57 Calcium Carbonate 1250mg Tab PO 11/19/24 08:59 1 tab QAM BREN Administration Duloxetine HCl 20 mg 10/20/24 09:00 10/22/24 08:56 Duloxetine Hcl 20 Mg Cap PO 11/19/24 08:59 20 mg DAILY BREN Administration Gabapentin 100 mg 10/21/24 14:00 10/22/24 08:55 Gabapentin 100 Mg Cap PO 11/20/24 13:59 100 mg TID BREN Administration Promethazine HCl 6.25 mg in 50.25 mls @ 201 mls/hr 10/19/24 18:00 10/19/24 23:14 Phenergan IV 11/18/24 17:59 Infused Q6H PRN Infusion Nausea And Vomiting Losartan Potassium 50 mg 10/20/24 09:00 10/20/24 08:36 Losartan Potassium 50 Mg Tab PO 11/19/24 08:59 50 mg QAM BREN Administration Metoprolol Succinate 25 mg 10/20/24 09:00 10/22/24 08:56 Metoprolol Succ 25mg Ext Rel Tab PO 11/19/24 08:59 25 mg QAM BREN Administration Polyethylene Glycol 17 gm 10/20/24 11:40 10/22/24 09:04 Polyethylene (Miralax) 17 Gm Pack PO 11/19/24 11:39 17 gm DAILY BREN Administration Rosuvastatin Calcium 5 mg 10/19/24 21:00 10/21/24 21:23 Rosuvastatin Calcium 5 Mg Tab PO 11/18/24 20:59 5 mg HS BREN Administration Senna/Docusate Sodium 1 tab 10/20/24 11:45 10/22/24 09:04 Docusate Sodium/Senna 50/8.6mg Tab PO 11/19/24 11:44 1 tab QAM BREN Administration Vitamin D 50 mcg 10/20/24 09:00 10/22/24 08:56 Cholecalciferol 25 Mcg (1000 Units) Tab PO 11/19/24 08:59 50 mcg QAM BREN Administration
--- NOTE | 2024-10-22 11:04 | Nephrology Progress Note ---
Date of Service October 22, 2024 Assessment & Plan (1) CHALINO (acute kidney injury): Plan: Resolved nonoliguric Stage 2 CHALINO; prerenal versus multifactorial ischemic ATN w/ some lower SBP in 90s intermittently postoperatively and s/p IV contrast admin and s/p 10/20 losartan dose Presented w/ creatinine 1.2, increased to 1.5 later in the day of admission and now downtrending further to 0.6. Baseline creatinine 0.7-0.8. -agree w/ cont to hold antihypertensives -I/O pls measure as able -no indication for diuretics -daily BMP will sign off NEPHRO D/C RECS DX: -Nonoliguric stage II acute kidney injury from multifactorial ischemic ATN -electrolyte disorders > hyponatremia, hyperkalemia -R renal mass RX: Reasonable to wait until follow-up with PCP to evaluate timing to resume losartan from prior to admission Continue to hold amlodipine for now pending successful physical therapy work without hypotension - Continue NSAID avoidance apart from asa 81 mg daily FOLLOW UP CARE AND LABS: -bmp at hospital d/c visit with PCP and weekly x 3 -suggest NV for BP checks w/ lab draws or labs/ BP checks w/ [facility]N -continue [facility] f/u for renal complex renal cyst FOLLOW UP APPTS: -no indication for nephro hospital d/c appt unless ongoing concerns about electrolytes, renal function, BP - Hospital discharge appointment with PCP within 10 days of discharge Care coordinated w/ Dr Edmond via [employer]Text re med changes, f/u labs-BP checks- appts; we are in agreement. (2) Hyperkalemia: Plan: resolved w/ 3 doses lokelma -no further lokelma needed >>cancelled low K diet -cont to hold losartan (last dose 10/20) -daily bmp (3) Hyponatremia: Plan: improving; mild and a new inpatient issue; most consistent with hypovolemia in the setting of fluid intake > solids urine sodium <15, urine osm 240s; sOsm 280s sNa 132-134 since 10/20 midday > to 135 today >daily BMP -avoid nsaids -encourage protein 65 gm daily intake >hold off on salt tabs -no fluid limit for now (4) Renal mass, right: Plan: cont OP urology f/u; issue/pt well known to [facility] Admission and Anticipated Discharge Date Admission Date: October 19, 2024 Subjective has diggs; another night she reports of poor sleep > this time more d/t confusion, "I couldn't find myself" she tells me; endorses poor po intake; pain much better controlled and doing exercises in chair; no sob, no n/v Review of Systems 2 Review of Systems: All systems reviewed & are unremarkable except as noted in Subjective Physical Exam 2 Constitutional: well developed (sitting up in chair on RA), well nourished, + frail appearing and cooperative; no acute distress Eyes: EOM intact bilaterally ENMT: Ears: no external ear abnormality Nose: no external nose abnormality Mouth: + dry oral mucous membranes Neck: no nuchal rigidity Respiratory: normal respiratory effort Auscultation: + diminished lung sounds Cardiovascular: RRR, no murmur, no edema Gastrointestinal (Abdomen): Inspection/Auscultation: normal bowel sounds P ercussion/Palpation: abdomen soft; abdomen nontender Musculoskeletal: Extremities: strength 5/5 throughout Skin: no rashes, warm and dry Results & Data Vital Signs (Past 12 Hours) Vital Signs Temp Pulse Pulse Resp BP Pulse Ox O2 Del Method 10/22/24 07:52 37.0 C 83 16 135/71 91 Room Air 10/22/24 03:04 37.2 C 88 16 111/66 92 Room Air 10/21/24 23:01 37 C 79 16 146/78 H 93 Room Air Laboratory Results 10/22/24 05:49 10/22/24 05:49
[2024-10-22 11:48] LABS: Iron 15.0 mcg/dl (35-150); Total Iron Binding Cap Calc 263.0 mcg/dl (250-450); Transferrin 188.0 mg/dl (200-360); Transferrin (FE) Percent Satur 6.0 % (15-50)
[2024-10-22 12:05] LABS: Reticulated Hemoglobin 35.7 pg (28.2-36.6); Reticulocytes # 0.130 10^6/uL (0.020-0.100)
[2024-10-22 12:08] LABS: Ferritin 144.7 ng/ml (8-388)
[2024-10-22 12:30] LABS: INR 0.9 (0.9-1.1); Prothrombin Time 10.0 Seconds (9.0-12.0)
[2024-10-22 17:03] LABS: Hematocrit (blood only) 29.7 % (37.0-47.0); Hemoglobin 10.2 g/dl (12.0-16.0)
--- NOTE | 2024-10-22 17:04 | CT Scan Report ---
CT left femur without contrast History: Hematoma Comparison: None Technique: CT performed of the extremity without IV contrast. Dose reduction techniques were achieved by using automatic exposure control and/or adjustment of mA and/or kV according to patient size and/or use of iterative reconstruction technique. Findings: Left femoral cephalomedullary eleazar with dynamic interlocking femoral neck screw for fixation of an intertrochanteric fracture. Joint spaces are normally aligned. Extensive mild subcutaneous stranding about the left lateral hip region, representing edema and/or blood products. There is also mild circumferential edema throughout the left thigh. Left hip skin staple line. Few foci of postoperative air in the soft tissues. Small hematoma about the left gluteus medius musculature, series 2 image 4, measuring 1.0 cm in thickness, and approximately 2.0 cm AP. No aggressive osseous lesion. Impression: Small intramuscular hematoma in the left gluteus medius. Electronically signed by Tre Drake 10-22-2024 5:03 PM
[2024-10-23 07:39] LABS: Hematocrit (blood only) 27.6 % (37.0-47.0); Hemoglobin 9.5 g/dl (12.0-16.0); Mean Corpuscular Hemoglobin 33.2 pg (25.0-34.0); Mean Corpuscular Volume 96.5 fL (80.0-100.0); Platelet Count 108 K/uL (130-400); RDW Standard Deviation 50.1 fL (36.4-46.3); Red Blood Count 2.86 M/uL (4.20-5.40); White Blood Count 7.27 K/ul (4.8-10.8)
[2024-10-23 07:58] LABS: Anion Gap 4.0 (3-11); Blood Urea Nitrogen 14.0 mg/dl (6-23); Calcium 8.3 mg/dl (8.6-10.3); Carbon Dioxide 30.0 mmol/L (21-32); Chloride 102.0 mmol/L (98-107); Creatinine Clr Calc Pharmacy 62.7 ml/min; Glucose 101.0 mg/dl (70-99(Fasting)); Magnesium 2.1 mg/dl (1.7-2.4); Potassium 4.8 mmol/L (3.5-5.1); Sodium 136.0 mmol/L (136-145)
--- NOTE | 2024-10-23 08:16 | Electrocardiogram Report ---
Test Reason : Blood Pressure : */* mmHG Vent. Rate : 68 BPM Atrial Rate : 68 BPM P-R Int : 136 ms QRS Dur : 76 ms QT Int : 388 ms P-R-T Axes : 41 3 69 degrees QTcB Int : 412 ms Sinus rhythm with Premature atrial complexes with Aberrant conduction Otherwise normal ECG When compared with ECG of 19-Oct-2024 11:24, Premature ventricular complexes are no longer Present Aberrant conduction is now Present Nonspecific T wave abnormality no longer evident in Inferior leads Confirmed by Aditi Haque (Claudio) on 10/23/2024 8:15:50 AM Referred By: REFERRED SELF Confirmed By: Aditi Haque
--- NOTE | 2024-10-23 10:10 | Electrocardiogram Report ---
Test Reason : Blood Pressure : */* mmHG Vent. Rate : 76 BPM Atrial Rate : 76 BPM P-R Int : 154 ms QRS Dur : 78 ms QT Int : 360 ms P-R-T Axes : 49 10 70 degrees QTcB Int : 405 ms Sinus rhythm with occasional Premature ventricular complexes Nonspecific T wave abnormality Abnormal ECG When compared with ECG of 20-Oct-2024 07:48, No significant change was found Confirmed by Abisai Vargas ([id number]) on 10/23/2024 10:10:33 AM Referred By: REFERRED SELF Confirmed By: Abisai Vargas
--- NOTE | 2024-10-23 12:35 | Hospitalist Progress Note ---
Date of Service October 23, 2024 Assessment & Plan (1) Diabetes mellitus type 2, diet-controlled: (2) Hyperlipidemia: (3) Chronic systolic CHF (congestive heart failure): (4) CAD (coronary artery disease): (5) Type 2 diabetes mellitus: (6) Closed left hip fracture: Plan Ms. Rand is an 89-year-old female who presented to the ED on 10/19/2024 s/p mechanical fall found to have a left hip fracture. Patient is now s/p left intertrochanteric nail. #Acute anemia 2/2 post op blood loss, possibly dilutional #Thrombocytopenia platelets improved at 108 Restart Eliquis tomorrow if Hgb stable, hgb 9.5 today S/P transfuse 1 Unit prbcs Follow Hgb CT left femur assess for hematoma ---> Small intramuscular hematoma in the left gluteus medius. #Left hip fracture s/p intertrochanteric nail #Mechanical fall s/p ORIF 10/[address] De Dios Pain control regimen intact. schedule Tylenol bowel regimen PT/OT: Anticipate rehab stay. [facility] [employer] #CHALINO on CKD *resolved .8-->1.5 creatinine peaked, now at baseline 0.52 today avoid nephrotoxic agents blood pressure control Nephrology consulted Hold losartan, if to resume bp medication will prioritize amlodipine at this time--however still completed valtessa, K now at 4.8 #hyponatremia Resolved 138 today #delirium Resolved resume lowered low gabapentin in setting of CHALINO judicious use of opioids delirium precautions #L scalp laceration -Scalp lac repaired with joanne in ED (2) follow up for removal in 7-10 days #Hx CAD/cardiac thrombus/systolic CHF: Resume aspirin, Eliquis in AM if able, continue metoprolol #Postoperative hypotension # HTN/HLD: hold losartan/amlodipine, resume as able -continue statin A total of 50 minutes were spent on chart review/reviewing diagnostic data/facilitating plan of care/discussion with consultants Full code DVT prophylaxis: Eliquison hold given anemia, May restart in AM Admission and Anticipated Discharge Date Admission Date: October 19, 2024 Subjective Chart, data and vital signs reviewed. Patient seen with physical therapy this a.m. Still has diggs. Pain is controlled. Appreciate nephrology input. She denies chest pain. She states she is always short of breath with exertion. She denies nausea or vomiting at present.. Physical Exam Physical Exam: General- adult elderly female seen at chair side Head- atraumatic Eyes- PERRL, EOMI, anicteric ENT- oropharynx clear Neck- supple, no JVD, Lungs- clear to auscultation and percussion Heart- regular rhythm; Extremities- no pretibial edema, no calf tenderness; peripheral pulses intact Neuro- alert, oriented; PERRL, EOMI; no gross focal deficits Skin- warm & dry Results & Data Results & Data Vital Signs (Past 12 Hours) Vital Signs Temp Pulse Pulse Resp BP BP Pulse Ox 10/23/24 10:49 36.9 C 64 18 150/71 H 96 10/23/24 07:39 36.9 C 77 18 164/76 H 90 10/23/24 07:17 70 10/23/24 02:44 37.0 C 79 18 144/74 H 91 O2 Del Method 10/23/24 10:49 Room Air 10/23/24 07:39 Room Air 10/23/24 07:17 10/23/24 02:44 Room Air Diagnostic Findings Laboratory Results WBC 7.27 K/ul (4.8-10.8) 10/23/24 06:30 RBC 2.86 M/uL (4.20-5.40) L 10/23/24 06:30 Hgb 9.5 g/dl (12.0-16.0) L 10/23/24 06:30 POC Hgb 14.3 g/dl (12.0-16.0) 10/19/24 10:38 Hct 27.6 % (37.0-47.0) L 10/23/24 06:30 POC Hct 42 % (37-47) 10/19/24 10:38 MCV 96.5 fL (80.0-100.0) 10/23/24 06:30 MCH 33.2 pg (25.0-34.0) 10/23/24 06:30 MCHC 34.4 g/dL (32.0-36.0) 10/23/24 06:30 RDW Std Deviation 50.1 fL (36.4-46.3) H 10/23/24 06:30 RDW Coeff of Rosita 14.2 % (11.5-14.5) 10/23/24 06:30 Plt Count 108 K/uL (130-400) L 10/23/24 06:30 MPV 10.7 fL (9.4-12.4) 10/23/24 06:30 Immature Gran % (Auto) 0.7 % 10/19/24 10:32 Neut % (Auto) 79.5 % 10/19/24 10:32 Lymph % (Auto) 12.1 % 10/19/24 10:32 Archer % (Auto) 6.7 % 10/19/24 10:32 Eos % (Auto) 0.6 % 10/19/24 10:32 Baso % (Auto) 0.4 % 10/19/24 10:32 Reticulocyte % (Auto) 5.23 % (0.50-2.00) H 10/22/24 11:44 Neut # (Auto) 6.66 K/uL (1.40-6.50) H 10/19/24 10:32 Lymph # (Auto) 1.01 K/uL (1.20-3.40) L 10/19/24 10:32 Archer # (Auto) 0.56 K/uL (0.11-0.59) 10/19/24 10:32 Eos # (Auto) 0.05 K/uL (0.00-0.50) 10/19/24 10:32 Baso # (Auto) 0.03 K/uL (0.00-0.20) 10/19/24 10:32 Reticulocyte # 0.130 10^6/uL (0.020-0.100) H 10/22/24 11:44 Immature Gran # (Auto) 0.06 K/uL (0.01-0.20) 10/19/24 10:32 Absolute Nucleated RBC 0.02 K/uL (0.00-0.12) 10/23/24 06:30 Nucleated RBC % (auto) 0.3 % 10/23/24 06:30 Platelet Estimate Decreased (Normal) L 10/20/24 12:31 Peripher Smr Path Cons 10/22/24 11:44 Immature Retic Fraction 31.7 % (2.3-15.9) H 10/22/24 11:44 Retic Hgb Content 35.7 pg (28.2-36.6) 10/22/24 11:44 PT 10.0 Seconds (9.0-12.0) 10/22/24 11:44 INR 0.9 (0.9-1.1) 10/22/24 11:44 APTT 22 Seconds (21-31) 10/19/24 10:32 PTT Ratio 0.8 10/19/24 10:32 POC Sodium 138 mmol/L (135-144) 10/19/24 10:38 Sodium 136 mmol/L (136-145) 10/23/24 06:30 POC Potassium 4.6 mmol/L (3.3-5.0) 10/19/24 10:38 Potassium 4.8 mmol/L (3.5-5.1) 10/23/24 06:30 POC Chloride 105 mmol/L (101-112) 10/19/24 10:38 Chloride 102 mmol/L (98-107) 10/23/24 06:30 Carbon Dioxide 30 mmol/L (21-32) 10/23/24 06:30 POC Total CO2 23 mmol/L (24-31) L 10/19/24 10:38 Anion Gap 4 (3-11) 10/23/24 06:30 POC Anion Gap 16.0 mmol/L (16-25) 10/19/24 10:38 POC BUN 22 mg/dl (7-18) H 10/19/24 10:38 BUN 14 mg/dl (6-23) 10/23/24 06:30 Creatinine 0.52 mg/dl (0.6-1.2) L 10/23/24 06:30 POC Creatinine 0.9 mg/dl (0.6-1.3) 10/19/24 10:38 Est Cr Clr Drug Dosing 62.7 ml/min 10/23/24 06:30 eGFR 89.87 10/23/24 06:30 BUN/Creatinine Ratio 26.9 (10-20) H 10/23/24 06:30 Glucose 101 mg/dl (70-99(Fasting)) H 10/23/24 06:30 POC Glucose (other) 140 mg/dl (70-99) H 10/19/24 10:38 Estimat Average Glucose 128 mg/dl 10/19/24 10:32 Hemoglobin A1c 6.1 % (4.5-5.6) H 10/19/24 10:32 Osmolality 289 mOsm/kg (280-300) 10/20/24 16:55 Calcium 8.3 mg/dl (8.6-10.3) L 10/23/24 06:30 POC Ioniz Calcium Chantelle 1.20 mmol/l (1.12-1.32) 10/19/24 10:38 Phosphorus 2.5 mg/dl (2.5-4.9) 10/23/24 06:30 Magnesium 2.1 mg/dl (1.7-2.4) 10/23/24 06:30 Iron 15 mcg/dl (35-150) L 10/22/24 05:49 TIBC 263 mcg/dl (250-450) 10/22/24 05:49 Transferrin 188 mg/dl (200-360) L 10/22/24 05:49 Transferrin % Sat 6 % (15-50) L 10/22/24 05:49 Ferritin 144.7 ng/ml (8-388) 10/22/24 05:49 Total Bilirubin 1.4 mg/dl (0.2-1.0) H 10/19/24 10:32 AST 33 U/L (13-39) 10/19/24 10:32 ALT 58 U/L (7-52) H 10/19/24 10:32 Alkaline Phosphatase 33 U/L (34-104) L 10/19/24 10:32 Total Creatine Kinase 46 U/L (26-192) 10/19/24 10:32 Troponin I High Sens 20.2 pg/ml (0-14) H 10/19/24 12:38 Total Protein 6.0 gm/dl (6.0-8.3) 10/19/24 10:32 Albumin 3.7 gm/dl (3.4-5.0) 10/19/24 10:32 Globulin 2.3 gm/dl (2.5-4.0) L 10/19/24 10:32 Albumin/Globulin Ratio 1.6 (0.9-2) 10/19/24 10:32 Lipase 16 U/L (11-82) 10/19/24 10:32 TSH 0.628 uIu/ml (0.300-4.500) 10/21/24 06:00 Urine Color Dark Yellow 10/20/24 Unknown Urine Appearance Clear (Clear) 10/20/24 Unknown Urine pH 5.0 (4.5-7.5) 10/20/24 Unknown Ur Specific Hollis 1.033 (1.000-1.030) H 10/20/24 Unknown Urine Protein Negative (Negative) 10/20/24 Unknown Urine Glucose (UA) Negative (Negative) 10/20/24 Unknown Urine Ketones Trace (Negative) H 10/20/24 Unknown Urine Blood Negative (Negative) 10/20/24 Unknown Urine Nitrite Negative (Negative) 10/20/24 Unknown Urine Bilirubin Negative (Negative) 10/20/24 Unknown Urine Urobilinogen Negative (Negative) 10/20/24 Unknown Ur Leukocyte Esterase 1+ (Negative) H 10/20/24 Unknown Urine WBC (Auto) 21-50 /hpf (0-5) H 10/20/24 Unknown Urine RBC (Auto) 0-2 /hpf (0-2) 10/20/24 Unknown U Hyaline Cast (Auto) 11-20 /lpf (0-2) H 10/20/24 Unknown U Epithel Cells (Auto) 0-2 /hpf (0-2) 10/20/24 Unknown Urine Bacteria (Auto) None Seen (None Seen) 10/20/24 Unknown Urine Osmolality 453 mOsm/kg (500-800) L 10/20/24 Unknown Ur Random Creatinine 170.0 mg/dl 10/20/24 Unknown U Random Total Protein 16.6 mg/dl (0-11.9) H 10/20/24 Unknown Protein/Creatinin Ratio 0.1 (0-0.2) 10/20/24 Unknown Urine Sodium < 10 mmol/L 10/20/24 Unknown Urine Potassium 83.7 mmol/L 10/20/24 Unknown Urine Chloride < 15 mmol/L 10/20/24 Unknown Urine Comment 10/20/24 Unknown Blood Type A Positive 10/22/24 05:49 Antibody Screen NEGATIVE 10/22/24 05:49 Crossmatch See Detail 10/22/24 05:49 Impressions Abdomen/Pelvis CT 10/19/24 10:[address] WITH IV CONTRAST CT DOSE: 2426.25 mGy.cm HISTORY: Acute abdominal trauma Trauma TECHNIQUE: Multiaxial CT images of the abdomen and pelvis were performed following the IV administration of 94 cc of Optiray, A dose lowering technique was utilized adhering to the principles of ALARA. COMPARISON STUDY: Pelvis radiographs of same day, CT abdomen and pelvis 03/08/2024 FINDINGS: Cardiomegaly with extensive coronary artery calcifications. Clear lung bases. No pneumatosis or pneumoperitoneum. Indeterminate subcentimeter enhancing focus of the spleen is stable and likely benign. Unremarkable pancreas, gallbladder and adrenal glands. The liver is within normal limits. Subcentimeter probable cyst of the hepatic dome. Patency of the hepatic and portal veins. There are a few scattered nonobstructing calculi in the bilateral kidneys measuring up to 6 mm on the right and 4 mm on the left. There are a few small scattered cysts of the kidneys. Enhancing exophytic 2.0 x 2.2 x 1.8 cm mass of the superior pole right kidney is stable from prior. No hydronephrosis. Unremarkable urinary bladder. Hysterectomy with pelvic floor relaxation. Atherosclerosis of the aorta and branch vessels. No lymphadenopathy. Small hiatal hernia. No bowel obstruction or bowel wall thickening. Colonic diverticulosis without acute diverticulitis. Intertrochanteric nail medullary eleazar of the right proximal femur. Acute, comminuted, angulated and displaced intertrochanteric left femoral fracture. The left acetabulum and pelvic ring appear intact. Hematoma posterior to the left femur measures 5 cm. IMPRESSION: 1. Acute intertrochanteric left femoral fracture as above with adjacent 5 cm soft tissue hematoma. 2. No acute pelvic ring fracture. 3. No acute posttraumatic intra-abdominal or intrapelvic abnormality. 4. Stable 2.2 cm right renal mass suggestive of renal cell carcinoma. 5. Nonobstructing bilateral nephrolithiasis without hydronephrosis. 6. Additional findings as above. ACT 112: Negative or not required by law. The above report was generated using voice recognition software. It may contain grammatical, syntax or spelling errors. Electronically signed by: Aiden Baltazar M.D. 10/19/2024 11:22 AM Chest X-Ray 10/19/24 10:28 PORTABLE SUPINE AP CHEST RADIOGRAPH CLINICAL HISTORY: Trauma COMPARISON STUDY: Chest radiograph December 08, 2022. Chest CT December 06, 2023. FINDINGS: No pneumothorax is identified on supine exam. Cardiomegaly is noted. There is no evidence for pulmonary edema. No airspace opacities are present. Old left-sided rib fractures are incidentally noted. IMPRESSION: No acute cardiopulmonary findings. ACT 112: Negative or not required by law. Electronically signed by: Jesse Negrete M.D. 10/19/2024 10:59 AM Pelvis X-Ray 10/19/24 10:28 XR pelvis 1-2V routine HISTORY: 89 years-old Female Trauma COMPARISON: Left femur radiographs of same day TECHNIQUE: AP view of the pelvis FINDINGS: Acute, comminuted, impacted, mildly angulated and displaced intertrochanteric left femoral fracture. Moderate associated soft tissue swelling. Moderate osteoarthritis of the hips. Intertrochanteric nail with medullary eleazar of the right femur. Arterial calcifications. Questioned cortical irregularity of the left superior pubic ramus. Ill-defined lucencies project over the left acetabulum. IMPRESSION: 1. Acute intertrochanteric left femoral fracture as above. 2. Ill-defined lucencies projected over the left acetabulum and left superior pubic ramus are favored to be artifactual. Subtle acute nondisplaced fractures could appear similarly. ACT 112: Negative or not required by law. The above report was generated using voice recognition software. It may contain grammatical, syntax or spelling errors. Electronically signed by: Aiden Baltazar M.D. 10/19/2024 11:[address] 10/19/24 10:29 CT SCAN OF THE CERVICAL SPINE CLINICAL HISTORY: Trauma. COMPARISON STUDY: Cervical spine CT December 06, 2023. TECHNIQUE: CT scan of the cervical spine is performed from the skull base to the upper thoracic spine. Images are reviewed in the axial, sagittal, and coronal planes. IV contrast was not administered for this examination. A dose lowering technique was utilized adhering to the principles of ALARA. FINDINGS: Skeletal structures: There is no evidence of fracture or subluxation involving the cervical spine. Vertebral body height and alignment are maintained. The odontoid process and lateral masses are intact. The atlantoaxial articulation is preserved. The spinous processes appear intact. Severe multilevel facet arthrosis and moderate disc space narrowing and endplate osteophytosis within the cervical spine is again noted. Soft tissues: The prevertebral and paraspinous soft tissues are within normal limits. Calvarium: The visualized calvarium at the skull base appears intact. Brain parenchyma: Partially visualized brain parenchyma at the skull base is within normal limits. Lung apices: Clear as visualized. IMPRESSION: No acute cervical spine fracture or subluxation. ACT 112: Negative or not required by law. Electronically signed by: Jesse Negrete M.D. 10/19/2024 11:[address] 10/19/24 10:29 CT SCAN OF THE BRAIN WITHOUT IV CONTRAST CLINICAL HISTORY: Trauma COMPARISON STUDY: CT of the brain dated 03/08/2024 TECHNIQUE: Unenhanced axial CT scan of the brain is performed from the vertex to the skull base. Images are reviewed in the axial, sagittal, coronal planes. A dose lowering technique was utilized adhering to the principles of ALARA. FINDINGS: Brain parenchyma: There is age-related involutional change noting mild subcortical and periventricular microangiopathic disease. There is no hemorrhage, mass effect, or evidence of acute territorial ischemia by CT criteria. Busch-white matter differentiation is preserved. No extra-axial fluid collection is seen. Ventricles, sulci, cisterns: Prominent secondary to involutional change. Intracranial vasculature: There is atherosclerotic calcification of the cavernous carotid arteries. Calvarium: The skeletal structures are osteopenic. No depressed calvarial fracture is seen. Soft tissues: There is a left parietal scalp hematoma/laceration. Sinuses and mastoids: The paranasal sinuses are clear. The mastoid air cells are well pneumatized. Orbits: The bony orbits are grossly intact. There are bilateral ocular lens implants. IMPRESSION: 1. There is no hemorrhage, mass effect, or evidence of acute territorial ischemia by CT criteria. 2. Left parietal scalp injury. ACT 112: Negative or not required by law. Electronically signed by: Per France M.D. 10/19/2024 11:12 AM Femur X-Ray 10/19/24 10:30 XR femur RT 2V routine CLINICAL HISTORY: trauma COMPARISON: Pelvis and right hip radiographs May 07, 2022. CT of the abdomen and pelvis March 08, 2024. FINDINGS: There are stable findings following open reduction and internal fixation of the intertrochanteric fracture of the right femur. Hardware is intact. No right femoral fractures are present. Extensive vascular calcification is incidentally noted. There is no right knee joint effusion. IMPRESSION: 1. No acute right femoral fractures. 2. Stable findings following internal fixation of the intertrochanteric fracture of the right femur. ACT 112: Negative or not required by law. Electronically signed by: Jesse Negrete M.D. 10/19/2024 11:01 AM Hip X-Ray 10/19/24 16:41 Study: Left hip 2 views History: Postop Comparison: None Findings/impression: Cephalomedullary eleazar of the left femur with interlocking femoral neck screw. A fracture is seen at the base of the femoral neck. Skin joanne are seen. Mild postoperative soft tissue air. Electronically signed by Tre Drake 10-19-2024 6:[address] 10/22/24 11:33 CT left femur without contrast History: Hematoma Comparison: None Technique: CT performed of the extremity without IV contrast. Dose reduction techniques were achieved by using automatic exposure control and/or adjustment of mA and/or kV according to patient size and/or use of iterative reconstruction technique. Findings: Left femoral cephalomedullary eleazar with dynamic interlocking femoral neck screw for fixation of an intertrochanteric fracture. Joint spaces are normally aligned. Extensive mild subcutaneous stranding about the left lateral hip region, representing edema and/or blood products. There is also mild circumferential edema throughout the left thigh. Left hip skin staple line. Few foci of postoperative air in the soft tissues. Small hematoma about the left gluteus medius musculature, series 2 image 4, measuring 1.0 cm in thickness, and approximately 2.0 cm AP. No aggressive osseous lesion. Impression: Small intramuscular hematoma in the left gluteus medius. Electronically signed by Tre Drake 10-22-2024 5:03 PM
[2024-10-24 06:12] LABS: Hematocrit (blood only) 30.3 % (37.0-47.0); Hemoglobin 10.1 g/dl (12.0-16.0); Mean Corpuscular Hemoglobin 32.8 pg (25.0-34.0); Mean Corpuscular Volume 98.4 fL (80.0-100.0); Platelet Count 127 K/uL (130-400); RDW Standard Deviation 48.2 fL (36.4-46.3); Red Blood Count 3.08 M/uL (4.20-5.40); White Blood Count 6.22 K/ul (4.8-10.8)
[2024-10-24 06:30] LABS: Anion Gap 7.0 (3-11); Blood Urea Nitrogen 17.0 mg/dl (6-23); Calcium 8.6 mg/dl (8.6-10.3); Carbon Dioxide 30.0 mmol/L (21-32); Chloride 99.0 mmol/L (98-107); Creatinine Clr Calc Pharmacy 58.2 ml/min; Glucose 108.0 mg/dl (70-99(Fasting)); Potassium 4.5 mmol/L (3.5-5.1); Sodium 136.0 mmol/L (136-145)
[2024-10-24 07:49] VITALS: RESP 17
[2024-10-24 10:59] VITALS: TEMP 98.1; O2SAT 96
--- NOTE | 2024-10-24 11:58 | Discharge Summary ---
Discharge Summary Date of Service October 24, 2024 Principal Dx & Hospital Course #1 = Principal Diagnosis (1) Diabetes mellitus type 2, diet-controlled: (2) Hyperlipidemia: (3) Chronic systolic CHF (congestive heart failure): (4) CAD (coronary artery disease): (5) Type 2 diabetes mellitus: (6) Closed left hip fracture: Plan Ms. Rand is an 89-year-old female who presented to the ED on 10/19/2024 s/p mechanical fall found to have a left hip fracture. Patient is now s/p left intertrochanteric nail. #Acute anemia 2/2 post op blood loss, possibly dilutional #Thrombocytopenia platelets improved at 108 Restart Eliquis tomorrow if Hgb stable, hgb 9.5 today S/P transfuse 1 Unit prbcs Follow Hgb CT left femur assess for hematoma ---> Small intramuscular hematoma in the left gluteus medius. #Left hip fracture s/p intertrochanteric nail #Mechanical fall s/p ORIF 10/[address] De Dios Pain control regimen intact. schedule Tylenol bowel regimen PT/OT: Anticipate rehab stay. Care management working on [employer] #CHALINO on CKD *resolved .8-->1.5 creatinine peaked, now at baseline 0.52 today avoid nephrotoxic agents blood pressure control Nephrology consulted Hold losartan, if to resume bp medication will prioritize amlodipine at this time--however still completed valtessa, K now at 4.8 #hyponatremia Resolved 138 today #delirium Resolved resume lowered low gabapentin in setting of CHALINO judicious use of opioids delirium precautions #L scalp laceration -Scalp lac repaired with joanne in ED (2) follow up for removal in 7-10 days #Hx CAD/cardiac thrombus/systolic CHF: Resume aspirin, Eliquis in AM if able, continue metoprolol #Postoperative hypotension # HTN/HLD: hold losartan/amlodipine, resume as able -continue statin Full code DVT prophylaxis: Eliquison hold given anemia, May restart in AM HOSPITAL COURSE: Pt underwent successful pinning of the left hip. She had post op delirium, hyponatremia, hyperkalemia and CHALINO. Nephrology was consulted. Her renal fx returned to baseline and the hyponatremia and hyperkalemia was corrected. PT and OT were consulted. Rehab was recommended. On the day of discharge her vital si gns are stable. Her physical exam findings were stable. Patient was transferred to [facility] for continuing rehab. Notes For Next Care Provider Medication Changes From Visit no changes Admission HPI Per Admitting Provider The patient is an 89-year-old female with a past medical history of CHF, systolic, cardiac thrombus on Eliquis, HTN, HLD, [id number] controlled, CAD who presents to the ED on 10/19/2024 with complaints of a mechanical fall and left hip pain. Patient reports she was trying to take something out of the trash and fell over. Her traumatic workup was negative aside from a left hip fracture. On exam, the patient denied any chest pain/shortness of breath/fever/chills. Denies any abdominal pain/nausea/vomiting. Did report a small headache that improved with the pain medication. Has a scalp laceration that has been stable by the ER. Has a history of a right hip fracture that was repaired. On arrival to the ED, labs remarkable for platelets 115, CO2, BUN 22, glucose 140, 58, troponin 24.8 Chest x-ray neg Pelvis x-ray showed: 1. Acute intertrochanteric left femoral fracture as above. 2. Ill-defined lucencies projected over the left acetabulum and left superior pubic ramus are favored to be artifactual. Subtle acute nondisplaced fractures could appear similarly. Cervical spine CT negative Head CT: 1. There is no hemorrhage, mass effect, or evidence of acute territorial ischemia by CT criteria. 2. Left parietal scalp injury. Abdomen/pelvis CT showed: 1. Acute intertrochanteric left femoral fracture as above with adjacent 5 cm soft tissue hematoma. 2. No acute pelvic ring fracture. 3. No acute posttraumatic intra-abdominal or intrapelvic abnormality. 4. Stable 2.2 cm right renal mass suggestive of renal cell carcinoma. 5. Nonobstructing bilateral nephrolithiasis without hydronephrosis. 6. Additional findings as above. Discharge Exam General- adult elderly female seen at chair side Head- atraumatic Eyes- PERRL, EOMI, anicteric ENT- oropharynx clear Neck- supple, no JVD, Lungs- clear to auscultation and percussion Heart- regular rhythm; Extremities- no pretibial edema, no calf tenderness; peripheral pulses intact Neuro- alert, oriented; PERRL, EOMI; no gross focal deficits Skin- warm & dry Updated Medication List Medication Instructions Recorded Confirmed Type aspirin 81 mg tablet,delayed 81 mg PO QAM 04/26/22 10/19/24 History release gabapentin 300 mg capsule 300 mg PO TID 04/26/22 10/19/24 History losartan 50 mg tablet 50 mg PO QAM 04/26/22 10/19/24 History metoprolol succinate 25 mg 25 mg PO QAM 04/26/22 10/19/24 History tablet,extended release 24 hr nitroglycerin 0.4 mg sublingual 0.4 mg sublingual DIRECTED PRN 04/26/22 10/19/24 History tablet Chest Pain rosuvastatin 5 mg tablet 5 mg PO HS 04/26/22 10/19/24 History acetaminophen 500 mg tablet 1,000 mg PO TID Pain 06/26/22 10/19/24 History (Tylenol Extra Strength) alendronate 70 mg tablet 70 mg PO WK 03/08/24 10/19/24 History allopurinol 100 mg tablet 100 mg PO HS 03/08/24 10/19/24 History calcium carbonate 500 mg PO QAM 03/08/24 10/19/24 History cholecalciferol (vitamin D3) 50 50 mcg PO QAM 03/08/24 10/19/24 History mcg (2,000 unit) tablet (Vitamin D3) magnesium citrate 125 mg capsule 125 mg PO QAM 03/08/24 10/19/24 History amlodipine 5 mg tablet (Norvasc) 5 mg PO QAM 10/19/24 10/19/24 History apixaban 5 mg tablet (Eliquis) 5 mg PO BID 10/19/24 10/19/24 History duloxetine 20 mg capsule,delayed 20 mg PO DAILY 10/19/24 10/19/24 History release Hospital Stay Data Consultations 10/19/24 11:38 Consult Orthopedic Surgery Routine 10/19/24 11:40 ED Decision to Admit Stat 10/19/24 12:33 Consult Cardiology Routine 10/20/24 19:09 Consult Nephrology Routine Procedures Performed Operation Date: 10/19/24 11:15 Actual Procedures p Left trochanteric nail(Left) - Cl Gillespie, Diagnostic Imagining Performed 10/19/24 10:28 CT abd pelvis IV con only Stat 10/19/24 10:29 CT cervical spine wo con Stat CT head/brain wo con Stat 10/19/24 14:00 FL hip LT 2-3V Routine 10/22/24 11:33 CT femur LT wo con Routine Pending Results Patient Have Any Pending Studies at Discharge: No Discharge Instructions Given to Patient (Per Discharging Provider) F/U with orthopedics Routine incision care as below continue MNPG f/u for renal complex renal cyst Check BMP weekly Remove scalp joanne 7-10 days from hospital admission Total Time Total Time Spent Total Time Spent (In Minutes): 60 minutes
[2024-10-24 14:17] VITALS: BP 159/80; PULSE 83
== END 2024-10-24 15:15 | DRG 480 ==
LOC: ED 10:24 → SUATTDRO 11:50 → EDINP 11:50 → 2S 15:57